=== PATIENT | male | born 1950 | race Caucasian/White ===

== ENCOUNTER 2016-11-14 10:58 | Emergency (ER) | payer MEDICARE, BC ==
[2016-11-14 11:22] VITALS: RESP 16
--- NOTE | 2016-11-14 15:17 | ED ---
General Adult HPI - General Chief complaint: Weakness Stated complaint: Fall-Hip Pain Time Seen by Provider: 11/14/16 15:08 Source: patient, family, RN notes reviewed Mode of arrival: wheelchair Limitations: no limitations - History of Present Illness Initial comments: Patient is a 66-year-old male who presents emergency room today with chief complaint of increased lower back and left hip pain. He does admit to a history of Parkinson has had some recent falls over the last 3 days. States he was moving backwards tripped on something falling down 3 days ago landing on the left hip area. States he had another fall yesterday morning as well where he landed on the left hip. States she's been able to ambulate but is having increased pain to the left hip. This worse with ambulation. He does admit to some history of sciatica as well. States he does have some pain to the lower back that seems to radiate to the left hip. He denies any head injury or loss consciousness. He denies any other complaints or associated symptoms. He states he does not use walker at home although he does have one. Patient denies any recent fever, chills, shortness of breath, chest pain, abdominal pain, nausea or vomiting, numbness or tingling, dysuria or hematuria, constipation or diarrhea, headaches or visual changes, or any other complaints. - Related Data Home Medications Medication Instructions Recorded Confirmed Amantadine HCl [Symmetrel] 100 mg PO BID 11/14/16 11/14/16 Insulin Glargine [Lantus] 45 unit SQ 11/14/16 11/14/16 Lisinopril [Zestril] 5 mg PO DAILY 11/14/16 11/14/16 Multivitamins, Thera [Multivitamin 1 tab PO DAILY 11/14/16 11/14/16 (formulary)] Naproxen Sodium [Aleve] 440 mg PO BID 11/14/16 11/14/16 Simvastatin [Zocor] 20 mg PO 11/14/16 11/14/16 Warfarin [Coumadin] 2.5 mg PO SUMOTUWETHSA 11/14/16 11/14/16 Warfarin [Coumadin] 10 mg PO 11/14/16 11/14/16 Warfarin [Coumadin] 10 mg PO SUMOTUWETHSA 11/14/16 11/14/16 glipiZIDE/METFORMIN HCL 1 tab PO BID 11/14/16 11/14/16 [glipiZIDE/METFORMIN HCL 5-500 mg] rOPINIRole HCL [Requip] 5 mg PO TID 11/14/16 11/14/16 sitaGLIPtin PHOSPHATE [Januvia] 100 mg PO DAILY 11/14/16 11/14/16 Allergies Allergy/AdvReac Type Severity Reaction Status Date / Time Iodine and Iodide Containing Allergy Rash/Hives Verified 11/14/16 15:12 Produc shellfish derived Allergy Rash/Hives Verified 11/14/16 15:12 Review of Systems ROS Statement: Those systems with pertinent positive or pertinent negative responses have been documented in the HPI. ROS Other: All systems not noted in ROS Statement are negative. Past Medical History Past Medical History: Diabetes Mellitus, Hypertension, Memory Impairment Additional Past Medical History / Comment(s): parkinsons, kidney stones History of Any Multi-Drug Resistant Organisms: None Reported Past Surgical History: Back Surgery Past Psychological History: No Psychological Hx Reported Smoking Status: Former smoker Past Alcohol Use History: None Reported Past Drug Use History: None Reported General Exam - General Exam Comments Initial Comments: General: The patient is awake and alert, in no distress, and does not appear acutely ill. Eye: Pupils are equal, round and reactive to light, extra-ocular movements are intact. No nystagmus. There is normal conjunctiva bilaterally. No signs of icterus. Ears, nose, mouth and throat: There are moist mucous membranes and no oral lesions. Neck: The neck is supple, there is no tenderness or JVD. Cardiovascular: There is a regular rate and rhythm. No murmur, rub or gallop is appreciated. Respiratory: Lungs are clear to auscultation, respirations are non-labored, breath sounds are equal. No wheezes, stridor, rales, or rhonchi. Musculoskeletal: Normal appearance of thoracic, lumbar spine. No step-offs forms appreciated. Mild tenderness at L3 to S1. Increased left lower paravertebral tenderness. Patient does have tenderness over the left hip, lateral aspect. Does have tenderness with log roll maneuver. There is no shortening or rotation of the left hip. No tenderness down into the left knee or ankle. Strength 5/5. Sensation intact. Pulses equal bilaterally 2+. Neurological: A&O x 3. CN II-XII intact, There are no obvious motor or sensory deficits. Coordination appears grossly intact. Speech is normal. Skin: Skin is warm and dry and no rashes or lesions are noted. Psychiatric: Cooperative, appropriate mood & affect, normal judgment. Limitations: no limitations Course Vital Signs 11/14/16 11:19 Temperature 97.5 F L Pulse Rate 83 Respiratory 16 Rate Blood Pressure 119/80 O2 Sat by Pulse 97 Oximetry Medical Decision Making - Medical Decision Making X-rays reviewed and are negative for any acute fracture dislocation. Results were discussed with the patient. Patient will be discharged home advised to use walker when up and moving around in follow-ups family doctor over the next 2 days. Disposition Clinical Impression: Contusion, hip Disposition: HOME SELF-CARE Condition: Good Instructions: Contusion in Adults (ED) Additional Instructions: Please use walker when up and moving around for more stability. Please follow- up with family doctor in the next 2 days of symptoms have not improved. Please return to emergency room if the symptoms increase or worsen or for any other concerns. Referrals: Kaleb Brower MD [Primary Care Provider] - 1-2 days Time of Disposition: 17:27
--- NOTE | 2016-11-14 16:01 | XR ---
EXAMINATION TYPE: XR lumbar spine 2 or 3V DATE OF EXAM: 11/14/2016 3:47 PM CLINICAL HISTORY: pain TECHNIQUE: Three views of the lumbar spine are submitted. COMPARISON: 04/14/2013 FINDINGS: Postsurgical changes of lumbar laminectomy with fusion extending from L2 through L5. Interconnecting pedicular screws are noted. Alignment is stable. Severe multilevel degenerative disc disease spondylo sis and facet joint arthropathy. No evidence for compression fracture. IMPRESSION: No acute fracture or dislocation is seen in the lumbar spine. ICD 10 NO FRACTURE, INITIAL EVALUATION
[2016-11-14 17:46] VITALS: BP 141/81; PULSE 77; TEMP 97
--- NOTE | 2016-11-15 09:29 | XR ---
EXAMINATION TYPE: XR Hip LT and AP Pelvis DATE OF EXAM: 11/14/2016 4:17 PM CLINICAL HISTORY: pain TECHNIQUE: AP and frogleg views of the left hip are obtained. COMPARISON: None. FINDINGS: There is no acute fracture/dislocation evident. The joint space appears mildly narrowed. . The overlying soft tissue appears unremarkable. Prostate seeds. Postoperative changes lumbar spine . IMPRESSION: 1. There is no acute fracture or dislocation.ICD 10 NO FRACTURE, INITIAL EVALUATION
== END 2016-11-14 17:57 | disposition home or self-care (01) ==
LOC: EC 10:58
DX: S70.02XA Contusion of left hip, initial encounter (principal); E11.9 Type 2 diabetes mellitus without complications; I10 Essential (primary) hypertension; G20 Parkinson's disease; Z98.890 Other specified postprocedural states; Z79.01 Long term (current) use of anticoagulants; Z79.4 Long term (current) use of insulin; Z79.84 Long term (current) use of oral hypoglycemic drugs; Z79.899 Other long term (current) drug therapy; Z91.013 Allergy to seafood; Z91.048 Other nonmedicinal substance allergy status; W01.0XXA Fall on same level from slipping, tripping and stumbling without subsequent striking against object, initial encounter
CPT/HCPCS: 72100; 73502; 99284

== ENCOUNTER 2016-12-19 13:29 | Emergency (ER) | payer MEDICARE, BC ==
[2016-12-19 14:20] LABS: Partial Thromboplastin Time 36.4 sec (22.0-30.0)
--- NOTE | 2016-12-19 14:20 | ED ---
Lower Extremity Injury HPI - General Chief Complaint: Extremity Injury, Lower Stated Complaint: left leg bruise Hx DVT Time Seen by Provider: 12/19/16 13:45 Source: patient, RN notes reviewed Mode of arrival: wheelchair Limitations: no limitations - History of Present Illness Initial Comments: 58-year-old male presents emergency Department chief complaint of left leg bruising. Patient states that he noticed yesterday worse today. Patient does not remember any injury though he states he is on Coumadin and has several bruises. Patient states that he's had several falls recently but nothing in the last week. Patient has been evaluated for these falls. Patient states the bruising extends from his left proximal thigh to his knee. Patient states it is sore. Denies any calf pain. Denies chest pain, first breath, headache, dizziness. Patient states he has not had his INR checked in over 6 weeks. Patient takes 12.5 of warfarin daily. - Related Data Home Medications Medication Instructions Recorded Confirmed Amantadine HCl [Symmetrel] 100 mg PO BID 11/14/16 12/19/16 Insulin Glargine [Lantus] 45 unit SQ HS 11/14/16 12/19/16 Lisinopril [Zestril] 5 mg PO DAILY 11/14/16 12/19/16 Multivitamins, Thera [Multivitamin 1 tab PO DAILY 11/14/16 12/19/16 (formulary)] Naproxen Sodium [Aleve] 440 mg PO BID 11/14/16 12/19/16 Simvastatin [Zocor] 20 mg PO HS 11/14/16 12/19/16 Warfarin [Coumadin] 2.5 mg PO SUMOTUWETHSA 11/14/16 12/19/16 Warfarin [Coumadin] 10 mg PO FR 11/14/16 12/19/16 Warfarin [Coumadin] 10 mg PO SUMOTUWETHSA 11/14/16 12/19/16 glipiZIDE/METFORMIN HCL 2 tab PO BID 11/14/16 12/19/16 [glipiZIDE/METFORMIN HCL 5-500 mg] rOPINIRole HCL [Requip] 5 mg PO TID 11/14/16 12/19/16 sitaGLIPtin PHOSPHATE [Januvia] 100 mg PO DAILY 11/14/16 12/19/16 Carbidopa-Levodopa ER 50-200Mg 2 tab PO BID@0700,1400 12/19/16 12/19/16 [Sinemet ER 50-200] Allergies Allergy/AdvReac Type Severity Reaction Status Date / Time Iodine and Iodide Containing Allergy Rash/Hives Verified 12/19/16 14:23 Produc shellfish derived Allergy Rash/Hives Verified 12/19/16 14:23 Review of Systems ROS Statement: Those systems with pertinent positive or pertinent negative responses have been documented in the HPI. ROS Other: All systems not noted in ROS Statement are negative. Past Medical History Past Medical History: Diabetes Mellitus, Hypertension, Memory Impairment Additional Past Medical History / Comment(s): parkinsons, kidney stones History of Any Multi-Drug Resistant Organisms: None Reported Past Surgical History: Back Surgery Past Psychological History: No Psychological Hx Reported Smoking Status: Former smoker Past Alcohol Use History: None Reported Past Drug Use History: None Reported General Exam Limitations: no limitations General appearance: alert, in no apparent distress Respiratory exam: Present: normal lung sounds bilaterally. Absent: respiratory distress, wheezes, rales, rhonchi, stridor Cardiovascular Exam: Present: regular rate, normal rhythm, normal heart sounds. Absent: systolic murmur, diastolic murmur, rubs, gallop, clicks GI/Abdominal exam: Present: soft, normal bowel sounds. Absent: distended, tenderness, guarding, rebound, rigid Extremities exam: Present: other (Left thigh from the proximal aspect there is a large area of ecchymosis noted that his mildly tender at the proximal region that extends down into the knee ) Neurological exam: Present: alert, oriented X3, CN II-XII intact, reflexes normal. Absent: motor sensory deficit Skin exam: Present: warm, dry, intact, normal color. Absent: rash Course Vital Signs 12/19/16 13:37 Temperature 97.5 F L Pulse Rate 83 Respiratory 18 Rate Blood Pressure 164/70 O2 Sat by Pulse 97 Oximetry Medical Decision Making - Medical Decision Making 66-year-old male presented for bruising to his left thigh. Patient's does take Coumadin and his INR is 5.3. Patient has not had it checked in 6 weeks. Patient is advised to hold his Coumadin 2 doses and have it rechecked with his PCP. He is also advised to have recheck of his left leg and to watch for any signs of skin breakdown. Patient will return if symptoms worsen or any other concerns. - Lab Data Lab Results 12/19/16 Range/Units 13:52 PT 52.7 H (9.0-12.0) sec INR 5.3 H* (<1.1) APTT 36.4 H (22.0-30.0) sec Disposition Clinical Impression: Hematoma of left thigh, Warfarin-induced coagulopathy Disposition: HOME SELF-CARE Condition: Stable Instructions: Contusion in Adults (ED) Additional Instructions: Please return to the Emergency Department if symptoms worsen or any other concerns. Have a recheck of your leg and of your INR with your PCP Referrals: Kaleb Brower MD [Primary Care Provider] - 1-2 days Time of Disposition: 14:50
[2016-12-19 14:24] LABS: Prothrombin Time 52.7 sec (9.0-12.0)
[2016-12-19 14:43] LABS: INR 5.3 (<1.1)
[2016-12-19 15:13] VITALS: BP 112/66; PULSE 82; RESP 16; TEMP 98.4
== END 2016-12-19 15:14 | disposition home or self-care (01) ==
LOC: EC 13:29
DX: S70.12XA Contusion of left thigh, initial encounter (principal); R79.1 Abnormal coagulation profile; T45.515A Adverse effect of anticoagulants, initial encounter; I10 Essential (primary) hypertension; E11.9 Type 2 diabetes mellitus without complications; G20 Parkinson's disease; Z86.718 Personal history of other venous thrombosis and embolism; Z79.01 Long term (current) use of anticoagulants; Z79.1 Long term (current) use of non-steroidal anti-inflammatories (NSAID); Z79.4 Long term (current) use of insulin; Z79.84 Long term (current) use of oral hypoglycemic drugs; Z91.013 Allergy to seafood; Z91.048 Other nonmedicinal substance allergy status; W19.XXXA Unspecified fall, initial encounter; Y92.009 Unspecified place in unspecified non-institutional (private) residence as the place of occurrence of the external cause
CPT/HCPCS: 36415; 85610; 85730; 99283

== ENCOUNTER 2016-12-20 11:56 | Emergency (ER) | payer MEDICARE, BC ==
--- NOTE | 2016-12-20 14:05 | ED ---
Extremity Problem HPI - General Chief complaint: Extremity Problem,Nontraumatic Stated complaint: leg pain and swelling Time Seen by Provider: 12/20/16 12:41 Source: family, RN notes reviewed Mode of arrival: wheelchair Limitations: no limitations - History of Present Illness Initial comments: Patient is a 66-year-old male presents to the emergency room for evaluation of left leg bruising and swelling. Patient's is present with patient. Patient's states that they're here yesterday for the same thing. Patient' s states patient takes Coumadin and his INR level was elevated yesterday. Patient's states that they were advised to discontinue the Coumadin and to be reevaluated by his primary care provider. Patient's states she noticed increasing swelling and bruising at the area so they called his primary care provider who advised that he come here to be reevaluated. Patient states he had increased bruising and swelling on the medial portion of his upper thigh. Patient states that he accidentally pulled a muscle in that area on Sunday. Patient states he noticed the bruising on Sunday. Patient denies paresthesias. Patient denies back pain. Patient denies fevers or chills. Patient denies headache or dizziness. Patient denies chest pain or shortness of breath. - Related Data Home Medications Medication Instructions Recorded Confirmed Amantadine HCl [Symmetrel] 100 mg PO BID 11/14/16 12/20/16 Insulin Glargine [Lantus] 45 unit SQ 11/14/16 12/20/16 Lisinopril [Zestril] 5 mg PO DAILY 11/14/16 12/20/16 Multivitamins, Thera [Multivitamin 1 tab PO DAILY 11/14/16 12/20/16 (formulary)] Naproxen Sodium [Aleve] 440 mg PO BID 11/14/16 12/20/16 Simvastatin [Zocor] 20 mg PO 11/14/16 12/20/16 Warfarin [Coumadin] 2.5 mg PO SUMOTUWETHSA 11/14/16 12/20/16 Warfarin [Coumadin] 10 mg PO 11/14/16 12/20/16 Warfarin [Coumadin] 10 mg PO SUMOTUWETHSA 11/14/16 12/20/16 glipiZIDE/METFORMIN HCL 2 tab PO BID 11/14/16 12/20/16 [glipiZIDE/METFORMIN HCL 5-500 mg] rOPINIRole HCL [Requip] 5 mg PO TID 11/14/16 12/20/16 sitaGLIPtin PHOSPHATE [Januvia] 100 mg PO DAILY 11/14/16 12/20/16 Carbidopa-Levodopa ER 50-200Mg 2 tab PO BID@0700,1400 12/19/16 12/20/16 [Sinemet ER 50-200] Allergies Allergy/AdvReac Type Severity Reaction Status Date / Time Iodine and Iodide Containing Allergy Rash/Hives Verified 12/20/16 12:57 Produc shellfish derived Allergy Rash/Hives Verified 12/20/16 12:57 Review of Systems ROS Statement: Those systems with pertinent positive or pertinent negative responses have been documented in the HPI. ROS Other: All systems not noted in ROS Statement are negative. Past Medical History Past Medical History: Diabetes Mellitus, Hypertension, Memory Impairment Additional Past Medical History / Comment(s): parkinsons, kidney stones History of Any Multi-Drug Resistant Organisms: None Reported Past Surgical History: Back Surgery Past Psychological History: No Psychological Hx Reported Smoking Status: Former smoker Past Alcohol Use History: None Reported Past Drug Use History: None Reported General Exam - General Exam Comments Initial Comments: Sitting in exam room, no acute distress. Limitations: no limitations General appearance: alert, in no apparent distress Head exam: Present: atraumatic, normocephalic, normal inspection Eye exam: Present: normal appearance, PERRL, EOMI Pupils: Present: normal accommodation ENT exam: Present: normal exam Neck exam: Present: normal inspection Respiratory exam: Present: normal lung sounds bilaterally. Absent: respiratory distress Cardiovascular Exam: Present: regular rate, normal rhythm, normal heart sounds Left Upper Leg exam: Present: tenderness, ecchymosis (Medial proximal thigh to the distal medial thigh). Absent: normal inspection Neurovascular tendon exam: Present: no vascular compromise. Absent: pulse deficit (2+ dorsal pedal and posterior tibial pulses), abnormal cap refill ( Capillary refill less than 2 seconds) Back exam: Present: normal inspection Neurological exam: Present: alert, oriented X3, CN II-XII intact Psychiatric exam: Present: normal affect, normal mood Skin exam: Present: warm, dry, intact, normal color. Absent: rash Course Vital Signs 12/20/16 12/20/16 12:19 14:54 Temperature 98.1 F 98.2 F Pulse Rate 80 82 Respiratory 18 20 Rate Blood Pressure 117/61 113/66 O2 Sat by Pulse 96 94 L Oximetry Medical Decision Making - Medical Decision Making Patient is a 66-year-old male presents to the emergency room for evaluation of left leg bruising and pain. INR down trended to 3.4. Patient advised to continue Coumadin tomorrow. Venous Doppler ultrasound left leg negative for DVT. Results discussed with patient and . They state they understand everything that was discussed with them. Return parameters discussed. Case discussed Dr. Way. - Lab Data Lab Results 12/20/16 Range/Units 13:44 PT 32.7 H (9.0-12.0) sec INR 3.4 (<1.1) - Radiology Data Radiology results: report reviewed, image reviewed Disposition Clinical Impression: Hematoma of left thigh Disposition: HOME SELF-CARE Condition: Good Instructions: Hematoma (ED) Additional Instructions: Begin taking Coumadin tomorrow. Elevate left leg as much as possible. Please follow up with primary care provider in 1-2 days for reevaluation. If any new symptom arises, symptoms worsen, return to ER as soon as possible. Referrals: Kaleb Brower MD [Primary Care Provider] - 1-2 days Time of Disposition: 14:35
--- NOTE | 2016-12-20 14:11 | US ---
EXAMINATION TYPE: US venous doppler duplex LE LT DATE OF EXAM: 12/20/2016 1:38 PM COMPARISON: US CLINICAL HISTORY: Pain. Left leg pain, swelling and bruising/ Pt has history of DVT left leg/ Pt rece ntly told to stop taking blood thinners due to bruising SIDE PERFORMED: Left TECHNIQUE: The lower extremity deep venous system is examined utilizing real time linear array sonog nico with graded compression, doppler sonography and color-flow sonography. VESSELS IMAGED: External Iliac Vein (EIV) Common Femoral Vein Deep Femoral Vein Greater Saphenous Vein * Femoral Vein Popliteal Vein Small Saphenous Vein * Proximal Calf Veins (* superficial vessels) Left Leg: Negative for acute DVT, chronic non-occluding thrombus visualized IMPRESSION: 1. No suspicious deep venous thrombosis left lower extremity.
[2016-12-20 14:19] LABS: INR 3.4 (<1.1); Prothrombin Time 32.7 sec (9.0-12.0)
[2016-12-20 14:55] VITALS: BP 113/66; PULSE 82; RESP 20; TEMP 98.2
== END 2016-12-20 14:55 | disposition home or self-care (01) ==
LOC: EC 11:56
DX: S70.12XA Contusion of left thigh, initial encounter (principal); E11.9 Type 2 diabetes mellitus without complications; I10 Essential (primary) hypertension; Z87.891 Personal history of nicotine dependence; Z79.01 Long term (current) use of anticoagulants; Z79.4 Long term (current) use of insulin; Z79.899 Other long term (current) drug therapy; Z91.013 Allergy to seafood; Z88.8 Allergy status to other drugs, medicaments and biological substances; X58.XXXA Exposure to other specified factors, initial encounter
CPT/HCPCS: 36415; 85610; 99284

== ENCOUNTER → 2016-12-28 | Outpatient (CLI) | payer MEDICARE, BC ==
--- NOTE | 2016-12-28 18:13 | US ---
EXAMINATION TYPE: US VENOUS DOPPLER DUPLEX LE LT DATE OF EXAM: 12/28/2016 5:52 PM COMPARISON: Prior 12/20/2016 CLINICAL HISTORY: History of LLE DVT. Patient takes blood thinners. Pain behind left knee SIDE PERFORMED: left TECHNIQUE: The lower extremity deep venous system is examined utilizing real time linear array sonog nico with graded compression, doppler sonography and color-flow sonography. VESSELS IMAGED: External Iliac Vein (EIV) Common Femoral Vein Deep Femoral Vein Greater Saphenous Vein * Femoral Vein Popliteal Vein Small Saphenous Vein * Proximal Calf Veins (* superficial vessels) IMPRESSION: 1. NO ACUTE THROMBUS VISUALIZED. 2. CHRONIC NONOCCLUSIVE THROMBUS VISUALIZED, NO CHANGE FROM PREVIOUS.
== END | disposition home or self-care (01) ==
LOC: RADUSMAIN 17:19
DX: I82.532 Chronic embolism and thrombosis of left popliteal vein (principal)

== ENCOUNTER 2017-02-20 10:34 | Day surgery (SDC) | payer MEDICARE, BC ==
[2017-02-15 11:23] VITALS: BMI 33.7
[~2017-02-20 10:34] MED LIST: LACTATED RINGERS 1,000 ML IV SCH; LIDOCAINE 1% 20 ML VIAL (10MG/ML) FOR IV START INTRADERMA PRN
[2017-02-20 12:00] VITALS: TEMP 96.3
[2017-02-20] MEDS: CYCLOPENTOLATE 1% OPHTH SOLN 2 ML BTL OP ONE ×3 (12:10→12:26)
[2017-02-20] MEDS: KETOROLAC 0.5% OPHTH DROPS 3 ML BTL OP ONE ×3 (12:12→12:28)
[2017-02-20 12:15] LABS: Glucose,Whole Blood 171 mg/dL (75-99)
[2017-02-20] MEDS: PHENYLEPHRINE 10% OPHTH DROPS 5 ML BTL OP ONE ×3 (12:15→12:30)
[2017-02-20 12:56] LABS: INR 2.2 (<1.2)
[2017-02-20] MEDS ORDERED: PROPOFOL 10 MG/ML 20 ML VIAL IV ONE (13:02)
[2017-02-20] MEDS ORDERED: diphenhydrAMINE 50 MG/ML 1 ML VIAL ONE (13:02)
[2017-02-20] MEDS ORDERED: BALANCED SALT IRRIG SOLN COMB2 15 ML IRRIG.SOLN INTRAOCULA ONE (13:07)
[2017-02-20] MEDS ORDERED: EPINEPHrine (PF) 0.5 ML in BALANCED SALT IRRIG SOLN COMB2 500 ML IRRIGATION ONE (13:08)
--- NOTE | 2017-02-20 13:27 | P.OP ---
Date of Procedure: 02/20/17 Preoperative Diagnosis: Postoperative Diagnosis: Procedure(s) Performed: PREOPERATIVE DIAGNOSIS: Cataract, right eye. POSTOPERATIVE DIAGNOSIS: Cataract, right eye. OPERATION: Phacoemulsification cataract, right eye. DESCRIPTION OF PROCEDURE: The patient was taken to the preoperative holding area. Intravenous Propofol was given so as to bring about adequate sedation. The following mixture was given for local anesthesia: 5 mL of 2% lidocaine, 5 mL of 0.75% Marcaine, and 1 mL of Wydase. Approximately 4 mL was injected in the retrobulbar space of the surgical eye. Additional 1 mL was then directed to the temporal area of the surgical eye. This was performed to allow adequate neurological block of the facial muscles. The patient was revived and then taken into the operative room. The patient was prepped and draped in the usual sterile manner for the operative eye. A lid speculum was put into position. The conjunctiva was resected back from the limbus in the 12 o'clock position. Bleeding was controlled with electrocautery. A #69 blade was then used and a half-thickness scleral incision approximately 1-mm posterior to the limbus was made on bare sclera. This was shelved in the clear cornea using a crescent knife. Next a 15-degree blade was used to make a stab incision at the 3 o' clock position at the corneolimbal interface. Keratome blade was then used and the superior wound was extended into the anterior chamber. Viscoelastic was injected into the anterior chamber and to maintain its form. Next, a cystotome was used and a continuous anterior capsulotomy was made without difficulty. Hydrodissection using a blunt cannula and BSS was performed. Phaco probe was then employed and a groove extending from 12 to 6 o'clock in the lens was created. A Romaine wand was used through the stab incision so as to perform a divide and conquer technique. Next an irrigation aspiration probe was utilized and any residual cortex was removed from the eye. Again, viscoelastic was injected into the anterior chamber. An Miles posterior chamber lens implant was placed in the cartridge and injected into the anterior chamber without difficulty. The Dropifiey hook was utilized to spin the lens into position and this was again performed without any difficulty. The irrigation and aspiration probe was again employed and any residual viscoelastic was removed from the eye. Then BSS was injected into the limbal stab incision and the anterior chamber re-inflated. The conjunctiva was reapproximated using electrocautery. One drop of 0.25% Timoptic was placed over the corneal along with TobraDex ophthalmic ointment. Two sterile patches and a Garza eye shield were taped into position. The patient was transported to the recovery room in stable condition. Implants: Pathology: none sent Condition: stable Disposition: same day Indications for Procedure: Operative Findings: Description of Procedure:
[2017-02-20 13:53] VITALS: BP 148/83; PULSE 71; RESP 16
[2017-02-20 14:03] LABS: Glucose,Whole Blood 134 mg/dL (75-99)
[2017-02-20] MEDS ORDERED: BUPIVACAINE (PF) 0.75% 5 ML, LIDOCAINE 4% (PF) 5 ML, HYALURONIDASE, HUMAN RECOMB 150 UNIT MISCELLANE ONE ×3 (23:00)
[2017-02-20] MEDS ORDERED: GENTAMICIN/PREDNISOL AC OPHTH OINT 3.5GM OPHTHALMIC ONE (23:00)
[2017-02-20] MEDS ORDERED: TIMOLOL 0.5% OPHTH SOLN (PF) 0.2 ML DROPERETTE OP ONE (23:00)
== END 2017-02-20 14:35 | disposition home or self-care (01) ==
LOC: OR 10:34
PROVIDERS: ATTEND Ophthalmology
DX: H26.9 Unspecified cataract (principal); E11.9 Type 2 diabetes mellitus without complications; I10 Essential (primary) hypertension; Z88.3 Allergy status to other anti-infective agents; Z79.01 Long term (current) use of anticoagulants; Z79.84 Long term (current) use of oral hypoglycemic drugs; Z79.4 Long term (current) use of insulin; Z79.899 Other long term (current) drug therapy; G20 Parkinson's disease
CPT/HCPCS: 85610; 66984; V2632; J2001; J3470; J1200; J0171; J2704

== ENCOUNTER → 2017-08-22 | Outpatient (CLI) | payer MEDICARE, BC ==
[2017-08-22 09:55] LABS: INR 1.5 (<1.2); Prothrombin Time 13.8 sec (9.0-12.0)
== END | disposition home or self-care (01) ==
LOC: LABWHC1 09:19
PROVIDERS: ATTEND Dentist Oral and Maxillofacial Surgery
DX: D68.9 Coagulation defect, unspecified (principal)
CPT/HCPCS: 36415; 85610

== ENCOUNTER → 2017-09-25 | Outpatient (CLI) | payer MEDICARE, BC ==
[2017-09-25 08:21] LABS: Basophils % (A) 1 %; Eosinophils # (A) 0.2 k/uL (0-0.7); Eosinophils % (A) 3 %; HCT 48.3 % (39.0-53.0); HGB 15.9 gm/dL (13.0-17.5); Lymphocytes # (A) 1.4 k/uL (1.0-4.8); Lymphocytes % (A) 28 %; MCH 31.1 pg (25.0-35.0); MCHC 32.8 g/dL (31.0-37.0); MCV 94.7 fL (80.0-100.0); Mean Platelet Volume 7.3; Monocytes # (A) 0.4 k/uL (0-1.0); Monocytes % (A) 8 %; Neutrophils # (A) 2.9 k/uL (1.3-7.7); Neutrophils % (A) 57 %; Platelet Count 249 k/uL (150-450); RBC 5.11 m/uL (4.30-5.90); RDW 12.7 % (11.5-15.5)
[2017-09-25 08:27] LABS: INR 1.5 (<1.2); Prothrombin Time 14.3 sec (9.0-12.0)
[2017-09-25 08:41] LABS: ALT 22 U/L (21-72); AST 16 U/L (17-59); Albumin 3.7 g/dL (3.5-5.0); Alkaline Phosphatase 119 U/L (38-126); Anion Gap 11 mmol/L; Blood Urea Nitrogen 17 mg/dL (9-20); Calcium 9.3 mg/dL (8.4-10.2); Carbon Dioxide 27 mmol/L (22-30); Chloride 106 mmol/L (98-107); Cholesterol 178 mg/dL (<200); Glucose 116 mg/dL (74-99); HDL Cholesterol 33 mg/dL (40-60); LDL Cholesterol,Calculated 119 mg/dL (0-99); Potassium 5.1 mmol/L (3.5-5.1); Sodium 144 mmol/L (137-145); Total Protein 6.5 g/dL (6.3-8.2); Triglycerides 131 mg/dL (<150)
[2017-09-25 19:39] LABS: Hemoglobin A1C 8.6 % (4.0-6.0)
== END | disposition home or self-care (01) ==
LOC: LABWHC1 07:32
PROVIDERS: ATTEND Nurse Practitioner Primary Care
DX: E78.5 Hyperlipidemia, unspecified (principal); D68.9 Coagulation defect, unspecified; E11.65 Type 2 diabetes mellitus with hyperglycemia
CPT/HCPCS: 36415; 80053; 80061; 83036; 84443; 85025; 85610

== ENCOUNTER → 2018-01-25 | Outpatient (CLI) | payer MEDICARE, BC ==
[2018-01-25 09:06] LABS: INR 3.9 (<1.2); Prothrombin Time 35.1 sec (9.0-12.0)
[2018-01-25 09:14] LABS: HCT 47.4 % (39.0-53.0); HGB 15.5 gm/dL (13.0-17.5); MCH 31.9 pg (25.0-35.0); MCHC 32.7 g/dL (31.0-37.0); MCV 97.5 fL (80.0-100.0); Mean Platelet Volume 6.7; Platelet Count 212 k/uL (150-450); RBC 4.86 m/uL (4.30-5.90); WBC 5.3 k/uL (3.8-10.6)
[2018-01-25 09:30] LABS: ALT 15 U/L (21-72); AST 16 U/L (17-59); Albumin 3.9 g/dL (3.5-5.0); Alkaline Phosphatase 105 U/L (38-126); Anion Gap 11 mmol/L; Blood Urea Nitrogen 17 mg/dL (9-20); Calcium 9.1 mg/dL (8.4-10.2); Carbon Dioxide 24 mmol/L (22-30); Chloride 106 mmol/L (98-107); Cholesterol 122 mg/dL (<200); Glucose 85 mg/dL (74-99); HDL Cholesterol 28 mg/dL (40-60); LDL Cholesterol,Calculated 63 mg/dL (0-99); Potassium 4.6 mmol/L (3.5-5.1); Sodium 141 mmol/L (137-145); Total Bilirubin 0.8 mg/dL (0.2-1.3); Total Protein 6.5 g/dL (6.3-8.2); Triglycerides 154 mg/dL (<150)
[2018-01-25 10:35] LABS: Basophils # (M) 0.11 k/uL (0-0.2); Lymphocytes # (M) 1.38 k/uL (1.0-4.8); Neutrophils # (M) 3.02 k/uL (1.3-7.7); Neutrophils % (M) 57 %; Nucleated Red Blood Cells 0 /100 WBC (0-0); Total Cells Counted 100
[2018-01-25 18:09] LABS: Hemoglobin A1C 9.2 % (4.0-6.0)
== END | disposition home or self-care (01) ==
LOC: LABWHC1 08:06
PROVIDERS: ATTEND Nurse Practitioner Primary Care
DX: E11.65 Type 2 diabetes mellitus with hyperglycemia (principal); D68.9 Coagulation defect, unspecified
CPT/HCPCS: 36415; 80053; 80061; 83036; 85025; 85610

== ENCOUNTER → 2018-03-28 | Outpatient (CLI) | payer MEDICARE, BC ==
--- NOTE | 2018-03-28 16:13 | US ---
EXAMINATION TYPE: US kidneys/renal and bladder DATE OF EXAM: 03/28/2018 COMPARISON: CT 2014 CLINICAL HISTORY: 67-year-old male R31.9 Hematuria. Hx prostate CA , seeded for treatment years ago. Technique: Multiple sonographic images of the kidneys and bladder are obtained. FINDINGS: Administrative Support Specialist notes: Large body habitus. Bladder scanned by JT after trying to fill for 1 hr EXAM MEASUREMENTS: Right Kidney: 11.5 x 6.2 x 5.0 cm Left Kidney: 12.3 x 4.6 x 5.6 cm Post Void Residual Volume: 1.8 mL No hydronephrosis on either side. Punctate echogenic foci present bilaterally. Bladder: Collapsed despite patient drinking for 1 hr in attempt to fill) Bilateral Jets seen: not seen IMPRESSION: 1. No hydronephrosis. Patient drank for one hour in an attempt to fill the bladder. The bladder remai jayy collapsed. Correlate for possible acute kidney injury 2. No hydronephrosis. 3. Punctate nonobstructive calculi on both sides.
== END | disposition home or self-care (01) ==
LOC: RADUSWWP 08:55
PROVIDERS: ATTEND Urology
DX: N20.0 Calculus of kidney (principal)
CPT/HCPCS: 76770

== ENCOUNTER 2018-06-03 19:30 | Observation (INO) | payer MEDICARE, BC ==
--- NOTE | 2018-06-03 20:28 | ED ---
General Adult HPI - General Chief complaint: Chest Pain Stated complaint: Chest pain Source: patient, family Mode of arrival: wheelchair Limitations: no limitations - History of Present Illness Initial comments: Dictation was produced using [employer] dictation software. please excuse any grammatical, word or spelling errors. Chief Complaint: 67-year-old male with past medical history of Parkinson's disease presents with chest pain. History of Present Illness: Patient is a 67-year-old male with past medical history of chest pain. Patient states the pain is to his right anterior chest. He states that it is sharp. Nonradiating in nature. Patient states his pain is worse with deep inspiration. Patient states he otherwise does not have any chest pain. He goes on to mention that approximately one month ago he was hunting when he tripped and fell. He was having some pain for several days however it resolved spontaneously. Reports that his pain today is different from the pain he experienced after the fall. Patient has history of deep venous thrombosis. Patient is on Coumadin for DVT or PE prophylaxis. He denies any shortness of breath. The ROS documented in this emergency department record has been reviewed and confirmed by me. Those systems with pertinent positive or negative responses have been documented in the HPI. All other systems are other negative and/or noncontributory. - Related Data Home Medications Medication Instructions Recorded Confirmed Amantadine HCl [Symmetrel] 100 mg PO BID 11/14/16 06/03/18 Insulin Glargine [Lantus] 50 unit SQ HS 11/14/16 06/03/18 Lisinopril [Zestril] 5 mg PO DAILY 11/14/16 06/03/18 Naproxen Sodium [Aleve] 440 mg PO BID 11/14/16 06/03/18 Simvastatin [Zocor] 20 mg PO HS 11/14/16 06/03/18 Warfarin [Coumadin] 2.5 mg PO SUMOTUWETHSA 11/14/16 06/03/18 Warfarin [Coumadin] 10 mg PO FR 11/14/16 06/03/18 glipiZIDE/METFORMIN HCL 2 tab PO BID 11/14/16 06/03/18 [glipiZIDE/METFORMIN HCL 5-500 mg] sitaGLIPtin PHOSPHATE [Januvia] 100 mg PO DAILY 11/14/16 06/03/18 Carbidopa-Levodopa ER 50-200Mg 2 tab PO BID@0700,1400 12/19/16 06/03/18 [Sinemet ER 50-200] rOPINIRole HCL [rOPINIRole HCL ER] 8 mg PO BID 02/15/17 06/03/18 Allergies Allergy/AdvReac Type Severity Reaction Status Date / Time Iodine and Iodide Containing Allergy Rash/Hives Verified 06/03/18 20:24 Produc shellfish derived Allergy Rash/Hives Verified 06/03/18 20:24 paper tape AdvReac see comment Uncoded 06/03/18 19:39 Review of Systems ROS Statement: Those systems with pertinent positive or pertinent negative responses have been documented in the HPI. ROS Other: All systems not noted in ROS Statement are negative. Past Medical History Past Medical History: Cancer, Diabetes Mellitus, Deep Vein Thrombosis (DVT), Eye Disorder, Hyperlipidemia, Hypertension, Memory Impairment, Neurologic Disorder, Osteoarthritis (OA) Additional Past Medical History / Comment(s): Parkinsons. Hx kidney stones, prostate, colon and skin cancer. History of Any Multi-Drug Resistant Organisms: None Reported Past Surgical History: Back Surgery Additional Past Surgical History / Comment(s): Left cataract surgery, bowel surgery for colon cancer, skin cancer removed. Past Anesthesia/Blood Transfusion Reactions: No Reported Reaction Past Psychological History: No Psychological Hx Reported Smoking Status: Former smoker Past Alcohol Use History: Rare Past Drug Use History: None Reported - Past Family History Mother Family Medical History: Cancer Additional Family Medical History / Comment(s): Colon Father Family Medical History: Cancer Additional Family Medical History / Comment(s): Prostate General Exam - General Exam Comments Initial Comments: PHYSICAL EXAM: General Impression: Alert and oriented x3, not in acute distress HEENT: Normocephalic atraumatic, extra-ocular movements intact, pupils equal and reactive to light bilaterally, mucous membranes moist. Cardiovascular: Heart regular rate and rhythm, S1&S2 audible, no murmurs, rubs or gallops Chest: Lungs clear to auscultation bilaterally, no rhonchi, no wheeze, no rales Abdomen: Bowel sounds present, abdomen soft, non-tender, non-distended, no organomegaly Musculoskeletal: Pulses present and equal in all extremities, no peripheral edema Motor: Power 5/5 bilaterally, no focal deficits noted Neurological: CN II-XII grossly intact, no focal motor or sensory deficits noted Skin: Intact with no visualized rashes Psych: Normal affect and mood Limitations: no limitations Course Vital Signs 06/03/18 06/03/18 19:39 21:06 Temperature 98 F Pulse Rate 76 71 Respiratory 18 18 Rate Blood Pressure 144/87 149/76 O2 Sat by Pulse 97 97 Oximetry Medical Decision Making - Medical Decision Making ED course: 67-year-old male with chief complaint of chest pain. Vital signs upon arrival are within acceptable limits. EKG does not show any signs of ischemia or STEMI. Patient's HPI is consistent with atypical chest pain with typical features. Laboratory evaluation obtained. CBC unremarkable. Coag panel unremarkable. Metabolic panel is unremarkable. Cardiac enzymes are negative. EKG Interpretation: A 12 lead EKG was obtained. It was interpreted by myself and attending physician. There is a P wave before every QRS complex. Rate is 74. Rhythm is normal sinus rhythm,. Interval 156, QRS 82, QTc 432. QT is not prolonged. No ST segment depression or elevation. . Overall, this EKG is unremarkable - Lab Data Result diagrams: 06/03/18 20:20 06/03/18 20:20 Lab Results 06/03/18 06/03/18 06/03/18 Range/Units 20:20 20:20 20:20 WBC 7.1 (3.8-10.6) k/uL RBC 4.65 (4.30-5.90) m/uL Hgb 14.8 (13.0-17.5) gm/dL Hct 44.1 (39.0-53.0) % MCV 94.8 (80.0-100.0) fL MCH 31.8 (25.0-35.0) pg MCHC 33.5 (31.0-37.0) g/dL RDW 12.6 (11.5-15.5) % Plt Count 207 (150-450) k/uL Neutrophils % 67 % Lymphocytes % 19 % Monocytes % 7 % Eosinophils % 3 % Basophils % 0 % Neutrophils # 4.8 (1.3-7.7) k/uL Lymphocytes # 1.4 (1.0-4.8) k/uL Monocytes # 0.5 (0-1.0) k/uL Eosinophils # 0.2 (0-0.7) k/uL Basophils # 0.0 (0-0.2) k/uL PT (9.0-12.0) sec INR (<1.2) APTT (22.0-30.0) sec Sodium 138 (137-145) mmol/L Potassium 4.7 (3.5-5.1) mmol/L Chloride 106 (98-107) mmol/L Carbon Dioxide 23 (22-30) mmol/L Anion Gap 9 mmol/L BUN 18 (9-20) mg/dL Creatinine 0.77 (0.66-1.25) mg/dL Est GFR (CKD-EPI)AfAm >90 (>60 ml/min/1.73 sqM) Est GFR (CKD-EPI)NonAf >90 (>60 ml/min/1.73 sqM) Glucose 216 H (74-99) mg/dL Calcium 9.3 (8.4-10.2) mg/dL Magnesium 1.6 (1.6-2.3) mg/dL Total Bilirubin 0.6 (0.2-1.3) mg/dL AST 17 (17-59) U/L ALT 19 L (21-72) U/L Alkaline Phosphatase 143 H (38-126) U/L Total Creatine Kinase 101 (55-170) U/L CK-MB (CK-2) 3.8 H (0.0-2.4) ng/mL CK-MB (CK-2) Rel Index 3.8 Troponin I <0.012 (0.000-0.034) ng/mL Total Protein 6.4 (6.3-8.2) g/dL Albumin 3.5 (3.5-5.0) g/dL Lipase 48 (23-300) U/L 06/03/18 Range/Units 20:20 WBC (3.8-10.6) k/uL RBC (4.30-5.90) m/uL Hgb (13.0-17.5) gm/dL Hct (39.0-53.0) % MCV (80.0-100.0) fL MCH (25.0-35.0) pg MCHC (31.0-37.0) g/dL RDW (11.5-15.5) % Plt Count (150-450) k/uL Neutrophils % % Lymphocytes % % Monocytes % % Eosinophils % % Basophils % % Neutrophils # (1.3-7.7) k/uL Lymphocytes # (1.0-4.8) k/uL Monocytes # (0-1.0) k/uL Eosinophils # (0-0.7) k/uL Basophils # (0-0.2) k/uL PT 15.1 H (9.0-12.0) sec INR 1.6 H (<1.2) APTT 25.4 (22.0-30.0) sec Sodium (137-145) mmol/L Potassium (3.5-5.1) mmol/L Chloride (98-107) mmol/L Carbon Dioxide (22-30) mmol/L Anion Gap mmol/L BUN (9-20) mg/dL Creatinine (0.66-1.25) mg/dL Est GFR (CKD-EPI)AfAm (>60 ml/min/1.73 sqM) Est GFR (CKD-EPI)NonAf (>60 ml/min/1.73 sqM) Glucose (74-99) mg/dL Calcium (8.4-10.2) mg/dL Magnesium (1.6-2.3) mg/dL Total Bilirubin (0.2-1.3) mg/dL AST (17-59) U/L ALT (21-72) U/L Alkaline Phosphatase (38-126) U/L Total Creatine Kinase (55-170) U/L CK-MB (CK-2) (0.0-2.4) ng/mL CK-MB (CK-2) Rel Index Troponin I (0.000-0.034) ng/mL Total Protein (6.3-8.2) g/dL Albumin (3.5-5.0) g/dL Lipase (23-300) U/L Disposition Clinical Impression: Chest pain Disposition: ADMITTED IP TO THIS [facility] Condition: Good Referrals: Brandon Bryant MD [Medical Doctor] - 1-2 days Decision Time: 23:15
[2018-06-03] MEDS ORDERED: ASPIRIN 81 MG PO STA (20:30)
[2018-06-03 20:59] LABS: Basophils % (A) 0 %; Eosinophils # (A) 0.2 k/uL (0-0.7); Eosinophils % (A) 3 %; HCT 44.1 % (39.0-53.0); HGB 14.8 gm/dL (13.0-17.5); Lymphocytes # (A) 1.4 k/uL (1.0-4.8); Lymphocytes % (A) 19 %; MCH 31.8 pg (25.0-35.0); MCHC 33.5 g/dL (31.0-37.0); MCV 94.8 fL (80.0-100.0); Monocytes # (A) 0.5 k/uL (0-1.0); Monocytes % (A) 7 %; Neutrophils # (A) 4.8 k/uL (1.3-7.7); Neutrophils % (A) 67 %; Platelet Count 207 k/uL (150-450); RBC 4.65 m/uL (4.30-5.90); RDW 12.6 % (11.5-15.5); WBC 7.1 k/uL (3.8-10.6)
[2018-06-03 21:10] LABS: INR 1.6 (<1.2); Partial Thromboplastin Time 25.4 sec (22.0-30.0); Prothrombin Time 15.1 sec (9.0-12.0)
[2018-06-03 21:11] LABS: ALT 19 U/L (21-72); AST 17 U/L (17-59); Albumin 3.5 g/dL (3.5-5.0); Alkaline Phosphatase 143 U/L (38-126); Anion Gap 9 mmol/L; Blood Urea Nitrogen 18 mg/dL (9-20); Calcium 9.3 mg/dL (8.4-10.2); Carbon Dioxide 23 mmol/L (22-30); Chloride 106 mmol/L (98-107); Glucose 216 mg/dL (74-99); Lipase 48 U/L (23-300); Magnesium 1.6 mg/dL (1.6-2.3); Potassium 4.7 mmol/L (3.5-5.1); Sodium 138 mmol/L (137-145); Total Bilirubin 0.6 mg/dL (0.2-1.3); Total Protein 6.4 g/dL (6.3-8.2)
[2018-06-03 21:19] LABS: Creatine Kinase 101 U/L (55-170)
[2018-06-03 21:32] LABS: Creatine Kinase MB 3.8 ng/mL (0.0-2.4); Troponin I <0.012 ng/mL (0.000-0.034)
[2018-06-03] MEDS ORDERED: NITROGLYCERIN SL TABS 0.4 MG TAB SUBLINGUAL PRN (23:12)
[2018-06-04 00:12] VITALS: BMI 34.4
--- NOTE | 2018-06-04 00:13 | XR ---
EXAM: XR Chest, 2 Views CLINICAL HISTORY: Reason: Chest Pain TECHNIQUE: Frontal and lateral views of the chest. COMPARISON: None available FINDINGS: Lungs: Lungs are clear focal infiltrates or consolidations. Pleural space: No evidence of pleural effusion or pneumothorax. Heart: Heart size is within normal limits. Mediastinum: Mediastinal structures are unremarkable. Bones/joints: Moderately displaced fracture involving posterior lateral right fifth rib of indeterminate age-possibly acute. Prominent hypertrophic degenerative changes throughout the mid and lower thoracic spine raising possibility of DISH. IMPRESSION: No evidence of acute cardiopulmonary disease. Displaced posterior-lateral right fifth rib fracture of indeterminate age-possibly acute.
[2018-06-04 03:15] LABS: Creatine Kinase 73 U/L (55-170)
[2018-06-04 03:29] LABS: Creatine Kinase MB 2.6 ng/mL (0.0-2.4); Troponin I <0.012 ng/mL (0.000-0.034)
[2018-06-04 06:38] LABS: Glucose,Whole Blood 213 mg/dL (75-99)
[2018-06-04 07:25] VITALS: RESP 18
--- NOTE | 2018-06-04 08:44 | P.CRDCN ---
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 He denies history of coronary artery disease. We have been asked to see him in consultation for chest pain. He states a few weeks ago while walking in the [place] he suffered a trip and fall falling forward landing on the anterior portion of his torso. Since that time he has felt a discomfort in his chest that starts in the right anterior region over his breast bone radiating to the left side at times. The pain is worse with palpation, worse when he has to cough or sneeze and worse when he takes a very deep breath. X-ray obtained on this admission reveals evidence of a displaced posterior lateral right fifth rib fracture. He denies associated shortness of breath, dizziness, palpitations , nausea, vomiting or diaphoresis. He states he has undergone stress testing in the past but it is been many years. EKG reveals sinus mechanism with poor R-wave progression. Laboratory data reviewed, WBC 7.1, hemoglobin 14.8, INR 1.6, sodium 138, potassium 4.7, creatinine 0.77, magnesium 1.6, cardiac enzymes negative 2. Current cardiac medications include lisinopril 5 mg daily, simvastatin 20 mg daily. He also takes Januvia, ropinirole, glipizide, metformin, Coumadin, naproxen, Lantus, Sinemet and amantadine. At the time of my exam: CONSTITUTIONAL: Denies fever. Denies chills. EYES: Denies blurred vision. Denies vision changes. Denies eye pain. EARS, NOSE, MOUTH & THROAT: Denies headache. Denies sore throat. Denies ear pain. CARDIOVASCULAR: Denies chest pain. Denies shortness of breath. Denies orthopnea. Denies PND. Denies palpitations. RESPIRATORY: Denies cough. GASTROINTESTINAL: Denies abdominal pain. Denies diarrhea. Denies constipation. Denies nausea. Denies vomiting. MUSCULOSKELETAL: Complains of pleuritic chest pain worse on the right. INTEGUMENTARY: Denies pruitis. Denies rash. NEUROLOGIC: Denies numbness. Denies tingling. Denies weakness. PSYCHIATRIC: Denies anxiety. Denies depression. ENDOCRINE: Denies fatigue. Denies weight change. Denies polydipsia. Denies polyurina. GENITOURINARY: Denies burning, hematuria or urgency with micturation. HEMATOLOGIC: Denies history of anemia. Denies bleeding. Blood pressure 165/76 heart rate 68 afebrile maintaining oxygen saturation on room air GENERAL: This is a 67-year-old male in no apparent distress at the time of my examination. HEENT: Head is atraumatic, normocephalic. Pupils are equal, round. Sclerae anicteric. Conjunctivae are clear. Mucous membranes of the mouth are moist. Neck is supple. There is no jugular venous distention. No carotid bruit is heard. LUNGS: Clear to auscultation no wheezes, rales or rhonchi. No chest wall tenderness is noted on palpation or with deep breathing. HEART: Regular rate and rhythm without murmurs, rubs or gallops. S1 and S2 heard. ABDOMEN: Soft, nontender. Bowel sounds are heard. No organomegaly noted. EXTREMITIES: No evidence of peripheral edema and no calf tenderness noted. VASCULAR: Radial and dorsalis pedis pulses palpated, no evidence of clubbing. NEUROLOGIC: Patient is awake, alert and oriented x3. ASSESSMENT Pleuritic chest discomfort status post fall with evidence of right fifth rib fracture Hypertension Dyslipidemia Diabetes mellitus Parkinson's disease History of DVT on long-term anticoagulation PLAN An acute coronary event has been ruled out with no EKG evidence of acute ischemia and negative cardiac enzymes. Obtain 2-D echocardiogram and Doppler study to assess cardiac structure and function. Pain is atypical for angina, reproducible and most likely related to rib fracture and fall. Recommend treating with anti-inflammatory pain medication and rest. Once he is healed from his rib fracture he can follow-up in the office with Dr. Doherty undergo outpatient stress testing. Thank you kindly for this consultation. Nurse Practitioner note has been reviewed, I agree with a documented findings and plan of care. Patient was seen and examined. Past Medical History Past Medical History: Cancer, Diabetes Mellitus, Deep Vein Thrombosis (DVT), Eye Disorder, Hyperlipidemia, Hypertension, Memory Impairment, Neurologic Disorder, Osteoarthritis (OA) Additional Past Medical History / Comment(s): Parkinsons. Hx kidney stones, prostate, colon and skin cancer. History of Any Multi-Drug Resistant Organisms: None Reported Past Surgical History: Back Surgery Additional Past Surgical History / Comment(s): Left cataract surgery, bowel surgery for colon cancer, skin cancer removed. seeds for prostate Past Anesthesia/Blood Transfusion Reactions: No Reported Reaction Past Psychological History: No Psychological Hx Reported Smoking Status: Former smoker Past Alcohol Use History: Rare Additional Past Alcohol Use History / Comment(s): . Past Drug Use History: None Reported - Past Family History Mother Family Medical History: Cancer Additional Family Medical History / Comment(s): Colon Father Family Medical History: Cancer Additional Family Medical History / Comment(s): Prostate Medications and Allergies Home Medications Medication Instructions Recorded Confirmed Type Amantadine HCl [Symmetrel] 100 mg PO BID 11/14/16 06/03/18 History Insulin Glargine [Lantus] 50 unit SQ HS 11/14/16 06/03/18 History Lisinopril [Zestril] 5 mg PO DAILY 11/14/16 06/03/18 History Naproxen Sodium [Aleve] 440 mg PO BID 11/14/16 06/03/18 History Simvastatin [Zocor] 20 mg PO HS 11/14/16 06/03/18 History Warfarin [Coumadin] 2.5 mg PO SUMOTUWETHSA 11/14/16 06/03/18 History Warfarin [Coumadin] 10 mg PO FR 11/14/16 06/03/18 History glipiZIDE/METFORMIN HCL 2 tab PO BID 11/14/16 06/03/18 History [glipiZIDE/METFORMIN HCL 5-500 mg] sitaGLIPtin PHOSPHATE [Januvia] 100 mg PO DAILY 11/14/16 06/03/18 History Carbidopa-Levodopa ER 50-200Mg 2 tab PO BID@0700,1400 12/19/16 06/03/18 History [Sinemet ER 50-200] rOPINIRole HCL [rOPINIRole HCL ER] 8 mg PO BID 02/15/17 06/03/18 History Allergies Allergy/AdvReac Type Severity Reaction Status Date / Time Iodine and Iodide Containing Allergy Rash/Hives Verified 06/03/18 20:24 Produc shellfish derived Allergy Rash/Hives Verified 06/03/18 20:24 paper tape AdvReac see comment Uncoded 06/03/18 19:39 Physical Exam Vitals: Vital Signs Temp Pulse Pulse Resp BP BP Pulse Ox 06/04/18 07:15 97.3 F L 68 18 165/76 95 06/04/18 04:00 16 06/04/18 03:27 98.6 F 69 16 150/76 94 L 06/04/18 01:30 153/78 06/04/18 00:00 98.0 F 70 16 179/90 97 06/03/18 23:39 97.4 F L 66 18 147/87 06/03/18 21:06 71 18 149/76 97 06/03/18 19:39 98 F 76 18 144/87 97 Intake and Output 06/03/18 06/04/18 06/04/18 22:59 06:59 14:59 Other: # Voids 2 Weight 108.862 kg 108.862 kg Results 06/03/18 20:20 06/03/18 20:20 Cardiac Enzymes 06/03/18 06/03/18 06/04/18 Range/Units 20:20 20:20 02:29 AST 17 (17-59) U/L CK-MB (CK-2) 3.8 H 2.6 H (0.0-2.4) ng/mL Troponin I <0.012 <0.012 (0.000-0.034) ng/mL Coagulation 06/03/18 Range/Units 20:20 PT 15.1 H (9.0-12.0) sec APTT 25.4 (22.0-30.0) sec CBC 06/03/18 Range/Units 20:20 WBC 7.1 (3.8-10.6) k/uL RBC 4.65 (4.30-5.90) m/uL Hgb 14.8 (13.0-17.5) gm/dL Hct 44.1 (39.0-53.0) % Plt Count 207 (150-450) k/uL Comprehensive Metabolic Panel 06/03/18 Range/Units 20:20 Sodium 138 (137-145) mmol/L Potassium 4.7 (3.5-5.1) mmol/L Chloride 106 (98-107) mmol/L Carbon Dioxide 23 (22-30) mmol/L BUN 18 (9-20) mg/dL Creatinine 0.77 (0.66-1.25) mg/dL Glucose 216 H (74-99) mg/dL Calcium 9.3 (8.4-10.2) mg/dL AST 17 (17-59) U/L ALT 19 L (21-72) U/L Alkaline Phosphatase 143 H (38-126) U/L Total Protein 6.4 (6.3-8.2) g/dL Albumin 3.5 (3.5-5.0) g/dL Current Medications Generic Name Dose Route Start Last Admin Trade Name Freq PRN Reason Stop Dose Admin Aspirin 325 mg 06/04/18 09:00 Aspirin PO DAILY LEXIE Lisinopril 5 mg 06/04/18 09:00 Zestril PO DAILY LEXIE Nitroglycerin 0.4 mg 06/03/18 23:12 Nitrostat SUBLINGUAL Q5M PRN Chest Pain Intake and Output 06/03/18 06/04/18 06/04/18 22:59 06:59 14:59 Other: # Voids 2 Weight 108.862 kg 108.862 kg 06/03/18 20:20 06/03/18 20:20
[2018-06-04] MEDS ORDERED: ASPIRIN 325 MG TAB PO SCH (09:00)
[2018-06-04] MEDS ORDERED: LISINOPRIL 5 MG TAB PO SCH (09:00)
[2018-06-04 09:19] LABS: Cholesterol 149 mg/dL (<200); HDL Cholesterol 30 mg/dL (40-60); LDL Cholesterol,Calculated 94 mg/dL (0-99); Triglycerides 125 mg/dL (<150)
[2018-06-04 09:35] LABS: Creatine Kinase 59 U/L (55-170)
[2018-06-04 09:49] LABS: Creatine Kinase MB 2.1 ng/mL (0.0-2.4); Troponin I <0.012 ng/mL (0.000-0.034)
[2018-06-04] MEDS ORDERED: AMANTADINE HCL 100 MG CAP PO SCH (10:30)
[2018-06-04] MEDS ORDERED: LINAGLIPTIN 5 MG TABLET PO SCH (10:30)
[2018-06-04] MEDS ORDERED: rOPINIRole HCL 4 MG TABLET PO SCH (10:30)
[2018-06-04 10:57] LABS: INR 1.5 (<1.2); Prothrombin Time 13.8 sec (9.0-12.0)
--- NOTE | 2018-06-04 11:24 | ECHOF ---
Referral Reason:cp MEASUREMENTS -------- HEIGHT: 180.3 cm WEIGHT: 108.9 kg BP: 165/76 RVIDd: 3.3 cm (< 3.3) IVSd: 1.1 cm (0.6 - 1.1) LVIDd: 4.9 cm (3.9 - 5.3) LVPWd: 1.5 cm (0.6 - 1.1) IVSs: 1.8 cm LVIDs: 2.7 cm LVPWs: 2.0 cm Ao Diam: 3.5 cm (2.0 - 3.7) AV Cusp: 1.3 cm (1.5 - 2.6) LA Diam: 3.2 cm (2.7 - 3.8) MV EXCURSION: 20.694 mm (> 18.000) MV EF SLOPE: 44 mm/s (70 - 150) EPSS: 0.4 cm MV E David: 0.44 m/s MV DecT: 257 ms MV A David: 0.66 m/s MV E/A Ratio: 0.66 AV maxP.65 mmHg AV meanP.97 mmHg AR PHT: 312 ms RAP: 5.00 mmHg RVSP: 18.61 mmHg FINDINGS -------- Sinus rhythm. This was a technically difficult study with suboptimal views. The left ventricular size is normal. There is mild concentric left ventricular hypertrophy. Overa ll left ventricular systolic function is normal with, an EF between 55 - 60 %. The right ventricle is mildly enlarged. The left atrial size is normal. The right atrium is normal in size. Lumason used Aortic valve is trileaflet and is moderately thickened. Trace amount of aortic regurgitation. Th ere is mild aortic stenosis present. Mild mitral annular calcification present. Mild mitral regurgitation is present. Trace tricuspid regurgitation present. Right ventricular systolic pressure is normal at < 35 mmHg. The right ventricular systolic pressure, as measured by Doppler, is 18.61mmHg. The pulmonic valve was not well visualized. There is no pulmonic regurgitation present. The aortic root size is normal. IVC Not well visulized. There is no pericardial effusion. CONCLUSIONS -------- 1. Sinus rhythm. 2. This was a technically difficult study with suboptimal views. 3. The left ventricular size is normal. 4. There is mild concentric left ventricular hypertrophy. 5. Overall left ventricular systolic function is normal with, an EF between 55 - 60 %. 6. The right ventricle is mildly enlarged. 7. The left atrial size is normal. 8. Lumason used 9. Aortic valve is trileaflet and is moderately thickened. 10. Trace amount of aortic regurgitation. 11. There is mild aortic stenosis present. 12. Mild mitral annular calcification present. 13. Mild mitral regurgitation is present. 14. Trace tricuspid regurgitation present. 15. Right ventricular systolic pressure is normal at < 35 mmHg. 16. The pulmonic valve was not well visualized. 17. There is no pulmonic regurgitation present. 18. The aortic root size is normal. 19. IVC Not well visulized. 20. There is no pericardial effusion. CASING PULLER: Aaliyah Cabral RDCS
[2018-06-04 11:59] LABS: Glucose,Whole Blood 271 mg/dL (75-99)
[2018-06-04] MEDS ORDERED: CARBIDOPA-LEVODOPA ER 50-200MG 1 EACH TABLET.ER PO SCH (14:00)
--- NOTE | 2018-06-04 15:50 | P.HPIM ---
History of Present Illness 67-year-old woman admitted for chest pain patient had a fall leading to musculoskeletal chest pain patient has moderate pain no hematoma in the chest area. There is displacement of posterior lateral fifth rib. Patient was evaluated by cardiology rule out a concurrent syndromes obtain echo cardiac exam which did not show any pericardial effusion. Patient had any fever chills nausea vomiting diarrhea. Chest pain is better. Patient had a few falls whenever he goes out of the house. Patient does have Parkinson's in severity and gait. I'm opting PT and OT consultation to see if patient will require a wheelchair. If patient is cleared from physical therapy and occupational therapy perspective patient will be discharged today. Patient had history of DVT in the past. Patient is on Coumadin but tells orthopedic and Coumadin takes a "2.5 mg of Coumadin for 6 days and 10 mg 1 day all changes the Coumadin to 2.5 mg 3 days in a week 5 mg 2 days in a week and 10 mg 1 day. Patient will be discharged after physical therapy and occupational therapy evaluation patient denied any syncopal episode EKG is sinus rhythm without any acute ST-T wave changes. Troponins are negative magnesium is bit low which was supplemented Review of Systems REVIEW OF SYSTEMS: CONSTITUTIONAL: No fever, no malaise, no fatigue. HEENT: No recent visual problems or hearing problems. Denied any sore throat. CARDIOVASCULAR: No orthopnea, PND, no palpitations, no syncope. PULMONARY: No shortness of breath, no cough, no hemoptysis. GASTROINTESTINAL: No diarrhea, no nausea, no vomiting, no abdominal pain. Normoactive bowel sounds. NEUROLOGICAL: No headaches, no weakness, no numbness. HEMATOLOGICAL: Denies any bleeding or petechiae. GENITOURINARY: Denies any burning micturition, frequency, or urgency. MUSCULOSKELETAL/RHEUMATOLOGICAL: Denies any joint pain, swelling, or any muscle pain. ENDOCRINE: Denies any polyuria or polydipsia. The rest of the 14-point review of systems is negative. Past Medical History Past Medical History: Cancer, Diabetes Mellitus, Deep Vein Thrombosis (DVT), Eye Disorder, Hyperlipidemia, Hypertension, Memory Impairment, Neurologic Disorder, Osteoarthritis (OA) Additional Past Medical History / Comment(s): Parkinsons. Hx kidney stones, prostate, colon and skin cancer. History of Any Multi-Drug Resistant Organisms: None Reported Past Surgical History: Back Surgery Additional Past Surgical History / Comment(s): Left cataract surgery, bowel surgery for colon cancer, skin cancer removed. seeds for prostate Past Anesthesia/Blood Transfusion Reactions: No Reported Reaction Past Psychological History: No Psychological Hx Reported Smoking Status: Former smoker Past Alcohol Use History: Rare Additional Past Alcohol Use History / Comment(s): . Past Drug Use History: None Reported - Past Family History Mother Family Medical History: Cancer Additional Family Medical History / Comment(s): Colon Father Family Medical History: Cancer Additional Family Medical History / Comment(s): Prostate Medications and Allergies Home Medications Medication Instructions Recorded Confirmed Type Amantadine HCl [Symmetrel] 100 mg PO BID 11/14/16 06/03/18 History Insulin Glargine [Lantus] 50 unit SQ HS 11/14/16 06/03/18 History Lisinopril [Zestril] 5 mg PO DAILY 11/14/16 06/03/18 History Naproxen Sodium [Aleve] 440 mg PO BID 11/14/16 06/03/18 History Simvastatin [Zocor] 20 mg PO HS 11/14/16 06/03/18 History Warfarin [Coumadin] 2.5 mg PO SUMOTUWETHSA 11/14/16 06/03/18 History Warfarin [Coumadin] 10 mg PO FR 11/14/16 06/03/18 History glipiZIDE/METFORMIN HCL 2 tab PO BID 11/14/16 06/03/18 History [glipiZIDE/METFORMIN HCL 5-500 mg] sitaGLIPtin PHOSPHATE [Januvia] 100 mg PO DAILY 11/14/16 06/03/18 History Carbidopa-Levodopa ER 50-200Mg 2 tab PO BID@0700,1400 12/19/16 06/03/18 History [Sinemet ER 50-200] rOPINIRole HCL [rOPINIRole HCL ER] 8 mg PO BID 02/15/17 06/03/18 History Allergies Allergy/AdvReac Type Severity Reaction Status Date / Time Iodine and Iodide Containing Allergy Rash/Hives Verified 06/03/18 20:24 Produc shellfish derived Allergy Rash/Hives Verified 06/03/18 20:24 paper tape AdvReac see comment Uncoded 06/03/18 19:39 Physical Exam Vitals: Vital Signs Temp Pulse Pulse Resp BP BP Pulse Ox 06/04/18 07:15 97.3 F L 68 18 165/76 95 06/04/18 04:00 16 06/04/18 03:27 98.6 F 69 16 150/76 94 L 06/04/18 01:30 153/78 06/04/18 00:00 98.0 F 70 16 179/90 97 06/03/18 23:39 97.4 F L 66 18 147/87 06/03/18 21:06 71 18 149/76 97 06/03/18 19:39 98 F 76 18 144/87 97 Intake and Output 06/04/18 06/04/18 06/04/18 06:59 14:59 22:59 Intake Total 236 Balance 236 Intake: Oral 236 Other: # Voids 2 Weight 108.862 kg PHYSICAL EXAMINATION: GENERAL: The patient is alert and oriented x3, not in any acute distress. Well developed, well nourished. HEENT: Pupils are round and equally reacting to light. EOMI. No scleral icterus. No conjunctival pallor. Normocephalic, atraumatic. No pharyngeal erythema. No thyromegaly. CARDIOVASCULAR: S1 and S2 present. No murmurs, rubs, or gallops. PULMONARY: Chest is clear to auscultation, no wheezing or crackles. ABDOMEN: Soft, nontender, nondistended, normoactive bowel sounds. No palpable organomegaly. MUSCULOSKELETAL: No joint swelling or deformity. EXTREMITIES: No cyanosis, clubbing, or pedal edema. NEUROLOGICAL: Gross neurological examination did not reveal any focal deficits. SKIN: No rashes. Results CBC & Chem 7: 06/03/18 20:20 06/03/18 20:20 Labs: Abnormal Lab Results - Last 24 Hours (Table) 06/03/18 06/03/18 06/03/18 Range/Units 20:20 20:20 20:20 PT 15.1 H (9.0-12.0) sec INR 1.6 H (<1.2) Glucose 216 H (74-99) mg/dL POC Glucose (mg/dL) (75-99) mg/dL ALT 19 L (21-72) U/L Alkaline Phosphatase 143 H (38-126) U/L CK-MB (CK-2) 3.8 H (0.0-2.4) ng/mL HDL Cholesterol (40-60) mg/dL 06/04/18 06/04/18 06/04/18 Range/Units 02:29 06:36 08:31 PT (9.0-12.0) sec INR (<1.2) Glucose (74-99) mg/dL POC Glucose (mg/dL) 213 H (75-99) mg/dL ALT (21-72) U/L Alkaline Phosphatase (38-126) U/L CK-MB (CK-2) 2.6 H (0.0-2.4) ng/mL HDL Cholesterol 30 L (40-60) mg/dL 06/04/18 06/04/18 Range/Units 08:31 11:56 PT 13.8 H (9.0-12.0) sec INR 1.5 H (<1.2) Glucose (74-99) mg/dL POC Glucose (mg/dL) 271 H (75-99) mg/dL ALT (21-72) U/L Alkaline Phosphatase (38-126) U/L CK-MB (CK-2) (0.0-2.4) ng/mL HDL Cholesterol (40-60) mg/dL Thrombosis Risk Factor Assmnt - Choose All That Apply Each Factor Represents 1 point: Obesity (BMI >25) Each Risk Factor Represents 2 Points: Age 61-74 years, Malignancy Thrombosis Risk Factor Assessment Total Risk Factor Score: 5 Thrombosis Risk Factor Assessment Level: High Risk Assessment and Plan Plan: -Chest pain which is musculoskeletal secondary to fall ruled out acute current syndromes echocardiogram did not show any pericardial effusion -Hypertension -Dyslipemia -Type 2 diabetes mellitus -History of Parkinson's with the deconditioning and gait abnormality PT and OT evaluation as mentioned above -history of DVT on anti-correlation with Coumadin Coumadin dosing as mentioned in the interval history
[2018-06-04 15:51] VITALS: BP 155/81; PULSE 73; TEMP 97.8
--- NOTE | 2018-06-04 15:51 | P.DS ---
Providers Date of admission: 06/03/18 23:12 Attending physician: Donny Harris Consults: 06/03/18 23:12 Consult Physician Urgent Consulting Provider: Jacob Guevara Consult Reason/Comments: chest pain Do you want consulting provider notified?: Yes Primary care physician: Stated None Hospital Course: refer to my HPI Patient Condition at Discharge: Good Plan - Discharge Summary New Discharge Prescriptions: No Action Warfarin [Coumadin] 2.5 mg PO SUMOTUWETHSA Warfarin [Coumadin] 10 mg PO FR sitaGLIPtin PHOSPHATE [Januvia] 100 mg PO DAILY Insulin Glargine [Lantus] 50 unit SQ HS glipiZIDE/METFORMIN HCL [glipiZIDE/METFORMIN HCL 5-500 mg] 2 tab PO BID Lisinopril [Zestril] 5 mg PO DAILY Simvastatin [Zocor] 20 mg PO HS Amantadine HCl [Symmetrel] 100 mg PO BID Naproxen Sodium [Aleve] 440 mg PO BID Carbidopa-Levodopa ER 50-200Mg [Sinemet ER 50-200] 2 tab PO BID@0700,1400 rOPINIRole HCL [rOPINIRole HCL ER] 8 mg PO BID Discharge Medication List Amantadine HCl [Symmetrel] 100 mg PO BID 11/14/16 [History] Insulin Glargine [Lantus] 50 unit SQ HS 11/14/16 [History] Lisinopril [Zestril] 5 mg PO DAILY 11/14/16 [History] Naproxen Sodium [Aleve] 440 mg PO BID 11/14/16 [History] Simvastatin [Zocor] 20 mg PO HS 11/14/16 [History] Warfarin [Coumadin] 2.5 mg PO SUMOTUWETHSA 11/14/16 [History] Warfarin [Coumadin] 10 mg PO FR 11/14/16 [History] glipiZIDE/METFORMIN HCL [glipiZIDE/METFORMIN HCL 5-500 mg] 2 tab PO BID [History] sitaGLIPtin PHOSPHATE [Januvia] 100 mg PO DAILY 11/14/16 [History] Carbidopa-Levodopa ER 50-200Mg [Sinemet ER 50-200] 2 tab PO BID@0700,1400 [History] rOPINIRole HCL [rOPINIRole HCL ER] 8 mg PO BID 02/15/17 [History] Follow up Appointment(s)/Referral(s): Rafat Doherty MD [STAFF PHYSICIAN] - 2 Weeks (Appointment made for Jun.10 @ 4:00pm.) Brandon Bryant MD [Medical Doctor] - 3 Days Activity/Diet/Wound Care/Special Instructions: pt to take coumadin 5 mg (2 tabs) for 2 days out of the week. Discharge Disposition: HOME SELF-CARE
[2018-06-04] MEDS ORDERED: WARFARIN 2.5 MG TAB PO SCH (18:00)
[2018-06-04] MEDS ORDERED: INSULIN DETEMIR 100 UNIT/ML 10 ML VIAL SQ SCH (21:00)
[2018-06-04] MEDS ORDERED: ATORVASTATIN 10 MG TAB PO SCH (21:00)
[2018-06-04 23:30] LABS: Hemoglobin A1C 9.4 % (4.0-6.0)
[2018-06-07] MEDS ORDERED: WARFARIN 10 MG TAB PO SCH (18:00)
== END 2018-06-04 17:19 | disposition home or self-care (01) ==
LOC: EC 19:30 → 1SOBS 23:12
PROVIDERS: ADMIT Hospitalist; ATTEND Hospitalist
DX: S22.31XA Fracture of one rib, right side, initial encounter for closed fracture (principal); E11.9 Type 2 diabetes mellitus without complications; I10 Essential (primary) hypertension; E78.5 Hyperlipidemia, unspecified; M19.90 Unspecified osteoarthritis, unspecified site; R41.3 Other amnesia; Z91.81 History of falling; R29.6 Repeated falls; G20 Parkinson's disease; E66.9 Obesity, unspecified; Z68.34 Body mass index [BMI] 34.0-34.9, adult; Z86.718 Personal history of other venous thrombosis and embolism; Z79.01 Long term (current) use of anticoagulants; Z85.46 Personal history of malignant neoplasm of prostate; Z85.038 Personal history of other malignant neoplasm of large intestine; Z85.828 Personal history of other malignant neoplasm of skin; Z87.442 Personal history of urinary calculi; Z87.891 Personal history of nicotine dependence; Z79.4 Long term (current) use of insulin; Z79.899 Other long term (current) drug therapy; Z79.1 Long term (current) use of non-steroidal anti-inflammatories (NSAID); Z91.013 Allergy to seafood; Z91.048 Other nonmedicinal substance allergy status; W01.0XXA Fall on same level from slipping, tripping and stumbling without subsequent striking against object, initial encounter; Y93.01 Activity, walking, marching and hiking
CPT/HCPCS: 99285; 36415; 93005; 97161; 80061; 80053; 82550 ×2; 82553 ×2; 83690; 83735; 84484 ×2; 85025; 85610 ×2; 85730; 83036; 71046; G0378 ×2; C8929; Q9950; 93306

== ENCOUNTER → 2018-08-17 | Outpatient (CLI) | payer MEDICARE, BC ==
[2018-08-17 08:34] LABS: Basophils % (A) 1 %; Eosinophils # (A) 0.2 k/uL (0-0.7); Eosinophils % (A) 2 %; HCT 48.9 % (39.0-53.0); HGB 16.5 gm/dL (13.0-17.5); Lymphocytes # (A) 1.3 k/uL (1.0-4.8); Lymphocytes % (A) 19 %; MCH 32.3 pg (25.0-35.0); MCHC 33.6 g/dL (31.0-37.0); MCV 96.1 fL (80.0-100.0); Mean Platelet Volume 6.9; Monocytes # (A) 0.5 k/uL (0-1.0); Monocytes % (A) 8 %; Neutrophils # (A) 4.6 k/uL (1.3-7.7); Neutrophils % (A) 68 %; Platelet Count 224 k/uL (150-450); RBC 5.09 m/uL (4.30-5.90); RDW 12.7 % (11.5-15.5); WBC 6.8 k/uL (3.8-10.6)
[2018-08-17 08:42] LABS: INR 1.8 (<1.2); Prothrombin Time 17.5 sec (9.0-12.0)
[2018-08-17 17:08] LABS: T4, Free (Free Thyroxine) 1.2 ng/dL (0.80-1.80)
[2018-08-17 17:16] LABS: Albumin 4.3 g/dL (3.80-4.90); Albumin/Globulin Ratio 1.87 (1.60-3.17); Anion Gap 8.1 mmol/L (4.00-12.00); Calcium 9.3 mg/dL (8.7-10.3); Carbon Dioxide 25.9 mmol/L (21.6-31.8); Globulin 2.3 g/dL (1.6-3.3); LDL Cholesterol,Calculated 78.6 mg/dL (0.0-131.0); Potassium 4.6 mmol/L (3.5-5.5); Total Bilirubin 0.9 mg/dL (0.3-1.2); Total Protein 6.6 g/dL (6.2-8.2); VLDL Calculation 25.4 mg/dL (5.00-40.00)
[2018-08-17 20:16] LABS: Hemoglobin A1C 9.8 % (4.0-6.0)
== END | disposition home or self-care (01) ==
LOC: LABWHC1 08:02
PROVIDERS: ATTEND Nurse Practitioner Family
DX: E11.65 Type 2 diabetes mellitus with hyperglycemia (principal); E78.5 Hyperlipidemia, unspecified; I26.99 Other pulmonary embolism without acute cor pulmonale; I10 Essential (primary) hypertension
CPT/HCPCS: 36415; 80053; 80061; 82043; 82570; 83036; 84439; 84443; 85025; 85610

== ENCOUNTER 2018-11-21 19:25 | Emergency (ER) | payer MEDICARE, BC ==
--- NOTE | 2018-11-21 19:56 | ED ---
General Adult HPI - General Chief complaint: Neuro Symptoms/Deficit Stated complaint: poss choking Time Seen by Provider: 11/21/18 19:45 Source: patient Mode of arrival: EMS Limitations: no limitations - History of Present Illness Initial comments: 68-year-old male patient presents to the emergency department today for evaluation of the forearm body sensation to the throat. Patient states he was eating sweet and sour chicken when he felt like something got stuck in his throat. Patient states he did try to push it down with rice however the Rice came back up. Patient states he started drink water. Patient states some is going down he still spitting up some fluid. Patient denies any difficulty breathing. Denies any pain or discomfort to the throat or chest. Patient states this has happened one time in the past and was able to get it to pass by drinking fluids. Patient denies any recent rash, fever, chills, abdominal pain, nausea, vomiting, diarrhea, constipation, back pain, numbness, tingling, dizziness, weakness, hematuria, dysuria, urinary urgency, urinary frequency, headache, visual changes, or any other complaints. - Related Data Home Medications Medication Instructions Recorded Confirmed Amantadine HCl [Symmetrel] 100 mg PO BID 11/14/16 06/03/18 Insulin Glargine [Lantus] 50 unit SQ HS 11/14/16 06/03/18 Lisinopril [Zestril] 5 mg PO DAILY 11/14/16 06/03/18 Naproxen Sodium [Aleve] 440 mg PO BID 11/14/16 06/03/18 Simvastatin [Zocor] 20 mg PO HS 11/14/16 06/03/18 Warfarin [Coumadin] 2.5 mg PO SUMOTUWETHSA 11/14/16 06/03/18 Warfarin [Coumadin] 10 mg PO FR 11/14/16 06/03/18 glipiZIDE/METFORMIN HCL 2 tab PO BID 11/14/16 06/03/18 [glipiZIDE/METFORMIN HCL 5-500 mg] sitaGLIPtin PHOSPHATE [Januvia] 100 mg PO DAILY 11/14/16 06/03/18 Carbidopa-Levodopa ER 50-200Mg 2 tab PO BID@0700,1400 12/19/16 06/03/18 [Sinemet ER 50-200] rOPINIRole HCL [rOPINIRole HCL ER] 8 mg PO BID 02/15/17 06/03/18 Allergies Allergy/AdvReac Type Severity Reaction Status Date / Time Iodine and Iodide Containing Allergy Rash/Hives Verified 06/03/18 20:24 Produc shellfish derived Allergy Rash/Hives Verified 06/03/18 20:24 paper tape AdvReac see comment Uncoded 06/03/18 19:39 Review of Systems ROS Statement: Those systems with pertinent positive or pertinent negative responses have been documented in the HPI. ROS Other: All systems not noted in ROS Statement are negative. Past Medical History Past Medical History: Cancer, Diabetes Mellitus, Deep Vein Thrombosis (DVT), Eye Disorder, Hyperlipidemia, Hypertension, Memory Impairment, Neurologic Disorder, Osteoarthritis (OA) Additional Past Medical History / Comment(s): Parkinsons. Hx kidney stones, prostate, colon and skin cancer. History of Any Multi-Drug Resistant Organisms: None Reported Past Surgical History: Back Surgery Additional Past Surgical History / Comment(s): Left cataract surgery, bowel surgery for colon cancer, skin cancer removed. Past Anesthesia/Blood Transfusion Reactions: No Reported Reaction Past Psychological History: No Psychological Hx Reported Smoking Status: Former smoker Past Alcohol Use History: Rare Past Drug Use History: None Reported - Past Family History Mother Family Medical History: Cancer Additional Family Medical History / Comment(s): Colon Father Family Medical History: Cancer Additional Family Medical History / Comment(s): Prostate General Exam Limitations: no limitations General appearance: alert, in no apparent distress, other (Physical well- developed, well-nourished elderly male patient in no acute distress. Vital signs upon presentation are temperature 98.0F, pulse 84, respirations 18, blood pressure 142/71, pulse ox 98% on room air.) Eye exam: Present: normal appearance, PERRL, EOMI. Absent: scleral icterus, conjunctival injection, periorbital swelling ENT exam: Present: normal exam, normal oropharynx, mucous membranes moist Respiratory exam: Present: normal lung sounds bilaterally. Absent: respiratory distress, wheezes, rales, rhonchi, stridor Cardiovascular Exam: Present: regular rate, normal rhythm, normal heart sounds. Absent: systolic murmur, diastolic murmur, rubs, gallop, clicks GI/Abdominal exam: Present: soft, normal bowel sounds. Absent: distended, tenderness, guarding, rebound, rigid Neurological exam: Present: alert, oriented X3, CN II-XII intact Psychiatric exam: Present: normal affect, normal mood Skin exam: Present: warm, dry, intact, normal color. Absent: rash Course Vital Signs 11/21/18 19:40 Temperature 98.0 F Pulse Rate 84 Respiratory 18 Rate Blood Pressure 142/71 O2 Sat by Pulse 98 Oximetry Medical Decision Making - Medical Decision Making 68-year-old male patient presented to the emergency department today for evaluation of foreign body sensation to the throat. Patient states he was eating chicken when he felt like something got stuck. Physical examination is unremarkable. His breathing without difficulty. We did attempt to have patient drink soda. Patient did drink an entire 7 ounce can of diet Pepsi. States he feels that the obstruction has passed without difficulty. Denies any vomiting. He'll be discharged at this time to follow-up with a regional recruiter for further evaluation and possible scope to determine cause of obstruction as his has happened one time in the past. He is instructed to follow up with his primary care physician for recheck in 1-2 days. Return parameters were discussed in detail. He verbalizes understanding and agrees with this plan. Disposition Clinical Impression: Esophageal obstruction due to food impaction Disposition: HOME SELF-CARE Condition: Good Instructions (If sedation given, give patient instructions): Esophageal Foreign Body (ED) Additional Instructions: Chew your food thoroughly. Take frequent sips of water in between bites. Follow-up with the regional recruiter for further evaluation and possible scope to determine cause of frequent obstructions. Follow-up with your primary care physician for recheck in 1-2 days. Return to the emergency department immediately for any new, worsening, or concerning symptoms. Is patient prescribed a controlled substance at d/c from ED?: No Referrals: Brandon Bryant MD [Primary Care Provider] - 1-2 days Fito Abarca MD [STAFF PHYSICIAN] - 1-2 days Time of Disposition: 20:21
[2018-11-21 19:59] VITALS: BP 142/71; PULSE 84; RESP 18; TEMP 98
== END 2018-11-21 20:30 | disposition home or self-care (01) ==
LOC: EC 19:25
DX: T18.128A Food in esophagus causing other injury, initial encounter (principal); G20 Parkinson's disease; E11.9 Type 2 diabetes mellitus without complications; E78.5 Hyperlipidemia, unspecified; I10 Essential (primary) hypertension; M19.90 Unspecified osteoarthritis, unspecified site; G31.84 Mild cognitive impairment of uncertain or unknown etiology; Z87.891 Personal history of nicotine dependence; Z91.013 Allergy to seafood; Z91.048 Other nonmedicinal substance allergy status; Z79.01 Long term (current) use of anticoagulants; Z79.1 Long term (current) use of non-steroidal anti-inflammatories (NSAID); Z79.4 Long term (current) use of insulin; Z79.899 Other long term (current) drug therapy; Z85.038 Personal history of other malignant neoplasm of large intestine; Z85.46 Personal history of malignant neoplasm of prostate; Z85.828 Personal history of other malignant neoplasm of skin; Z86.718 Personal history of other venous thrombosis and embolism; Z98.890 Other specified postprocedural states; Z80.0 Family history of malignant neoplasm of digestive organs
CPT/HCPCS: 99283

== ENCOUNTER → 2019-02-19 | Outpatient (CLI) | payer MEDICARE, BC ==
[2019-02-19 08:27] LABS: INR 1.6 (<1.2); Prothrombin Time 16.3 sec (9.0-12.0)
== END | disposition home or self-care (01) ==
LOC: LABWHC1 07:58
PROVIDERS: ATTEND Dentist Oral and Maxillofacial Surgery
DX: Z51.81 Encounter for therapeutic drug level monitoring (principal); Z79.01 Long term (current) use of anticoagulants
CPT/HCPCS: 36415; 85610

== ENCOUNTER 2019-05-05 10:42 | Emergency (ER) | payer MEDICARE, BC ==
[2019-05-05 10:57] VITALS: TEMP 98.1
--- NOTE | 2019-05-05 11:00 | ED ---
General Adult HPI - General Chief complaint: Fall Stated complaint: fall, rt shoulder pain Time Seen by Provider: 05/05/19 10:48 Source: patient, RN notes reviewed Mode of arrival: wheelchair Limitations: physical limitation - History of Present Illness Initial comments: Patient is a pleasant 68-year-old male presenting to the emergency Department with right shoulder pain. Patient did have a fall this morning and landed on his right shoulder. Patient has Parkinson's and does frequently fall. Patient states he also did strike his head however did not hit it very hard.. Patient denies any headache. No weakness or confusion. Patient is on Coumadin. No history of chronic right shoulder problems. No other area of injury or concern. - Related Data Home Medications Medication Instructions Recorded Confirmed Amantadine HCl [Symmetrel] 100 mg PO BID 11/14/16 05/05/19 Insulin Glargine [Lantus] 45 - 50 unit SQ HS 11/14/16 05/05/19 Simvastatin [Zocor] 20 mg PO HS 11/14/16 05/05/19 Warfarin [Coumadin] 2.5 mg PO SUMOTUWETHSA 11/14/16 05/05/19 glipiZIDE/METFORMIN HCL 2 tab PO AC-BID 11/14/16 05/05/19 [glipiZIDE/METFORMIN HCL 5-500 mg] sitaGLIPtin PHOSPHATE [Januvia] 100 mg PO DAILY 11/14/16 05/05/19 Carbidopa-Levodopa ER 50-200Mg 2 tab PO BID@0700,1300 12/19/16 05/05/19 [Sinemet ER 50-200] rOPINIRole HCL [rOPINIRole HCL ER] 8 mg PO BID@0700,1300 02/15/17 05/05/19 Carbidopa-Levodopa ER 50-200Mg 1 tab PO DAILY@1700 05/05/19 05/05/19 [Sinemet CR 50-200 mg] Lisinopril [Prinivil] 10 mg PO DAILY 05/05/19 05/05/19 Warfarin Sodium [Coumadin] 10 mg PO HS 05/05/19 05/05/19 Allergies Allergy/AdvReac Type Severity Reaction Status Date / Time Iodine and Iodide Containing Allergy Rash/Hives Verified 05/05/19 12:00 Produc shellfish derived Allergy Rash/Hives Verified 05/05/19 12:00 paper tape AdvReac Skin Uncoded 05/05/19 12:00 peeled off. Review of Systems ROS Statement: Those systems with pertinent positive or pertinent negative responses have been documented in the HPI. ROS Other: All systems not noted in ROS Statement are negative. Constitutional: Denies: fever Eyes: Denies: eye pain ENT: Denies: ear pain Respiratory: Denies: cough Cardiovascular: Denies: chest pain Endocrine: Denies: fatigue Gastrointestinal: Denies: abdominal pain Genitourinary: Denies: dysuria Musculoskeletal: Reports: as per HPI. Denies: back pain Skin: Denies: rash Neurological: Denies: headache, weakness, confusion Past Medical History Past Medical History: Cancer, Diabetes Mellitus, Deep Vein Thrombosis (DVT), Eye Disorder, Hyperlipidemia, Hypertension, Memory Impairment, Neurologic Disorder, Osteoarthritis (OA) Additional Past Medical History / Comment(s): Parkinsons. Hx kidney stones, prostate, colon and skin cancer. History of Any Multi-Drug Resistant Organisms: None Reported Past Surgical History: Back Surgery Additional Past Surgical History / Comment(s): Left cataract surgery, bowel surgery for colon cancer, skin cancer removed. Past Anesthesia/Blood Transfusion Reactions: No Reported Reaction Past Psychological History: No Psychological Hx Reported Smoking Status: Former smoker Past Alcohol Use History: Rare Past Drug Use History: None Reported - Past Family History Mother Family Medical History: Cancer Additional Family Medical History / Comment(s): Colon Father Family Medical History: Cancer Additional Family Medical History / Comment(s): Prostate General Exam Limitations: physical limitation General appearance: alert, in no apparent distress Head exam: Present: atraumatic, normocephalic Eye exam: Present: normal appearance, PERRL ENT exam: Present: normal oropharynx Neck exam: Present: normal inspection. Absent: tenderness Respiratory exam: Present: normal lung sounds bilaterally Cardiovascular Exam: Present: regular rate, normal rhythm Expanded Peripheral pulses: 2+: Radial (R) GI/Abdominal exam: Present: soft. Absent: tenderness Extremities exam: Present: tenderness (Right anterior shoulder tenderness and fullness.), other (Distally the extremity is neurovascular intact.). Absent: full ROM (Decreased range of motion of the right shoulder secondary to discomfort) Back exam: Present: normal inspection. Absent: vertebral tenderness Neurological exam: Present: alert, oriented X3, CN II-XII intact. Absent: motor sensory deficit Psychiatric exam: Present: normal affect, normal mood Skin exam: Present: normal color Course Vital Signs 05/05/19 10:54 Temperature 98.1 F Pulse Rate 87 Respiratory 20 Rate Blood Pressure 167/95 O2 Sat by Pulse 96 Oximetry Medical Decision Making - Medical Decision Making Patient reevaluated and resting comfortably in bed. Patient and family updated on results and need for follow-up. - Radiology Data Radiology results: report reviewed (T scan the brain shows no acute process), image reviewed (Right shoulder x-ray shows no acute process) Disposition Clinical Impression: Fall, Shoulder injury Disposition: HOME SELF-CARE Condition: Stable Instructions (If sedation given, give patient instructions): Shoulder Sprain (ED), Head Injury (ED) Additional Instructions: Hold Coumadin for 24 hours. Please discuss with your primary care physician regarding use of Coumadin. Please follow-up with primary care physician in the next couple of days for recheck. Return for increased pain, difficulty breathing, confusion or weakness, worsening symptoms or other concerns. Is patient prescribed a controlled substance at d/c from ED?: No Referrals: Brandon Bryant MD [Primary Care Provider] - 1-2 days Time of Disposition: 12:54
--- NOTE | 2019-05-05 11:59 | XR ---
EXAMINATION TYPE: XR shoulder complete RT DATE OF EXAM: 05/05/2019 CLINICAL HISTORY: Right shoulder pain after fall this morning TECHNIQUE: Three views of the right shoulder are obtained. COMPARISON: None. FINDINGS: There is no acute fracture/dislocation evident in the right shoulder. Diffuse osseous be neralization is seen. Severe arthropathy of the right acromioclavicular joint and moderate of the rig ht glenohumeral joint demonstrated as osseous perforation of the acromio clavicular joint and joint s pace narrowing of both joints. Some sclerosis of the footplate of the greater tuberosity. The acromio clavicular and glenohumeral joint spaces appear aligned. The visualized ribs are intact and unremark able. IMPRESSION: There is no acute fracture or dislocation in the right shoulder. Arthropathy indices oss eous demineralization of the right shoulder.
--- NOTE | 2019-05-05 12:15 | CT ---
EXAMINATION TYPE: CT brain wo con DATE OF EXAM: 05/05/2019 COMPARISON: None HISTORY: fall on coumadin CT DLP: 1040.4 mGycm Automated exposure control for dose reduction was used. FINDINGS: Intracranial atherosclerotic changes are noted. Mild to moderate generalized degenerative change. Tin y punctate calcification right basal ganglia. Faint periventricular low-attenuation is nonspecific but likely the basis of remote microvascular isc hemia. No midline shift or mass effect. IMPRESSION: DEGENERATIVE AND NONSPECIFIC WHITE MATTER CHANGES WITH NO DEFINITE ACUTE HEMORRHAGE OR MASS EFFECT.
[2019-05-05] MEDS ORDERED: ACET/COD 300 MG/30 MG STARTER PACK 6 TAB BTL PO STA (12:53)
[2019-05-05] MEDS ORDERED: IBUPROFEN 600 MG STARTER PACK 4 TAB BTL PO STA (12:53)
[2019-05-05 13:05] VITALS: BP 154/89; PULSE 74; RESP 16
== END 2019-05-05 13:11 | disposition home or self-care (01) ==
LOC: EC 10:42
DX: S49.91XA Unspecified injury of right shoulder and upper arm, initial encounter (principal); G20 Parkinson's disease; R29.6 Repeated falls; E11.9 Type 2 diabetes mellitus without complications; E78.5 Hyperlipidemia, unspecified; I10 Essential (primary) hypertension; Z87.891 Personal history of nicotine dependence; Z91.013 Allergy to seafood; Z91.048 Other nonmedicinal substance allergy status; Z79.01 Long term (current) use of anticoagulants; Z79.4 Long term (current) use of insulin; Z79.899 Other long term (current) drug therapy; Z86.718 Personal history of other venous thrombosis and embolism; Z85.46 Personal history of malignant neoplasm of prostate; Z85.828 Personal history of other malignant neoplasm of skin; Z98.890 Other specified postprocedural states; W01.0XXA Fall on same level from slipping, tripping and stumbling without subsequent striking against object, initial encounter
CPT/HCPCS: 70450; 99284

== ENCOUNTER → 2019-05-14 | Outpatient (CLI) | payer MEDICARE, BC ==
--- NOTE | 2019-05-14 22:40 | MR ---
EXAMINATION TYPE: MR shoulder RT wo con DATE OF EXAM: 05/14/2019 COMPARISON: HISTORY: Rt shoulder pain, fall 1 week ago TECHNIQUE: Multiplanar, multisequence imaging of the right shoulder is performed without contrast. FINDINGS: There is severe subacromial joint space narrowing. There is obliteration of the subacromial joint spa ce. There is retraction of the supraspinatus tendon. There is shoulder joint effusion. There is soft tissue edema around the shoulder joint. Subscapularis tendon is intact. Biceps tendon is intact. Ther e is no evidence of a fracture. There is extensive hypertrophic spurring at the AC joint. There is sp urring on the humeral head and ulna glenoid. There is a small degenerative cyst in the glenoid. IMPRESSION: Large rotator cuff tear with retraction of the supraspinatus tendon. Severe subacromial impingement. No fracture seen. Soft tissue swelling and edema around the shoulder joint. Significant hypertrophic spurring at the AC joint. Osteoarthritis of the glenohumeral joint.
== END | disposition home or self-care (01) ==
LOC: RADMRIMAIN 21:44
PROVIDERS: ATTEND Internal Medicine Geriatric Medicine
DX: M19.011 Primary osteoarthritis, right shoulder (principal); M75.101 Unspecified rotator cuff tear or rupture of right shoulder, not specified as traumatic; M79.89 Other specified soft tissue disorders

== ENCOUNTER → 2019-06-07 | Outpatient (CLI) | payer MEDICARE, BC ==
--- NOTE | 2019-06-07 13:46 | MR ---
EXAMINATION TYPE: MR cervical spine wo/w con DATE OF EXAM: 06/07/2019 COMPARISON: None HISTORY: Cervical disc degeneration TECHNIQUE: Multiplanar, multisequence images of the cervical spine were acquired utilizing 9.5 mL intravenous Ga davist gadolinium contrast. Diffusion weighted imaging was performed. C2-C3: Loss of disc signal and space and there is a small focal central disc herniation which abuts t he anterior margin of the spinal cord. Neural foramina are patent. There is facet arthropathy and unc overtebral joint hypertrophy. C3-C4: Degenerative disc disease with uncovertebral joint hypertrophy and facet arthropathy resulting in moderate bilateral foraminal encroachment. Minimal central disc bulging but no canal stenosis or focal herniation. C4-C5: Degenerative disc disease with facet arthropathy and uncovertebral joint hypertrophy resulting in moderate bilateral foraminal encroachment greater on the right. Borderline canal stenosis with mi ld circumferential disc bulging and mild effacement of thecal sac. C5-C6: Postsurgical changes. No evidence for degenerative disc disease. No disc bulge/herniation or protrusion. No Canal stenosis. Hypertrophic changes result in mild bilateral foraminal encroachment. . C6-C7: Post surgical changes. No evidence for degenerative disc disease. No disc bulge/herniation or protrusion. No Canal stenosis. Hypertrophic changes including uncovertebral joint and facet arthrop athy result in bilateral mild foraminal encroachment. C7-T1: Degenerative disc disease with central disc bulging. Neural foramina remain patent with facet arthropathy and mild bilateral foraminal encroachment greater on the right. Disc bulging greater late rally to the right. Postsurgical change at levels C5-6 and C6-C7. There is normal alignment. Cervical spinal cord is of normal signal. Craniovertebral junction relationships are within normal limits. IMPRESSION: 1. Postsurgical changes with multilevel degenerative disc disease, facet arthropathy, and uncovertebr al joint hypertrophy result in multilevel foraminal encroachment as discussed above. 2. Central small disc small herniation C2-C3 abuts the anterior margin of assessment spinal cord. 3. Borderline canal stenosis C4-C5 secondary to hypertrophic changes and circumferential disc bulging . 4. Degenerative disc disease and disc bulging C7-T1 greater paracentrally and laterally to the right with mild right foraminal encroachment.
== END | disposition home or self-care (01) ==
LOC: RADMRIMAIN 12:47
PROVIDERS: ATTEND Psychiatry & Neurology Neurology
DX: M50.01 Cervical disc disorder with myelopathy, high cervical region (principal); M46.92 Unspecified inflammatory spondylopathy, cervical region
CPT/HCPCS: 72156; A9585

== ENCOUNTER 2019-06-26 21:06 | Emergency (ER) | payer MEDICARE, BC ==
[2019-06-26 21:40] LABS: Glucose,Whole Blood 406 mg/dL (75-99)
[2019-06-26] MEDS ORDERED: SODIUM CHLORIDE 0.9% 1,000 ML IV STA (21:40)
--- NOTE | 2019-06-26 21:52 | ED ---
Weakness HPI - General Chief complaint: Fall Stated complaint: Fall, shoulder pain, hyperglycemia Time Seen by Provider: 06/26/19 21:19 Source: patient, family, RN notes reviewed, old records reviewed Mode of arrival: ambulatory - History of Present Illness Initial comments: This is a 68-year-old male who presents with his family For Evaluation regarding Fall and Weakness. Unable to Get up. Son Did Check an Patient and Was Unable to Void at the House. Patient Denying Any Complaints on Obtained No Headache Chest Pain or Shortness of Breath No Abdominal Pain. Patient Is This Time Is Relatively Sporadic Films Were Able [place] on the Ground Regards to Dehydration or Other Issues MD Complaint: generalized weakness, lack of energy, difficulty walking -: days(s) Location: generalized Severity: moderate Severity scale (1-10): 4 Quality: tingling, aching Consistency: constant Improves with: none Worsens with: none Context: new medication Associated Symptoms: denies other symptoms - Related Data Home Medications Medication Instructions Recorded Confirmed Amantadine HCl [Symmetrel] 100 mg PO BID 11/14/16 05/05/19 Insulin Glargine [Lantus] 45 - 50 unit SQ HS 11/14/16 05/05/19 Simvastatin [Zocor] 20 mg PO HS 11/14/16 05/05/19 Warfarin [Coumadin] 2.5 mg PO SUMOTUWETHSA 11/14/16 05/05/19 glipiZIDE/METFORMIN HCL 2 tab PO AC-BID 11/14/16 05/05/19 [glipiZIDE/METFORMIN HCL 5-500 mg] sitaGLIPtin PHOSPHATE [Januvia] 100 mg PO DAILY 11/14/16 05/05/19 Carbidopa-Levodopa ER 50-200Mg 2 tab PO BID@0700,1300 12/19/16 05/05/19 [Sinemet ER 50-200] rOPINIRole HCL [rOPINIRole HCL ER] 8 mg PO BID@0700,1300 02/15/17 05/05/19 Carbidopa-Levodopa ER 50-200Mg 1 tab PO DAILY@1700 05/05/19 05/05/19 [Sinemet CR 50-200 mg] Lisinopril [Prinivil] 10 mg PO DAILY 05/05/19 05/05/19 Warfarin Sodium [Coumadin] 10 mg PO HS 05/05/19 05/05/19 Allergies Allergy/AdvReac Type Severity Reaction Status Date / Time Iodine and Iodide Containing Allergy Rash/Hives Verified 06/26/19 21:14 Produc shellfish derived Allergy Rash/Hives Verified 06/26/19 21:14 paper tape AdvReac Skin Uncoded 06/26/19 21:14 peeled off. Review of Systems ROS Statement: Those systems with pertinent positive or pertinent negative responses have been documented in the HPI. ROS Other: All systems not noted in ROS Statement are negative. Past Medical History Past Medical History: Cancer, Diabetes Mellitus, Deep Vein Thrombosis (DVT), Eye Disorder, Hyperlipidemia, Hypertension, Memory Impairment, Neurologic Disorder, Osteoarthritis (OA) Additional Past Medical History / Comment(s): Parkinsons. Hx kidney stones, prostate, colon and skin cancer. History of Any Multi-Drug Resistant Organisms: None Reported Past Surgical History: Back Surgery Additional Past Surgical History / Comment(s): Left cataract surgery, bowel surgery for colon cancer, skin cancer removed. Past Anesthesia/Blood Transfusion Reactions: No Reported Reaction Past Psychological History: No Psychological Hx Reported Smoking Status: Former smoker Past Alcohol Use History: Rare Past Drug Use History: None Reported - Past Family History Mother Family Medical History: Cancer Additional Family Medical History / Comment(s): Colon Father Family Medical History: Cancer Additional Family Medical History / Comment(s): Prostate General Exam General appearance: alert, in no apparent distress Head exam: Present: atraumatic, normocephalic, normal inspection Eye exam: Present: normal appearance, PERRL, EOMI. Absent: scleral icterus, conjunctival injection, periorbital swelling ENT exam: Present: normal exam, mucous membranes moist Neck exam: Present: normal inspection. Absent: tenderness, meningismus, lymphadenopathy Respiratory exam: Present: normal lung sounds bilaterally. Absent: respiratory distress, wheezes, rales, rhonchi, stridor Cardiovascular Exam: Present: regular rate, normal rhythm, normal heart sounds. Absent: systolic murmur, diastolic murmur, rubs, gallop, clicks GI/Abdominal exam: Present: soft, normal bowel sounds. Absent: distended, tenderness, guarding, rebound, rigid Extremities exam: Present: normal inspection, full ROM, normal capillary refill. Absent: tenderness, pedal edema, joint swelling, calf tenderness Back exam: Present: normal inspection Neurological exam: Present: alert, oriented X3, CN II-XII intact Psychiatric exam: Present: normal affect, normal mood Skin exam: Present: warm, dry, intact, normal color. Absent: rash Course Vital Signs 06/26/19 06/26/19 06/27/19 21:08 22:14 00:42 Temperature 98.2 F 98 F Pulse Rate 81 80 78 Respiratory 19 18 18 Rate Blood Pressure 89/58 106/70 113/64 O2 Sat by Pulse 95 98 96 Oximetry - Reevaluation(s) Reevaluation #1: Medical records reviewed Patient is here with family who do check on patient often. Patient was found out from unknown what time he is acting appropriately per family no we will take him home. Patient profoundly does fall very frequently but he was unable to get up today. EKG Findings - EKG Comments: EKG Findings:: EKG shows sinus rhythm rate of 69, CA 160, QRS 86, QTC 441 Medical Decision Making - Medical Decision Making Review male here with fall 3 days ago. Patient is improving mental here in the ER acting appropriately. Patient is imaging is negative. Patient will be discharged home - Lab Data Result diagrams: 06/26/19 21:40 06/26/19 21:40 Lab Results 06/26/19 06/26/19 06/26/19 Range/Units 21:39 21:40 21:40 WBC 8.0 (3.8-10.6) k/uL RBC 4.55 (4.30-5.90) m/uL Hgb 14.4 (13.0-17.5) gm/dL Hct 43.9 (39.0-53.0) % MCV 96.6 (80.0-100.0) fL MCH 31.7 (25.0-35.0) pg MCHC 32.8 (31.0-37.0) g/dL RDW 12.4 (11.5-15.5) % Plt Count 220 (150-450) k/uL Neutrophils % 76 % Lymphocytes % 14 % Monocytes % 6 % Eosinophils % 1 % Basophils % 1 % Neutrophils # 6.1 (1.3-7.7) k/uL Lymphocytes # 1.1 (1.0-4.8) k/uL Monocytes # 0.5 (0-1.0) k/uL Eosinophils # 0.1 (0-0.7) k/uL Basophils # 0.0 (0-0.2) k/uL PT (9.0-12.0) sec INR (<1.2) APTT (22.0-30.0) sec Sodium 134 L (137-145) mmol/L Potassium 4.2 (3.5-5.1) mmol/L Chloride 103 (98-107) mmol/L Carbon Dioxide 20 L (22-30) mmol/L Anion Gap 11 mmol/L BUN 45 H (9-20) mg/dL Creatinine 1.18 (0.66-1.25) mg/dL Est GFR (CKD-EPI)AfAm 72 (>60 ml/min/1.73 sqM) Est GFR (CKD-EPI)NonAf 62 (>60 ml/min/1.73 sqM) Glucose 364 H (74-99) mg/dL POC Glucose (mg/dL) 406 H (75-99) mg/dL POC Glu Guard Lieutenant ID Bentley Sarah Lactic Ac Sepsis Rflx Plasma Lactic Acid Sha (0.7-2.0) mmol/L Calcium 9.0 (8.4-10.2) mg/dL Phosphorus 3.8 (2.5-4.5) mg/dL Magnesium 1.8 (1.6-2.3) mg/dL Total Bilirubin 1.0 (0.2-1.3) mg/dL AST 43 (17-59) U/L ALT 8 (4-49) U/L Alkaline Phosphatase 136 H (38-126) U/L Creatine Kinase 794 H (55-170) U/L Troponin I (0.000-0.034) ng/mL Total Protein 6.1 L (6.3-8.2) g/dL Albumin 3.5 (3.5-5.0) g/dL TSH 0.317 L (0.465-4.680) mIU/L Urine Color Urine Appearance (Clear) Urine pH (5.0-8.0) Ur Specific [place] (1.001-1.035) Urine Protein (Negative) Urine Glucose (UA) (Negative) Urine Ketones (Negative) Urine Blood (Negative) Urine Nitrite (Negative) Urine Bilirubin (Negative) Urine Urobilinogen (<2.0) mg/dL Ur Leukocyte Esterase (Negative) 06/26/19 06/26/19 06/26/19 Range/Units 21:40 21:40 21:40 WBC (3.8-10.6) k/uL RBC (4.30-5.90) m/uL Hgb (13.0-17.5) gm/dL Hct (39.0-53.0) % MCV (80.0-100.0) fL MCH (25.0-35.0) pg MCHC (31.0-37.0) g/dL RDW (11.5-15.5) % Plt Count (150-450) k/uL Neutrophils % % Lymphocytes % % Monocytes % % Eosinophils % % Basophils % % Neutrophils # (1.3-7.7) k/uL Lymphocytes # (1.0-4.8) k/uL Monocytes # (0-1.0) k/uL Eosinophils # (0-0.7) k/uL Basophils # (0-0.2) k/uL PT 13.5 H (9.0-12.0) sec INR 1.3 H (<1.2) APTT 28.6 (22.0-30.0) sec Sodium (137-145) mmol/L Potassium (3.5-5.1) mmol/L Chloride (98-107) mmol/L Carbon Dioxide (22-30) mmol/L Anion Gap mmol/L BUN (9-20) mg/dL Creatinine (0.66-1.25) mg/dL Est GFR (CKD-EPI)AfAm (>60 ml/min/1.73 sqM) Est GFR (CKD-EPI)NonAf (>60 ml/min/1.73 sqM) Glucose (74-99) mg/dL POC Glucose (mg/dL) (75-99) mg/dL POC Glu Guard Lieutenant ID Lactic Ac Sepsis Rflx Plasma Lactic Acid Sha 2.7 H* (0.7-2.0) mmol/L Calcium (8.4-10.2) mg/dL Phosphorus (2.5-4.5) mg/dL Magnesium (1.6-2.3) mg/dL Total Bilirubin (0.2-1.3) mg/dL AST (17-59) U/L ALT (4-49) U/L Alkaline Phosphatase (38-126) U/L Creatine Kinase (55-170) U/L Troponin I <0.012 (0.000-0.034) ng/mL Total Protein (6.3-8.2) g/dL Albumin (3.5-5.0) g/dL TSH (0.465-4.680) mIU/L Urine Color Urine Appearance (Clear) Urine pH (5.0-8.0) Ur Specific [place] (1.001-1.035) Urine Protein (Negative) Urine Glucose (UA) (Negative) Urine Ketones (Negative) Urine Blood (Negative) Urine Nitrite (Negative) Urine Bilirubin (Negative) Urine Urobilinogen (<2.0) mg/dL Ur Leukocyte Esterase (Negative) 06/26/19 06/26/19 Range/Units 22:21 22:39 WBC (3.8-10.6) k/uL RBC (4.30-5.90) m/uL Hgb (13.0-17.5) gm/dL Hct (39.0-53.0) % MCV (80.0-100.0) fL MCH (25.0-35.0) pg MCHC (31.0-37.0) g/dL RDW (11.5-15.5) % Plt Count (150-450) k/uL Neutrophils % % Lymphocytes % % Monocytes % % Eosinophils % % Basophils % % Neutrophils # (1.3-7.7) k/uL Lymphocytes # (1.0-4.8) k/uL Monocytes # (0-1.0) k/uL Eosinophils # (0-0.7) k/uL Basophils # (0-0.2) k/uL PT (9.0-12.0) sec INR (<1.2) APTT (22.0-30.0) sec Sodium (137-145) mmol/L Potassium (3.5-5.1) mmol/L Chloride (98-107) mmol/L Carbon Dioxide (22-30) mmol/L Anion Gap mmol/L BUN (9-20) mg/dL Creatinine (0.66-1.25) mg/dL Est GFR (CKD-EPI)AfAm (>60 ml/min/1.73 sqM) Est GFR (CKD-EPI)NonAf (>60 ml/min/1.73 sqM) Glucose (74-99) mg/dL POC Glucose (mg/dL) (75-99) mg/dL POC Glu Guard Lieutenant ID Lactic Ac Sepsis Rflx Y Plasma Lactic Acid Sha (0.7-2.0) mmol/L Calcium (8.4-10.2) mg/dL Phosphorus (2.5-4.5) mg/dL Magnesium (1.6-2.3) mg/dL Total Bilirubin (0.2-1.3) mg/dL AST (17-59) U/L ALT (4-49) U/L Alkaline Phosphatase (38-126) U/L Creatine Kinase (55-170) U/L Troponin I (0.000-0.034) ng/mL Total Protein (6.3-8.2) g/dL Albumin (3.5-5.0) g/dL TSH (0.465-4.680) mIU/L Urine Color Dark Yellow Urine Appearance Clear (Clear) Urine pH 5.0 (5.0-8.0) Ur Specific [place] 1.024 (1.001-1.035) Urine Protein Negative (Negative) Urine Glucose (UA) 4+ H (Negative) Urine Ketones Trace H (Negative) Urine Blood Negative (Negative) Urine Nitrite Negative (Negative) Urine Bilirubin Negative (Negative) Urine Urobilinogen <2.0 (<2.0) mg/dL Ur Leukocyte Esterase Negative (Negative) - Radiology Data Radiology results: report reviewed (CT brain C-spine chest x-ray is negative for acute disease), image reviewed Disposition Clinical Impression: Fall, Weakness Disposition: HOME SELF-CARE Condition: Good Instructions (If sedation given, give patient instructions): Fall Prevention for Older Adults (ED), Weakness (ED) Is patient prescribed a controlled substance at d/c from ED?: No Referrals: Brandon Bryant MD [Primary Care Provider] - 1-2 days
[2019-06-26 22:03] LABS: Basophils % (A) 1 %; Eosinophils # (A) 0.1 k/uL (0-0.7); Eosinophils % (A) 1 %; HCT 43.9 % (39.0-53.0); HGB 14.4 gm/dL (13.0-17.5); Lymphocytes # (A) 1.1 k/uL (1.0-4.8); Lymphocytes % (A) 14 %; MCH 31.7 pg (25.0-35.0); MCHC 32.8 g/dL (31.0-37.0); MCV 96.6 fL (80.0-100.0); Mean Platelet Volume 7.7; Monocytes # (A) 0.5 k/uL (0-1.0); Monocytes % (A) 6 %; Neutrophils # (A) 6.1 k/uL (1.3-7.7); Neutrophils % (A) 76 %; Platelet Count 220 k/uL (150-450); RBC 4.55 m/uL (4.30-5.90); RDW 12.4 % (11.5-15.5)
--- NOTE | 2019-06-26 22:07 | XR ---
EXAMINATION TYPE: XR chest 2V DATE OF EXAM: 06/26/2019 COMPARISON: 06/03/2018 HISTORY: Weakness. TECHNIQUE: 2 views FINDINGS: Heart is normal. There are old right-sided healed rib fractures. There is coarsening of int erstitial markings. There is no pulmonary consolidation. There is no heart failure. There is no pleur al effusion. IMPRESSION: Mild fibrotic changes. No heart failure. No significant change compared to old exam.
[2019-06-26 22:17] LABS: INR 1.3 (<1.2); Partial Thromboplastin Time 28.6 sec (22.0-30.0); Prothrombin Time 13.5 sec (9.0-12.0)
[2019-06-26 22:23] LABS: Albumin 3.5 g/dL (3.5-5.0); Magnesium 1.8 mg/dL (1.6-2.3); Phosphorus 3.8 mg/dL (2.5-4.5); Potassium 4.2 mmol/L (3.5-5.1); Total Protein 6.1 g/dL (6.3-8.2)
[2019-06-26 22:48] LABS: Appearance,Urine Clear (Clear); Bilirubin,Urine Negative (Negative); Blood,Urine Negative (Negative); Color,Urine Dark Yellow; Glucose,Urine (UA) 4+ (Negative); Ketones,Urine Trace (Negative); Leukocyte Esterase,Urine Negative (Negative); Nitrite,Urine Negative (Negative); Protein,Urine Negative (Negative); Specific Gravity,Urine 1.024 (1.001-1.035); Urobilinogen,Urine <2.0 mg/dL (<2.0)
[2019-06-26 23:04] VITALS: RESP 18; TEMP 98
--- NOTE | 2019-06-26 23:56 | CT ---
EXAMINATION TYPE: CT brain waleska mariscal DATE OF EXAM: 06/26/2019 COMPARISON: HISTORY: Fall CT DLP: 1437 mGycm Automated exposure control for dose reduction was used. There is cerebral cortical atrophy. There is no mass effect nor midline shift. There is no sign of in tracranial hemorrhage. The calvarium is intact. Skull base is intact. There is previous fusion surgery at C5 and C6 and C7. Vertebra have normal alignment. Posterior eleme nts are intact. There is minor spurring of the endplates in the upper cervical spine. There is no sig n of cervical spine fracture. IMPRESSION: Cerebral atrophy. No acute intracranial abnormality. Previous cervical spine fusion surgery. Spondylotic changes. No fracture.
[2019-06-27] MEDS ORDERED: KETOROLAC 30 MG/ML 1 ML VIAL IVP STA (00:07)
[2019-06-27 00:44] VITALS: BP 113/64; PULSE 78
== END 2019-06-27 00:42 | disposition home or self-care (01) ==
LOC: EC 21:06
DX: R53.1 Weakness (principal); R26.2 Difficulty in walking, not elsewhere classified; R20.2 Paresthesia of skin; E11.9 Type 2 diabetes mellitus without complications; E78.5 Hyperlipidemia, unspecified; I10 Essential (primary) hypertension; G20 Parkinson's disease; Z87.891 Personal history of nicotine dependence; Z91.013 Allergy to seafood; Z91.048 Other nonmedicinal substance allergy status; Z79.01 Long term (current) use of anticoagulants; Z79.4 Long term (current) use of insulin; Z79.899 Other long term (current) drug therapy; Z85.46 Personal history of malignant neoplasm of prostate; Z85.038 Personal history of other malignant neoplasm of large intestine; Z85.828 Personal history of other malignant neoplasm of skin; Z86.718 Personal history of other venous thrombosis and embolism; Z98.890 Other specified postprocedural states; W01.0XXA Fall on same level from slipping, tripping and stumbling without subsequent striking against object, initial encounter; Y92.008 Other place in unspecified non-institutional (private) residence as the place of occurrence of the external cause
CPT/HCPCS: 36415; 93005; 80053; 82550; 83605; 83735; 84100; 84443; 84484; 85025; 85610; 85730; 81003; 71046; 72125; 70450; 99284; 96374; 96361; J1885

== ENCOUNTER 2020-07-17 13:19 | Inpatient (IN) | payer MEDICARE, BC ==
[2020-07-17] MEDS ORDERED: HYDROmorphone 1 MG/ML 1 ML SYRINGE IVP STA (13:36)
--- NOTE | 2020-07-17 13:41 | ED ---
Fall HPI - General Chief Complaint: Fall Stated Complaint: Fall, Hip injury Time Seen by Provider: 07/17/20 13:19 Source: patient, EMS Mode of arrival: EMS - History of Present Illness Initial Comments: This is a 69-year-old male history of multiple medical issues who was putting his socks on and he fell he did the splits he states he could not get up he had severe left hip pain. Is having the Fisher present says his leg was behind him and in a decubitus position. Was brought by EMS he was given IV fentanyl with some relief and started coming back. No other injuries he has chronic neck pain and a history of neck surgery many years ago. He's not sure if he actually hurt his neck he denies any head or back pain no other injuries reported. MD Complaint: fall - Related Data Home Medications Medication Instructions Recorded Confirmed Insulin Glargine [Lantus] 45 - 50 unit SQ HS 11/14/16 05/05/19 Simvastatin [Zocor] 20 mg PO HS 11/14/16 05/05/19 Warfarin [Coumadin] 2.5 mg PO SUMOTUWETHSA 11/14/16 05/05/19 amantadine HCL [Symmetrel] 100 mg PO BID 11/14/16 05/05/19 glipiZIDE/METFORMIN HCL 2 tab PO AC-BID 11/14/16 05/05/19 [glipiZIDE/METFORMIN HCL 5-500 mg] sitaGLIPtin PHOSPHATE [Januvia] 100 mg PO DAILY 11/14/16 05/05/19 Carbidopa-Levodopa ER 50-200Mg 2 tab PO BID@0700,1300 12/19/16 05/05/19 [Sinemet ER 50-200] rOPINIRole HCL [rOPINIRole HCL ER] 8 mg PO BID@0700,1300 02/15/17 05/05/19 Carbidopa-Levodopa ER 50-200Mg 1 tab PO DAILY@1700 05/05/19 05/05/19 [Sinemet CR 50-200 mg] Lisinopril [Prinivil] 10 mg PO DAILY 05/05/19 05/05/19 Warfarin Sodium [Coumadin] 10 mg PO HS 05/05/19 05/05/19 Allergies Allergy/AdvReac Type Severity Reaction Status Date / Time Iodine and Iodide Containing Allergy Rash/Hives Verified 12/26/19 21:14 Produc shellfish derived Allergy Rash/Hives Verified 06/26/19 21:14 paper tape AdvReac Skin Uncoded 06/26/19 21:14 peeled off. Review of Systems ROS Statement: Those systems with pertinent positive or pertinent negative responses have been documented in the HPI. ROS Other: All systems not noted in ROS Statement are negative. Past Medical History Past Medical History: Cancer, Diabetes Mellitus, Deep Vein Thrombosis (DVT), Eye Disorder, Hyperlipidemia, Hypertension, Memory Impairment, Neurologic Disorder, Osteoarthritis (OA) Additional Past Medical History / Comment(s): Parkinsons. Hx kidney stones, prostate, colon and skin cancer. History of Any Multi-Drug Resistant Organisms: None Reported Past Surgical History: Back Surgery Additional Past Surgical History / Comment(s): Left cataract surgery, bowel surgery for colon cancer, skin cancer removed. Past Anesthesia/Blood Transfusion Reactions: No Reported Reaction Past Psychological History: No Psychological Hx Reported Past Alcohol Use History: Rare Past Drug Use History: None Reported - Past Family History Mother Family Medical History: Cancer Additional Family Medical History / Comment(s): Colon Father Family Medical History: Cancer Additional Family Medical History / Comment(s): Prostate General Exam - General Exam Comments Initial Comments: This is a well-developed well-nourished awake alert oriented 3 male he has a Douglas Coma Scale of 15 Limitations: no limitations General appearance: alert, in distress Head exam: Present: atraumatic, normocephalic, normal inspection Eye exam: Present: normal appearance, PERRL, EOMI. Absent: scleral icterus, conjunctival injection, periorbital swelling ENT exam: Present: normal exam, mucous membranes moist Neck exam: Present: normal inspection, tenderness, other (Step-off or crepitation no definite spinous process tenderness. Tenderness to palpation of the neck musculature). Absent: meningismus, lymphadenopathy Respiratory exam: Present: normal lung sounds bilaterally. Absent: respiratory distress, wheezes, rales, rhonchi, stridor Cardiovascular Exam: Present: regular rate, normal rhythm, normal heart sounds. Absent: systolic murmur, diastolic murmur, rubs, gallop, clicks GI/Abdominal exam: Present: soft, normal bowel sounds. Absent: distended, tenderness, guarding, rebound, rigid Extremities exam: Present: tenderness, normal capillary refill, other (Left hip pain to palpation and decreased range of motion slight evidence of shortening and internal rotation. The left.). Absent: full ROM, pedal edema, joint swelling, calf tenderness Back exam: Present: normal inspection Neurological exam: Present: alert, oriented X3, CN II-XII intact Psychiatric exam: Present: normal affect, normal mood Skin exam: Present: warm, dry, intact, normal color. Absent: rash Course Vital Signs 07/17/20 13:20 Temperature 98.0 F Pulse Rate 84 Respiratory 16 Rate Blood Pressure 164/85 O2 Sat by Pulse 95 Oximetry Medical Decision Making - Medical Decision Making I did discuss findings with the patient family as well as with neck branch who is covering Dr. Corado. Patient will be admitted with consultation to Dr. Bryant for medical clearance. - Lab Data Result diagrams: 07/17/20 13:50 07/17/20 13:50 Lab Results 07/17/20 07/17/20 Range/Units 13:50 13:50 WBC 6.8 (3.8-10.6) k/uL RBC 4.74 (4.30-5.90) m/uL Hgb 15.6 (13.0-17.5) gm/dL Hct 45.3 (39.0-53.0) % MCV 95.6 (80.0-100.0) fL MCH 32.9 (25.0-35.0) pg MCHC 34.4 (31.0-37.0) g/dL RDW 12.1 (11.5-15.5) % Plt Count 203 (150-450) k/uL MPV 6.9 Neutrophils % 76 % Lymphocytes % 15 % Monocytes % 6 % Eosinophils % 1 % Basophils % 0 % Neutrophils # 5.2 (1.3-7.7) k/uL Lymphocytes # 1.0 (1.0-4.8) k/uL Monocytes # 0.4 (0-1.0) k/uL Eosinophils # 0.1 (0-0.7) k/uL Basophils # 0.0 (0-0.2) k/uL Sodium 136 L (137-145) mmol/L Potassium 5.4 H (3.5-5.1) mmol/L Chloride 106 (98-107) mmol/L Carbon Dioxide 21 L (22-30) mmol/L Anion Gap 9 mmol/L BUN 21 H (9-20) mg/dL Creatinine 0.83 (0.66-1.25) mg/dL Est GFR (CKD-EPI)AfAm >90 (>60 ml/min/1.73 sqM) Est GFR (CKD-EPI)NonAf 89 (>60 ml/min/1.73 sqM) Glucose 209 H (74-99) mg/dL Calcium 9.3 (8.4-10.2) mg/dL Magnesium 1.7 (1.6-2.3) mg/dL Total Bilirubin 0.8 (0.2-1.3) mg/dL AST 21 (17-59) U/L ALT 11 (4-49) U/L Alkaline Phosphatase 116 (38-126) U/L Creatine Kinase 301 H (55-170) U/L Total Protein 6.8 (6.3-8.2) g/dL Albumin 4.0 (3.5-5.0) g/dL - EKG Data -: EKG Interpreted by Me EKG shows normal: sinus rhythm EKG Comments: Sinus rhythm of 80 VT interval 124 QRS 74 QT since QTC 372/429 evidence of old inferior changes. - Radiology Data Radiology results: report reviewed (Imaging reviewed there is a left intertrochanteric hip fracture noted.), image reviewed Disposition Clinical Impression: Fall, Closed intertrochanteric fracture of left hip Disposition: ADMITTED IP TO THIS [facility] Condition: Fair Referrals: Brandon Bryant MD [Primary Care Provider] - 1-2 days
[2020-07-17 13:58] LABS: Basophils % (A) 0 %; Eosinophils # (A) 0.1 k/uL (0-0.7); Eosinophils % (A) 1 %; HCT 45.3 % (39.0-53.0); HGB 15.6 gm/dL (13.0-17.5); Lymphocytes % (A) 15 %; MCH 32.9 pg (25.0-35.0); MCHC 34.4 g/dL (31.0-37.0); MCV 95.6 fL (80.0-100.0); Mean Platelet Volume 6.9; Monocytes # (A) 0.4 k/uL (0-1.0); Monocytes % (A) 6 %; Neutrophils # (A) 5.2 k/uL (1.3-7.7); Neutrophils % (A) 76 %; Platelet Count 203 k/uL (150-450); RBC 4.74 m/uL (4.30-5.90); RDW 12.1 % (11.5-15.5); WBC 6.8 k/uL (3.8-10.6)
[2020-07-17 14:11] LABS: ALT 11 U/L (4-49); AST 21 U/L (17-59); African American GFR (CKD) >90 (>60 ml/min/1.73 sqM); Alkaline Phosphatase 116 U/L (38-126); Anion Gap 9 mmol/L; Blood Urea Nitrogen 21 mg/dL (9-20); Calcium 9.3 mg/dL (8.4-10.2); Carbon Dioxide 21 mmol/L (22-30); Chloride 106 mmol/L (98-107); Creatine Kinase 301 U/L (55-170); Glucose 209 mg/dL (74-99); Magnesium 1.7 mg/dL (1.6-2.3); Non-African American GFR(CKD) 89 (>60 ml/min/1.73 sqM); Potassium 5.4 mmol/L (3.5-5.1); Sodium 136 mmol/L (137-145); Total Bilirubin 0.8 mg/dL (0.2-1.3); Total Protein 6.8 g/dL (6.3-8.2)
--- NOTE | 2020-07-17 14:52 | XR ---
Result: History: Pain status post trauma. Comparison: None available. Technique: 7 views of the cervical spine. Findings: The bone mineralization is age appropriate. The cervical spine is visualized from the craniocervical junction to the C5 inferior endplate. There is no evidence of an acute fracture or subluxation. The vertebral body heights are preserved t hroughout the imaged cervical spine. The vertebral elements are in anatomic alignment. There is nor mal alignment of C1 on C2 as seen on the open mouth odontoid view. There is multilevel moderate. Th e prevertebral cervical spondylosis soft tissues are within normal limits. Impression: No acute osseous abnormality within the limitations of the study. Moderate cervical spondylosis.
--- NOTE | 2020-07-17 14:54 | XR ---
EXAMINATION TYPE: XR Hip LT and AP Pelvis DATE OF EXAM: 07/17/2020 COMPARISON: NONE HISTORY: Left hip pain status post fall. TECHNIQUE: A single AP view of the pelvis is obtained. Two views of the left hip are obtained. FINDINGS: There is moderately displaced left femoral intertrochanteric fracture. No evidence of dislo cation. There are mild degenerative changes of the bilateral hips. Lumbar spine fusion is noted. Pres umed prostate radiation seeds noted. IMPRESSION: Left femoral intertrochanteric fracture.
--- NOTE | 2020-07-17 14:55 | XR ---
EXAMINATION TYPE: XR chest 1V DATE OF EXAM: 07/17/2020 COMPARISON: 06/26/2019. HISTORY: Pain status post fall. TECHNIQUE: Single frontal view of the chest is obtained. FINDINGS: There is mild prominence of interstitial and vascular markings. There is associated mild h azy opacity. No pleural effusion, or pneumothorax seen. The cardiac silhouette size is mildly enlarg ed. The osseous structures are intact. IMPRESSION: Mild interstitial edema/atelectasis.
[2020-07-17] MEDS ORDERED: HYDROmorphone 0.5 MG/0.5 ML SYRINGE IVP STA (15:05)
[2020-07-17] MEDS ORDERED: NALOXONE 0.4 MG/ML 1 ML VIAL IV PRN (15:05)
[2020-07-17 15:07] LABS: Partial Thromboplastin Time 33.5 sec (22.0-30.0); Prothrombin Time 59.4 sec (9.0-12.0)
[2020-07-17 15:25] LABS: INR 6.1 (<1.2)
[2020-07-17] MEDS ORDERED: PHYTONADIONE ORAL 5 MG/5 ML ORAL.SYRG PO STA (15:44)
--- NOTE | 2020-07-17 15:56 | P.HPOR ---
History of Present Illness H&P Date: 07/17/20 Chief Complaint: Left intertrochanteric femur fracture, status post fall Patient is a 69-year-old male that presented to [facility] this afternoon after a fall that occurred at his home. Patient lives with his son and [id number]. Patient was apparently putting on his socks, when he lost his balance and fell directly onto the left side, his leg did been behind him. He was able to position the leg in front of him, but was unable to put any weight bearing on the leg. EMS was contacted brought patient to the hospital. Upon arrival to the hospital, multiple lab tests imaging test were done. Images of the left hip demonstrated a displaced left intertrochanteric femur fracture. I was contacted by the emergency room staff regarding the patient, I was able to then evaluate the patient at bedside in the emergency room. His [id number] was present at bedside, he is resting comfortably. He notes most of the pain on the lateral aspect of the upper left leg with movement. He is having no discomfort or problems of the right lower extremity. He denies any pain, numbness or tingling in the bilateral upper and lower extremities. He denies any loss of bowel or bladder function, he denies any numbness or tingling of the perineal region or genitals. He does have a history of a previous lumbar fusion, this was done by Dr. Douglass at this hospital many years ago. He denies any hip or knee procedures of the bilateral lower extremities. He denies any cervical spine surgeries. He denies any bilateral upper extremity surgeries. He has been evaluated by a previous orthopedic surgeon with regards to his right shoulder, he was told he had severe arthritis and there was not much they would recommend for surgery. Patient does have a history of Parkinson's disease, and after discussion with the patient and the daughter he does have multiple falls. He occasionally utilizes a walker with ambulation. He has had home physical therapy recently to help improve his upper and lower body strength. Patient does take Coumadin for previous blood clots in the lower extremities. His current INR 6.1. Currently patient denies any headaches, lightheadedness, chest pain, shortness of breath, fever or chills, nausea or vomiting. Review of Systems Constitutional: Reports as per HPI Past Medical History Past Medical History: Cancer, Diabetes Mellitus, Deep Vein Thrombosis (DVT), Eye Disorder, Hyperlipidemia, Hypertension, Memory Impairment, Neurologic Disorder, Osteoarthritis (OA) Additional Past Medical History / Comment(s): Parkinsons. Hx kidney stones, prostate, colon and skin cancer. History of Any Multi-Drug Resistant Organisms: None Reported Past Surgical History: Back Surgery Additional Past Surgical History / Comment(s): Left cataract surgery, bowel surgery for colon cancer, skin cancer removed. Past Anesthesia/Blood Transfusion Reactions: No Reported Reaction Past Psychological History: No Psychological Hx Reported Past Alcohol Use History: Rare Past Drug Use History: None Reported - Past Family History Mother Family Medical History: Cancer Additional Family Medical History / Comment(s): Colon Father Family Medical History: Cancer Additional Family Medical History / Comment(s): Prostate Medications and Allergies Home Medications Medication Instructions Recorded Confirmed Type Insulin Glargine [Lantus] 45 - 50 unit SQ HS 11/14/16 05/05/19 History Simvastatin [Zocor] 20 mg PO HS 11/14/16 05/05/19 History Warfarin [Coumadin] 2.5 mg PO SUMOTUWETHSA 11/14/16 05/05/19 History amantadine HCL [Symmetrel] 100 mg PO BID 11/14/16 05/05/19 History glipiZIDE/METFORMIN HCL 2 tab PO AC-BID 11/14/16 05/05/19 History [glipiZIDE/METFORMIN HCL 5-500 mg] sitaGLIPtin PHOSPHATE [Januvia] 100 mg PO DAILY 11/14/16 05/05/19 History Carbidopa-Levodopa ER 50-200Mg 2 tab PO BID@0700,1300 12/19/16 05/05/19 History [Sinemet ER 50-200] rOPINIRole HCL [rOPINIRole HCL ER] 8 mg PO BID@0700,1300 02/15/17 05/05/19 History Carbidopa-Levodopa ER 50-200Mg 1 tab PO DAILY@1700 05/05/19 05/05/19 History [Sinemet CR 50-200 mg] Lisinopril [Prinivil] 10 mg PO DAILY 05/05/19 05/05/19 History Warfarin Sodium [Coumadin] 10 mg PO HS 05/05/19 05/05/19 History Allergies Allergy/AdvReac Type Severity Reaction Status Date / Time Iodine and Iodide Containing Allergy Rash/Hives Verified 06/26/19 21:14 Produc shellfish derived Allergy Rash/Hives Verified 06/26/19 21:14 paper tape AdvReac Skin Uncoded 06/26/19 21:14 peeled off. Physical Examination Left lower extremity: No obvious open lesions or sores are present throughout the extremity. Obvious shortening and internal rotation of the extremity is noted compared to contralateral side He's tender with palpation over the greater trochanter and of the proximal femur. There is no tenderness with palpation of the lower leg, knee, foot or ankle. There is no effusion appreciated around the knee. Plantar flexion, dorsiflexion, EHL, FHL are intact Patient is unable to straight leg raise, logroll maneuver reproduces pain in the left groin Dorsalis pedis pulses 2+, his sensory exam to light touch throughout lower extremity are intact General orthopedic exam Right lower extremity: No obvious open lesions or sores are present throughout the extremity. There is no areas of erythema or significant soft tissue swelling. Logroll maneuver the hip reproduces no pain, passive flexion of the hip reproduces no pain. Patient is able to extend and flex the knee with minimal difficulty, there is no si gnificant pain with palpation in the area. He is nontender with palpation of the lower leg, including the foot and ankle. Plantar flexion, dorsiflexion, EHL, FHL are intact. Calf is soft, no tenderness with palpation. Sensory exam to light touch throughout the extremities intact, dorsalis pedis pulses 2+ Bilateral upper extremity: No open lesions or sores are visualized throughout bilateral upper extremities. Range of motion of all major muscle groups in the bilateral upper extremities are intact. He does have limited motion with forward elevation and shoulder abduction, this is likely due to his chronic shoulder problem. Sensory exam to light touch throughout the bilateral upper extremities is intact. Bilateral radial ulnar pulses are 2+. Cervical, thoracic, lumbar: Patient is nontender with palpation of midline cervical, thoracic or lumbar region Patient does have minimal tenderness with palpation of the paraspinal region of the cervical spine No obvious skin changes, including erythema or areas of soft tissue swelling appreciated throughout the cervical, thoracic or lumbar region Results - Labs Labs: Abnormal Lab Results - Last 24 Hours (Table) 07/17/20 07/17/20 Range/Units 13:50 14:48 PT 59.4 H (9.0-12.0) sec INR 6.1 H* (<1.2) APTT 33.5 H (22.0-30.0) sec Sodium 136 L (137-145) mmol/L Potassium 5.4 H (3.5-5.1) mmol/L Carbon Dioxide 21 L (22-30) mmol/L BUN 21 H (9-20) mg/dL Glucose 209 H (74-99) mg/dL Creatine Kinase 301 H (55-170) U/L H & H 07/17/20 Range/Units 13:50 Hgb 15.6 (13.0-17.5) gm/dL Hct 45.3 (39.0-53.0) % Coagulation 07/17/20 Range/Units 14:48 INR 6.1 H* (<1.2) Result Diagrams: 07/17/20 13:50 07/17/20 13:50 - Diagnostic results Hip x-ray: report reviewed, image reviewed Cervical AP/lateral x-ray: report reviewed, image reviewed Assessment and Plan Assessment: Displaced left intertrochanteric femur fracture Left hip osteoarthritis Previous lumbar fusion Multilevel cervical spine spondylosis History of DVTs, currently anticoagulated Parkinson's disease Other medical comorbidities Plan: Imaging: X-rays reviewed of the left hip and AP pelvis. Images do demonstrate previous lumbar hardware. Left hip demonstrates a displaced left intertrochanteric femur fracture. Evidence of osteoarthritis present throughout the left hip with loss of joint space and osteophyte formation. No fractures or dislocations are appreciated of the right hip. Images reviewed a cervical spine along with reports. No acute fractures or dislocations are appreciated. Multilevel cervical spondylosis is noted Plan: I was able to discuss the case, including the physical exam findings and imaging studies my tending Dr. Corado. Like to proceed with surgical intervention, more specifically a intramedullary nail of the left femur. Our plan would be to do this on 07/18/2020. Due to the patient's current INR of 6.1, this may delay surgery. 1 dose of 5 mg oral vitamin K was ordered, obviously hold Coumadin at this time. Plan for recheck of INR morning of 07/18/2020. Possibly delay surgery 2017 2020 Risk and benefits to surgery were discussed the patient and family at bedside, this to include but not excluding infection, blood loss, developmental blood clots, neurovascular injury, pain and stiffness, and adequate healing of bone, need for subsequent surgery. Patient and family are in good understanding and would like to proceed. Consent will be obtained prior to procedure Nothing by mouth after midnight, will change diet if surgery is postponed Nonweightbearing at this time Urinary catheter placement if patient has difficulty with bedside urinal, catheter will need to be placed prior to surgery Pain control, utilize oral and IV medications as needed Medical recommendations DVT prophylaxis Coumadin was held at this time. Recheck INR on 07/18/2020. Plan restart of oral anticoagulants after surgery Further recommendations to follow Time with Patient: Less than 30
--- NOTE | 2020-07-17 16:22 | XR ---
RESULT: HISTORY: left hip fracture TECHNIQUE: 2 views of the left femur were obtained. COMPARISON: Earlier same date. FINDINGS: There is unchanged displaced left femoral intertrochanteric fracture. No evidence of dislocation. No evidence of distal femur fracture. Atherosclerotic calcifications are seen. IMPRESSION: As above.
[2020-07-17] MEDS: SODIUM CHLORIDE 0.9% 1,000 ML IV SCH (16:36)
[2020-07-17 17:29] LABS: Glucose,Whole Blood 220 mg/dL (75-99)
[2020-07-17] MEDS: glipiZIDE 10 MG TAB PO SCH (18:09)
[2020-07-17] MEDS: CARBIDOPA-LEVODOPA ER 50-200MG 1 EACH TABLET.ER PO SCH (18:09)
[2020-07-17] MEDS: INSULIN ASPART (NovoLOG) 100 UNIT/ML VIAL SQ SCH ×2 (18:09→20:14)
[2020-07-17] MEDS: metFORMIN 500 MG TAB PO SCH (18:09)
[2020-07-17] MEDS: HYDROmorphone 0.5 MG/0.5 ML SYRINGE IVP PRN ×2 (19:02→21:58)
[2020-07-17 20:10] LABS: Glucose,Whole Blood 269 mg/dL (75-99)
[2020-07-17] MEDS: ATORVASTATIN 10 MG TAB PO SCH (20:14)
[2020-07-18] MEDS: HYDROmorphone 0.5 MG/0.5 ML SYRINGE IVP PRN ×2 (00:19→05:18)
[2020-07-18 06:47] LABS: Glucose,Whole Blood 270 mg/dL (75-99)
[2020-07-18 07:49] LABS: INR 2.1 (<1.2); Prothrombin Time 20.8 sec (9.0-12.0)
[2020-07-18] MEDS ORDERED: ROPINIROLE HCL 4 MG PO SCH (08:00)
--- NOTE | 2020-07-18 08:29 | P.HPIM ---
History of Present Illness H&P Date: 07/18/20 Past Medical History Past Medical History: Cancer, Diabetes Mellitus, Deep Vein Thrombosis (DVT), Eye Disorder, Hyperlipidemia, Hypertension, Memory Impairment, Neurologic Disorder, Osteoarthritis (OA) Additional Past Medical History / Comment(s): Parkinsons. Hx kidney stones, prostate, colon and skin cancer. History of Any Multi-Drug Resistant Organisms: None Reported Past Surgical History: Back Surgery Additional Past Surgical History / Comment(s): Left cataract surgery, bowel surgery for colon cancer, skin cancer removed. Past Anesthesia/Blood Transfusion Reactions: No Reported Reaction Past Psychological History: No Psychological Hx Reported Smoking Status: Former smoker Past Alcohol Use History: Rare Additional Past Alcohol Use History / Comment(s): . Past Drug Use History: None Reported - Past Family History Mother Family Medical History: Cancer Additional Family Medical History / Comment(s): Colon Father Family Medical History: Cancer Additional Family Medical History / Comment(s): Prostate Medications and Allergies Home Medications Medication Instructions Recorded Confirmed Type Simvastatin [Zocor] 20 mg PO 11/14/16 07/17/20 History amantadine HCL [Symmetrel] 100 mg PO TID@0800,1500,209911/14/16 07/17/20 History glipiZIDE/METFORMIN HCL 2 tab PO BID@0800,209911/14/16 07/17/20 History [glipiZIDE/METFORMIN HCL 5-500 mg] Carbidopa-Levodopa ER 50-200Mg 2.5 tab PO DAILY@0800 12/19/16 07/17/20 History [Sinemet ER 50-200] Carbidopa-Levodopa ER 50-200Mg 2 tab PO 05/05/19 07/17/20 History [Sinemet CR 50-200 mg] Lisinopril [Prinivil] 10 mg PO DAILY@0800 05/05/19 07/17/20 History ALPRAZolam [Xanax] 0.25 mg PO TID@0800,1500,209907/17/20 07/17/20 History Acetaminophen Tab [Tylenol] 650 mg PO BID@0800,2100 07/17/20 07/17/20 History Entacapone 200 mg PO BID@0800,2100 07/17/20 07/17/20 History Insulin Glargine,Hum.rec.anlog 50 unit SQ 07/17/20 07/17/20 History [Lantus Solostar] Warfarin [Coumadin] 5 mg PO DIRECTED 07/17/20 07/17/20 History rOPINIRole HCL [Requip XL] 8 mg PO BID@0800,2100 07/17/20 07/17/20 History Allergies Allergy/AdvReac Type Severity Reaction Status Date / Time Iodine and Iodide Containing Allergy Rash/Hives Verified 07/17/20 15:45 Produc shellfish derived Allergy Rash/Hives Verified 07/17/20 15:45 paper tape AdvReac Skin Uncoded 07/17/20 15:45 peeled off. Physical Exam Vitals: Vital Signs Temp Pulse Pulse Resp BP BP Pulse Ox 07/18/20 07:58 97.8 F 83 17 120/69 95 07/18/20 01:22 97.5 F L 78 106/67 96 07/17/20 18:48 97.9 F 83 128/72 96 07/17/20 17:32 96.5 F L 91 17 140/76 97 07/17/20 13:20 98.0 F 84 16 164/85 95 Intake and Output 07/17/20 07/18/20 07/18/20 22:59 06:59 14:59 Output Total 1075 Balance -1075 Output: Urine 1075 Other: Voiding Method Indwelling Catheter Weight 98.43 kg Results CBC & Chem 7: 07/17/20 13:50 07/17/20 13:50 Labs: Abnormal Lab Results - Last 24 Hours (Table) 07/17/20 07/17/20 07/17/20 Range/Units 13:50 14:48 17:27 PT 59.4 H (9.0-12.0) sec INR 6.1 H* (<1.2) APTT 33.5 H (22.0-30.0) sec Sodium 136 L (137-145) mmol/L Potassium 5.4 H (3.5-5.1) mmol/L Carbon Dioxide 21 L (22-30) mmol/L BUN 21 H (9-20) mg/dL Glucose 209 H (74-99) mg/dL POC Glucose (mg/dL) 220 H (75-99) mg/dL Creatine Kinase 301 H (55-170) U/L 01/07/18/20 07/18/20 Range/Units 20:09 06:46 07:34 PT 20.8 H (9.0-12.0) sec INR 2.1 H (<1.2) APTT (22.0-30.0) sec Sodium (137-145) mmol/L Potassium (3.5-5.1) mmol/L Carbon Dioxide (22-30) mmol/L BUN (9-20) mg/dL Glucose (74-99) mg/dL POC Glucose (mg/dL) 269 H 270 H (75-99) mg/dL Creatine Kinase (55-170) U/L Thrombosis Risk Factor Assmnt - Choose All That Apply Each Factor Represents 1 point: Medical pt on bed rest, Obesity (BMI >25) Each Risk Factor Represents 2 Points: Age 61-74 years, Major surgery, Patient co nfined to bed Each Risk Factor Represents 3 Points: History of DVT/PE Each Risk Factor Represents 5 Points: Hip, pelvis, or leg fracture (< 1 month) Thrombosis Risk Factor Assessment Total Risk Factor Score: 16 Thrombosis Risk Factor Assessment Level: High Risk
[2020-07-18] MEDS: ACETAMINOPHEN TAB 325 MG TAB PO SCH ×2 (08:50→21:26)
[2020-07-18] MEDS: PANTOPRAZOLE 40 MG/10 ML VIAL IV SCH (08:52)
[2020-07-18] MEDS: CARBIDOPA-LEVODOPA ER 50-200MG 1 EACH TABLET.ER PO SCH ×3 (08:53→17:28)
[2020-07-18] MEDS: ENTACAPONE 200 MG TAB PO SCH ×2 (08:53→21:26)
[2020-07-18] MEDS ORDERED: PHYTONADIONE 5 MG in SODIUM CHLORIDE 0.9% 50 ML IVPB ONE (09:00)
[2020-07-18] MEDS: glipiZIDE 10 MG TAB PO SCH ×2 (09:05→17:28)
[2020-07-18] MEDS: LINAGLIPTIN 5 MG TABLET PO SCH (09:06)
[2020-07-18] MEDS: ALPRAZolam 0.25 MG TAB PO SCH ×3 (09:06→21:26)
[2020-07-18] MEDS: metFORMIN 500 MG TAB PO SCH ×2 (09:06→17:28)
[2020-07-18] MEDS: INSULIN ASPART (NovoLOG) 100 UNIT/ML VIAL SQ SCH ×4 (09:06→21:27)
[2020-07-18] MEDS: lisinopriL 10 MG TAB PO SCH (09:06)
[2020-07-18 09:42] LABS: INR 2.18 (0.90-1.11); Prothrombin Time 22.2 sec (9.9-11.9)
--- NOTE | 2020-07-18 10:16 | P.CONS ---
History of Present Illness - Reason for Consult Consult date: 07/18/20 Medical management Requesting physician: Pawel Corado - Chief Complaint Left hip fracture, coagulopathy, Parkinson disease, A. fib with RVR, type 2 - History of Present Illness 69-year-old male one of my office patient with past medical history of type 2 diabetes, DVT or thrombosis, A. fib with RVR, hypertension and hyperlipidemia who has mild memory impairment who apparently fell at home while he was trying to put his socks he did the splits and he couldn't get up the time had severe pain in the left hip area his family ended up calling 911 patient wrote the e mergency department by EMS. X-ray of the hip came back with intratrochanteric fracture of the left hip, no other injury was found. Patient INR was over therapeutic at 6.0 was giving some vitamin K to start his home medication patient was seen orthopedic will be going for open reduction internal fixation. Patient INR still high despite morning will be giving 2 units of fresh frozen plasma along with more vitamin K and prepare for surgery around 11:00. patient declined any other injurysyncope no chest pain or shortness of breath. Review of Systems CONSTITUTIONAL: Well-developed no acute respiratory distress. EYES: No icterus sclerae, no conjunctivitis. EARS, NOSE, MOUTH, THROAT, and FACE: No sore throat, lymphadenopathy, carotid bruits or deformity. RESPIRATORY: No SOB cough or wheezes. CARDIOVASCULAR: No CP, Palpitation, PND, Orthopnea, or angina. GASTROINTESTINAL: No Abd pain, Nausea or vomiting, no Diarrhea or constipation, No GI Bleed, no distention or masses. GENITOURINARY: Negative for Hematuria or UTI, no kidney stones mild BPH symptoms. INTEGUMENT/BREAST: Negative for any muscular injury with mild osteoarthritis.. HEMATOLOGIC/LYMPHATIC: Negative for bleed or purpura. MUSCULOSKELTAL: Negative for Myalgia or arthralgia. Generalized muscle pain with significant left hip pain. NEURLOGICAL: No LOC, Sz or syncope, blurred vision dizziness or abnormality. Significant Parkinson disease with fine tremor normal balance and gait and Parkinson facial expression.. BEHAVIORAL/PSYCH: Negative. ENDOCRINE: Negative. Social history: He quit smoking years ago was smoker for 30 years one pack, no alcohol abuse no drug use, patient does not use any oxygen at home no BiPAP or updraft treatment. Patient walk with a walker use cane once in a while. He is and lives home with his son. Family history: His father dying in his 80s from cancer likely lung cancer, mother dying in her 70s from cancer most likely breast, patient had 2 siblings one of them passed from CAD 2 children with no major medical problem. Past Medical History Past Medical History: Cancer, Diabetes Mellitus, Deep Vein Thrombosis (DVT), Eye Disorder, Hyperlipidemia, Hypertension, Memory Impairment, Neurologic Disorder, Osteoarthritis (OA) Additional Past Medical History / Comment(s): Parkinsons. Hx kidney stones, prostate, colon and skin cancer. History of Any Multi-Drug Resistant Organisms: None Reported Past Surgical History: Back Surgery Additional Past Surgical History / Comment(s): Left cataract surgery, bowel surgery for colon cancer, skin cancer removed. Past Anesthesia/Blood Transfusion Reactions: No Reported Reaction Past Psychological History: No Psychological Hx Reported Smoking Status: Former smoker Past Alcohol Use History: Rare Additional Past Alcohol Use History / Comment(s): . Past Drug Use History: None Reported - Past Family History Mother Family Medical History: Cancer Additional Family Medical History / Comment(s): Colon Father Family Medical History: Cancer Additional Family Medical History / Comment(s): Prostate Medications and Allergies Home Medications Medication Instructions Recorded Confirmed Type Simvastatin [Zocor] 20 mg PO 11/14/16 07/17/20 History amantadine HCL [Symmetrel] 100 mg PO TID@0800,1500,2100 11/14/16 07/17/20 History glipiZIDE/METFORMIN HCL 2 tab PO BID@0800,209911/14/16 07/17/20 History [glipiZIDE/METFORMIN HCL 5-500 mg] Carbidopa-Levodopa ER 50-200Mg 2.5 tab PO DAILY@0800 12/19/16 07/17/20 History [Sinemet ER 50-200] Carbidopa-Levodopa ER 50-200Mg 2 tab PO 05/05/19 07/17/20 History [Sinemet CR 50-200 mg] Lisinopril [Prinivil] 10 mg PO DAILY@0800 05/05/19 07/17/20 History ALPRAZolam [Xanax] 0.25 mg PO TID@0800,1500,2100 07/17/20 07/17/20 History Acetaminophen Tab [Tylenol] 650 mg PO BID@0800,2100 07/17/20 07/17/20 History Entacapone 200 mg PO BID@0800,2100 07/17/20 07/17/20 History Insulin Glargine,Hum.rec.anlog 50 unit SQ HS 07/17/20 07/17/20 History [Lantus Solostar] Warfarin [Coumadin] 5 mg PO DIRECTED 07/17/20 07/17/20 History rOPINIRole HCL [Requip XL] 8 mg PO BID@0800,2100 07/17/20 07/17/20 History Allergies Allergy/AdvReac Type Severity Reaction Status Date / Time Iodine and Iodide Containing Allergy Rash/Hives Verified 07/17/20 15:45 Produc shellfish derived Allergy Rash/Hives Verified 07/17/20 15:45 paper tape AdvReac Skin Uncoded 07/17/20 15:45 peeled off. Physical Exam Vitals: Vital Signs Temp Pulse Pulse Resp BP BP Pulse Ox 07/18/20 09:50 98.0 F 83 16 100/62 94 L 07/18/20 09:36 98.4 F 84 16 105/64 94 L 07/18/20 07:58 97.8 F 83 17 120/69 95 07/18/20 01:22 97.5 F L 78 106/67 96 07/17/20 18:48 97.9 F 83 128/72 96 07/17/20 17:32 96.5 F L 91 17 140/76 97 07/17/20 13:20 98.0 F 84 16 164/85 95 Intake and Output 07/17/20 07/18/20 07/18/20 22:59 06:59 14:59 Output Total 1075 Balance -1075 Output: Urine 1075 Other: Voiding Method Indwelling Catheter Indwelling Catheter Weight 98.43 kg General Appearance: Alert, cooperative, no distress, appears stated age. Neck HEENT: Supple, no lymphadenopathy, no thyroid enlargement, no carotid bruits. Lungs: Clear to auscultation without crackles or wheezes no rhonchi, no deformity. Chest Wall: Chest wall normal expansion with deep inspiration no tenderness and no deformity was found on exam, no costochondral pain or discomfort. Heart: Regular rate and rhythm, S1, S2 normal, soft 2/6 systolic murmur in the apex. Back: Symmetric, no curvature, ROM normal, no CVA tenderness. Abdomen: Soft, non-tender, bowel sounds active all four quadrants, no masses, no organomegaly. Extremities: Extremities normal, atraumatic, no cyanosis or edema. Slight deformity of the left leg with internal rotation of the hip and leg slightly but short-term significant pain and discomfort in the groin area with no major bruise hematoma no other injury was found. Pulses: 2+ and symmetric. Skin: Skin color, texture, tugor normal, no rashes or lesions. Neurologic: Alert oriented x3 cranial nerves II through XII intact, no motor deficit, have significant tremor and typical parkinsonian expression no gait exam was done at the time. Results CBC & Chem 7: 07/17/20 13:50 07/17/20 13:50 Labs: Abnormal Lab Results - Last 24 Hours (Table) 07/17/20 07/17/20 07/17/20 Range/Units 13:50 14:48 17:27 PT 59.4 H (9.0-12.0) sec INR 6.1 H* (<1.2) APTT 33.5 H (22.0-30.0) sec Sodium 136 L (137-145) mmol/L Potassium 5.4 H (3.5-5.1) mmol/L Carbon Dioxide 21 L (22-30) mmol/L BUN 21 H (9-20) mg/dL Glucose 209 H (74-99) mg/dL POC Glucose (mg/dL) 220 H (75-99) mg/dL Creatine Kinase 301 H (55-170) U/L 07/17/20 07/18/20 07/18/20 Range/Units 20:09 06:32 06:46 PT 22.2 H (9.0-12.0) sec INR 2.18 H (<1.2) APTT (22.0-30.0) sec Sodium (137-145) mmol/L Potassium (3.5-5.1) mmol/L Carbon Dioxide (22-30) mmol/L BUN (9-20) mg/dL Glucose (74-99) mg/dL POC Glucose (mg/dL) 269 H 270 H (75-99) mg/dL Creatine Kinase (55-170) U/L 07/18/20 Range/Units 07:34 PT 20.8 H (9.0-12.0) sec INR 2.1 H (<1.2) APTT (22.0-30.0) sec Sodium (137-145) mmol/L Potassium (3.5-5.1) mmol/L Carbon Dioxide (22-30) mmol/L BUN (9-20) mg/dL Glucose (74-99) mg/dL POC Glucose (mg/dL) (75-99) mg/dL Creatine Kinase (55-170) U/L Assessment and Plan Assessment: 1 left hip intratrochanteric fracture: Patient will be going for surgery, no absolute contraindication for surgery his INR still above 2, fresh frozen plasma will be done along with vitamin K will watch for any bleeding afterward, patient is hemodynamically stable at this point no need for any further investigation or procedure before surgery. His surgery had low to mild risk for complication during after surgery. 2 history of DVT: Still on anticoagulation will resume warfarin after surgery or can be changed to Eliquis if needed. 3 hypertension: Continue patient on lisinopril 10 mg a day. Type 2 diabetes: Patient remain on Januvia along with glipizide/metformin Accu- Chek with sliding scales coverage and be done. 5 Parkinson disease: Remain on Sinemet 50/200 3 times a day along with amantadine 100 mg twice a day and Requip 8 mg twice a day. 6 mildly elevated CK mild rhabdomyolysis watch kidney function next 24 hours continue hydration. 7 question left A. fib with RVR in the past: Patient EKG showed normal sinus rhythm with Q waves in the inferior leads compatible to last EKG no change no need for any further investigation cardio vascular before surgery. 8 GI prophylaxis: Patient will be on pantoprazole 40 mg daily. 9 DVT prophylaxis: Remain on anticoagulation. CODE STATUS: Full code. Dr. 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 If I can be any further help to please let me know.
[2020-07-18 11:33] LABS: Glucose,Whole Blood 280 mg/dL (75-99)
[2020-07-18] MEDS ORDERED: fentaNYL (PF) 50 MCG/ML 2 ML AMP ONE (12:42)
[2020-07-18] MEDS ORDERED: MIDAZOLAM 2 MG/2 ML VIAL ONE (12:42)
[2020-07-18] MEDS ORDERED: IV FLUID CONTINUATION 400 ML IV ONE (12:42)
[2020-07-18] MEDS ORDERED: HYDROmorphone (PF) 1 MG/ML ONE (12:42)
[2020-07-18] MEDS ORDERED: PHENYLEPHRINE 10 MG/ML VIAL ONE (12:42)
[2020-07-18] MEDS ORDERED: PROPOFOL 10 MG/ML 20 ML VIAL IV ONE (12:42)
[2020-07-18] MEDS ORDERED: SODIUM CHLORIDE 0.9% 100 ML with ceFAZolin 2,000 MG IV ONE ×2 (12:50)
--- NOTE | 2020-07-18 12:52 | P.PN ---
Subjective Progress Note Date: 07/18/20 Principal diagnosis: Left intertrochanteric femur fracture Patient's INR did go down to low to use this morning on redraw, discuss with internal medicine over the phone this morning the possibility of surgery today. We decided and the patient receiving 2 units of fresh frozen plasma prior to surgery. I discussed this with my attending Dr. Corado and also the anesthesia team. Patient will undergo surgery on 07/18/2020. Plan for restart anticoagulation the day after surgery, hoping to use all her questions set of Coumadin, this will be discussed with internal medicine. Objective - Vital Signs Vital signs: Vital Signs Temp 98.3 F 07/18/20 12:11 Pulse 78 07/18/20 12:11 Resp 16 07/18/20 12:11 BP 114/63 07/18/20 12:11 Pulse Ox 90 L 07/18/20 12:01 Intake & Output 07/17/20 07/18/20 07/18/20 18:59 06:59 18:59 Intake Total 278 Output Total 1075 Balance -1075 278 Weight 98.43 kg Intake: Blood Product 278 Ffp 24 Cpd Unit 0 [id number] Ffp 24 Cpd Unit 278 [id number] Output: Urine 1075 Other: Voiding Method Indwelling Catheter Indwelling Catheter - Labs CBC & Chem 7: 07/17/20 13:50 07/17/20 13:50 Labs: Abnormal Lab Results - Last 24 Hours (Table) 07/17/20 07/17/20 07/17/20 Range/Units 13:50 14:48 17:27 PT 59.4 H (9.0-12.0) sec INR 6.1 H* (<1.2) APTT 33.5 H (22.0-30.0) sec Sodium 136 L (137-145) mmol/L Potassium 5.4 H (3.5-5.1) mmol/L Carbon Dioxide 21 L (22-30) mmol/L BUN 21 H (9-20) mg/dL Glucose 209 H (74-99) mg/dL POC Glucose (mg/dL) 220 H (75-99) mg/dL Creatine Kinase 301 H (55-170) U/L 07/17/20 07/18/20 07/18/20 Range/Units 20:09 06:32 06:46 PT 22.2 H (9.0-12.0) sec INR 2.18 H (<1.2) APTT (22.0-30.0) sec Sodium (137-145) mmol/L Potassium (3.5-5.1) mmol/L Carbon Dioxide (22-30) mmol/L BUN (9-20) mg/dL Glucose (74-99) mg/dL POC Glucose (mg/dL) 269 H 270 H (75-99) mg/dL Creatine Kinase (55-170) U/L 07/18/20 07/18/20 Range/Units 07:34 11:32 PT 20.8 H (9.0-12.0) sec INR 2.1 H (<1.2) APTT (22.0-30.0) sec Sodium (137-145) mmol/L Potassium (3.5-5.1) mmol/L Carbon Dioxide (22-30) mmol/L BUN (9-20) mg/dL Glucose (74-99) mg/dL POC Glucose (mg/dL) 280 H (75-99) mg/dL Creatine Kinase (55-170) U/L
[2020-07-18] MEDS ORDERED: SODIUM CHLORIDE 0.9% 1,000 ML IV ONE (13:45)
--- NOTE | 2020-07-18 14:14 | P.OP ---
Date of Procedure: 07/18/20 Preoperative Diagnosis: Comminuted displaced left hip intertrochanteric fracture Postoperative Diagnosis: Severely comminuted/displaced left hip intertrochanteric fracture Procedure(s) Performed: Trochanteric nailing left hip intertrochanteric fracture Implants: Synthes 11 mm/125 cannulated TFNA 170 mm, 115 mm helical blade, 36 mm 5.0 distal locking screw Anesthesia: GETA Surgeon: Pawel Corado Furnace Roaster #1: Willie Gibson Estimated Blood Loss (ml): 50 Pathology: none sent Condition: stable Disposition: PACU Indications for Procedure: 69-year-old patient seen with a comminuted/displaced left hip intertrochanteric fracture. I recommended trochanteric nailing. Patient was agreeable, consent was obtained. Medical clearance was provided. Operative Findings: See description of procedure Description of Procedure: Patient was taken to the operative suite. Patient underwent a general anesthetic by the department of anesthesia. Patient was transferred to the [place] table. The left lower extremity is placed in standard loss traction and right lower extremity well-padded well-leg lozano. The C-arm was brought in and. Multiple attempts were made to try to reduce this significant, fracture. After appropriate amount of time working on a where able to get some reasonable alignment. The C-arm was pulled back. The left hip area was prepped and draped in the normal sterile orthopedic fashion. The patient did receive appropriate IV antibiotics. I now made an incision beginning at the level of the greater trochanter midshaft femur area proximally approximately 5 cm sharply through skin and dissection down to the IT band and incision made through the IT band blunt dissection to the tip of the greater trochanter. I felt was a significant comminution of that intertrochanteric/greater trochanteric area. I introduced a guidewire into the proximal femoral canal and confirm that on fluoroscopy. An opening reamer was utilized. We now chose our appropriate length/size trochanteric nail and slow that into the intramedullary canal. I used a mallet to tap it down until was reasonably position. I now attached the outrigger for insertion of our helical blade incision was made. The cannula was now guided into the lateral proximal femoral cortex. I then introduced a guidewire into the head neck complex. I confirmed adequate positioning of the guidewire into the head that complex on AP and lateral intraoperative imaging. We depth gauged that. I reamed over the guidewire. We chose appropriate length helical screw. That was tapped in position. It was now left dynamic [place] as we compressed the fracture down as much as we could. I now locked the helical blade in position. I now used the awl and cannula for the distal locking screw. Decision was made. The cannula was advanced. A drill hole was made. Appropriate length 5.0 cortical screw was now inserted with good bite and purchase. The anterior outrigger was removed. I reviewed the construct in AP and lateral intraoperative imaging, there was adequate alignment of the fracture and good position of the fixation. I can't spot films document that. The wounds were irrigated. The IT band proximally was repaired with #1 Vicryl. The subcu soft tissues repaired to a Vicryl. Skin proximal skin afsaneh. Patient was awakened, transferred to a bed and recovery stable condition. Norberto AVILA assisted with this procedure.
[2020-07-18] MEDS ORDERED: traMADol 50 MG TAB PO PRN (14:18)
[2020-07-18] MEDS ORDERED: MAGNESIUM HYDROXIDE 2,400 MG/10 ML CUP PO PRN (14:18)
[2020-07-18] MEDS ORDERED: Acetaminophen-Codeine 300-30mg TAB PO PRN (14:18)
[2020-07-18 14:21] LABS: Glucose,Whole Blood 210 mg/dL (75-99)
[2020-07-18] MEDS: SODIUM CHLORIDE 0.9% 1,000 ML IV SCH (16:36)
[2020-07-18 16:51] LABS: Glucose,Whole Blood 220 mg/dL (75-99)
[2020-07-18] MEDS: HYDROcodone/APAP 5-325MG 1 EACH TAB PO PRN (18:06)
[2020-07-18 21:03] LABS: Glucose,Whole Blood 267 mg/dL (75-99)
[2020-07-18] MEDS: SENNOSIDES-DOCUSATE SODIUM 1 EACH TAB PO SCH (21:26)
[2020-07-18] MEDS: ATORVASTATIN 10 MG TAB PO SCH (21:26)
[2020-07-18] MEDS: INSULIN DETEMIR (LEVEMIR) 100 UNIT/ML SYR SQ SCH (21:29)
[2020-07-19 06:42] LABS: Glucose,Whole Blood 189 mg/dL (75-99)
[2020-07-19] MEDS: ALPRAZolam 0.25 MG TAB PO SCH ×3 (07:28→21:51)
[2020-07-19] MEDS: lisinopriL 10 MG TAB PO SCH (07:28)
[2020-07-19] MEDS: glipiZIDE 10 MG TAB PO SCH ×2 (07:28→17:30)
[2020-07-19] MEDS: APIXABAN 2.5 MG TABLET PO SCH ×2 (07:28→21:51)
[2020-07-19] MEDS: ACETAMINOPHEN TAB 325 MG TAB PO SCH ×2 (07:28→21:51)
[2020-07-19] MEDS: LINAGLIPTIN 5 MG TABLET PO SCH (07:28)
--- NOTE | 2020-07-19 07:30 | XR ---
EXAMINATION TYPE: XR Hip Limited LT, [place] guidance operating room DATE OF EXAM: 07/18/2020 COMPARISON: NONE HISTORY: 69-year-old male left hip IT nailing. FINDINGS: Intraoperative images demonstrating intratendinous healing with hip screw fixation proximal left femu r. Fluoroscopy time of 2 minutes 36 seconds was used during proximal left femoral internal fixation. 2 image/s document/s the procedure. IMPRESSION: Intraoperative fluoroscopy as above.
[2020-07-19] MEDS: ENTACAPONE 200 MG TAB PO SCH ×2 (07:31→21:51)
[2020-07-19] MEDS: CARBIDOPA-LEVODOPA ER 50-200MG 1 EACH TABLET.ER PO SCH ×3 (07:33→17:24)
[2020-07-19] MEDS: PANTOPRAZOLE 40 MG/10 ML VIAL IV SCH (07:34)
[2020-07-19 07:35] LABS: Basophils % (A) 1 %; Eosinophils # (A) 0.1 k/uL (0-0.7); Eosinophils % (A) 1 %; Lymphocytes # (A) 0.8 k/uL (1.0-4.8); Lymphocytes % (A) 10 %; MCH 33.2 pg (25.0-35.0); MCV 97.7 fL (80.0-100.0); Mean Platelet Volume 7.1; Monocytes # (A) 0.5 k/uL (0-1.0); Monocytes % (A) 7 %; Neutrophils # (A) 6.4 k/uL (1.3-7.7); Neutrophils % (A) 81 %; Platelet Count 183 k/uL (150-450); RBC 3.38 m/uL (4.30-5.90); RDW 12.3 % (11.5-15.5); WBC 7.9 k/uL (3.8-10.6)
[2020-07-19 07:36] LABS: HGB 11.2 gm/dL (13.0-17.5)
[2020-07-19] MEDS: metFORMIN 500 MG TAB PO SCH ×2 (07:38→17:24)
[2020-07-19] MEDS: HYDROcodone/APAP 5-325MG 1 EACH TAB PO PRN ×2 (07:38→17:30)
[2020-07-19] MEDS: INSULIN ASPART (NovoLOG) 100 UNIT/ML VIAL SQ SCH ×4 (07:38→21:46)
[2020-07-19 09:30] LABS: African American GFR (CKD) 87.4 (60.0-200.0); Albumin 3.5 g/dL (3.80-4.90); Albumin/Globulin Ratio 1.94 (1.60-3.17); Anion Gap 5.2 mmol/L (4.00-12.00); Calcium 8.2 mg/dL (8.7-10.3); Carbon Dioxide 25.8 mmol/L (21.6-31.8); Globulin 1.8 g/dL (1.6-3.3); Non-African American GFR(CKD) 75.4 (60.0-200.0); Potassium 4.5 mmol/L (3.5-5.5); Total Bilirubin 0.9 mg/dL (0.2-1.2); Total Protein 5.3 g/dL (6.2-8.2)
[2020-07-19 09:47] LABS: INR 1.09 (0.90-1.11); Prothrombin Time 11.7 sec (9.9-11.9)
--- NOTE | 2020-07-19 11:02 | P.PN ---
Subjective Progress Note Date: 07/19/20 Principal diagnosis: Status post IM nail left intertrochanteric femur fracture patient evaluated at bedside, he is resting comfortably hospital chair. His pain is significantly improved since surgery. He has most of the discomfort he notes with movement of the leg. No other orthopedic complaints this time. Denies headaches, lightheadedness, chest pain or shortness of breath Objective - Vital Signs Vital signs: Vital Signs Temp 99.2 F 07/19/20 07:43 Pulse 81 07/19/20 08:00 Resp 17 07/19/20 08:00 BP 111/62 07/19/20 07:43 Pulse Ox 95 07/19/20 07:43 Intake & Output 07/18/20 07/19/20 07/19/20 18:59 06:59 18:59 Intake Total 1989 Output Total 550 1200 400 Balance 1440 -1200 -400 Intake: IV 1400 Blood Product 590 Ffp 24 Cpd Unit 312 [id number] Ffp 24 Cpd Unit 278 [id number] Output: Urine 500 1200 400 Uretheral (Moise) 400 400 Estimated Blood Loss 50 Other: Voiding Method Indwelling Catheter Indwelling Catheter Indwelling Catheter - Exam Left lower extremity: Postoperative drainage is in good position and condition, no active drainage vis ualized. Minimal soft tissue swelling present in the upper leg. Lower compartments remained soft, calf is soft, no tenderness with palpation. Plantar flexion, dorsiflexion, EHL, FHL are intact. Dorsalis pedis pulses 2+. - Labs CBC & Chem 7: 07/19/20 06:08 07/19/20 06:08 Labs: Abnormal Lab Results - Last 24 Hours (Table) 07/18/20 07/18/20 07/18/20 Range/Units 11:32 14:12 16:50 RBC (4.30-5.90) m/uL Hgb (13.0-17.5) gm/dL Hct (39.0-53.0) % Lymphocytes # (1.0-4.8) k/uL BUN (9.0-27.0) mg/dL BUN/Creatinine Ratio (12.00-20.00) Ratio Glucose (70-110) mg/dL POC Glucose (mg/dL) 280 H 210 H 220 H (75-99) mg/dL Calcium (8.7-10.3) mg/dL AST (14-35) U/L Total Protein (6.2-8.2) g/dL Albumin (3.80-4.90) g/dL 07/18/20 07/19/20 07/19/20 Range/Units 21:02 06:08 06:08 RBC 3.38 L (4.30-5.90) m/uL Hgb 11.2 L D (13.0-17.5) gm/dL Hct 33.0 L (39.0-53.0) % Lymphocytes # 0.8 L (1.0-4.8) k/uL BUN 29.0 H (9.0-27.0) mg/dL BUN/Creatinine Ratio 29.00 H (12.00-20.00) Ratio Glucose 178 H (70-110) mg/dL POC Glucose (mg/dL) 267 H (75-99) mg/dL Calcium 8.2 L (8.7-10.3) mg/dL AST 80 H (14-35) U/L Total Protein 5.3 L (6.2-8.2) g/dL Albumin 3.50 L (3.80-4.90) g/dL 07/19/20 Range/Units 06:41 RBC (4.30-5.90) m/uL Hgb (13.0-17.5) gm/dL Hct (39.0-53.0) % Lymphocytes # (1.0-4.8) k/uL BUN (9.0-27.0) mg/dL BUN/Creatinine Ratio (12.00-20.00) Ratio Glucose (70-110) mg/dL POC Glucose (mg/dL) 189 H (75-99) mg/dL Calcium (8.7-10.3) mg/dL AST (14-35) U/L Total Protein (6.2-8.2) g/dL Albumin (3.80-4.90) g/dL Assessment and Plan Assessment: Status post IM nail left intertrochanteric femur fracture Plan: Pain control, continue current medication DVT prophylaxis, I did start Eliquis today, internal medicine recommendations a nticoagulation for discharge Continue toe-touch weightbearing left lower extremity Continue her physical therapy, walker ambulation at times Will change the dressing tomorrow Medical recommendations Discussed with patient's son last night the possibility patient being discharged home. Explained to him the patient is going to require a lot of extra help for the next 4-6 weeks. We will see the patient does during his hospital stay with work with physical therapy. Patient may require subacute rehab placement We'll continue to follow patient during inpatient stay Time with Patient: Less than 30
[2020-07-19 11:30] LABS: Glucose,Whole Blood 116 mg/dL (75-99)
[2020-07-19] MEDS: SODIUM CHLORIDE 0.9% 1,000 ML IV SCH (11:31)
--- NOTE | 2020-07-19 11:39 | P.PN ---
Subjective Progress Note Date: 07/19/20 HISTORY OF PRESENT ILLNESS 69-year-old male one of my office patient with past medical history of type 2 diabetes, DVT or thrombosis, A. fib with RVR, hypertension and hyperlipidemia who has mild memory impairment who apparently fell at home while he was trying to put his socks he did the splits and he couldn't get up the time had severe pain in the left hip area his family ended up calling 911 patient wrote the emergency department by EMS. X-ray of the hip came back with intratrochanteric fracture of the left hip, no other injury was found. Patient INR was over therapeutic at 6.0 was giving some vitamin K to start his home medication patient was seen orthopedic will be going for open reduction internal fixation. Patient INR still high despite morning will be giving 2 units of fresh frozen plasma along with more vitamin K and prepare for surgery around 11:00. patient declined any other injurysyncope no chest pain or shortness of breath. 07/19: Patient is postop day #1 IM nail left intratrochanteric femur fracture. Patient states that his hip is sore today. Discussed discharge planning with him and his son Darrion via phone call. Most likely patient will need to go to subacute rehab and they are agreeable to [facility]. Social work has been updated to start process. Patient denies having any chest pain or shortness of breath. No nausea, vomiting or diarrhea. He has been afebrile, heart rate 81, blood pressure 111/62, pulse ox 95% on room air. WBC 7.9, hemoglobin 11.2, platelet count 183. Electrolytes normal, BUN 29 creatinine 1. Blood sugars running between 116 and 267. Patient is on eliquis for DVT prophylaxis. Anticipate he'll be ready for discharge tomorrow. REVIEW OF SYSTEMS CONSTITUTIONAL: Well-developed no acute respiratory distress. Denies fevers. EYES: No icterus sclerae, no conjunctivitis. EARS, NOSE, MOUTH, THROAT, and FACE: No sore throat, lymphadenopathy, carotid bruits or deformity. RESPIRATORY: No SOB cough or wheezes. CARDIOVASCULAR: No CP, Palpitation, PND, Orthopnea, or angina. GASTROINTESTINAL: No Abd pain, Nausea or vomiting, no Diarrhea or constipation, No GI Bleed, no distention or masses. GENITOURINARY: Negative for Hematuria or UTI, no kidney stones mild BPH symptoms. INTEGUMENT/BREAST: Negative for any muscular injury with mild osteoarthritis.. HEMATOLOGIC/LYMPHATIC: Negative for bleed or purpura. MUSCULOSKELTAL: Negative for Myalgia or arthralgia. Generalized muscle pain with significant left hip pain. NEURLOGICAL: No LOC, Sz or syncope, blurred vision dizziness or abnormality. Significant Parkinson disease with fine tremor normal balance and gait and Parkinson facial expression.. BEHAVIORAL/PSYCH: Negative. ENDOCRINE: Negative. PHYSICAL EXAMINATION General Appearance: Alert, cooperative, no distress, appears stated age. Patient appears to be comfortable in bed. Neck HEENT: Supple, no lymphadenopathy, no thyroid enlargement, no carotid bruits. Lungs: Clear to auscultation without crackles or wheezes no rhonchi, no deformity. Chest Wall: Chest wall normal expansion with deep inspiration no tenderness and no deformity was found on exam, no costochondral pain or discomfort. Heart: Regular rate and rhythm, S1, S2 normal, soft 2/6 systolic murmur in the apex. Back: Symmetric, no curvature, ROM normal, no CVA tenderness. Abdomen: Soft, non-tender, bowel sounds active all four quadrants, no masses, no organomegaly. Extremities: Extremities normal, atraumatic, no cyanosis or edema. Small dressing in place to the left hip. No significant erythema or edema. Pulses: 2+ and symmetric. Skin: Skin color, texture, tugor normal, no rashes or lesions. Neurologic: Alert oriented x3 cranial nerves II through XII intact, no motor de ficit, have significant tremor and typical parkinsonian expression no gait exam was done at the time. ASSESSMENT AND PLAN 1 left hip intratrochanteric fracture. Status post IM nail, postop day #1. Continue current pain management, incentive spirometry to reduce incidence of atelectasis and hospital-acquired pneumonia. Patient is on eliquis for DVT prophylaxis. 2 history of DVT: Still on anticoagulation will resume warfarin after surgery or can be changed to Eliquis if needed. 3 hypertension: Continue patient on lisinopril 10 mg a day. 4 Type 2 diabetes: Patient remain on Januvia along with glipizide/metformin Accu-Chek with sliding scales coverage and be done. 5 Parkinson disease: Remain on Sinemet 50/200 3 times a day along with amantadine 100 mg twice a day and Requip 8 mg twice a day. 6 mildly elevated CK mild rhabdomyolysis watch kidney function next 24 hours continue hydration. 7 question left A. fib with RVR in the past: Patient EKG showed normal sinus rhythm with Q waves in the inferior leads compatible to last EKG no change no ne ed for any further investigation cardio vascular before surgery. 8 GI prophylaxis: Patient will be on pantoprazole 40 mg daily. 9 DVT prophylaxis: Remain on anticoagulation. CODE STATUS: Full code. DISCHARGE PLAN on Sunday. Impression and plan of care have been directed as dictated by the signing physician. Amelia Stinson nurse practitioner acting as scribe for signing physician. Objective - Vital Signs Vital signs: Vital Signs Temp 99.2 F 07/19/20 07:43 Pulse 81 07/19/20 07:43 Resp 17 07/19/20 07:43 BP 111/62 07/19/20 07:43 Pulse Ox 95 07/19/20 07:43 Intake & Output 07/18/20 07/19/20 07/19/20 18:59 06:59 18:59 Intake Total 1990 Output Total 550 1200 Balance 1440 -1200 Intake: IV 1400 Blood Product 590 Ffp 24 Cpd Unit 312 [id number] Ffp 24 Cpd Unit 278 [id number] Output: Urine 500 1200 Uretheral (Moise) 400 Estimated Blood Loss 50 Other: Voiding Method Indwelling Catheter Indwelling Catheter - Labs CBC & Chem 7: 07/19/20 06:08 07/19/20 06:08 Labs: Abnormal Lab Results - Last 24 Hours (Table) 07/18/20 07/18/20 07/18/20 Range/Units 06:32 11:32 14:12 RBC (4.30-5.90) m/uL Hgb (13.0-17.5) gm/dL Hct (39.0-53.0) % Lymphocytes # (1.0-4.8) k/uL PT 22.2 H (9.9-11.9) sec INR 2.18 H (0.90-1.11) POC Glucose (mg/dL) 280 H 210 H (75-99) mg/dL 07/18/20 07/18/20 07/19/20 Range/Units 16:50 21:02 06:08 RBC 3.38 L (4.30-5.90) m/uL Hgb 11.2 L D (13.0-17.5) gm/dL Hct 33.0 L (39.0-53.0) % Lymphocytes # 0.8 L (1.0-4.8) k/uL PT (9.9-11.9) sec INR (0.90-1.11) POC Glucose (mg/dL) 220 H 267 H (75-99) mg/dL 07/19/20 Range/Units 06:41 RBC (4.30-5.90) m/uL Hgb (13.0-17.5) gm/dL Hct (39.0-53.0) % Lymphocytes # (1.0-4.8) k/uL PT (9.9-11.9) sec INR (0.90-1.11) POC Glucose (mg/dL) 189 H (75-99) mg/dL
[2020-07-19 16:52] LABS: Glucose,Whole Blood 176 mg/dL (75-99)
[2020-07-19 20:43] LABS: Glucose,Whole Blood 155 mg/dL (75-99)
[2020-07-19] MEDS: SENNOSIDES-DOCUSATE SODIUM 1 EACH TAB PO SCH (21:50)
[2020-07-19] MEDS: ATORVASTATIN 10 MG TAB PO SCH (21:50)
[2020-07-19] MEDS: INSULIN DETEMIR (LEVEMIR) 100 UNIT/ML SYR SQ SCH (21:51)
[2020-07-20 06:48] LABS: Glucose,Whole Blood 67 mg/dL (75-99)
[2020-07-20 06:51] LABS: Basophils % (A) 0 %; Eosinophils # (A) 0.2 k/uL (0-0.7); Eosinophils % (A) 2 %; HCT 29.5 % (39.0-53.0); HGB 10.1 gm/dL (13.0-17.5); Lymphocytes # (A) 1.2 k/uL (1.0-4.8); Lymphocytes % (A) 14 %; MCH 33.6 pg (25.0-35.0); MCHC 34.1 g/dL (31.0-37.0); MCV 98.5 fL (80.0-100.0); Mean Platelet Volume 7.3; Monocytes # (A) 0.6 k/uL (0-1.0); Monocytes % (A) 8 %; Neutrophils # (A) 5.9 k/uL (1.3-7.7); Neutrophils % (A) 74 %; Platelet Count 178 k/uL (150-450); RBC 2.99 m/uL (4.30-5.90); RDW 12.2 % (11.5-15.5); WBC 8.1 k/uL (3.8-10.6)
[2020-07-20 07:13] LABS: Glucose,Whole Blood 91 mg/dL (75-99)
[2020-07-20] MEDS: INSULIN ASPART (NovoLOG) 100 UNIT/ML VIAL SQ SCH ×2 (07:30→12:28)
[2020-07-20] MEDS ORDERED: PANTOPRAZOLE 40 MG TABLET PO SCH (07:30)
[2020-07-20 07:31] VITALS: BP 110/69; PULSE 80; RESP 18; TEMP 98.4
[2020-07-20] MEDS: HYDROcodone/APAP 5-325MG 1 EACH TAB PO PRN ×2 (07:42→12:32)
[2020-07-20] MEDS: ACETAMINOPHEN TAB 325 MG TAB PO SCH (07:44)
[2020-07-20] MEDS: ENTACAPONE 200 MG TAB PO SCH (07:44)
[2020-07-20] MEDS: ALPRAZolam 0.25 MG TAB PO SCH (07:44)
[2020-07-20] MEDS: CARBIDOPA-LEVODOPA ER 50-200MG 1 EACH TABLET.ER PO SCH ×2 (07:45→12:32)
[2020-07-20] MEDS: APIXABAN 2.5 MG TABLET PO SCH (07:45)
[2020-07-20] MEDS: lisinopriL 10 MG TAB PO SCH (07:45)
[2020-07-20] MEDS: LINAGLIPTIN 5 MG TABLET PO SCH (08:06)
[2020-07-20] MEDS: metFORMIN 500 MG TAB PO SCH (08:06)
[2020-07-20] MEDS: glipiZIDE 10 MG TAB PO SCH (08:06)
[2020-07-20] MEDS: SODIUM CHLORIDE 0.9% 1,000 ML IV SCH (08:06)
--- NOTE | 2020-07-20 10:10 | P.PN ---
Subjective Progress Note Date: 07/20/20 HISTORY OF PRESENT ILLNESS 69-year-old male one of my office patient with past medical history of type 2 diabetes, DVT or thrombosis, A. fib with RVR, hypertension and hyperlipidemia who has mild memory impairment who apparently fell at home while he was trying to put his socks he did the splits and he couldn't get up the time had severe pain in the left hip area his family ended up calling 911 patient wrote the emergency department by EMS. X-ray of the hip came back with intratrochanteric fracture of the left hip, no other injury was found. Patient INR was over therapeutic at 6.0 was giving some vitamin K to start his home medication patient was seen orthopedic will be going for open reduction internal fixation. Patient INR still high despite morning will be giving 2 units of fresh frozen plasma along with more vitamin K and prepare for surgery around 11:00. patient declined any other injurysyncope no chest pain or shortness of breath. 07/19: Patient is postop day #1 IM nail left intratrochanteric femur fracture. Patient states that his hip is sore today. Discussed discharge planning with him and his son Darrion via phone call. Most likely patient will need to go to subacute rehab and they are agreeable to [facility]. Social work has been updated to start process. Patient denies having any chest pain or shortness of breath. No nausea, vomiting or diarrhea. He has been afebrile, heart rate 81, blood pressure 111/62, pulse ox 95% on room air. WBC 7.9, hemoglobin 11.2, platelet count 183. Electrolytes normal, BUN 29 creatinine 1. Blood sugars running between 116 and 267. Patient is on eliquis for DVT prophylaxis. Anticipate he'll be ready for discharge tomorrow. 07/20: Patient has been accepted at [facility] and [place] 19 testing will be ordered. Moise cath remains in place which will be removed today. He is currently on eliquis for DVT prophylaxis. Patient has been afebrile, heart rate 80, blood pressure 110/69, pulse ox 96% on room air. WBC 8.1, hemoglobin 10.1. Blood sugars run between 67 and 155. Medication reconciliation reviewed. Patient is cleared by medicine for discharge to [facility]. REVIEW OF SYSTEMS CONSTITUTIONAL: Well-developed no acute respiratory distress. Denies fevers. Denies chills. EYES: No icterus sclerae, no conjunctivitis. EARS, NOSE, MOUTH, THROAT, and FACE: No sore throat, lymphadenopathy, carotid bruits or deformity. RESPIRATORY: No SOB cough or wheezes. CARDIOVASCULAR: No CP, Palpitation, PND, Orthopnea, or angina. GASTROINTESTINAL: No Abd pain, Nausea or vomiting, no Diarrhea or constipation, No GI Bleed, no distention or masses. GENITOURINARY: Negative for Hematuria or UTI, no kidney stones mild BPH symptoms. INTEGUMENT/BREAST: Negative for any muscular injury with mild osteoarthritis.. HEMATOLOGIC/LYMPHATIC: Negative for bleed or purpura. MUSCULOSKELTAL: Negative for Myalgia or arthralgia. Generalized muscle pain with significant left hip pain. NEURLOGICAL: No LOC, Sz or syncope, blurred vision dizziness or abnormality. Significant Parkinson disease with fine tremor normal balance and gait and Parkinson facial expression.. BEHAVIORAL/PSYCH: Negative. ENDOCRINE: Negative. PHYSICAL EXAMINATION General Appearance: Alert, cooperative, no distress, appears stated age. Patient appears to be comfortable in bed. Neck HEENT: Supple, no lymphadenopathy, no thyroid enlargement, no carotid bruits. Lungs: Clear to auscultation without crackles or wheezes no rhonchi, no deformity. Chest Wall: Chest wall normal expansion with deep inspiration no tenderness and no deformity was found on exam, no costochondral pain or discomfort. Heart: Regular rate and rhythm, S1, S2 normal, soft 2/6 systolic murmur in the apex. Back: Symmetric, no curvature, ROM normal, no CVA tenderness. Abdomen: Soft, non-tender, bowel sounds active all four quadrants, no masses, no organomegaly. Extremities: Extremities normal, atraumatic, no cyanosis or edema. Small dressing in place to the left hip. Pulses: 2+ and symmetric. Skin: Skin color, texture, tugor normal, no rashes or lesions. Neurologic: Alert oriented x3 cranial nerves II through XII intact, no motor deficit, have significant tremor and typical parkinsonian expression no gait e xam was done at the time. ASSESSMENT AND PLAN 1 left hip intratrochanteric fracture. Status post IM nail, postop day #2. Continue current pain management, incentive spirometry to reduce incidence of atelectasis and hospital-acquired pneumonia. Patient is on eliquis for DVT prophylaxis. 2 history of DVT: Still on anticoagulation will resume warfarin after surgery or can be changed to Eliquis if needed. 3 hypertension: Continue patient on lisinopril 10 mg a day. 4 Type 2 diabetes: Patient remain on Januvia along with glipizide/metformin Accu-Chek with sliding scales coverage and be done. 5 Parkinson disease: Remain on Sinemet 50/200 3 times a day along with amantadine 100 mg twice a day and Requip 8 mg twice a day. 6 mildly elevated CK mild rhabdomyolysis watch kidney function next 24 hours continue hydration. 7 question left A. fib with RVR in the past: Patient EKG showed normal sinus rhythm with Q waves in the inferior leads compatible to last EKG no change no need for any further investigation cardio vascular before surgery. 8 GI prophylaxis: Patient will be on pantoprazole 40 mg daily. 9 DVT prophylaxis: Remain on anticoagulation. CODE STATUS: Full code. DISCHARGE PLAN on Sunday. Impression and plan of care have been directed as dictated by the signing physician. Amelia Stinson nurse practitioner acting as scribe for signing physician. Objective - Vital Signs Vital signs: Vital Signs Temp 98.4 F 07/20/20 07:29 Pulse 80 07/20/20 07:29 Resp 18 07/20/20 07:29 BP 110/69 07/20/20 07:29 Pulse Ox 96 07/20/20 07:29 Intake & Output 07/19/20 07/20/20 07/20/20 18:59 06:59 18:59 Intake Total 240 Output Total 400 650 Balance -400 -650 240 Intake: Oral 240 Output: Urine 400 650 Uretheral (Moise) 400 Other: Voiding Method Indwelling Catheter Indwelling Catheter Indwelling Catheter # Bowel Movements 0 - Labs CBC & Chem 7: 07/20/20 06:12 07/19/20 06:08 Labs: Abnormal Lab Results - Last 24 Hours (Table) 07/19/20 07/19/20 07/19/20 Range/Units 06:08 11:28 16:50 RBC (4.30-5.90) m/uL Hgb (13.0-17.5) gm/dL Hct (39.0-53.0) % BUN 29.0 H (9.0-27.0) mg/dL BUN/Creatinine Ratio 29.00 H (12.00-20.00) Ratio Glucose 178 H (70-110) mg/dL POC Glucose (mg/dL) 116 H 176 H (75-99) mg/dL Calcium 8.2 L (8.7-10.3) mg/dL AST 80 H (14-35) U/L Total Protein 5.3 L (6.2-8.2) g/dL Albumin 3.50 L (3.80-4.90) g/dL 07/19/20 07/20/20 07/20/20 Range/Units 20:41 06:12 06:45 RBC 2.99 L (4.30-5.90) m/uL Hgb 10.1 L (13.0-17.5) gm/dL Hct 29.5 L (39.0-53.0) % BUN (9.0-27.0) mg/dL BUN/Creatinine Ratio (12.00-20.00) Ratio Glucose (70-110) mg/dL POC Glucose (mg/dL) 155 H 67 L (75-99) mg/dL Calcium (8.7-10.3) mg/dL AST (14-35) U/L Total Protein (6.2-8.2) g/dL Albumin (3.80-4.90) g/dL
--- NOTE | 2020-07-20 11:13 | P.PN ---
Subjective Progress Note Date: 07/20/20 Principal diagnosis: Status post IM nail left intertrochanteric femur fracture patient evaluated at bedside, he is resting comfortably hospital bed . No other orthopedic complaints this time. Denies headaches, lightheadedness, chest pain or shortness of breath Objective - Vital Signs Vital signs: Vital Signs Temp 98.4 F 07/20/20 07:29 Pulse 80 07/20/20 07:29 Resp 18 07/20/20 07:29 BP 110/69 07/20/20 07:29 Pulse Ox 96 07/20/20 07:29 Intake & Output 07/19/20 07/20/20 07/20/20 18:59 06:59 18:59 Intake Total 240 Output Total 400 650 Balance -400 -650 240 Intake: Oral 240 Output: Urine 400 650 Uretheral (Moise) 400 Other: Voiding Method Indwelling Catheter Indwelling Catheter Indwelling Catheter # Bowel Movements 0 - Exam Left lower extremity: Postoperative bandage was removed by nursing staff, I did discuss with them the findings. There was mild drainage from the proximal incision. Bandages placed today. Minimal soft tissue swelling present in the upper leg. Lower compartments remained soft, calf is soft, no tenderness with palpation. Plantar flexion, dorsiflexion, EHL, FHL are intact. Dorsalis pedis pulses 2+. - Labs CBC & Chem 7: 07/20/20 06:12 07/19/20 06:08 Labs: Abnormal Lab Results - Last 24 Hours (Table) 07/19/20 07/19/20 07/19/20 Range/Units 11:28 16:50 20:41 RBC (4.30-5.90) m/uL Hgb (13.0-17.5) gm/dL Hct (39.0-53.0) % POC Glucose (mg/dL) 116 H 176 H 155 H (75-99) mg/dL 07/20/20 07/20/20 Range/Units 06:12 06:45 RBC 2.99 L (4.30-5.90) m/uL Hgb 10.1 L (13.0-17.5) gm/dL Hct 29.5 L (39.0-53.0) % POC Glucose (mg/dL) 67 L (75-99) mg/dL Assessment and Plan Assessment: Status post IM nail left intertrochanteric femur fracture Plan: Pain control, [place] 5 mg/325 mg per discharge DVT prophylaxis, Eliquis 2.5 mg twice a day Continue toe-touch weightbearing left lower extremity Continue her physical therapy, walker ambulation at times Medical recommendations Patient being discharged to rehab today Time with Patient: Less than 30
--- NOTE | 2020-07-20 11:23 | P.DS ---
Providers Date of admission: 07/17/20 15:06 Expected date of discharge: 07/20/20 Attending physician: Pawel Corado Consults: 07/17/20 15:07 Consult Physician Routine Consulting Provider: Brandon Bryant Reason/Comments: Medical evaluation and clearance for surgery Do you want consulting provider notified?: Yes Primary care physician: Brandon Bryant [place] [facility] Course: Date of admission: 07/17/2020 Date of discharge: 07/20/2020 Admission diagnosis: Displaced and comminuted left intertrochanteric femur fracture Discharge diagnosis: Status post intramedullary nail left intertrochanteric femur fracture Attending physician: Dr. Corado Surgical procedures: Intramedullary nail left intertrochanteric femur fracture Brief history: Patient is a 69-year-old male who presented to [facility] on 07/17/2020 after sustaining a fall at home. There is obvious injury to the left lower extremity, he was unable to weight-bear. Upon arrival to the hospital, was determined and a displaced and comminuted left intertrochanteric femur fracture. He was admitted under orthopedic care with plan for likely surgical intervention. Hospital course: Details of patient's surgery can be found in operative report. Patient tolerated the procedure well and was subsequently transported to orthopedic floor. Patient's orthopeidc and medical care was provided daily. Patient had daily laboratory tests performed for evaluation of overall blood counts. Patient had daily physical therapy to include strengthening range of motion as well as education with walker ambulation. Patient was treated with Eliquis for their postoperative DVT prophylaxis during their inpatient stay. Patient was noted to have a relatively uneventful postoperative course. Patient reported satisfactory pain control with oral pain medications by postoperative day 0. Patient showed satisfactory progress with physical therapy. Patient moved steadily through the program and had no difficulty meeting the goals by postoperative day 2. Given patient's otherwise satisfactory course and having met physical therapy goals, plan is to discharge patient rehab on postoperative day 2. Discharge condition/disposition: Patient will be discharged to rehab in stable condition. Discharge medications: Instructions are given on resumption of patient's normal daily medications per primary care recommendation, in addition patient will be prescribed [place] 5 mg/325 mg, Eliquis 2.5 mg, sennaS, Protonix 40 mg, Trajenda 5 mg . Discharge instructions: 1. Wound care and infection precautions, keep incision dry and covered while showering, no lotions, creams, moisturizers. No soaking, tubs, pools, hottubs. Do not scrub over the incision. 2. Toe-touch weightbearing on the left lower extremity, utilize a walker at all times 3. Ice and elevate when necessary. Do not exceed 20 minutes per hour with ice pack. 4. Utilize compression sleeve until seen at first follow up appointment. 5. Visiting nursing care. 6. Home physical therapy 7. Pain meds and anticoagulants per prescription. 8. Pain medication has potential to cause constipation. Increase oral fluid and fiber intake. Contact primary care provider if you have not had a bowel movement within 48 hours after discharge 9. No anti-inflammatory medication until discussed at first post operative visit, this including Motrin, Aleve, Mobic, Diclofenac 10. Follow up in office at 2 weeks postop with Norberto Gibson PA-C 11. Follow up with your primary care doctor 7-10 days after discharge. 12. Contact [facility] with any questions, . Wound care instructions: 1. Okay to remove afsaneh on 08/01/2020 Procedures: Intramedullary nail left intertrochanteric femur fracture Patient Condition at Discharge: Fair Plan - Discharge Summary Discharge Rx Participant: Yes New Discharge Prescriptions: New Apixaban [Eliquis] 2.5 mg PO BID tablet HYDROcodone/APAP 5-325MG [[place] 5-325] 1 each PO Q6HR PRN #12 tab PRN Reason: Pain Control Pantoprazole [Protonix] 40 mg PO AC-BRKFST tablet.dr Parker-Docusate Sodium [Senokot-S] 2 each PO HS tab Linagliptin [Tradjenta] 5 mg PO DAILY tablet Continue glipiZIDE/METFORMIN HCL [glipiZIDE/METFORMIN HCL 5-500 mg] 2 tab PO BID@0800,2100 Simvastatin [Zocor] 20 mg PO HS amantadine HCL [Symmetrel] 100 mg PO TID@0800,1500,2100 Carbidopa-Levodopa ER 50-200Mg [Sinemet CR 50-200 mg] 2.5 tab PO DAILY@0800 Carbidopa-Levodopa ER 50-200Mg [Sinemet CR 50-200 mg] 2 tab PO HS Lisinopril [Prinivil] 10 mg PO DAILY@0800 Acetaminophen Tab [Tylenol] 650 mg PO BID@0800,2099 rOPINIRole HCL [Requip XL] 8 mg PO BID@0800,2099 Insulin Glargine,Hum.rec.anlog [Lantus Solostar] 50 unit SQ HS Entacapone 200 mg PO BID@0800,2099 ALPRAZolam [Xanax] 0.25 mg PO TID@0800,1500,2099 #9 tab Discontinued Warfarin [Coumadin] 10 mg PO DAILY Warfarin Sodium 2.5 mg PO [facility] Discharge Medication List Simvastatin [Zocor] 20 mg PO HS 11/14/16 [History] amantadine HCL [Symmetrel] 100 mg PO TID@0800,1500,209911/14/16 [History] glipiZIDE/METFORMIN HCL [glipiZIDE/METFORMIN HCL 5-500 mg] 2 tab PO BID@0800,209911/14/16 [History] Carbidopa-Levodopa ER 50-200Mg [Sinemet CR 50-200 mg] 2.5 tab PO DAILY@0800 12/19/16 [History] Carbidopa-Levodopa ER 50-200Mg [Sinemet CR 50-200 mg] 2 tab PO HS 05/05/19 [History] Lisinopril [Prinivil] 10 mg PO DAILY@0800 05/05/19 [History] Acetaminophen Tab [Tylenol] 650 mg PO BID@0800,209907/17/20 [History] Entacapone 200 mg PO BID@0800,209907/17/20 [History] Insulin Glargine,Hum.rec.anlog [Lantus Solostar] 50 unit SQ HS 07/17/20 [History] rOPINIRole HCL [Requip XL] 8 mg PO BID@0800,209907/17/20 [History] ALPRAZolam [Xanax] 0.25 mg PO TID@0800,1500,2099 #9 tab 07/20/20 [Rx] Apixaban [Eliquis] 2.5 mg PO BID tablet 07/20/20 [Rx] HYDROcodone/APAP 5-325MG [[place] 5-325] 1 each PO Q6HR PRN #12 tab 07/20/20 [Rx] Linagliptin [Tradjenta] 5 mg PO DAILY tablet 07/20/20 [Rx] Pantoprazole [Protonix] 40 mg PO AC-BRKFST tablet. 07/20/20 [Rx] Sennosides-Docusate Sodium [Senokot-S] 2 each PO HS tab 07/20/20 [Rx] Follow up Appointment(s)/Referral(s): Brandon Bryant MD [Primary Care Provider] - 1 Week (at [facility]) Pawel Corado DO [Doctor of Osteopathic Medicine] - 08/06/20 1:50 pm Activity/Diet/Wound Care/Special Instructions: Orthopedic discharge instructions: 1. Keep incision dry and covered while showering 2. Okay to remove afsaneh on 08/01/2020 3. Toe-touch weightbearing on left lower extremity 4. Utilize a walker at all times 5. Ice and elevate extremity often 6. Plan for [facility]up with [facility] 2 weeks Discharge Disposition: TRANSFER TO SNF/ECF
[2020-07-20 12:19] LABS: Glucose,Whole Blood 83 mg/dL (75-99)
[2020-07-20] MEDS ORDERED: FERROUS SULFATE 325 MG TAB PO SCH (17:30)
== END 2020-07-20 13:53 | DRG 481 ==
LOC: EC 13:19 → 4SSUR 15:06
PROVIDERS: ADMIT Orthopaedic Surgery; ATTEND Orthopaedic Surgery
PROC: 30233K1 Transfusion of Nonautologous Frozen Plasma into Peripheral Vein, Percutaneous Approach (ICD-10-PCS; 2020-07-18)
PROC: 0QS736Z Reposition Left Upper Femur with Intramedullary Internal Fixation Device, Percutaneous Approach (ICD-10-PCS; principal; 2020-07-18 12:30)
DX: S72.142A Displaced intertrochanteric fracture of left femur, initial encounter for closed fracture (principal); M62.82 Rhabdomyolysis; D68.9 Coagulation defect, unspecified; G20 Parkinson's disease; Z79.4 Long term (current) use of insulin; E11.9 Type 2 diabetes mellitus without complications; I48.91 Unspecified atrial fibrillation; Z87.891 Personal history of nicotine dependence; Z20.822 Contact with and (suspected) exposure to COVID-19; E78.5 Hyperlipidemia, unspecified; I10 Essential (primary) hypertension; M16.12 Unilateral primary osteoarthritis, left hip; M47.812 Spondylosis without myelopathy or radiculopathy, cervical region; Y92.019 Unspecified place in single-family (private) house as the place of occurrence of the external cause; W01.0XXA Fall on same level from slipping, tripping and stumbling without subsequent striking against object, initial encounter; Z79.01 Long term (current) use of anticoagulants; Z79.899 Other long term (current) drug therapy; Z85.828 Personal history of other malignant neoplasm of skin; Z98.1 Arthrodesis status; Z98.42 Cataract extraction status, left eye; Z85.038 Personal history of other malignant neoplasm of large intestine; Z86.718 Personal history of other venous thrombosis and embolism; Z87.442 Personal history of urinary calculi; Z88.8 Allergy status to other drugs, medicaments and biological substances; Z91.013 Allergy to seafood; Z80.1 Family history of malignant neoplasm of trachea, bronchus and lung; Z80.3 Family history of malignant neoplasm of breast; Z82.49 Family history of ischemic heart disease and other diseases of the circulatory system; Z80.42 Family history of malignant neoplasm of prostate; Z80.0 Family history of malignant neoplasm of digestive organs; Z98.890 Other specified postprocedural states
CPT/HCPCS: 36415; 51702; 71045; 72050; 73501; 73502; 80053; 82550; 83735; 85025; 85610; 85730; 86850; 86900; 86901; 87635; 93005; 96374; 96376; 99285

== ENCOUNTER 2022-01-20 20:13 | Inpatient (IN) | payer MEDICARE, BC ==
[2022-01-20] MEDS ORDERED: NITROGLYCERIN SL TABS 0.4 MG TAB SUBLINGUAL STA (21:28)
[2022-01-20 21:53] LABS: Basophils % (A) 1 %; Eosinophils # (A) 0.1 k/uL (0-0.7); Eosinophils % (A) 1 %; HGB 14.7 gm/dL (13.0-17.5); Lymphocytes # (A) 1.1 k/uL (1.0-4.8); Lymphocytes % (A) 18 %; MCH 33.9 pg (25.0-35.0); MCHC 33.4 g/dL (31.0-37.0); MCV 101.3 fL (80.0-100.0); Mean Platelet Volume 7.6; Monocytes # (A) 0.3 k/uL (0-1.0); Monocytes % (A) 5 %; Neutrophils # (A) 4.4 k/uL (1.3-7.7); Neutrophils % (A) 72 %; Platelet Count 204 k/uL (150-450); RBC 4.34 m/uL (4.30-5.90); RDW 12.6 % (11.5-15.5); WBC 6.1 k/uL (3.8-10.6)
[2022-01-20 22:01] LABS: Prothrombin Time 11.2 sec (9.0-12.0)
[2022-01-20 22:23] LABS: Albumin 3.8 g/dL (3.5-5.0); Magnesium 1.6 mg/dL (1.6-2.3); Potassium 4.4 mmol/L (3.5-5.1); Total Bilirubin 0.6 mg/dL (0.2-1.3); Total Protein 6.3 g/dL (6.3-8.2)
--- NOTE | 2022-01-20 23:08 | XR ---
EXAMINATION TYPE: XR chest 2V DATE OF EXAM: 01/20/2022 COMPARISON: 07/17/2020 HISTORY: Chest pain TECHNIQUE: 2 views FINDINGS: There is no heart failure nor confluent pneumonic infiltrate. Costophrenic angles are clear . There is old right-sided healed rib fractures. There are chest leads. IMPRESSION: No active cardiopulmonary disease. No change.
--- NOTE | 2022-01-20 23:11 | ED ---
Chest Pain HPI - General Chief Complaint: Chest Pain Stated Complaint: Chest pain,BRIGHT Time Seen by Provider: 01/20/22 20:34 Source: patient Mode of arrival: ambulatory - History of Present Illness Initial Comments: 71-year-old male with past history of DVT/pe on anticoagulation with a [place] filter, diabetes, Parkinson's he presents the emergency department with chest pain. States that he was at home around 7 PM when he had sudden onset of chest pain. States that he had 2 sharp shooting pains with then left him with a pressure sensation. Presents now stating that he feels like something is sitting on his chest. He denies history of coronary disease. Has not had any cardiac workup in quite some time. He denies fevers, chills or cough. No ripping or tearing to his back. Denies any missed doses of his anticoagulation. No other alleviating, precipitating or modifying factors - Related Data Home Medications Medication Instructions Recorded Confirmed Simvastatin [Zocor] 20 mg PO HS@209911/14/16 01/20/22 amantadine HCL [Symmetrel] 100 mg PO BID@0800,209911/14/16 01/20/22 Carbidopa-Levodopa ER 50-200Mg 2 tab PO DAILY@0800 12/19/16 01/20/22 [Sinemet CR 50-200 mg] Carbidopa-Levodopa ER 50-200Mg 1 tab PO DAILY@1500 05/05/19 01/20/22 [Sinemet CR 50-200 mg] lisinopriL [Prinivil] 10 mg PO DAILY@0800 05/05/19 01/20/22 Acetaminophen Tab [Tylenol] 650 mg PO BID@0800,209907/17/20 01/20/22 Entacapone 200 mg PO BID@0800,1700 07/17/20 01/20/22 Insulin Glargine,Hum.rec.anlog 33 unit SQ HS@209907/17/20 01/20/22 [Lantus Solostar Pen] ALPRAZolam [Xanax] 0.25 mg PO BID@0800,209901/20/22 01/20/22 Apixaban [Eliquis] 2.5 mg PO BID@0800,1700 01/20/22 01/20/22 Docusate [Colace] 100 mg PO BID@0800,1700 01/20/22 01/20/22 Linagliptin [Tradjenta] 10 mg PO DAILY@0800 01/20/22 01/20/22 Oxybutynin Chloride [Ditropan XL] 5 mg PO BID@0800,2100 01/20/22 01/20/22 QUEtiapine [SEROquel] 100 mg PO HS@209901/20/22 01/20/22 Sennosides-Docusate Sodium 2 tab PO HS@209901/20/22 01/20/22 [Senokot-S] Tamsulosin [Flomax] 0.4 mg PO DAILY@0800 01/20/22 01/20/22 rOPINIRole HCL [Requip XL] 8 mg PO DAILY@0800 01/20/22 01/20/22 Previous Rx's Medication Instructions Recorded Aspirin 81 mg PO DAILY #30 tab 01/24/22 glipiZIDE [Glucotrol] 2.5 mg PO BID@08,2099 30 Days 01/24/22 #60 tab metFORMIN HCL [Glucophage] 500 mg PO BID@0800,2099 30 Days 01/24/22 #60 tab Allergies Allergy/AdvReac Type Severity Reaction Status Date / Time Iodine and Iodide Containing Allergy Rash/Hives Verified 01/20/22 21:56 Produc shellfish derived Allergy Rash/Hives Verified 01/20/22 21:56 paper tape AdvReac Skin Uncoded 01/20/22 20:27 peeled off. Review of Systems ROS Statement: Those systems with pertinent positive or pertinent negative responses have been documented in the HPI. ROS Other: All systems not noted in ROS Statement are negative. EKG Findings - EKG Comments: EKG Findings:: EKG demonstrates a sinus rhythm with a rate of 77. OR interval 163. QRS 84. QTC of 407. No acute ST segment elevations or depressions Past Medical History Past Medical History: Cancer, Diabetes Mellitus, Deep Vein Thrombosis (DVT), Eye Disorder, Hyperlipidemia, Hypertension, Memory Impairment, Neurologic Disorder, Osteoarthritis (OA) Additional Past Medical History / Comment(s): Parkinsons. Hx kidney stones, prostate, colon and skin cancer. History of Any Multi-Drug Resistant Organisms: None Reported Past Surgical History: Back Surgery Additional Past Surgical History / Comment(s): Left cataract surgery, bowel surgery for colon cancer, skin cancer removed. Past Anesthesia/Blood Transfusion Reactions: No Reported Reaction Past Psychological History: No Psychological Hx Reported Smoking Status: Former smoker Past Alcohol Use History: Rare Past Drug Use History: None Reported - Past Family History Mother Family Medical History: Cancer Additional Family Medical History / Comment(s): Colon Father Family Medical History: Cancer Additional Family Medical History / Comment(s): Prostate General Exam General appearance: alert, in no apparent distress Head exam: Present: atraumatic, normocephalic, normal inspection Eye exam: Present: normal appearance, PERRL, EOMI. Absent: scleral icterus, conjunctival injection, periorbital swelling ENT exam: Present: normal exam, mucous membranes moist Neck exam: Present: normal inspection. Absent: tenderness, meningismus, lymphadenopathy Respiratory exam: Present: normal lung sounds bilaterally. Absent: respiratory distress, wheezes, rales, rhonchi, stridor Cardiovascular Exam: Present: regular rate, normal rhythm, normal heart sounds. Absent: systolic murmur, diastolic murmur, rubs, gallop, clicks GI/Abdominal exam: Present: soft, normal bowel sounds. Absent: distended, tenderness, guarding, rebound, rigid Extremities exam: Present: normal inspection, full ROM, normal capillary refill. Absent: tenderness, pedal edema, joint swelling, calf tenderness Back exam: Present: normal inspection Neurological exam: Present: alert, oriented X3, CN II-XII intact Psychiatric exam: Present: normal affect, normal mood Skin exam: Present: warm, dry, intact, normal color. Absent: rash Course Vital Signs 01/20/22 01/20/22 01/20/22 20:23 21:57 22:33 Temperature 97.6 F Pulse Rate 76 67 Pulse Rate [ Furnace Setter ] Respiratory 19 Rate Blood Pressure 126/73 145/69 116/70 O2 Sat by Pulse 98 95 Oximetry 01/20/22 01/20/22 23:33 23:41 Temperature Pulse Rate 64 Pulse Rate [ 64 Furnace Setter ] Respiratory Rate Blood Pressure 125/65 O2 Sat by Pulse Oximetry Chest Pain MDM - MDM Upon arrival patient was placed into room 9. Thorough history and physical exam was performed. He does graded his pain as 7 out of 10. He was given a nitro with improvement in his pain. Laboratory studies are conducted. Chest x-ray was performed. I did discuss results with the patient and recommended admission. Patient agreed and was admitted to Dr. Vale Disposition Clinical Impression: Chest pain Disposition: ADMITTED IP TO THIS HOSP Condition: Stable Is patient prescribed a controlled substance at d/c from ED?: No Time of Disposition: 23:14 Decision to Admit Reason: Admit from EC Decision Date: 01/20/22 Decision Time: 23:14
[2022-01-20] MEDS ORDERED: ASPIRIN 81 MG PO STA (23:14)
[2022-01-20] MEDS ORDERED: NALOXONE 0.4 MG/ML 1 ML VIAL IV PRN (23:15)
[2022-01-20] MEDS ORDERED: NITROGLYCERIN SL TABS 0.4 MG TAB SUBLINGUAL PRN (23:16)
[2022-01-21] MEDS: ACETAMINOPHEN TAB 325 MG TAB PO SCH ×2 (00:17→19:59)
[2022-01-21] MEDS: metFORMIN 500 MG TAB PO SCH ×3 (00:17→19:59)
[2022-01-21] MEDS: OXYBUTYNIN XL 5 MG TAB.ER.24 PO SCH ×3 (00:17→20:09)
[2022-01-21] MEDS: QUEtiapine 100 MG TAB PO SCH ×2 (00:17→20:09)
[2022-01-21] MEDS: glipiZIDE 5 MG TAB PO SCH ×3 (00:17→19:59)
[2022-01-21] MEDS: ALPRAZolam 0.25 MG TAB PO SCH ×3 (00:18→20:03)
[2022-01-21] MEDS: INSULIN DETEMIR (LEVEMIR) 100 UNIT/ML SYR SQ SCH ×2 (00:19→20:09)
[2022-01-21 05:07] LABS: African American GFR (CKD) >90 (>60 ml/min/1.73 sqM); Anion Gap 5 mmol/L; Blood Urea Nitrogen 21 mg/dL (9-20); Calcium 8.8 mg/dL (8.4-10.2); Carbon Dioxide 23 mmol/L (22-30); Chloride 108 mmol/L (98-107); Glucose 141 mg/dL (74-99); Non-African American GFR(CKD) 81 (>60 ml/min/1.73 sqM); Potassium 4.4 mmol/L (3.5-5.1); Sodium 136 mmol/L (137-145)
[2022-01-21 05:09] LABS: Basophils % (A) 1 %; Eosinophils # (A) 0.2 k/uL (0-0.7); Eosinophils % (A) 4 %; HGB 13.5 gm/dL (13.0-17.5); Lymphocytes # (A) 1.5 k/uL (1.0-4.8); Lymphocytes % (A) 27 %; MCH 34.2 pg (25.0-35.0); MCHC 33.8 g/dL (31.0-37.0); MCV 101.3 fL (80.0-100.0); Mean Platelet Volume 7.8; Monocytes # (A) 0.4 k/uL (0-1.0); Monocytes % (A) 7 %; Neutrophils # (A) 3.3 k/uL (1.3-7.7); Neutrophils % (A) 59 %; Platelet Count 178 k/uL (150-450); RBC 3.95 m/uL (4.30-5.90); RDW 12.6 % (11.5-15.5); WBC 5.6 k/uL (3.8-10.6)
[2022-01-21 07:34] LABS: Glucose,Whole Blood 116 mg/dL (70-110)
--- NOTE | 2022-01-21 09:07 | P.CRDCN ---
History of Present Illness History of present illness: Known case of parkinsonism prosthetic hypertrophy dyslipidemia hypertension and arthritis and prior history of DVT comes to Hospital complaining of chest pain. The pain came on suddenly yesterday this in the form of a pressure in the precordial area did not radiate to neck, or back mild to moderate intensity and has gradually subsided on its own. At the time of my evaluation he is pain-free hemodynamically stable. Cardiac enzymes have been negative EKG did not reveal any ischemic changes. Patient does not have a history of coronary artery disease or congestive heart failure. Constitutional: Denies chills. Denies fever. Eyes: Denies blurred vision. Denies pain. Ears, nose, mouth and throat: Denies headache. Denies sore throat. Cardiovascular: Denies chest pain. Denies shortness of breath. Significant for chest pain Respiratory: Denies cough. Gastrointestinal: Denies abdominal pain. Denies diarrhea. Denies nausea. Denies vomiting. Musculoskeletal: Denies myalgias. Significant for parkinsonism Integumentary: Denies pruritus. Denies rash. Neurological: Denies numbness. Denies weakness. Psychiatric: Denies anxiety. Denies depression. Endocrine: Denies fatigue. Denies weight change. Genitourinary: Denies burning, hematuria, frequency of urination. Hematological: No anemia or excess bleeding. General: The patient is awake and alert, in no distress, and does not appear acutely ill. Skin: Skin is warm and dry and no rashes or lesions are noted. Eye: Pupils are equal, round and reactive to light, extra-ocular movements are intact; there is normal conjunctiva bilaterally. Ears, nose, mouth and throat: There are moist mucous membranes and no oral lesions. Neck: The neck is supple, there is no tenderness or JVD. Cardiovascular: There is a regular rate and rhythm. No murmur, rub or gallop is appreciated. Respiratory: Lungs are clear to auscultation, respirations are non-labored, breath sounds are equal. Gastrointestinal: Soft, non-distended, non-tender abdomen without masses or organomegaly noted. There is no rebound or guarding present. Bowel sounds are unremarkable. Back: There is no tenderness to palpation in the midline. There is no obvious deformity. Musculoskeletal: Normal ROM, no tenderness, There is no pedal edema. There is no calf tenderness or swelling. Extremities: No edema. Vascular: Femoral pulse is normal. Posterior tibial pulses are normal .Dorsalis pedis is palpable. Neurological significant for tremors and rigidity Psychiatric: Cooperative, appropriate mood & affect, normal judgment. Assessment and plan: Precordial chest pain rule out CAD History of parkinsonism Hypertension History of DVT History of ovl-hnsysyx-qkhljhvri diabetes I will obtain a 2-D echo Schedule him for a Lexiscan on Sunday Past Medical History Past Medical History: Cancer, Diabetes Mellitus, Deep Vein Thrombosis (DVT), Eye Disorder, Hyperlipidemia, Hypertension, Memory Impairment, Neurologic Disorder, Osteoarthritis (OA) Additional Past Medical History / Comment(s): Parkinsons. Hx kidney stones, prostate, colon and skin cancer. History of Any Multi-Drug Resistant Organisms: None Reported Past Surgical History: Back Surgery Additional Past Surgical History / Comment(s): Left cataract surgery, bowel surgery for colon cancer, skin cancer removed. Past Anesthesia/Blood Transfusion Reactions: No Reported Reaction Past Psychological History: No Psychological Hx Reported Smoking Status: Former smoker Past Alcohol Use History: Rare Past Drug Use History: None Reported - Past Family History Mother Family Medical History: Cancer Additional Family Medical History / Comment(s): Colon Father Family Medical History: Cancer Additional Family Medical History / Comment(s): Prostate Medications and Allergies Home Medications Medication Instructions Recorded Confirmed Type Simvastatin [Zocor] 20 mg PO HS@209911/14/16 01/20/22 History amantadine HCL [Symmetrel] 100 mg PO BID@0800,209911/14/16 01/20/22 History glipiZIDE/METFORMIN HCL 1 tab PO BID@0800,209911/14/16 01/20/22 History [glipiZIDE/METFORMIN HCL 5-500 mg] Carbidopa-Levodopa ER 50-200Mg 2 tab PO DAILY@0800 12/19/16 01/20/22 History [Sinemet CR 50-200 mg] Carbidopa-Levodopa ER 50-200Mg 1 tab PO DAILY@1500 05/05/19 01/20/22 History [Sinemet CR 50-200 mg] lisinopriL [Prinivil] 10 mg PO DAILY@0800 05/05/19 01/20/22 History Acetaminophen Tab [Tylenol] 650 mg PO BID@0800,209907/17/20 01/20/22 History Entacapone 200 mg PO BID@0800,1700 07/17/20 01/20/22 History Insulin Glargine,Hum.rec.anlog 33 unit SQ HS@209907/17/20 01/20/22 History [Lantus Solostar Pen] ALPRAZolam [Xanax] 0.25 mg PO BID@0800,209901/20/22 01/20/22 History Apixaban [Eliquis] 2.5 mg PO BID@0800,169901/20/22 01/20/22 History Docusate [Colace] 100 mg PO BID@0800,169901/20/22 01/20/22 History Linagliptin [Tradjenta] 10 mg PO DAILY@0801/20/22 01/20/22 History Oxybutynin Chloride [Ditropan XL] 5 mg PO BID@0800,209901/20/22 01/20/22 History QUEtiapine [SEROquel] 100 mg PO HS@209901/20/22 01/20/22 History Sennosides-Docusate Sodium 2 tab PO HS@209901/20/22 01/20/22 History [Senokot-S] Tamsulosin [Flomax] 0.4 mg PO DAILY@0801/20/22 01/20/22 History rOPINIRole HCL [Requip XL] 8 mg PO DAILY@0800 01/20/22 01/20/22 History Allergies Allergy/AdvReac Type Severity Reaction Status Date / Time Iodine and Iodide Containing Allergy Rash/Hives Verified 01/20/22 21:56 Produc shellfish derived Allergy Rash/Hives Verified 01/20/22 21:56 paper tape AdvReac Skin Uncoded 01/20/22 20:27 peeled off. Physical Exam Vitals: Vital Signs Temp Pulse Pulse Pulse Resp BP BP 01/21/22 07:00 97.8 F 56 L 16 122/67 01/21/22 02:00 17 01/21/22 01:05 98.4 F 63 17 142/77 01/20/22 23:41 64 01/20/22 23:33 64 125/65 01/20/22 22:33 67 116/70 01/20/22 21:57 145/69 01/20/22 20:23 97.6 F 76 19 126/73 Pulse Ox 01/21/22 07:00 97 01/21/22 02:00 01/21/22 01:05 97 01/20/22 23:41 01/20/22 23:33 01/20/22 22:33 95 01/20/22 21:57 01/20/22 20:23 98 Intake and Output 01/20/22 01/21/22 01/21/22 22:59 06:59 14:59 Output Total 400 Balance -400 Output: Urine 400 Other: Voiding Method Urinal Weight 90.718 kg 90.718 kg Results 01/21/22 04:44 01/21/22 04:44 Cardiac Enzymes 01/20/22 01/20/22 01/21/22 Range/Units 22:02 22:02 00:53 AST 14 L (17-59) U/L Troponin I <0.012 <0.012 (0.000-0.034) ng/mL 01/21/22 Range/Units 04:44 AST (17-59) U/L Troponin I <0.012 (0.000-0.034) ng/mL Coagulation 01/20/22 Range/Units 21:42 PT 11.2 (9.0-12.0) sec APTT 26.0 (22.0-30.0) sec CBC 01/20/22 01/21/22 Range/Units 21:42 04:44 WBC 6.1 5.6 (3.8-10.6) k/uL RBC 4.34 3.95 L (4.30-5.90) m/uL Hgb 14.7 13.5 (13.0-17.5) gm/dL Hct 44.0 40.0 (39.0-53.0) % Plt Count 204 178 (150-450) k/uL Comprehensive Metabolic Panel 01/20/22 01/21/22 Range/Units 22:02 04:44 Sodium 136 L 136 L (137-145) mmol/L Potassium 4.4 4.4 (3.5-5.1) mmol/L Chloride 106 108 H (98-107) mmol/L Carbon Dioxide 23 23 (22-30) mmol/L BUN 21 H 21 H (9-20) mg/dL Creatinine 0.99 0.93 (0.66-1.25) mg/dL Glucose 224 H 141 H (74-99) mg/dL Calcium 9.0 8.8 (8.4-10.2) mg/dL AST 14 L (17-59) U/L ALT 7 (4-49) U/L Alkaline Phosphatase 119 (38-126) U/L Total Protein 6.3 (6.3-8.2) g/dL Albumin 3.8 (3.5-5.0) g/dL Current Medications Generic Name Dose Route Start Last Admin Trade Name Ezq PRN Reason Stop Dose Admin Acetaminophen 650 mg 01/21/22 08:00 01/21/22 00:17 Acetaminophen Tab 325 Mg Tab PO 650 mg BID@0800,2100 [facility] Administration Alprazolam 0.25 mg 01/21/22 08:00 01/21/22 00:18 Alprazolam 0.25 Mg Tab PO 0.25 mg BID@0800,2100 [facility] Administration Amantadine HCl 100 mg 01/21/22 08:00 01/21/22 00:18 Amantadine Hcl 100 Mg Cap PO 100 mg BID@0800,2100 [facility] Administration Apixaban 2.5 mg 01/21/22 08:00 Apixaban 2.5 Mg Tablet PO BID@0800,1700 [facility] Protocol Atorvastatin Calcium 10 mg 01/21/22 21:00 Atorvastatin 10 Mg Tab PO HS@2100 [facility] Carbidopa/Levodopa 2 each 01/21/22 08:00 Carbidopa-Levodopa Er 50-200mg 1 Each Tablet.Er PO DAILY@0800 [facility] Carbidopa/Levodopa 1 each 01/21/22 15:00 Carbidopa-Levodopa Er 50-200mg 1 Each Tablet.Er PO DAILY@1500 [facility] Docusate Sodium 100 mg 01/21/22 08:00 Docusate 100 Mg Cap PO BID@0800,1700 [facility] Entacapone 200 mg 01/21/22 08:00 Entacapone 200 Mg Tab PO BID@0800,1700 [facility] Glipizide 5 mg 01/21/22 00:00 01/21/22 00:17 Glipizide 5 Mg Tab PO 5 mg BID@0800,2100 [facility] Administration Insulin Detemir 33 unit 01/21/22 00:00 01/21/22 00:19 Insulin Detemir (Levemir) 100 Unit/Ml Syr SQ 33 unit HS@2100 [facility] Administration Linagliptin 10 mg 01/21/22 08:00 Linagliptin 5 Mg Tablet PO DAILY@0800 [facility] Lisinopril 10 mg 01/21/22 08:00 Lisinopril 10 Mg Tab PO DAILY@0800 [facility] Metformin HCl 500 mg 01/21/22 00:00 01/21/22 00:17 Metformin 500 Mg Tab PO 500 mg BID@0800,2100 [facility] Administration Naloxone HCl 0.2 mg 01/20/22 23:15 Naloxone 0.4 Mg/Ml 1 Ml Vial IV Q2M PRN Opioid Reversal Nitroglycerin 0.4 mg 01/20/22 23:16 Nitroglycerin Sl Tabs 0.4 Mg Tab SUBLINGUAL Q5M PRN Chest Pain Oxybutynin Chloride 5 mg 01/21/22 00:00 01/21/22 00:17 Oxybutynin Xl 5 Mg Tab.Er.24 PO 5 mg BID@0800,2100 [facility] Administration Quetiapine Fumarate 100 mg 01/21/22 00:00 01/21/22 00:17 Quetiapine 100 Mg Tab PO 100 mg HS@2100 [facility] Administration Ropinirole HCl 2.5 mg 01/21/22 00:00 01/21/22 00:17 Ropinirole Hcl 0.25 Mg Tab PO 2.5 mg TID@0800,1600,2200 [facility] Administration Senna/Docusate Sodium 2 each 01/21/22 21:00 Sennosides-Docusate Sodium 1 Each Tab PO HS@2100 [facility] Tamsulosin HCl 0.4 mg 01/21/22 08:00 Tamsulosin 0.4 Mg Cap.Er.24h PO DAILY@0800 [facility] Intake and Output 01/20/22 01/21/22 01/21/22 22:59 06:59 14:59 Output Total 400 Balance -400 Output: Urine 400 Other: Voiding Method Urinal Weight 90.718 kg 90.718 kg 01/21/22 04:44 01/21/22 04:44
[2022-01-21] MEDS: CARBIDOPA-LEVODOPA ER 50-200MG 1 EACH TABLET.ER PO SCH ×2 (09:48→16:20)
[2022-01-21] MEDS: LINAGLIPTIN 5 MG TABLET PO SCH (09:49)
[2022-01-21] MEDS: APIXABAN 2.5 MG TABLET PO SCH ×2 (09:49→16:20)
[2022-01-21] MEDS: ENTACAPONE 200 MG TAB PO SCH ×2 (09:49→16:20)
[2022-01-21] MEDS: lisinopriL 10 MG TAB PO SCH (09:49)
[2022-01-21] MEDS: DOCUSATE 100 MG CAP PO SCH ×2 (09:49→16:21)
[2022-01-21] MEDS: TAMSULOSIN 0.4 MG CAP.ER.24H PO SCH (09:50)
--- NOTE | 2022-01-21 13:18 | CA ---
Transthoracic Echo Report Name: Franklin Hutchinson Age: 71 Gender: M : 1950 Exam Date: 01/21/2022 10:19 Exam Location: [facility] Ht (in): 70 Wt (lb): 200 Ordering Physician: Jesus Alberto Barajas MD ([id number]) Attending/Referring Phys: Karl CADENA Membership Sales Advisor Megan Ma RDCS Procedure CPT: Indications: Chest Pain Cardiac Hx: Technical Quality: Fair Contrast 1: Total Dose (mL): Contrast 2: Total Dose (mL): MEASUREMENTS (Male / Female) Normal Values 2D ECHO LV Diastolic Diameter PLAX 4.8 cm 4.2 - 5.9 / 3.9 - 5.3 cm LV Systolic Diameter PLAX 3.3 cm IVS Diastolic Thickness 1.3 cm 0.6 - 1.0 / 0.6 - 0.9 cm LVPW Diastolic Thickness 1.7 cm 0.6 - 1.0 / 0.6 - 0.9 cm LV Relative Wall Thickness 0.6 LA Volume 82.2 cm??? 18 - 58 / 22 - 52 cm??? M-MODE Aortic Root Diameter MM 3.8 cm DOPPLER AV Peak Velocity 203.8 cm/s AV Peak Gradient 16.6 mmHg AV Mean Velocity 152.1 cm/s AV Mean Gradient 10.0 mmHg AV Velocity Time Integral 48.6 cm LVOT Peak Velocity 75.9 cm/s LVOT Peak Gradient 2.3 mmHg MV Area PHT 2.8 cm??? Mitral E Point Velocity 71.3 cm/s Mitral A Point Velocity 87.2 cm/s Mitral E to A Ratio 0.8 MV Deceleration Time 273.8 ms MV E' Velocity 7.5 cm/s Mitral E to MV E' Ratio 9.5 TR Peak Velocity 257.6 cm/s TR Peak Gradient 26.5 mmHg Right Ventricular Systolic Press 30.1 mmHg FINDINGS Left Ventricle Mildly increased left ventricular wall thickness. Normal left ventricular systolic function with no obvious regional wall motion abnormalities. Left ventricular ejection fraction is estimated at 55 %. Right Ventricle Normal right ventricular size and function. Right ventricular systolic pressure within normal limits. Right Atrium Normal right atrial size. Left Atrium Moderate left atrial dilatation. Mitral Valve Structurally normal mitral valve. Mild mitral regurgitation. Mild mitral annular calcification. Aortic Valve Aortic valve sclerosis. No aortic stenosis. No aortic regurgitation. Tricuspid Valve Mild tricuspid regurgitation. Pulmonic Valve Trace pulmonic regurgitation. Pericardium No pericardial effusion. Aorta Normal size aortic root and proximal ascending aorta. CONCLUSIONS Technically suboptimal study. Normal LV systolic function. Left atrial enlargement. Mild mitral regurgitation. Previewed by: Dr. Jesus Alberto Barajas MD (Electronically Signed) Final Date: 21 January 2022 13:17
--- NOTE | 2022-01-21 14:13 | P.HPIM ---
History of Present Illness H&P Date: 01/21/22 Chief Complaint: Chest pain pressure This is 71-year-old pleasant gentleman, patient of Dr. Bryant. He has underlying history of Parkinson's, hyperlipidemia, diabetes mellitus type 2, kidney stones, DVT, colon cancer, prostate cancer, memory impairment, admitted through [facility] room, secondary to chest pressure, that occurred at 7 PM. Patient's pain was sharp shooting, however there is also pressure related to this when, while sitting in her recliner. 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 He was seen in the emergency room, brought in by this time, still complaining of chest pressure, upon evaluation in the ER, nitroglycerin has provided some relief, EKG failed to reveal any acute ST-T wave changes, troponins 3 are negative, EKG shows a heart rate of 677, sinus NT proBNP of 191. Patient is admitted, to rule out any ischemic cardiomyopathy, currently ruled out for ACS, cardiology see the patient, echocardiogram to be done, scheduled for Lexiscan on Sunday ASSESSMENT AND PLAN 1. Unstable angina symptoms, with no known history of CAD, however his high risk, with underlying diabetes hypertension hyperlipidemia, troponins are negative 3, to echocardiograms requested, cardiology has seen the patient, and requested him to undergo a Lexiscan on Sunday and sublingual nitroglycerin, that has provided some relief, on aspirin 81 mg daily 2. History of Parkinson's on Sinemet, 5/200, 2 in the morning, and 1 at bedtime entacapone 100 mg twice a day amantadine 100 mg twice a day denies dysphagia or odynophagia Diabetes mellitus type 2 Glucotrol 5 mg twice a day, Levemir 33 units at bedtime, Cogentin 10 mg daily metformin 500 mg twice a day Hypertension is in the pill 10 mg daily, HyperlipidemiaLipitor 10 mg daily Colon cancer surgery Prostate cancer Long-term anticoagulation, with Eliquis for prior history of DVT On Seroquel 100 mg at bedtime, and a prerenal 2.5 mg 3 times a day Discharge planning, returning to home with son, who assist with his personal care DVT prophylaxis and GI prophylaxis BPH without LUT has come on Flomax 0.4 daily on oxybutynin 5 mg twice a day Review of Systems Constitutional: Reports as per HPI, Denies anorexia Ears, nose, mouth and throat: Reports as per HPI, Denies ant. neck pain, Denies neck lump, Denies swelling in throat, Denies sore throat Respiratory: Reports as per HPI Gastrointestinal: Reports as per HPI, Reports nausea, Denies belching, Denies bloating Genitourinary: Reports as per HPI, Denies nocturia, Denies polyuria Musculoskeletal: Reports as per HPI, Reports gait dysfunction, Denies limitation of motion, Denies muscle weakness, Denies shooting arm pain, Denies shooting leg pain Neurological: Reports as per HPI, Denies paralysis, Denies paresthesias, Denies seizures Psychiatric: Reports as per HPI, Denies change in appetite, Denies depression Past Medical History Past Medical History: Cancer, Diabetes Mellitus, Deep Vein Thrombosis (DVT), Eye Disorder, Hyperlipidemia, Hypertension, Memory Impairment, Neurologic Disorder, Osteoarthritis (OA) Additional Past Medical History / Comment(s): Parkinsons. Hx kidney stones, prostate, colon and skin cancer. History of Any Multi-Drug Resistant Organisms: None Reported Past Surgical History: Back Surgery Additional Past Surgical History / Comment(s): Left cataract surgery, bowel surgery for colon cancer, skin cancer removed. Past Anesthesia/Blood Transfusion Reactions: No Reported Reaction Past Psychological History: No Psychological Hx Reported Smoking Status: Former smoker Past Alcohol Use History: Rare Past Drug Use History: None Reported - Past Family History Mother History Unknown: Yes (Mother with colon cancer, hypertension, father with prostate cancer, skin cancer, brother with prostate cancer, sister is with dementia, daughter with hypertension, son with diabetes) Family Medical History: Cancer Additional Family Medical History / Comment(s): Colon Father Family Medical History: Cancer Additional Family Medical History / Comment(s): Prostate Medications and Allergies Home Medications Medication Instructions Recorded Confirmed Type Simvastatin [Zocor] 20 mg PO HS@209911/14/16 01/20/22 History amantadine HCL [Symmetrel] 100 mg PO BID@08,209911/14/16 01/20/22 History glipiZIDE/METFORMIN HCL 1 tab PO BID@0800,209911/14/16 01/20/22 History [glipiZIDE/METFORMIN HCL 5-500 mg] Carbidopa-Levodopa ER 50-200Mg 2 tab PO DAILY@0800 12/19/1601/20/22 History [Sinemet CR 50-200 mg] Carbidopa-Levodopa ER 50-200Mg 1 tab PO DAILY@1500 05/05/19 01/20/22 History [Sinemet CR 50-200 mg] lisinopriL [Prinivil] 10 mg PO DAILY@0800 05/05/19 01/20/22 History Acetaminophen Tab [Tylenol] 650 mg PO BID@0800,209907/17/20 01/20/22 History Entacapone 200 mg PO BID@0800,1700 07/17/20 01/20/22 History Insulin Glargine,Hum.rec.anlog 33 unit SQ HS@209907/17/20 01/20/22 History [Lantus Solostar Pen] ALPRAZolam [Xanax] 0.25 mg PO BID@0800,209901/20/22 01/20/22 History Apixaban [Eliquis] 2.5 mg PO BID@0800,169901/20/22 01/20/22 History Docusate [Colace] 100 mg PO BID@0800,169901/20/22 01/20/22 History Linagliptin [Tradjenta] 10 mg PO DAILY@0801/20/22 01/20/22 History Oxybutynin Chloride [Ditropan XL] 5 mg PO BID@0800,209901/20/22 01/20/22 History QUEtiapine [SEROquel] 100 mg PO HS@209901/20/22 01/20/22 History Sennosides-Docusate Sodium 2 tab PO HS@209901/20/22 01/20/22 History [Senokot-S] Tamsulosin [Flomax] 0.4 mg PO DAILY@0800 01/20/22 01/20/22 History rOPINIRole HCL [Requip XL] 8 mg PO DAILY@0801/20/22 01/20/22 History Allergies Allergy/AdvReac Type Severity Reaction Status Date / Time Iodine and Iodide Containing Allergy Rash/Hives Verified 01/20/22 21:56 Produc shellfish derived Allergy Rash/Hives Verified 01/20/22 21:56 paper tape AdvReac Skin Uncoded 01/20/22 20:27 peeled off. Physical Exam Vitals: Vital Signs Temp Pulse Pulse Pulse Resp BP BP 01/21/22 07:00 97.8 F 56 L 16 122/67 01/21/22 02:00 17 01/21/22 01:05 98.4 F 63 17 142/77 01/20/22 23:41 64 01/20/22 23:33 64 125/65 01/20/22 22:33 67 116/70 01/20/22 21:57 145/69 01/20/22 20:23 97.6 F 76 19 126/73 Pulse Ox 01/21/22 07:00 97 01/21/22 02:00 01/21/22 01:05 97 01/20/22 23:41 01/20/22 23:33 01/20/22 22:33 95 01/20/22 21:57 01/20/22 20:23 98 Intake and Output 01/20/22 01/21/22 01/21/22 22:59 06:59 14:59 Output Total 400 Balance -400 Output: Urine 400 Other: Voiding Method Urinal Weight 90.718 kg 90.718 kg - Constitutional General appearance: cooperative, no acute distress - EENT Eyes: EOMI, PERRLA, dentition normal, normal appearance ENT: NA/AT, normal oropharynx - Neck Neck: normal ROM - Respiratory Respiratory: bilateral: CTA, negative: diminished, dullness, rales - Cardiovascular Rhythm: regular Heart sounds: normal: S1, S2 Abnormal Heart Sounds: no systolic murmur, no diastolic murmur, no rub, no S3 Gallop, no S4 Gallop, no click, no other - Gastrointestinal General gastrointestinal: normal bowel sounds, soft, no tenderness - Integumentary Integumentary: decreased turgor, normal - Neurologic Neurologic: CNII-XII intact - Musculoskeletal Musculoskeletal: generalized weakness, strength equal bilaterally - Psychiatric Psychiatric: A&O x's 3, appropriate affect, intact judgment & insight Results CBC & Chem 7: 01/21/22 04:44 01/21/22 04:44 Labs: Abnormal Lab Results - Last 24 Hours (Table) 01/20/22 01/20/22 01/21/22 Range/Units 21:42 22:02 04:44 RBC 3.95 L (4.30-5.90) m/uL MCV 101.3 H 101.3 H (80.0-100.0) fL Sodium 136 L (137-145) mmol/L Chloride (98-107) mmol/L BUN 21 H (9-20) mg/dL Glucose 224 H (74-99) mg/dL POC Glucose (mg/dL) (70-110) mg/dL AST 14 L (17-59) U/L 01/21/22 01/21/22 Range/Units 04:44 07:33 RBC (4.30-5.90) m/uL MCV (80.0-100.0) fL Sodium 136 L (137-145) mmol/L Chloride 108 H (98-107) mmol/L BUN 21 H (9-20) mg/dL Glucose 141 H (74-99) mg/dL POC Glucose (mg/dL) 116 H (70-110) mg/dL AST (17-59) U/L Laboratory Tests Range/Units 01/20/22 01/20/22 01/20/22 21:42 21:42 21:42 WBC (3.8-10.6) k/uL 6.1 RBC (4.30-5.90) m/uL 4.34 Hgb (13.0-17.5) gm/dL 14.7 Hct (39.0-53.0) % 44.0 MCV (80.0-100.0) fL 101.3 H MCH (25.0-35.0) pg 33.9 MCHC (31.0-37.0) g/dL 33.4 RDW (11.5-15.5) % 12.6 Plt Count (150-450) k/uL 204 MPV 7.6 Neutrophils % % 72 Lymphocytes % % 18 Monocytes % % 5 Eosinophils % % 1 Basophils % % 1 Neutrophils # (1.3-7.7) k/uL 4.4 Lymphocytes # (1.0-4.8) k/uL 1.1 Monocytes # (0-1.0) k/uL 0.3 Eosinophils # (0-0.7) k/uL 0.1 Basophils # (0-0.2) k/uL 0.0 PT (9.0-12.0) sec 11.2 INR (<1.2) 1.0 APTT (22.0-30.0) sec 26.0 Sodium (137-145) mmol/L Potassium (3.5-5.1) mmol/L Chloride (98-107) mmol/L Carbon Dioxide (22-30) mmol/L Anion Gap mmol/L BUN (9-20) mg/dL Creatinine (0.66-1.25) mg/dL Est GFR (CKD-EPI)AfAm (>60 ml/min/1.73 sqM) Est GFR (CKD-EPI)NonAf (>60 ml/min/1.73 sqM) Glucose (74-99) mg/dL POC Glucose (mg/dL) (70-110) mg/dL POC Glu [employer] ID Calcium (8.4-10.2) mg/dL Magnesium (1.6-2.3) mg/dL Total Bilirubin (0.2-1.3) mg/dL AST (17-59) U/L ALT (4-49) U/L Alkaline Phosphatase (38-126) U/L Troponin I (0.000-0.034) ng/mL NT-Pro-B Natriuret Pep pg/mL 191 Total Protein (6.3-8.2) g/dL Albumin (3.5-5.0) g/dL Lipase (23-300) U/L Range/Units 01/20/22 01/20/22 01/21/22 22:02 22:02 00:53 WBC (3.8-10.6) k/uL RBC (4.30-5.90) m/uL Hgb (13.0-17.5) gm/dL Hct (39.0-53.0) % MCV (80.0-100.0) fL MCH (25.0-35.0) pg MCHC (31.0-37.0) g/dL RDW (11.5-15.5) % Plt Count (150-450) k/uL MPV Neutrophils % % Lymphocytes % % Monocytes % % Eosinophils % % Basophils % % Neutrophils # (1.3-7.7) k/uL Lymphocytes # (1.0-4.8) k/uL Monocytes # (0-1.0) k/uL Eosinophils # (0-0.7) k/uL Basophils # (0-0.2) k/uL PT (9.0-12.0) sec INR (<1.2) APTT (22.0-30.0) sec Sodium (137-145) mmol/L 136 L Potassium (3.5-5.1) mmol/L 4.4 Chloride (98-107) mmol/L 106 Carbon Dioxide (22-30) mmol/L 23 Anion Gap mmol/L 7 BUN (9-20) mg/dL 21 H Creatinine (0.66-1.25) mg/dL 0.99 Est GFR (CKD-EPI)AfAm (>60 ml/min/1.73 sqM) 87 Est GFR (CKD-EPI)NonAf (>60 ml/min/1.73 sqM) 75 Glucose (74-99) mg/dL 224 H POC Glucose (mg/dL) (70-110) mg/dL POC Glu [employer] ID Calcium (8.4-10.2) mg/dL 9.0 Magnesium (1.6-2.3) mg/dL 1.6 Total Bilirubin (0.2-1.3) mg/dL 0.6 AST (17-59) U/L 14 L ALT (4-49) U/L 7 Alkaline Phosphatase (38-126) U/L 119 Troponin I (0.000-0.034) ng/mL <0.012 <0.012 NT-Pro-B Natriuret Pep pg/mL Total Protein (6.3-8.2) g/dL 6.3 Albumin (3.5-5.0) g/dL 3.8 Lipase (23-300) U/L 30 Range/Units 01/21/22 01/21/22 01/21/22 04:44 04:44 04:44 WBC (3.8-10.6) k/uL 5.6 RBC (4.30-5.90) m/uL 3.95 L Hgb (13.0-17.5) gm/dL 13.5 Hct (39.0-53.0) % 40.0 MCV (80.0-100.0) fL 101.3 H MCH (25.0-35.0) pg 34.2 MCHC (31.0-37.0) g/dL 33.8 RDW (11.5-15.5) % 12.6 Plt Count (150-450) k/uL 178 MPV 7.8 Neutrophils % % 59 Lymphocytes % % 27 Monocytes % % 7 Eosinophils % % 4 Basophils % % 1 Neutrophils # (1.3-7.7) k/uL 3.3 Lymphocytes # (1.0-4.8) k/uL 1.5 Monocytes # (0-1.0) k/uL 0.4 Eosinophils # (0-0.7) k/uL 0.2 Basophils # (0-0.2) k/uL 0.0 PT (9.0-12.0) sec INR (<1.2) APTT (22.0-30.0) sec Sodium (137-145) mmol/L 136 L Potassium (3.5-5.1) mmol/L 4.4 Chloride (98-107) mmol/L 108 H Carbon Dioxide (22-30) mmol/L 23 Anion Gap mmol/L 5 BUN (9-20) mg/dL 21 H Creatinine (0.66-1.25) mg/dL 0.93 Est GFR (CKD-EPI)AfAm (>60 ml/min/1.73 sqM) >90 Est GFR (CKD-EPI)NonAf (>60 ml/min/1.73 sqM) 81 Glucose (74-99) mg/dL 141 H POC Glucose (mg/dL) (70-110) mg/dL POC Glu [employer] ID Calcium (8.4-10.2) mg/dL 8.8 Magnesium (1.6-2.3) mg/dL Total Bilirubin (0.2-1.3) mg/dL AST (17-59) U/L ALT (4-49) U/L Alkaline Phosphatase (38-126) U/L Troponin I (0.000-0.034) ng/mL <0.012 NT-Pro-B Natriuret Pep pg/mL Total Protein (6.3-8.2) g/dL Albumin (3.5-5.0) g/dL Lipase (23-300) U/L Range/Units 01/21/22 07:33 WBC (3.8-10.6) k/uL RBC (4.30-5.90) m/uL Hgb (13.0-17.5) gm/dL Hct (39.0-53.0) % MCV (80.0-100.0) fL MCH (25.0-35.0) pg MCHC (31.0-37.0) g/dL RDW (11.5-15.5) % Plt Count (150-450) k/uL MPV Neutrophils % % Lymphocytes % % Monocytes % % Eosinophils % % Basophils % % Neutrophils # (1.3-7.7) k/uL Lymphocytes # (1.0-4.8) k/uL Monocytes # (0-1.0) k/uL Eosinophils # (0-0.7) k/uL Basophils # (0-0.2) k/uL PT (9.0-12.0) sec INR (<1.2) APTT (22.0-30.0) sec Sodium (137-145) mmol/L Potassium (3.5-5.1) mmol/L Chloride (98-107) mmol/L Carbon Dioxide (22-30) mmol/L Anion Gap mmol/L BUN (9-20) mg/dL Creatinine (0.66-1.25) mg/dL Est GFR (CKD-EPI)AfAm (>60 ml/min/1.73 sqM) Est GFR (CKD-EPI)NonAf (>60 ml/min/1.73 sqM) Glucose (74-99) mg/dL POC Glucose (mg/dL) (70-110) mg/dL 116 H POC Glu [employer] BRENT Marilee Woodward Calcium (8.4-10.2) mg/dL Magnesium (1.6-2.3) mg/dL Total Bilirubin (0.2-1.3) mg/dL AST (17-59) U/L ALT (4-49) U/L Alkaline Phosphatase (38-126) U/L Troponin I (0.000-0.034) ng/mL NT-Pro-B Natriuret Pep pg/mL Total Protein (6.3-8.2) g/dL Albumin (3.5-5.0) g/dL Lipase (23-300) U/L Thrombosis Risk Factor Assmnt - DVT/VTE Prophylaxis DVT/VTE Prophylaxis: Pharmacologic Prophylaxis ordered - Choose All That Apply Any of the Below Risk Factors Present?: No Other Risk Factors: Yes Each Risk Factor Represents 2 Points: Age 61-74 years Each Risk Factor Represents 3 Points: History of DVT/PE Thrombosis Risk Factor Assessment Total Risk Factor Score: 5 Thrombosis Risk Factor Assessment Level: High Risk
[2022-01-21] MEDS: ASPIRIN 81 MG PO SCH (16:20)
[2022-01-21 17:38] LABS: Glucose,Whole Blood 74 mg/dL (70-110)
[2022-01-21 19:58] LABS: Glucose,Whole Blood 180 mg/dL (70-110)
[2022-01-21] MEDS: SENNOSIDES-DOCUSATE SODIUM 1 EACH TAB PO SCH (19:59)
[2022-01-21] MEDS: ATORVASTATIN 10 MG TAB PO SCH (20:03)
[2022-01-22 07:16] LABS: Glucose,Whole Blood 64 mg/dL (70-110)
[2022-01-22 07:32] LABS: Glucose,Whole Blood 59 mg/dL (70-110)
[2022-01-22 07:47] LABS: Glucose,Whole Blood 74 mg/dL (70-110)
[2022-01-22] MEDS: DOCUSATE 100 MG CAP PO SCH ×2 (08:44→17:27)
[2022-01-22] MEDS: ACETAMINOPHEN TAB 325 MG TAB PO SCH ×2 (08:44→20:33)
[2022-01-22] MEDS: TAMSULOSIN 0.4 MG CAP.ER.24H PO SCH (08:44)
[2022-01-22] MEDS: ENTACAPONE 200 MG TAB PO SCH ×2 (08:44→17:28)
[2022-01-22] MEDS: ALPRAZolam 0.25 MG TAB PO SCH ×2 (08:44→20:33)
[2022-01-22] MEDS: OXYBUTYNIN XL 5 MG TAB.ER.24 PO SCH ×2 (08:45→20:34)
[2022-01-22] MEDS: lisinopriL 10 MG TAB PO SCH (08:45)
[2022-01-22] MEDS: ASPIRIN 81 MG PO SCH (08:45)
[2022-01-22] MEDS: APIXABAN 2.5 MG TABLET PO SCH ×2 (08:45→17:28)
[2022-01-22] MEDS: CARBIDOPA-LEVODOPA ER 50-200MG 1 EACH TABLET.ER PO SCH ×2 (08:45→17:28)
[2022-01-22] MEDS: metFORMIN 500 MG TAB PO SCH ×2 (08:53→20:34)
[2022-01-22] MEDS: glipiZIDE 5 MG TAB PO SCH (08:53)
[2022-01-22] MEDS: LINAGLIPTIN 5 MG TABLET PO SCH (08:53)
--- NOTE | 2022-01-22 13:06 | PN ---
PROGRESS NOTE Franklin is a 71-year-old gentleman with history of parkinsonism that is admitted to hospital with chest pain and ruled out for myocardial infarction. An echocardiogram that was technically suboptimal showed normal LV systolic function with mild mitral regurgitation. The plan at this stage is to perform a Lexiscan on him and if this is abnormal, I will perform cardiac catheterization on him. On exam, comfortable at rest. Vital signs are stable. Chest exam reveals good air entry bilaterally. Heart exam reveals first and second heart sounds. No gallop. No murmur. Abdomen is soft. Exam of extremities did not reveal any edema. Peripheral pulses are felt. ASSESSMENT: 1. Precordial chest pain. 2. Parkinsonism. PLAN: Patient is doing better. Will undergo a stress test tomorrow and discharge home afterwards. MMMASSIMO / FARAZN: [id number] /
--- NOTE | 2022-01-22 16:03 | P.PN ---
Subjective Progress Note Date: 01/22/22 H&P Date: 01/21/22 Chief Complaint: Chest pain pressure This is 71-year-old pleasant gentleman, patient of Dr. Bryant. He has underlying history of Parkinson's, hyperlipidemia, diabetes mellitus type 2, kidney stones, DVT, colon cancer, prostate cancer, memory impairment, admitted through emergency room, secondary to chest pressure, that occurred at 7 PM. Patient's pain was sharp shooting, however there is also pressure related to this when, while sitting in her recliner. 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 He was seen in the emergency room, brought in by this time, still complaining of chest pressure, upon evaluation in the ER, nitroglycerin has provided some relief, EKG failed to reveal any acute ST-T wave changes, troponins 3 are negative, EKG shows a heart rate of 677, sinus NT proBNP of 191. Patient is admitted, to rule out any ischemic cardiomyopathy, currently ruled out for ACS, cardiology see the patient, echocardiogram to be done, scheduled for Lexiscan on Monday 01/22, patient's chest pain free, being visited by the daughter at bedside, patient is feeding herself, with rash for a nose, and ground beef, patient has no chest pain currently, with no lightheadedness no dysphagia, vitals are stable, no new labs for review, heart rates in the 70s to low 80s, O2 sats 1919 100% 3 L face,, patient scheduled to have a Lexiscan in the morning however check her, is low, 54, we are going to decrease Glucotrol, 2.5 mg twice a day from a current dose of 5 mg twice a day ASSESSMENT AND PLAN 1. Unstable angina symptoms, with no known history of CAD, however his high risk, with underlying diabetes hypertension hyperlipidemia, troponins are negative 3, to echocardiograms requested, cardiology has seen the patient, and requested him to undergo a Lexiscan on Sunday and sublingual nitroglycerin, that has provided some relief, on aspirin 81 mg daily 2. History of Parkinson's on Sinemet, 5/200, 2 in the morning, and 1 at bedtime entacapone 100 mg twice a day amantadine 100 mg twice a day denies dysphagia or odynophagia 3 Diabetes mellitus type 2 with hypoglycemia decrease Glucotrol 5 mg down to to 2.5 mg twice a day, Levemir 33 units at bedtime, metformin 500 mg twice a day 4 Hypertension is in the pill 10 mg daily, 5 HyperlipidemiaLipitor 10 mg daily 6 Colon cancer surgery 7 Prostate cancer 8 Long-term anticoagulation, with Eliquis for prior history of DVT 9 On Seroquel 100 mg at bedtime, and a prerenal 2.5 mg 3 times a day Discharge planning, returning to home with son, who assist with his personal care DVT prophylaxis and GI prophylaxis BPH without LUT has come on Flomax 0.4 daily on oxybutynin 5 mg twice a day Review of Systems Constitutional: Reports as per HPI, Denies anorexia Ears, nose, mouth and throat: Reports as per HPI, Denies ant. neck pain, Denies neck lump, Denies swelling in throat, Denies sore throat Respiratory: Reports as per HPI Gastrointestinal: Reports as per HPI, Reports nausea, Denies belching, Denies bloating Genitourinary: Reports as per HPI, Denies nocturia, Denies polyuria Musculoskeletal: Reports as per HPI, Reports gait dysfunction, Denies limitation of motion, Denies muscle weakness, Denies shooting arm pain, Denies shooting leg pain Neurological: Reports as per HPI, Denies paralysis, Denies paresthesias, Denies seizures Psychiatric: Reports as per HPI, Denies change in appetite, Denies depression Physical Exam Vitals: Vital Signs Temp Pulse Pulse Pulse Resp BP BP 01/21/22 07:00 97.8 F 56 L 16 122/67 01/21/22 02:00 17 01/21/22 01:05 98.4 F 63 17 142/77 01/20/22 23:41 64 01/20/22 23:33 64 125/65 01/20/22 22:33 67 116/70 01/20/22 21:57 145/69 01/20/22 20:23 97.6 F 76 19 126/73 Pulse Ox 01/21/22 07:00 97 01/21/22 02:00 01/21/22 01:05 97 01/20/22 23:41 01/20/22 23:33 01/20/22 22:33 95 01/20/22 21:57 01/20/22 20:23 98 Intake and Output 01/20/22 01/21/22 01/21/22 22:59 06:59 14:59 Output Total 400 Balance -400 Output: Urine 400 Other: Voiding Method Urinal Weight 90.718 kg 90.718 kg - Constitutional General appearance: cooperative, no acute distress - EENT Eyes: EOMI, PERRLA, dentition normal, normal appearance ENT: NA/AT, normal oropharynx - Neck Neck: normal ROM - Respiratory Respiratory: bilateral: CTA, negative: diminished, dullness, rales - Cardiovascular Rhythm: regular Heart sounds: normal: S1, S2 Abnormal Heart Sounds: no systolic murmur, no diastolic murmur, no rub, no S3 Gallop, no S4 Gallop, no click, no other - Gastrointestinal General gastrointestinal: normal bowel sounds, soft, no tenderness - Integumentary Integumentary: decreased turgor, normal - Neurologic Neurologic: CNII-XII intact - Musculoskeletal Musculoskeletal: generalized weakness, strength equal bilaterally - Psychiatric Psychiatric: A&O x's 3, appropriate affect, intact judgment & insight Current Medications Acetaminophen (Acetaminophen Tab 325 Mg Tab) 650 mg PO BID@0800,2100 [facility] Last Admin: 01/22/22 08:44 Dose: Not Given Alprazolam (Alprazolam 0.25 Mg Tab) 0.25 mg PO BID@08,2100 [facility] Last Admin: 01/22/22 08:44 Dose: 0.25 mg Amantadine HCl (Amantadine Hcl 100 Mg Cap) 100 mg PO BID@0800,2100 [facility] Last Admin: 01/22/22 08:44 Dose: 100 mg Apixaban (Apixaban 2.5 Mg Tablet) 2.5 mg PO BID@0800,1700 [facility]; Protocol Last Admin: 01/22/22 08:45 Dose: 2.5 mg Aspirin (Aspirin 81 Mg) 81 mg PO DAILY [facility] Last Admin: 01/22/22 08:45 Dose: 81 mg Atorvastatin Calcium (Atorvastatin 10 Mg Tab) 10 mg PO HS@2100 [facility] Last Admin: 01/21/22 20:03 Dose: 10 mg Carbidopa/Levodopa (Carbidopa-Levodopa Er 50-200mg 1 Each Tablet.Er) 2 each PO DAILY@0800 [facility] Last Admin: 01/22/22 08:45 Dose: 2 each Carbidopa/Levodopa (Carbidopa-Levodopa Er 50-200mg 1 Each Tablet.Er) 1 each PO DAILY@1500 [facility] Last Admin: 01/21/22 16:20 Dose: 1 each Docusate Sodium (Docusate 100 Mg Cap) 100 mg PO BID@0800,1700 [facility] Last Admin: 01/22/22 08:44 Dose: 100 mg Entacapone (Entacapone 200 Mg Tab) 200 mg PO BID@0800,1700 [facility] Last Admin: 01/22/22 08:44 Dose: 200 mg Glipizide (Glipizide 2.5 Mg Tab) 2.5 mg PO BID@0800,2100 [facility] Insulin Detemir (Insulin Detemir (Levemir) 100 Unit/Ml Syr) 33 unit SQ HS@2099 [facility] Last Admin: 01/21/22 20:09 Dose: 33 unit Linagliptin (Linagliptin 5 Mg Tablet) 10 mg PO DAILY@0800 [facility] Last Admin: 01/22/22 08:53 Dose: Not Given Lisinopril (Lisinopril 10 Mg Tab) 10 mg PO DAILY@0800 [facility] Last Admin: 01/22/22 08:45 Dose: 10 mg Metformin HCl (Metformin 500 Mg Tab) 500 mg PO BID@0800,2100 [facility] Last Admin: 01/22/22 08:53 Dose: Not Given Naloxone HCl (Naloxone 0.4 Mg/Ml 1 Ml Vial) 0.2 mg IV Q2M PRN PRN Reason: Opioid Reversal Nitroglycerin (Nitroglycerin Sl Tabs 0.4 Mg Tab) 0.4 mg SUBLINGUAL Q5M PRN PRN Reason: Chest Pain Oxybutynin Chloride (Oxybutynin Xl 5 Mg Tab.Er.24) 5 mg PO BID@0800,2100 [facility] Last Admin: 01/22/22 08:45 Dose: 5 mg Quetiapine Fumarate (Quetiapine 100 Mg Tab) 100 mg PO HS@2099 [facility] Last Admin: 01/21/22 20:09 Dose: 100 mg Ropinirole HCl (Ropinirole Hcl 1 Mg Tab) 2.5 mg PO TID@0800,1600,2200 [facility] Last Admin: 01/22/22 08:44 Dose: 2.5 mg Senna/Docusate Sodium (Sennosides-Docusate Sodium 1 Each Tab) 2 each PO HS@2099 [facility] Last Admin: 01/21/22 19:59 Dose: 2 each Tamsulosin HCl (Tamsulosin 0.4 Mg Cap.Er.24h) 0.4 mg PO DAILY@0800 [facility] Last Admin: 01/22/22 08:44 Dose: 0.4 mg Laboratory Results - Last 24 Hours 01/21/22 01/21/22 01/22/22 17:36 19:57 07:12 POC Glucose (mg/dL) 74 180 H 64 L POC Glu Cross Roller Marilee Montez Maegan Gavlinski, Jennifer 01/22/22 01/22/22 07:29 07:45 POC Glucose (mg/dL) 59 L 74 POC Glu [employer] Roller Marilee Montez Jennifer Vital Signs - 24 hr 01/21/22 01/21/22 01/22/22 20:00 20:04 01:43 Temperature 97.8 F 98.3 F Pulse Rate [ 66 60 Pulse Oximetery ] Respiratory 17 16 17 Rate Blood Pressure 121/75 [Left Arm] Blood Pressure 136/72 [Right Arm Sitting] Blood Pressure [Right Arm] O2 Sat by Pulse 97 97 Oximetry 01/22/22 01/22/22 01/22/22 07:00 08:00 14:42 Temperature 97.4 F L 97.8 F Pulse Rate [ 60 60 68 Pulse Oximetery ] Respiratory 17 17 17 Rate Blood Pressure [Left Arm] Blood Pressure 143/68 [Right Arm Sitting] Blood Pressure 108/65 [Right Arm] O2 Sat by Pulse 98 96 Oximetry Objective - Vital Signs Vital signs: Vital Signs Temp 97.8 F 01/22/22 14:42 Pulse 68 01/22/22 14:42 Resp 17 01/22/22 14:42 BP 108/65 01/22/22 14:42 Pulse Ox 96 01/22/22 14:42 FiO2 Intake & Output 01/21/22 01/22/22 01/22/22 18:59 06:59 18:59 Intake Total 636 118 Output Total 640 135 4195 Balance -568 -163 -529 Intake: Oral 636 118 Output: Urine 868 938 8400 Other: Voiding Method Urinal Toilet Toilet Urinal Urinal # Voids 1 - Labs CBC & Chem 7: 01/21/22 04:44 01/21/22 04:44 Labs: Abnormal Lab Results - Last 24 Hours (Table) 01/21/22 01/22/22 01/22/22 Range/Units 19:57 07:12 07:29 POC Glucose (mg/dL) 180 H 64 L 59 L (70-110) mg/dL
[2022-01-22 16:52] LABS: Glucose,Whole Blood 184 mg/dL (70-110)
[2022-01-22 20:31] LABS: Glucose,Whole Blood 176 mg/dL (70-110)
[2022-01-22] MEDS: INSULIN DETEMIR (LEVEMIR) 100 UNIT/ML SYR SQ SCH (20:32)
[2022-01-22] MEDS: SENNOSIDES-DOCUSATE SODIUM 1 EACH TAB PO SCH (20:33)
[2022-01-22] MEDS: ATORVASTATIN 10 MG TAB PO SCH (20:34)
[2022-01-22] MEDS: QUEtiapine 100 MG TAB PO SCH (20:34)
[2022-01-23 07:21] LABS: Glucose,Whole Blood 136 mg/dL (70-110)
[2022-01-23] MEDS ORDERED: REGADENOSON 0.4 MG/5 ML SYRINGE IV PRN (07:32)
[2022-01-23] MEDS ORDERED: AMINOPHYLLINE 500 MG/20 ML VIAL IV PRN (07:32)
[2022-01-23] MEDS ORDERED: CAFFEINE CITRATE 60 MG/3 ML VIAL IV PRN (07:32)
[2022-01-23] MEDS: lisinopriL 10 MG TAB PO SCH (08:01)
[2022-01-23] MEDS: ACETAMINOPHEN TAB 325 MG TAB PO SCH ×2 (08:01→20:03)
[2022-01-23] MEDS: TAMSULOSIN 0.4 MG CAP.ER.24H PO SCH (08:01)
[2022-01-23] MEDS: ASPIRIN 81 MG PO SCH (08:01)
[2022-01-23] MEDS: CARBIDOPA-LEVODOPA ER 50-200MG 1 EACH TABLET.ER PO SCH ×2 (08:04→18:13)
[2022-01-23] MEDS: OXYBUTYNIN XL 5 MG TAB.ER.24 PO SCH ×2 (08:04→20:04)
[2022-01-23] MEDS: ENTACAPONE 200 MG TAB PO SCH ×2 (08:05→18:11)
[2022-01-23] MEDS: DOCUSATE 100 MG CAP PO SCH ×2 (08:06→18:12)
[2022-01-23] MEDS: APIXABAN 2.5 MG TABLET PO SCH (08:18)
[2022-01-23] MEDS: ALPRAZolam 0.25 MG TAB PO SCH ×2 (08:18→20:03)
--- NOTE | 2022-01-23 10:25 | P.PN ---
Subjective Progress Note Date: 01/23/22 HISTORY OF PRESENT ILLNESS: This is 71-year-old male who presented to the hospital with chest pain. An acute coronary event has been ruled out. Patient examined this more at the bed side. He denies any further episodes of chest pain or pressure. Denies shortness of breath. Vital signs are stable. Echocardiogram completed revealing an ejection fraction 55% with mild MR. PHYSICAL EXAM: VITAL SIGNS: Reviewed. GENERAL: Well-developed in no acute distress. NECK: Supple. No JVD or thyromegaly LUNGS: Respirations even and unlabored. Lungs essentially clear to auscultation bilaterally. HEART: Regular rate and rhythm. S1 and S2 heard. EXTREMITIES: Normal range of motion. No clubbing or cyanosis. Peripheral pulses intact. No lower extremity edema ASSESSMENT: Chest pain Hypertension History of DVT, on Eliquis Diabetes History of Parkinson's disease PLAN: Continue current cardiac medications Patient to undergo Lexiscan stress test today to assess for ischemia If stress test is normal, patient may be discharged home and follow up outpatient with Dr. Barajas Nurse practitioner note has been reviewed by physician. Signing provider agrees with the documented findings, assessment, and plan of care. Objective - Vital Signs Vital signs: Vital Signs Temp 97.9 F 01/23/22 07:20 Pulse 54 L 01/23/22 07:20 Resp 18 01/23/22 08:18 BP 132/72 01/23/22 07:20 Pulse Ox 97 01/23/22 07:20 FiO2 Intake & Output 01/22/22 01/23/22 01/23/22 18:59 06:59 18:59 Intake Total 354 Output Total 2000 600 Balance -1646 -600 Intake: Oral 354 Output: Urine 2000 600 Other: Voiding Method Toilet Toilet Toilet Urinal Urinal Urinal # Voids 1 1 - Labs CBC & Chem 7: 01/21/22 04:44 01/21/22 04:44 Labs: Abnormal Lab Results - Last 24 Hours (Table) 01/22/22 01/22/22 01/23/22 Range/Units 16:51 20:30 07:20 POC Glucose (mg/dL) 184 H 176 H 136 H (70-110) mg/dL
[2022-01-23 12:04] LABS: Glucose,Whole Blood 154 mg/dL (70-110)
[2022-01-23] MEDS: LINAGLIPTIN 5 MG TABLET PO SCH (12:22)
[2022-01-23] MEDS: metFORMIN 500 MG TAB PO SCH ×2 (12:23→19:39)
--- NOTE | 2022-01-23 12:23 | NM ---
EXAMINATION TYPE: NM stress lexiscan cardiolite DATE OF EXAM: 01/23/2022 COMPARISON: NONE HISTORY: Chest pain TECHNIQUE: After the intravenous administration of 10.2 mCi Tc 99m Sestamibi - Cardiolite resting SP ECT images acquired 50 minutes post injection. At peak stress 24.8 mCi Tc 99m Sestamibi - Stress images obtained 43 minutes post injection The patient was stressed with 0.4mg Lexiscan. FINDINGS: There is diminished radiotracer accumulation along the inferior lateral wall extending from nearly th e cardiac base to the cardiac apex on the stress images. This area appears normal on the resting imag es. Findings can be compatible with stress-induced ischemic change. This area appears underestimated on the polar maps. There is some dyskinesia of the inferior wall from the mid to distal portion gated wall motion. Ejection fraction is 65% is normal. IMPRESSION: 1. Stress-induced ischemic change along the inferior lateral wall with some dyskinesia of the inferio r wall from the mid portions of the apex. A [place] level critical message alert has been initiated for Michela Vale MD via the [employer] Critical Results System on 01/23/2022 12:21 PM. This message alert has been sent to Michela Vale MD via the preferences provided by the clinician for the receipt of Radiology Critical Findings. Mess age ID [id number].
[2022-01-23] MEDS ORDERED: NITROGLYCERIN SL TABS 0.4 MG TAB SUBLINGUAL PRN (13:37)
[2022-01-23] MEDS ORDERED: ALPRAZolam 0.25 MG TAB PO PRN (13:37)
[2022-01-23] MEDS ORDERED: ALPRAZolam 0.5 MG TAB PO PRN (13:37)
--- NOTE | 2022-01-23 14:05 | EST ---
EXERCISE STRESS AGE: 71 SEX: M HT: 70" WT: 200 lbs PROTOCOL: Lexiscan STAGE: DURATION OF EXERCISE: HEART RATE REST: 66 BLOOD PRESSURE REST: 110/68 MAXIMUM HEART RATE ACHIEVED: 74 MAXIMUM BLOOD PRESSURE: 97/58 85% MPHR: 125 100% MPHR: 147 METS: RESULTS: Baseline EKG revealed normal sinus rhythm without significant ST changes. Heart rate was 66 beats per minute and blood pressure was 110/68. With Lexiscan administration, the patient's heart rate went up to 74 beats per minute and the blood pressure changed to 95/48, and came back to baseline. There was transient shortness of breath. EKG was unremarkable. By EKG criteria, this is an unremarkable Lexiscan stress test. The nuclear scan results which are more pertinent will be reported by the radiologist. MMBRINAL / IJN: [id number] /
[2022-01-23 17:20] LABS: Glucose,Whole Blood 193 mg/dL (70-110)
[2022-01-23 20:03] LABS: Glucose,Whole Blood 191 mg/dL (70-110)
[2022-01-23] MEDS: INSULIN DETEMIR (LEVEMIR) 100 UNIT/ML SYR SQ SCH (20:04)
[2022-01-23] MEDS: ATORVASTATIN 10 MG TAB PO SCH (20:04)
[2022-01-23] MEDS: QUEtiapine 100 MG TAB PO SCH (20:05)
[2022-01-23] MEDS: SENNOSIDES-DOCUSATE SODIUM 1 EACH TAB PO SCH (20:05)
[2022-01-23] MEDS: SODIUM CHLORIDE 0.9% 1,000 ML in EMPTY BAG 1 BAG IV SCH (22:05)
--- NOTE | 2022-01-24 04:29 | P.PN ---
Subjective Progress Note Date: 01/23/22 This is 71-year-old pleasant gentleman, patient of Dr. Bryant. He has underlying history of Parkinson's, hyperlipidemia, diabetes mellitus type 2, kidney stones, DVT, colon cancer, prostate cancer, memory impairment, admitted through emergency room, secondary to chest pressure, that occurred at 7 PM. Patient's pain was sharp shooting, however there is also pressure related to this when, while sitting in her recliner. 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 He was seen in the emergency room, brought in by this time, still complaining of chest pressure, upon evaluation in the ER, nitroglycerin has provided some relief, EKG failed to reveal any acute ST-T wave changes, troponins 3 are negative, EKG shows a heart rate of 677, sinus NT proBNP of 191. Patient is admitted, to rule out any ischemic cardiomyopathy, currently ruled out for ACS, cardiology see the patient, echocardiogram to be done, scheduled for Lexiscan on Monday 01/22, patient's chest pain free, being visited by the daughter at bedside, patient is feeding herself, with rash for a nose, and ground beef, patient has no chest pain currently, with no lightheadedness no dysphagia, vitals are stable, no new labs for review, heart rates in the 70s to low 80s, O2 sats 1919 100% 3 L face,, patient scheduled to have a Lexiscan in the morning however chec k her, is low, 54, we are going to decrease Glucotrol, 2.5 mg twice a day from a current dose of 5 mg twice a day 01/23/2022 Patient is seen in follow up this morning and is scheduled to undergo stress test with cardiology today. Patient is currently NPO and recommend monitoring blood glucose closely as patient has been having some hypoglycemia. Patient denies chest pain or shortness of breath and patient is currently afebrile. Patient denies nausea or vomiting and will resume diet once testing is done. Recommend outpatient follow up. Will order repeat am labs and awaiting stress test results. Review of systems: Constitutional: No reports of fatigue, fever, or chills Cardiovascular: No reports of chest pain or palpitations Respiratory: No reports of shortness of breath or cough GI: reports of nausea, no reports of of vomiting : No reports of dysuria or retention Neurovascular: no reports of generalized weakness All medications have been reviewed Active Medications Acetaminophen (Acetaminophen Tab 325 Mg Tab) 650 mg PO BID@0800,2100 [facility] Last Admin: 01/23/22 20:03 Dose: 650 mg Alprazolam (Alprazolam 0.25 Mg Tab) 0.25 mg PO BID@0800,2100 [facility] Last Admin: 01/23/22 20:03 Dose: 0.25 mg Alprazolam (Alprazolam 0.25 Mg Tab) 0.25 mg PO Q6HR PRN PRN Reason: Mild Anxiety Alprazolam (Alprazolam 0.5 Mg Tab) 0.5 mg PO Q6HR PRN PRN Reason: Moderate Anxiety Amantadine HCl (Amantadine Hcl 100 Mg Cap) 100 mg PO BID@0800,2100 [facility] Last Admin: 01/23/22 20:03 Dose: 100 mg Apixaban (Apixaban 2.5 Mg Tablet) 2.5 mg PO BID@0800,1700 [facility]; Protocol Last Admin: 01/23/22 08:18 Dose: 2.5 mg Aspirin (Aspirin 81 Mg) 81 mg PO DAILY [facility] Last Admin: 01/23/22 08:01 Dose: 81 mg Aspirin (Aspirin 325 Mg Tab) 325 mg PO ONCE ONE Stop: 01/24/22 05:01 Atorvastatin Calcium (Atorvastatin 10 Mg Tab) 10 mg PO HS@2100 [facility] Last Admin: 01/23/22 20:04 Dose: 10 mg Atorvastatin Calcium (Atorvastatin 80 Mg Tab) 80 mg PO ONCE ONE Stop: 01/24/22 05:01 Carbidopa/Levodopa (Carbidopa-Levodopa Er 50-200mg 1 Each Tablet.Er) 2 each PO DAILY@0800 [facility] Last Admin: 01/23/22 08:04 Dose: 2 each Carbidopa/Levodopa (Carbidopa-Levodopa Er 50-200mg 1 Each Tablet.Er) 1 each PO DAILY@1500 [facility] Last Admin: 01/23/22 18:13 Dose: 1 each Docusate Sodium (Docusate 100 Mg Cap) 100 mg PO BID@0800,1700 [facility] Last Admin: 01/23/22 18:12 Dose: 100 mg Entacapone (Entacapone 200 Mg Tab) 200 mg PO BID@0800,1700 [facility] Last Admin: 01/23/22 18:11 Dose: 200 mg Glipizide (Glipizide 2.5 Mg Tab) 2.5 mg PO BID@0800,2100 [facility] Last Admin: 01/23/22 20:04 Dose: 2.5 mg Heparin Sodium (Porcine) 10, (000 unit/ Sodium Chloride) 1,001 mls @ 999 mls/hr IRRIGATION ONCE PRN PRN Reason: INTRA-OP Stop: 01/24/22 23:00 Heparin Sodium (Porcine) 2,500 (unit/ Sodium Chloride) 250.5 mls @ 250 mls/hr IRRIGATION ONCE PRN PRN Reason: INTRA-OP Stop: 01/24/22 23:00 Sodium Chloride 1,000 ml/ IV (Solution) 1,000 mls @ 90.718 mls/hr IV .Q11H2M [facility] Last Admin: 01/23/22 22:05 Dose: 90.718 mls/hr Insulin Detemir (Insulin Detemir (Levemir) 100 Unit/Ml Syr) 33 unit SQ HS@2099 [facility] Last Admin: 01/23/22 20:04 Dose: 33 unit Linagliptin (Linagliptin 5 Mg Tablet) 10 mg PO DAILY@0800 [facility] Last Admin: 01/23/22 12:22 Dose: 10 mg Lisinopril (Lisinopril 10 Mg Tab) 10 mg PO DAILY@0800 [facility] Last Admin: 01/23/22 08:01 Dose: 10 mg Metformin HCl (Metformin 500 Mg Tab) 500 mg PO BID@0800,2100 [facility] Last Admin: 01/23/22 19:39 Dose: Not Given Naloxone HCl (Naloxone 0.4 Mg/Ml 1 Ml Vial) 0.2 mg IV Q2M PRN PRN Reason: Opioid Reversal Nitroglycerin (Nitroglycerin Sl Tabs 0.4 Mg Tab) 0.4 mg SUBLINGUAL Q5M PRN PRN Reason: Chest Pain Oxybutynin Chloride (Oxybutynin Xl 5 Mg Tab.Er.24) 5 mg PO BID@0800,2100 [facility] Last Admin: 01/23/22 20:04 Dose: 5 mg Quetiapine Fumarate (Quetiapine 100 Mg Tab) 100 mg PO HS@2100 [facility] Last Admin: 01/23/22 20:05 Dose: 100 mg Ropinirole HCl (Ropinirole Hcl 1 Mg Tab) 2.5 mg PO TID@0800,1600,2200 [facility] Last Admin: 01/23/22 22:04 Dose: 2.5 mg Senna/Docusate Sodium (Sennosides-Docusate Sodium 1 Each Tab) 2 each PO HS@2100 [facility] Last Admin: 01/23/22 20:05 Dose: 2 each Tamsulosin HCl (Tamsulosin 0.4 Mg Cap.Er.24h) 0.4 mg PO DAILY@0800 [facility] Last Admin: 01/23/22 08:01 Dose: 0.4 mg PHYSICAL EXAMINATION: GENERAL: The patient is alert and oriented, Well developed, well nourished. HEENT: Pupils are round and equally reacting to light. EOMI. no scleral icterus. No conjunctival pallor. Normocephalic, atraumatic. No pharyngeal erythema. No thyromegaly. CARDIOVASCULAR: S1 and S2 muffled PULMONARY: diminished breath sounds bilaterally with no wheezing or rhonchi n oted. ABDOMEN: soft. Nontender on exam. obese. non-distended, normoactive bowel sounds. No palpable organomegaly. MUSCULOSKELETAL: No joint swelling or deformity. EXTREMITIES: No cyanosis, clubbing, or pedal edema. NEUROLOGICAL: Gross neurological examination did not reveal any focal deficits. SKIN: No rashes. Assessment: -Unstable angina, ruled out acs -status post abnormal lexiscan stress test -hypomagnesemia -History of Parkinson's -Diabetes mellitus type 2 with hypoglycemia -Hypertension -Hyperlipidemia -Colon cancer surgery -Prostate cancer -history of DVT -DVT prophylaxis -GI prophylaxis -BPH history -Full code Plan: Recommend to continue with current medications and management with cardiology following. Patient underwent lexiscan stress test which was positive and plan nicolasa on undergoing cardiac catheterization. Patient will be NPO at midnight. Recommend accuchecks achs and continue current regimen. Will order repeat am labs and await cardiac catheterization. Will discuss with cardiology about treatment plan moving forward. Due to multiple complex medical issues, prognosis is guarded. The impression and plan of care has been dictated by Kathryn Sylvester, nurse practitioner as directed. MD Iam I have performed a history and examination and MDM of this patient, discussed the same with the dictator, and agree with the dictator's assessment and plan as written ,documented as a scribe. Based on total visit time, I have performed more than 50% of the visit. Any additional findings or plans will be noted. Objective - Vital Signs Vital signs: Vital Signs Temp 97.9 F 01/23/22 07:20 Pulse 54 L 01/23/22 07:20 Resp 18 01/23/22 08:18 BP 132/72 01/23/22 07:20 Pulse Ox 97 01/23/22 07:20 FiO2 Intake & Output 01/22/22 01/23/22 01/23/22 18:59 06:59 18:59 Intake Total 354 Output Total 1999 600 Balance -1646 -600 Intake: Oral 354 Output: Urine 1999 600 Other: Voiding Method Toilet Toilet Toilet Urinal Urinal Urinal # Voids 1 1 - Labs CBC & Chem 7: 01/21/22 04:44 01/21/22 04:44 Labs: Abnormal Lab Results - Last 24 Hours (Table) 01/22/22 01/22/22 01/23/22 Range/Units 16:51 20:30 07:20 POC Glucose (mg/dL) 184 H 176 H 136 H (70-110) mg/dL 01/23/22 Range/Units 12:03 POC Glucose (mg/dL) 154 H (70-110) mg/dL
[2022-01-24] MEDS: LINAGLIPTIN 5 MG TABLET PO SCH (04:54)
[2022-01-24] MEDS: metFORMIN 500 MG TAB PO SCH (04:54)
[2022-01-24] MEDS: ASPIRIN 81 MG PO SCH (04:57)
[2022-01-24] MEDS ORDERED: ATORVASTATIN 80 MG TAB PO ONE (05:00)
[2022-01-24] MEDS ORDERED: ASPIRIN 325 MG TAB PO ONE (05:00)
[2022-01-24 05:15] LABS: African American GFR (CKD) >90 (>60 ml/min/1.73 sqM); Anion Gap 4 mmol/L; Blood Urea Nitrogen 19 mg/dL (9-20); Calcium 8.4 mg/dL (8.4-10.2); Carbon Dioxide 25 mmol/L (22-30); Chloride 108 mmol/L (98-107); Glucose 135 mg/dL (74-99); Magnesium 1.8 mg/dL (1.6-2.3); Non-African American GFR(CKD) 84 (>60 ml/min/1.73 sqM); Potassium 3.9 mmol/L (3.5-5.1); Sodium 137 mmol/L (137-145)
[2022-01-24] MEDS: ACETAMINOPHEN TAB 325 MG TAB PO SCH (05:15)
[2022-01-24] MEDS: CARBIDOPA-LEVODOPA ER 50-200MG 1 EACH TABLET.ER PO SCH ×2 (05:16→16:53)
[2022-01-24] MEDS: ALPRAZolam 0.25 MG TAB PO SCH (05:16)
[2022-01-24] MEDS: lisinopriL 10 MG TAB PO SCH (05:17)
[2022-01-24] MEDS: ENTACAPONE 200 MG TAB PO SCH ×2 (05:17→16:53)
[2022-01-24] MEDS: OXYBUTYNIN XL 5 MG TAB.ER.24 PO SCH (05:17)
[2022-01-24] MEDS: DOCUSATE 100 MG CAP PO SCH ×2 (05:17→16:51)
[2022-01-24] MEDS: TAMSULOSIN 0.4 MG CAP.ER.24H PO SCH (05:18)
[2022-01-24 05:54] LABS: Basophils % (A) 0 %; Eosinophils # (A) 0.3 k/uL (0-0.7); Eosinophils % (A) 6 %; HCT 39.6 % (39.0-53.0); HGB 13.3 gm/dL (13.0-17.5); Lymphocytes # (A) 1.3 k/uL (1.0-4.8); Lymphocytes % (A) 26 %; MCH 34.4 pg (25.0-35.0); MCHC 33.6 g/dL (31.0-37.0); MCV 102.2 fL (80.0-100.0); Macrocytosis Slight; Mean Platelet Volume 7.8; Monocytes # (A) 0.3 k/uL (0-1.0); Monocytes % (A) 6 %; Neutrophils % (A) 58 %; Platelet Count 195 k/uL (150-450); RBC 3.87 m/uL (4.30-5.90); RDW 12.5 % (11.5-15.5); WBC 5.1 k/uL (3.8-10.6)
[2022-01-24 06:53] LABS: Glucose,Whole Blood 114 mg/dL (70-110)
[2022-01-24] MEDS ORDERED: HEPARIN SODIUM,PORCINE 10,000 UNIT in SODIUM CHLORIDE 0.9% 1,000 ML IRRIGATION PRN (07:00)
[2022-01-24] MEDS ORDERED: HEPARIN SODIUM,PORCINE 2,500 UNIT in SODIUM CHLORIDE 0.9% 250 ML IRRIGATION PRN (07:00)
[2022-01-24] MEDS ORDERED: IV FLUID CONTINUATION 1,000 ML IV ONE (09:40)
[2022-01-24] MEDS ORDERED: MIDAZOLAM 2 MG/2 ML VIAL IV ONE ×2 (09:50)
[2022-01-24] MEDS ORDERED: fentaNYL (PF) 50 MCG/ML 2 ML AMP IV ONE ×2 (09:50→10:24)
[2022-01-24] MEDS ORDERED: LIDOCAINE 1% INJ 10MG/ML (5 ML VIAL-PF) SQ ONE ×2 (09:51)
[2022-01-24] MEDS ORDERED: VERAPAMIL SYRINGE (5 MG/10 ML) INTRAARTER ONE ×2 (09:55→10:02)
[2022-01-24] MEDS ORDERED: HEPARIN SODIUM 1,000 UN/ML (10ML VL) IV ONE (10:06)
[2022-01-24] MEDS ORDERED: IOPAMIDOL-370 125ML BTL INJ ONE ×2 (10:24)
[2022-01-24] MEDS: SODIUM CHLORIDE 0.9% 1,000 ML in EMPTY BAG 1 BAG IV SCH (11:39)
[2022-01-24] MEDS ORDERED: RX INFO: IV CONTRAST WAS GIVEN 1 EACH MISC MISCELLANE PRN (11:42)
[2022-01-24 12:03] LABS: Glucose,Whole Blood 78 mg/dL (70-110)
[2022-01-24 13:52] VITALS: RESP 16; TEMP 97.7
[2022-01-24 15:05] VITALS: BP 155/76; PULSE 57
[2022-01-24 16:36] LABS: Glucose,Whole Blood 154 mg/dL (70-110)
[2022-01-24] MEDS: APIXABAN 2.5 MG TABLET PO SCH (16:52)
--- NOTE | 2022-01-26 14:27 | P.DS ---
Providers Date of admission: 01/23/22 13:39 Expected date of discharge: 01/24/22 Attending physician: Michela Vale Consults: 01/20/22 23:15 Consult Physician Urgent Consulting Provider: [facility] Consult Reason/Comments: acute chest pain Do you want consulting provider notified?: Yes Primary care physician: Brandon Bryant [facility] Course: Final diagnosis -Unstable angina, ruled out acs -status post abnormal lexiscan stress test, status post cardiac catheterization -hypomagnesemia -History of Parkinson's -Diabetes mellitus type 2 with hypoglycemia -Hypertension -Hyperlipidemia -Colon cancer surgery -Prostate cancer -history of DVT -DVT prophylaxis -GI prophylaxis -BPH history -Full code Discharge disposition Patient is being discharged in a stable condition with guarded prognosis to home. Patient will follow-up with Dr. Bryant in the outpatient setting upon discharge. Patient is to also follow-up with cardiology Dr. Barajas as scheduled. Diabetic medications have been reduced slightly and recommend outpatient follow-up with primary care provider this week. Total time taken is greater than 35 minutes. Hospital course This is a 71-year-old male who was recently admitted with chest pain was being closely monitored with cardiology following. Patient underwent stress testing which was abnormal recommending cardiac catheterization. Patient underwent cardiac catheterization with no stenting and recommend medical management and outpatient follow-up with cardiology. Patient having some episodes of hypoglycemia and glipizide was reduced by Dr. Vale and recommend monitoring blood sugars before meals and at bedtime and keep a diary for primary care follow-up. Patient reports to feeling well and denies any further chest pain and would like to go home today. Cardiology has cleared the patient for discharge later today after postcatheterization protocol has been completed. Currently no reports of chest pain, shortness of breath, or palpitations. Patient is afebrile. No reports of nausea or vomiting and patient is tolerating diet. Patient will be discharged home today. Physical exam: Gen: This is a 71-year-old male awake, alert and oriented 3, well-developed, well-nourished. HEENT: Head is atraumatic, normocephalic. Pupils equal, round. Sclerae is anicteric. NECK: Supple. No JVD. No lymphadenopathy. No thyromegaly. LUNGS: Diminished breath sounds bilaterally with no wheezing or rhonchi noted. No intercostal retractions. HEART: S1, S2 are muffled ABDOMEN: Soft. Bowel sounds are present. No masses. No tenderness. EXTREMITIES: No pedal edema. No calf tenderness. NEUROLOGICAL: Patient is awake, alert and oriented x3. Cranial nerves 2 through 12 are grossly intact. Please refer to medication reconciliation sheet for a list of medications. The impression and plan of care has been dictated by Kathryn Sylvester, Nurse Practitioner as directed. Dr. Steven MD I have performed a history and examination and MDM of this patient, discussed the same with the dictator, and agree with the dictator's assessment and plan as written ,documented as a scribe. Based on total visit time, I have performed more than 50% of the visit. Patient Condition at Discharge: Stable Plan - Discharge Summary New Discharge Prescriptions: New Aspirin 81 mg PO DAILY #30 tab glipiZIDE [Glucotrol] 2.5 mg PO BID@0800,2100 30 Days #60 tab metFORMIN HCL [Glucophage] 500 mg PO BID@0800,2100 30 Days #60 tab Continue Simvastatin [Zocor] 20 mg PO HS@2100 amantadine HCL [Symmetrel] 100 mg PO BID@0800,2100 Carbidopa-Levodopa ER 50-200Mg [Sinemet CR 50-200 mg] 2 tab PO DAILY@0800 Carbidopa-Levodopa ER 50-200Mg [Sinemet CR 50-200 mg] 1 tab PO DAILY@1500 lisinopriL [Prinivil] 10 mg PO DAILY@0800 Acetaminophen Tab [Tylenol] 650 mg PO BID@0800,2100 Insulin Glargine,Hum.rec.anlog [Lantus Solostar Pen] 33 unit SQ HS@2100 Entacapone 200 mg PO BID@0800,1700 Docusate [Colace] 100 mg PO BID@0800,1700 Tamsulosin [Flomax] 0.4 mg PO DAILY@0800 Oxybutynin Chloride [Ditropan XL] 5 mg PO BID@0800,2100 ALPRAZolam [Xanax] 0.25 mg PO BID@0800,2100 Sennosides-Docusate Sodium [Senokot-S] 2 tab PO HS@2100 Linagliptin [Tradjenta] 10 mg PO DAILY@0800 rOPINIRole HCL [Requip XL] 8 mg PO DAILY@0800 QUEtiapine [SEROquel] 100 mg PO HS@2099 Apixaban [Eliquis] 2.5 mg PO BID@0800,1700 Discontinued glipiZIDE/METFORMIN HCL [glipiZIDE/METFORMIN HCL 5-500 mg] 1 tab PO BID@0800,2099 Discharge Medication List Simvastatin [Zocor] 20 mg PO HS@209911/14/16 [History] amantadine HCL [Symmetrel] 100 mg PO BID@0800,209911/14/16 [History] Carbidopa-Levodopa ER 50-200Mg [Sinemet CR 50-200 mg] 2 tab PO DAILY@0800 12/19/16 [History] Carbidopa-Levodopa ER 50-200Mg [Sinemet CR 50-200 mg] 1 tab PO DAILY@1500 05/05/19 [History] lisinopriL [Prinivil] 10 mg PO DAILY@0800 05/05/19 [History] Acetaminophen Tab [Tylenol] 650 mg PO BID@0800,209907/17/20 [History] Entacapone 200 mg PO BID@0800,1700 07/17/20 [History] Insulin Glargine,Hum.rec.anlog [Lantus Solostar Pen] 33 unit SQ HS@209907/17/20 [History] ALPRAZolam [Xanax] 0.25 mg PO BID@0800,209901/20/22 [History] Apixaban [Eliquis] 2.5 mg PO BID@0800,1700 01/20/22 [History] Docusate [Colace] 100 mg PO BID@0800,17001/20/22 [History] Linagliptin [Tradjenta] 10 mg PO DAILY@0801/20/22 [History] Oxybutynin Chloride [Ditropan XL] 5 mg PO BID@0800,209901/20/22 [History] QUEtiapine [SEROquel] 100 mg PO HS@209901/20/22 [History] Sennosides-Docusate Sodium [Senokot-S] 2 tab PO HS@209901/20/22 [History] Tamsulosin [Flomax] 0.4 mg PO DAILY@0801/20/22 [History] rOPINIRole HCL [Requip XL] 8 mg PO DAILY@0800 01/20/22 [History] Aspirin 81 mg PO DAILY #30 tab 01/24/22 [Rx] glipiZIDE [Glucotrol] 2.5 mg PO BID@0800,2099 30 Days #60 tab 01/24/22 [Rx] metFORMIN HCL [Glucophage] 500 mg PO BID@0800,2099 30 Days #60 tab 01/24/22 [Rx] Follow up Appointment(s)/Referral(s): Brandon Bryant MD [Primary Care Provider] - 1-2 days Jesus Alberto Barajas MD [STAFF PHYSICIAN] - 1 Week Patient Instructions/Handouts: *Surgery [facility] - After Heart Catheterization - Word Processing Supervisor Instructions, Heart Catheterization (DC) Activity/Diet/Wound Care/Special Instructions: Activity Limited until follow-up Follow-up with primary care provider on discharge follow-up with cardiology outpatient Continue taking medications as prescribed Recommend monitoring blood sugars before meals and at bedtime and keep a diary for primary care follow-up Note the change in glipizide to 2.5 mg twice a day and if blood sugars continue to be low recommend holding and discussing with primary care provider Continue heart healthy diabetic diet Discharge Disposition: HOME SELF-CARE
--- NOTE | 2022-01-31 19:49 | CC ---
CARDIAC CATHETERIZATION REPORT INDICATION: Chest pain with abnormal stress test. PROCEDURE NOTE: After obtaining informed consent, left heart catheterization and coronary angiogram were performed via the right radial artery using size 3.5 Nola catheters. We could not cross the aortic valve with a pigtail catheter. The patient received moderate conscious sedation. Total sedation time was 40 minutes. Right radial artery access was obtained using Seldinger technique with a micropuncture needle, and catheters and wires were manipulated into the ascending aorta, where they were exchanged. FINDINGS: HEMODYNAMICS: Central aortic pressure is 130/80 mmHg. ANGIOGRAPHIC DATA: Right coronary artery is a large dominant vessel that is free of significant obstructive disease. Left main coronary artery is a normal-sized vessel and is free of stenosis, divides into left anterior descending coronary artery and circumflex coronary artery. Circumflex coronary artery and its branches are free of significant stenosis. LAD is a small-caliber vessel that shows [id number] diffuse disease, gives off large- caliber diagonal branch that shows 70% to 80% focal stenosis. CONCLUSIONS: Small caliber LAD with mild diffuse disease with focal stenotic lesion within the diagonal branch. PLAN: I reviewed angiographic data with Dr. Gould, the on-call wireless technician, and the plan is to manage with optimal medical therapy at this time. MMODL / IJN: [id number] /
== END 2022-01-24 17:52 | disposition home or self-care (01) | DRG 287 ==
LOC: EC 20:13 → 6NMEDSUR 23:15 → OBSVTOIN 01-23 13:39
PROVIDERS: ADMIT Family Medicine; ATTEND Family Medicine
PROC: B211YZZ Fluoroscopy of Multiple Coronary Arteries using Other Contrast (ICD-10-PCS; 2022-01-24)
PROC: B215YZZ Fluoroscopy of Left Heart using Other Contrast (ICD-10-PCS; 2022-01-24)
PROC: 4A023N7 Measurement of Cardiac Sampling and Pressure, Left Heart, Percutaneous Approach (ICD-10-PCS; principal; 2022-01-24 12:00)
DX: I20.0 Unstable angina (principal); E11.649 Type 2 diabetes mellitus with hypoglycemia without coma; E78.5 Hyperlipidemia, unspecified; E83.42 Hypomagnesemia; G20 Parkinson's disease; R41.3 Other amnesia; I10 Essential (primary) hypertension; M19.90 Unspecified osteoarthritis, unspecified site; N40.0 Benign prostatic hyperplasia without lower urinary tract symptoms; Z87.891 Personal history of nicotine dependence; Z79.01 Long term (current) use of anticoagulants; Z79.4 Long term (current) use of insulin; Z79.82 Long term (current) use of aspirin; Z79.899 Other long term (current) drug therapy; Z85.46 Personal history of malignant neoplasm of prostate; Z85.038 Personal history of other malignant neoplasm of large intestine; Z85.828 Personal history of other malignant neoplasm of skin; Z86.711 Personal history of pulmonary embolism; Z86.718 Personal history of other venous thrombosis and embolism; Z87.442 Personal history of urinary calculi; Z82.49 Family history of ischemic heart disease and other diseases of the circulatory system
CPT/HCPCS: 36415; 71046; 78452; 80048; 80053; 83690; 83735; 83880; 84484; 85025; 85610; 85730; 93005; 93017; 93306; 93454; 99285

== ENCOUNTER 2022-02-26 13:08 | Emergency (ER) | payer MEDICARE, BC ==
[2022-02-26 13:33] VITALS: BP 103/65; PULSE 71; RESP 16; TEMP 97.7
--- NOTE | 2022-02-26 14:10 | ED ---
General Adult HPI - General Chief complaint: Fall Stated complaint: Fall Time Seen by Provider: 02/26/22 13:34 Source: patient, family, RN notes reviewed Mode of arrival: ambulatory Limitations: no limitations - History of Present Illness Initial comments: Patient is a pleasant 71-year-old male presenting to the emergency department following fall. Patient is on blood thinners. Patient was using his walker when he got caught up with pillows. Patient fell back. Patient does have some back discomfort however does have some chronic back discomfort. Patient and family are unclear whether or not he hit his head. Patient does not believe that he did. Patient is on blood thinners. No syncope. No loss of consciousness. No weakness. Discomfort is mild at this time and patient and family do not feel like he needs pain medication. - Related Data Home Medications Medication Instructions Recorded Confirmed Simvastatin [Zocor] 20 mg PO HS@209911/14/16 01/20/22 amantadine HCL [Symmetrel] 100 mg PO BID@0800,209911/14/16 01/20/22 Carbidopa-Levodopa ER 50-200Mg 2 tab PO DAILY@0800 12/19/16 01/20/22 [Sinemet CR 50-200 mg] Carbidopa-Levodopa ER 50-200Mg 1 tab PO DAILY@1500 05/05/19 01/20/22 [Sinemet CR 50-200 mg] lisinopriL [Prinivil] 10 mg PO DAILY@0800 05/05/19 01/20/22 Acetaminophen Tab [Tylenol] 650 mg PO BID@0800,209907/17/20 01/20/22 Entacapone 200 mg PO BID@0800,1700 07/17/20 01/20/22 Insulin Glargine,Hum.rec.anlog 33 unit SQ HS@209907/17/20 01/20/22 [Lantus Solostar Pen] ALPRAZolam [Xanax] 0.25 mg PO BID@0800,209901/20/22 01/20/22 Apixaban [Eliquis] 2.5 mg PO BID@0800,169901/20/22 01/20/22 Docusate [Colace] 100 mg PO BID@0800,169901/20/22 01/20/22 Linagliptin [Tradjenta] 10 mg PO DAILY@0801/20/22 01/20/22 Oxybutynin Chloride [Ditropan XL] 5 mg PO BID@00,209901/20/22 01/20/22 QUEtiapine [SEROquel] 100 mg PO HS@209901/20/22 01/20/22 Sennosides-Docusate Sodium 2 tab PO HS@209901/20/22 01/20/22 [Senokot-S] Tamsulosin [Flomax] 0.4 mg PO DAILY@79901/20/22 01/20/22 rOPINIRole HCL [Requip XL] 8 mg PO DAILY@79901/20/22 01/20/22 Previous Rx's Medication Instructions Recorded Aspirin 81 mg PO DAILY #30 tab 01/24/22 glipiZIDE [Glucotrol] 2.5 mg PO BID@08,2099 30 Days 01/24/22 #60 tab metFORMIN HCL [Glucophage] 500 mg PO BID@799,2099 30 Days 01/24/22 #60 tab Allergies Allergy/AdvReac Type Severity Reaction Status Date / Time Iodine and Iodide Containing Allergy Rash/Hives Verified 02/26/22 13:33 Produc shellfish derived Allergy Rash/Hives Verified 02/26/22 13:33 paper tape AdvReac Skin Uncoded 02/26/22 13:33 peeled off. Review of Systems ROS Statement: Those systems with pertinent positive or pertinent negative responses have been documented in the HPI. ROS Other: All systems not noted in ROS Statement are negative. Constitutional: Denies: fever Eyes: Denies: eye pain ENT: Denies: ear pain Respiratory: Denies: cough Cardiovascular: Denies: chest pain Endocrine: Denies: fatigue Gastrointestinal: Denies: abdominal pain Genitourinary: Denies: dysuria Musculoskeletal: Reports: as per HPI, back pain Skin: Denies: rash Neurological: Denies: headache, weakness Past Medical History Past Medical History: Cancer, Diabetes Mellitus, Deep Vein Thrombosis (DVT), Eye Disorder, Hyperlipidemia, Hypertension, Memory Impairment, Neurologic Disorder, Osteoarthritis (OA) Additional Past Medical History / Comment(s): Parkinsons. Hx kidney stones, prostate, colon and skin cancer. History of Any Multi-Drug Resistant Organisms: None Reported Past Surgical History: Back Surgery Additional Past Surgical History / Comment(s): Left cataract surgery, bowel surgery for colon cancer, skin cancer removed. Past Anesthesia/Blood Transfusion Reactions: No Reported Reaction Past Psychological History: No Psychological Hx Reported Smoking Status: Former smoker Past Alcohol Use History: Rare Past Drug Use History: None Reported - Past Family History Mother History Unknown: Yes (Mother with colon cancer, hypertension, father with prostate cancer, skin cancer, brother with prostate cancer, sister is with dementia, daughter with hypertension, son with diabetes) Family Medical History: Cancer Additional Family Medical History / Comment(s): Colon Father Family Medical History: Cancer Additional Family Medical History / Comment(s): Prostate General Exam Limitations: no limitations General appearance: alert, in no apparent distress Head exam: Present: normocephalic Eye exam: Present: normal appearance, PERRL, EOMI ENT exam: Present: normal oropharynx Neck exam: Present: normal inspection, tenderness (Mild diffuse tenderness) Respiratory exam: Present: normal lung sounds bilaterally Cardiovascular Exam: Present: regular rate, normal rhythm GI/Abdominal exam: Present: soft. Absent: tenderness Extremities exam: Present: normal inspection, full ROM. Absent: tenderness Back exam: Present: tenderness (Mild diffuse tenderness) Neurological exam: Present: alert, oriented X3, CN II-XII intact. Absent: motor sensory deficit Psychiatric exam: Present: normal affect, normal mood Skin exam: Present: normal color Course Vital Signs 02/26/22 13:30 Temperature 97.7 F Pulse Rate 71 Respiratory 16 Rate Blood Pressure 103/65 O2 Sat by Pulse 97 Oximetry Medical Decision Making - Medical Decision Making Patient reevaluated. Patient and family updated. I did review films. Patient will be discharged pending radiologist review. - Radiology Data Radiology results: report reviewed (Computed tomography scan of brain and cervical spine reveals no acute abnormality), image reviewed Disposition Clinical Impression: Fall Disposition: HOME SELF-CARE Condition: Stable Instructions (If sedation given, give patient instructions): Fall Prevention for Older Adults (ED), Head Injury (ED) Additional Instructions: [id number] Tylenol as seen. Please do follow-up with primary care physician in the next day or 2 for recheck. Return for weakness, increased falls, change in mental status, worsening symptoms or other concerns. Is patient prescribed a controlled substance at d/c from ED?: No Referrals: Brandon Bryant MD [Primary Care Provider] - 1-2 days
--- NOTE | 2022-02-26 14:46 | CT ---
EXAMINATION TYPE: CT brain [place] souza con DATE OF EXAM: 02/26/2022 COMPARISON: 06/26/2019 HISTORY: pain after fall CT DLP: 1349.5 mGycm Automated exposure control for dose reduction was used. Images of the brain and cervical spine obtained with no contrast. There is cerebral cortical atrophy. There is no mass effect or midline shift. No sign of intracranial hemorrhage. Calvarium is intact. There are spondylotic changes in the cervical spine. There is fusio n surgery from C5 to C7. There is hypertrophic multilevel facet arthropathy. No cervical spine fractu re. The skull base is intact. There is normal aeration of the mastoid sinuses. Occipital bone is intact. IMPRESSION: Cerebral atrophy. No acute intracranial abnormality. Spondylotic changes in the cervical spine. Previ ous surgery. No acute abnormality. No change.
[2022-02-26] MEDS ORDERED: ACETAMINOPHEN TAB 500 MG TAB PO STA (15:23)
--- NOTE | 2022-02-26 16:27 | XR ---
EXAMINATION TYPE: XR thoracic spine complete DATE OF EXAM: 02/26/2022 COMPARISON: NONE HISTORY: Pain TECHNIQUE: 3 views FINDINGS: Thoracic vertebra have fairly normal alignment. There is degenerative spurring and bridging osteophyte formation in the mid and lower thoracic spine. No compression fracture. No paraspinal mas s. There is anterior spurring in the cervical spine. IMPRESSION: Multilevel spondylotic changes. No fracture seen.
--- NOTE | 2022-02-26 16:29 | XR ---
EXAMINATION TYPE: XR lumbar spine 2 or 3V DATE OF EXAM: 02/26/2022 COMPARISON: 11/14/2016 HISTORY: Pain TECHNIQUE: 3 views FINDINGS: The lumbar vertebrae have normal alignment. There is rods and screws fusing posteriorly the lumbar spine. There is multilevel laminectomy defect from L3 to L5. No compression fracture. Abdomin al aorta is atheromatous. Sacroiliac joints are intact. IMPRESSION: Multilevel fusion surgery. No acute bony abnormality. No significant change compared to t old exam. No compression fracture.
== END 2022-02-26 17:03 | disposition home or self-care (01) ==
LOC: EC 13:08
DX: M54.9 Dorsalgia, unspecified (principal); E11.9 Type 2 diabetes mellitus without complications; I10 Essential (primary) hypertension; E78.5 Hyperlipidemia, unspecified; Z87.891 Personal history of nicotine dependence; Z91.041 Radiographic dye allergy status; Z91.013 Allergy to seafood; Z91.048 Other nonmedicinal substance allergy status; Z79.899 Other long term (current) drug therapy; Z79.84 Long term (current) use of oral hypoglycemic drugs; Z79.4 Long term (current) use of insulin; W19.XXXA Unspecified fall, initial encounter
CPT/HCPCS: 70450; 72072; 72100; 72125; 99284

== ENCOUNTER 2022-10-19 11:01 | Emergency (ER) | payer MEDICARE, BC ==
[2022-10-19 11:09] VITALS: RESP 18; TEMP 97.8
[2022-10-19] MEDS ORDERED: SODIUM CHLORIDE 0.9% 1,000 ML IV STA (11:27)
--- NOTE | 2022-10-19 11:30 | ED ---
General Adult HPI - General Chief complaint: Fall Stated complaint: Fall Time Seen by Provider: 10/19/22 11:07 Source: patient, EMS Mode of arrival: EMS Limitations: no limitations - History of Present Illness Initial comments: Patient is a pleasant 72-year-old male presenting to the emergency department with son with concerns for fall. Patient does have Parkinson's and does fall frequently. Patient was folding towels when he turned and lost balance. Patient did strike his head on the floor. Patient denies loss of consciousness. Patient has had multiple falls especially over the past year or more. Patient is on an eliquis history of DVT. Patient did sustain an abrasion to his right lutheran region. Son believes tetanus is up-to-date and will confirm this with primary care physician in follow-up. No other area of injury or concern. No c onfusion or weakness. - Related Data Home Medications Medication Instructions Recorded Confirmed Simvastatin [Zocor] 20 mg PO HS@209911/14/16 01/20/22 amantadine HCL [Symmetrel] 100 mg PO BID@0800,209911/14/16 01/20/22 Carbidopa-Levodopa ER 50-200Mg 2 tab PO DAILY@0800 12/19/16 01/20/22 [Sinemet CR 50-200 mg] Carbidopa-Levodopa ER 50-200Mg 1 tab PO DAILY@1500 05/05/19 01/20/22 [Sinemet CR 50-200 mg] lisinopriL [Prinivil] 10 mg PO DAILY@0800 05/05/19 01/20/22 Acetaminophen Tab [Tylenol] 650 mg PO BID@0800,209907/17/20 01/20/22 Entacapone 200 mg PO BID@0800,1700 07/17/20 01/20/22 Insulin Glargine,Hum.rec.anlog 33 unit SQ HS@209907/17/20 01/20/22 [Lantus Solostar Pen] ALPRAZolam [Xanax] 0.25 mg PO BID@0800,209901/20/22 01/20/22 Apixaban [Eliquis] 2.5 mg PO BID@0800,1700 01/20/22 01/20/22 Docusate [Colace] 100 mg PO BID@0800,1700 01/20/22 01/20/22 Linagliptin [Tradjenta] 10 mg PO DAILY@0800 01/20/22 01/20/22 Oxybutynin Chloride [Ditropan XL] 5 mg PO BID@0800,209901/20/22 01/20/22 QUEtiapine [SEROquel] 100 mg PO HS@209901/20/22 01/20/22 Sennosides-Docusate Sodium 2 tab PO HS@209901/20/22 01/20/22 [Senokot-S] Tamsulosin [Flomax] 0.4 mg PO DAILY@79901/20/22 01/20/22 rOPINIRole HCL [Requip XL] 8 mg PO DAILY@79901/20/22 01/20/22 Previous Rx's Medication Instructions Recorded Aspirin 81 mg PO DAILY #30 tab 01/24/22 glipiZIDE [Glucotrol] 2.5 mg PO BID@0800,2099 30 Days 01/24/22 #60 tab metFORMIN HCL [Glucophage] 500 mg PO BID@00,2099 30 Days 01/24/22 #60 tab Allergies Allergy/AdvReac Type Severity Reaction Status Date / Time Iodine and Iodide Containing Allergy Rash/Hives Verified 10/19/22 11:09 Produc shellfish derived Allergy Rash/Hives Verified 10/19/22 11:09 paper tape AdvReac Skin Uncoded 10/19/22 11:09 peeled off. Review of Systems ROS Statement: Those systems with pertinent positive or pertinent negative responses have been documented in the HPI. ROS Other: All systems not noted in ROS Statement are negative. Constitutional: Denies: fever Eyes: Denies: eye pain ENT: Denies: ear pain Respiratory: Denies: cough Cardiovascular: Denies: chest pain Endocrine: Denies: fatigue Gastrointestinal: Denies: abdominal pain Genitourinary: Denies: dysuria Musculoskeletal: Denies: back pain Skin: Reports: as per HPI Neurological: Denies: headache, weakness Past Medical History Past Medical History: Cancer, Diabetes Mellitus, Deep Vein Thrombosis (DVT), Eye Disorder, Hyperlipidemia, Hypertension, Memory Impairment, Neurologic Disorder, Osteoarthritis (OA) Additional Past Medical History / Comment(s): Parkinsons. Hx kidney stones, prostate, colon and skin cancer. History of Any Multi-Drug Resistant Organisms: None Reported Past Surgical History: Back Surgery Additional Past Surgical History / Comment(s): Left cataract surgery, bowel surgery for colon cancer, skin cancer removed. Past Anesthesia/Blood Transfusion Reactions: No Reported Reaction Past Psychological History: No Psychological Hx Reported Smoking Status: Former smoker Past Alcohol Use History: Rare Past Drug Use History: None Reported - Past Family History Mother History Unknown: Yes (Mother with colon cancer, hypertension, father with prost ate cancer, skin cancer, brother with prostate cancer, sister is with dementia, daughter with hypertension, son with diabetes) Family Medical History: Cancer Additional Family Medical History / Comment(s): Colon Father Family Medical History: Cancer Additional Family Medical History / Comment(s): Prostate General Exam Limitations: no limitations General appearance: alert, in no apparent distress Head exam: Present: other (Right temporal abrasion) Eye exam: Present: normal appearance, PERRL, EOMI ENT exam: Present: normal oropharynx Neck exam: Present: normal inspection. Absent: tenderness Respiratory exam: Present: normal lung sounds bilaterally Cardiovascular Exam: Present: regular rate, normal rhythm Expanded Peripheral pulses: 2+: Radial (R), Radial (L), Dorsalis Pedis (R), Dorsalis Pedis (L) GI/Abdominal exam: Present: soft. Absent: tenderness Extremities exam: Present: normal inspection. Absent: pedal edema, calf tenderness Neurological exam: Present: alert, CN II-XII intact. Absent: motor sensory deficit Expanded Neurological exam: Present: protecting the airway Speech: Present: fluid speech Cranial nerves: EOM's Intact: Normal Motor strength exam: RUE: 5, LUE: 5, RLE: 5, LLE: 5 Eye Response: (4) open spontaneously Motor Response: (6) obeys commands Verbal Response: (5) oriented Psychiatric exam: Present: normal affect, normal mood Skin exam: Present: normal color Course Vital Signs 10/19/22 11:04 Temperature 97.8 F Pulse Rate 63 Respiratory 18 Rate Blood Pressure 119/68 O2 Sat by Pulse 97 Oximetry - Reevaluation(s) Reevaluation #1: 10/19/22 11:28 Patient and family are advised to have discussion with primary care physician regarding whether or not to continue eliquis Medical Decision Making - Medical Decision Making Was pt. sent in by a medical professional or institution (Dr., PA, SPINNING MACHINE OPERATOR, urgent care, hospital, or care home...) When possible be specific @ -Patient does come from assisted living Did you speak to anyone other than the patient for history (EMS, parent, family, police, friend...)? What history was obtained from this source @ -Son is present and helps provide significant history including history of Parkinson's and frequent falls Did you review nursing and triage notes (agree or disagree)? Why? @ -I reviewed and agree with nursing and triage notes Were old charts reviewed (outside hosp., previous admission, EMS record, old EKG, old radiological studies, urgent care reports/EKG's, care home records)? Report findings @ -No old charts were reviewed Differential Diagnosis (chest pain, altered mental status, abdominal pain women, abdominal pain men, vaginal bleeding, weakness, fever, dyspnea, syncope, headache, dizziness, GI bleed, back pain, seizure, CVA, palpatations, mental health)? @ -not applicable EKG interpreted by me (3pts min.). @ -As above X-rays interpreted by me (1pt min.). @ -None done CT interpreted by me (1pt min.). @ -Reports reviewed U/S interpreted by me (1pt. min.). @ -None done What testing was considered but not performed or refused? (CT, X-rays, U/S, labs)? Why? @ -None What meds were considered but not given or refused? Why? @ -That her tetanus however son believes this is up-to-date and will follow-up with primary care physician for this Did you discuss the management of the patient with other professionals (professionals i.e. MARGARITA Bustos, SPINNING MACHINE OPERATOR, lab, RT, psych nurse, public health social worker, pharmacy grad intern, teacher, security control room officer, case therapist)? Give summary @ -No Was smoking cessation discussed for >3mins.? @ -No Was critical care preformed (if so, how long)? @ -No Were there social determinants of health that impacted care today? How? (H omelessness, low income, unemployed, alcoholism, drug addiction, transportation, low edu. Level, literacy, decrease access to med. care, senior living, rehab)? @ -No Was there de-escalation of care discussed even if they declined (Discuss DNR or withdrawal of care, Hospice)? DNR status @ -No What co-morbidities impacted this encounter? (DM, HTN, Smoking, COPD, CAD, Cancer, CVA, ARF, Chemo, Hep., AIDS, mental health diagnosis, sleep apnea, morbid obesity)? @ -None Was patient admitted / discharged? Hospital course, mention meds given and route, prescriptions, significant lab abnormalities, going to OR and other pertinent info. @ -Patient reevaluated and resting comfortably in bed. Patient and family updated on results and need for follow-up. Undiagnosed new problem with uncertain prognosis? @ -No Drug Therapy requiring intensive monitoring for toxicity (Heparin, Nitro, Insulin, Cardizem)? @ -No Were any procedures done? @ -No Diagnosis/symptom? @ -Fall, head contusion Acute, or Chronic, or Acute on Chronic? @ -Acute Uncomplicated (without systemic symptoms) or Complicated (systemic symptoms)? @ -default Side effects of treatment? @ -No Exacerbation, Progression, or Severe Exacerbation? @ -No Poses a threat to life or bodily function? How? (Chest pain, [place], [place], pneumonia, PE, COPD, DKA, ARF, appy, cholecystitis, CVA, Diverticulitis, Homicidal, Suicidal, threat to staff... and all critical care pts) @ -No - Lab Data Result diagrams: 10/19/22 12:10 10/19/22 12:10 Lab Results 10/19/22 10/19/22 10/19/22 Range/Units 12:10 12:10 12:10 WBC 6.8 (3.8-10.6) k/uL RBC 4.22 L (4.30-5.90) m/uL Hgb 14.1 (13.0-17.5) gm/dL Hct 41.2 (39.0-53.0) % MCV 97.7 (80.0-100.0) fL MCH 33.3 (25.0-35.0) pg MCHC 34.1 (31.0-37.0) g/dL RDW 12.3 (11.5-15.5) % Plt Count 215 (150-450) k/uL MPV 7.3 Neutrophils % 71 % Lymphocytes % 18 % Monocytes % 6 % Eosinophils % 2 % Basophils % 0 % Neutrophils # 4.8 (1.3-7.7) k/uL Lymphocytes # 1.2 (1.0-4.8) k/uL Monocytes # 0.4 (0-1.0) k/uL Eosinophils # 0.1 (0-0.7) k/uL Basophils # 0.0 (0-0.2) k/uL PT 11.3 (9.0-12.0) sec INR 1.1 (<1.2) APTT 26.7 (22.0-30.0) sec Sodium 140 (137-145) mmol/L Potassium 5.2 H (3.5-5.1) mmol/L Chloride 108 H (98-107) mmol/L Carbon Dioxide 25 (22-30) mmol/L Anion Gap 7 mmol/L BUN 18 (9-20) mg/dL Creatinine 0.86 (0.66-1.25) mg/dL Est GFR (CKD-EPI)AfAm >90 (>60 ml/min/1.73 sqM) Est GFR (CKD-EPI)NonAf 86 (>60 ml/min/1.73 sqM) Glucose 118 H (74-99) mg/dL Calcium 8.8 (8.4-10.2) mg/dL Total Bilirubin 0.7 (0.2-1.3) mg/dL AST 22 (17-59) U/L ALT 10 (4-49) U/L Alkaline Phosphatase 128 H (38-126) U/L Total Protein 6.4 (6.3-8.2) g/dL Albumin 3.7 (3.5-5.0) g/dL Disposition Clinical Impression: Fall, Head contusion Disposition: HOME SELF-CARE Condition: Stable Instructions (If sedation given, give patient instructions): Fall Prevention for Older Adults (ED), Head Injury (ED) Additional Instructions: Please do follow-up with primary care physician in the next day or 2 for recheck. Have primary care physician confirmed tetanus immunization. Have dis cussion with primary care physician regarding continuation or not of blood thinner, eliquis. Hold eliquis for 24 hours. Return for change in mental status, weakness or confusion, increased falls, worsening symptoms or other concerns. Is patient prescribed a controlled substance at d/c from ED?: No Referrals: Brandon Bryant MD [Primary Care Provider] - 1-2 days Time of Disposition: 12:42
--- NOTE | 2022-10-19 12:11 | CT ---
EXAMINATION TYPE: CT brain cspine wo con CT DLP: 1582.3 mGycm, Automated exposure control for dose reduction was used. DATE OF EXAM: 10/19/2022 11:54 AM COMPARISON: CT brain Cspine 02/26/2022. CLINICAL INDICATION:Male, 72 years old with history of trauma; Fall, abrasion/laceration right suprao rbital area TECHNIQUE: Brain: Multiple axial CT images of the brain were obtained without IV contrast. Cspine: Axial CT images from the skull base to the inferior aspect of T2 we obtained without intraven ous contrast. Coronal and sagittal reformatted images were also reviewed. FINDINGS: Brain: Extra-axial spaces: No abnormal extra-axial fluid collections. Ventricular system: Within normal limits Cerebral parenchyma: Cerebral atrophy. No acute intraparenchymal hemorrhage or mass effect. The duran -white junction is well differentiated. Scattered hypoattenuating areas are seen within the white mat ter. Cerebellum: Unremarkable. Mass effect: No evidence of midline shift. Intracranial vasculature: Atherosclerotic calcifications of the intracranial vessels. Soft tissues: Minimal right supraorbital soft tissue edema. Calvarium/osseous structures: No depressed skull fracture. Paranasal sinuses and mastoid air cells: Clear. Visualized orbits: Bilateral aphakia. Bilateral scleral calcifications. Cervical spine: Fracture: None. Osseous structures: Multilevel degenerative disc disease changes with endplate spurring and disc oste ophyte complex's. There is fusion of the C5-C7 vertebral bodies. Vertebral alignment: Within normal limits. Spinal canal/Neural Foramina: Disc osteophyte complexes at C2-C3 and C7-T1 with at least mild spinal canal stenosis. Facet joint uncovertebral joint arthropathy scattered throughout the cervical spine w ith varying degrees of neural foraminal stenosis. Neck soft tissues: Prevertebral soft tissues are within normal limits. Macrocalcifications within the thyroid gland. Other: The airway is patent. The lung apices are clear. IMPRESSION: 1. No acute intracranial process. 2. Nonspecific white matter changes, likely secondary to chronic small vessel ischemic disease. 3. Minimal right supraorbital soft tissue edema. 4. No evidence of cervical spine fracture. 5. Moderate multilevel degenerative disc disease.
[2022-10-19 12:20] LABS: Basophils % (A) 0 %; Eosinophils # (A) 0.1 k/uL (0-0.7); Eosinophils % (A) 2 %; HCT 41.2 % (39.0-53.0); HGB 14.1 gm/dL (13.0-17.5); Lymphocytes # (A) 1.2 k/uL (1.0-4.8); Lymphocytes % (A) 18 %; MCH 33.3 pg (25.0-35.0); MCHC 34.1 g/dL (31.0-37.0); MCV 97.7 fL (80.0-100.0); Mean Platelet Volume 7.3; Monocytes # (A) 0.4 k/uL (0-1.0); Monocytes % (A) 6 %; Neutrophils # (A) 4.8 k/uL (1.3-7.7); Neutrophils % (A) 71 %; Platelet Count 215 k/uL (150-450); RBC 4.22 m/uL (4.30-5.90); RDW 12.3 % (11.5-15.5); WBC 6.8 k/uL (3.8-10.6)
[2022-10-19 12:24] LABS: ALT 10 U/L (4-49); AST 22 U/L (17-59); African American GFR (CKD) >90 (>60 ml/min/1.73 sqM); Albumin 3.7 g/dL (3.5-5.0); Alkaline Phosphatase 128 U/L (38-126); Anion Gap 7 mmol/L; Blood Urea Nitrogen 18 mg/dL (9-20); Calcium 8.8 mg/dL (8.4-10.2); Carbon Dioxide 25 mmol/L (22-30); Chloride 108 mmol/L (98-107); Glucose 118 mg/dL (74-99); Non-African American GFR(CKD) 86 (>60 ml/min/1.73 sqM); Potassium 5.2 mmol/L (3.5-5.1); Sodium 140 mmol/L (137-145); Total Bilirubin 0.7 mg/dL (0.2-1.3); Total Protein 6.4 g/dL (6.3-8.2)
[2022-10-19 12:25] LABS: INR 1.1 (<1.2); Partial Thromboplastin Time 26.7 sec (22.0-30.0); Prothrombin Time 11.3 sec (9.0-12.0)
[2022-10-19 13:13] VITALS: BP 123/84; PULSE 64
== END 2022-10-19 13:13 | disposition home or self-care (01) ==
LOC: EC 11:01
DX: S00.83XA Contusion of other part of head, initial encounter (principal); E11.9 Type 2 diabetes mellitus without complications; I10 Essential (primary) hypertension; E78.5 Hyperlipidemia, unspecified; G20 Parkinson's disease; M19.90 Unspecified osteoarthritis, unspecified site; Z79.01 Long term (current) use of anticoagulants; Z79.4 Long term (current) use of insulin; Z79.899 Other long term (current) drug therapy; Z87.891 Personal history of nicotine dependence; Z86.718 Personal history of other venous thrombosis and embolism; Z88.8 Allergy status to other drugs, medicaments and biological substances; Z91.013 Allergy to seafood; Z91.048 Other nonmedicinal substance allergy status; W19.XXXA Unspecified fall, initial encounter
CPT/HCPCS: 36415; 70450; 72125; 80053; 85025; 85610; 85730; 96360; 99284

== ENCOUNTER 2022-12-21 14:30 | Emergency (ER) | payer MEDICARE, BC ==
--- NOTE | 2022-12-21 15:21 | ED ---
Fall HPI - General Chief Complaint: Fall Stated Complaint: Fall Hit Head (Blood Thinners) Time Seen by Provider: 12/21/22 15:01 Source: patient, family Mode of arrival: wheelchair - History of Present Illness Initial Comments: This patient is 72-year-old man with Parkinson's disease and history of recent falls. He was walking today, using his walker when he tipped backwards and fell striking the back of his head. No loss of consciousness. Denies significant headache and denies neurologic symptoms. Patient's son was instructed to bring him for further evaluation as he takes L Aquin[facility] for ischemic heart disease. 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 Witnessed: yes, by bystander Place Fall Occurred: other Loss of Consciousness: none Prolonged Down Time?: no Symptoms Prior to Fall: none Severity scale (1-10): 0 Context: history of frequent falls Associated Symptoms: denies - Related Data Home Medications Medication Instructions Recorded Confirmed Simvastatin [Zocor] 20 mg PO HS@209911/14/16 12/21/22 amantadine HCL [Symmetrel] 100 mg PO BID@0800,209911/14/16 12/21/22 Carbidopa-Levodopa ER 50-200Mg 2 tab PO DAILY@0800 12/19/16 12/21/22 [Sinemet CR 50-200 mg] Carbidopa-Levodopa ER 50-200Mg 1 tab PO DAILY@1500 05/05/19 12/21/22 [Sinemet CR 50-200 mg] Acetaminophen Tab [Tylenol] 650 mg PO BID@0800,209907/17/20 12/21/22 Entacapone 200 mg PO BID@0800,1700 07/17/20 12/21/22 Insulin Glargine,Hum.rec.anlog 30 unit SQ HS@209907/17/20 12/21/22 [Lantus Solostar Pen] ALPRAZolam [Xanax] 0.25 mg PO BID@0800,209901/20/22 12/21/22 Apixaban [Eliquis] 2.5 mg PO BID@0800,1700 01/20/22 12/21/22 Docusate [Colace] 100 mg PO BID@0800,1700 01/20/22 12/21/22 Linagliptin [Tradjenta] 5 mg PO DAILY@0800 01/20/22 12/21/22 Oxybutynin Chloride [Ditropan XL] 5 mg PO BID@0800,2100 01/20/22 12/21/22 Sennosides-Docusate Sodium 2 tab PO HS@2100 01/20/22 12/21/22 [Senokot-S] Tamsulosin [Flomax] 0.4 mg PO DAILY@0800 01/20/22 12/21/22 Galantamine HBr [Galantamine ER] 16 mg PO DAILY 12/21/22 12/21/22 Nystatin 100,000 Unit/ml Susp 5 ml PO 5XD 12/21/22 12/21/22 [Mycostatin Oral Susp] Pantoprazole [Protonix] 40 mg PO DAILY 12/21/22 12/21/22 QUEtiapine FUMARATE [SEROquel] 25 mg PO BID@0800,1700 12/21/22 12/21/22 QUEtiapine FUMARATE [SEROquel] 50 mg PO HS 12/21/22 12/21/22 glipiZIDE/METFORMIN HCL 1 tab PO BID 12/21/22 12/21/22 [glipiZIDE/METFORMIN HCL 5-500 mg] lisinopriL [Zestril] 5 mg PO DAILY 12/21/22 12/21/22 rOPINIRole HCL [Requip XL] 4 mg PO BID 12/21/22 12/21/22 Previous Rx's Medication Instructions Recorded Aspirin 81 mg PO DAILY #30 tab 01/24/22 Allergies Allergy/AdvReac Type Severity Reaction Status Date / Time Iodine and Iodide Containing Allergy Rash/Hives Verified 12/21/22 16:03 Produc shellfish derived Allergy Rash/Hives Verified 12/21/22 16:03 paper tape AdvReac Skin Uncoded 12/21/22 14:51 peeled off. Review of Systems ROS Statement: Those systems with pertinent positive or pertinent negative responses have been documented in the HPI. ROS Other: All systems not noted in ROS Statement are negative. Constitutional: Denies: fever, chills Respiratory: Denies: cough, dyspnea Cardiovascular: Denies: chest pain, palpitations Gastrointestinal: Denies: abdominal pain, vomiting Musculoskeletal: Denies: back pain Skin: Denies: rash Neurological: Denies: headache, weakness, numbness Hematological/Lymphatic: Reports: easy bleeding Past Medical History Past Medical History: Cancer, Diabetes Mellitus, Deep Vein Thrombosis (DVT), Eye Disorder, Hyperlipidemia, Hypertension, Memory Impairment, Neurologic Disorder, Osteoarthritis (OA) Additional Past Medical History / Comment(s): Parkinsons. Hx kidney stones, prostate, colon and skin cancer. History of Any Multi-Drug Resistant Organisms: None Reported Past Surgical History: Back Surgery Additional Past Surgical History / Comment(s): Left cataract surgery, bowel surgery for colon cancer, skin cancer removed. Past Anesthesia/Blood Transfusion Reactions: No Reported Reaction Past Psychological History: No Psychological Hx Reported Smoking Status: Former smoker Past Alcohol Use History: Rare Past Drug Use History: None Reported - Past Family History Mother History Unknown: Yes (Mother with colon cancer, hypertension, father with prostate cancer, skin cancer, brother with prostate cancer, sister is with dementia, daughter with hypertension, son with diabetes) Family Medical History: Cancer Additional Family Medical History / Comment(s): Colon Father Family Medical History: Cancer Additional Family Medical History / Comment(s): Prostate General Exam Limitations: physical limitation General appearance: alert, in no apparent distress Head exam: Present: normocephalic, other (Small contusion near occiput) Eye exam: Present: normal appearance. Absent: scleral icterus, conjunctival injection ENT exam: Present: normal oropharynx Neck exam: Present: normal inspection, full ROM. Absent: tenderness Respiratory exam: Present: normal lung sounds bilaterally. Absent: respiratory distress, wheezes, rales, rhonchi, stridor, chest wall tenderness Cardiovascular Exam: Present: regular rate, normal rhythm, normal heart sounds. Absent: systolic murmur, diastolic murmur, rubs, gallop GI/Abdominal exam: Present: soft. Absent: distended, tenderness, guarding, rebound, rigid, mass Extremities exam: Present: normal inspection, normal capillary refill. Absent: pedal edema, calf tenderness Back exam: Present: normal inspection. Absent: vertebral tenderness Neurological exam: Present: alert, CN II-XII intact. Absent: motor sensory deficit Skin exam: Present: warm, dry, intact, normal color. Absent: rash Course Vital Signs 12/21/22 12/21/22 14:46 17:52 Temperature 97 F L 98.3 F Pulse Rate 6 L 62 Respiratory 18 19 Rate Blood Pressure 134/72 179/90 O2 Sat by Pulse 99 99 Oximetry Medical Decision Making - Medical Decision Making The patient had a head CT performed which I interpreted as being negative for acute bony injury or intracranial hemorrhage. Was pt. sent in by a medical professional or institution ([facility]ARGARITA Bustos, [employer], urgent care, hospital, or long-term...) When possible be specific @ -[No] Did you speak to anyone other than the patient for history (EMS, parent, family, police, friend...)? What history was obtained from this source @ -[No] Did you review nursing and triage notes (agree or disagree)? Why? @ -[I reviewed and agree with nursing and triage notes] Were old charts reviewed (outside hosp., previous admission, EMS record, old EKG, old radiological studies, urgent care reports/EKG's, long-term records)? Report findings @ -[No old charts were reviewed] Differential Diagnosis (chest pain, altered mental status, abdominal pain women, abdominal pain men, vaginal bleeding, weakness, fever, dyspnea, syncope, headache, dizziness, GI bleed, back pain, seizure, CVA, palpatations, mental health, musculoskeletal)? @ -[The differential diagnosis for the fall injury includes scalp contusion, cranial fracture, intracranial hemorrhage, concussion, amongst other conditions. EKG interpreted by me (3pts min.). @ -[As above] X-rays interpreted by me (1pt min.). @ -[None done] CT interpreted by me (1pt min.). @ -[As above U/S interpreted by me (1pt. min.). @ -[None done] What testing was considered but not performed or refused? (CT, X-rays, U/S, labs)? Why? @ -[None] What meds were considered but not given or refused? Why? @ -[None] Did you discuss the management of the patient with other professionals (professionals i.e. MARGARITA Bustos, [employer], lab, RT, psych nurse, social work administrator, third miller, teacher, budget officer, pillowcase cleaner)? Give summary @ -[No] Was smoking cessation discussed for >3mins.? @ -[No] Was critical care preformed (if so, how long)? @ -[No] Were there social determinants of health that impacted care today? How? (Homelessness, low income, unemployed, alcoholism, drug addiction, transportation, low edu. Level, literacy, decrease access to med. care, shelter, rehab)? @ -[No] Was there de-escalation of care discussed even if they declined (Discuss DNR or withdrawal of care, Hospice)? DNR status @ -[No] What co-morbidities impacted this encounter? (DM, HTN, Smoking, COPD, CAD, Cancer, CVA, ARF, Chemo, Hep., AIDS, mental health diagnosis, sleep apnea, morbid obesity)? @ -[None] Was patient admitted / discharged? Hospital course, mention meds given and route, prescriptions, significant lab abnormalities, going to OR and other pertinent info. @ -[The patient had evaluation, computed tomography scan given the anticoagulant use, and is medically clear for discharge. Discussed appropriate further care and follow-up and the return parameters as well. Undiagnosed new problem with uncertain prognosis? @ -[No] Drug Therapy requiring intensive monitoring for toxicity (Heparin, Nitro, Insulin, Cardizem)? @ -[No] Were any procedures done? @ -[No] Diagnosis/symptom? @ -[Acute fall injury Acute closed that injury Acute, or Chronic, or Acute on Chronic? @ -[default] Uncomplicated (without systemic symptoms) or Complicated (systemic symptoms)? @ -[Uncomplicated Side effects of treatment? @ -[No] Exacerbation, Progression, or Severe Exacerbation? @ -[No] Poses a threat to life or bodily function? How? (Chest pain, [place], [place], pneumonia, PE, COPD, DKA, ARF, appy, cholecystitis, CVA, Diverticulitis, Homicidal, Suicidal, threat to staff... and all critical care pts) @ -[No] Disposition Clinical Impression: Fall Disposition: HOME SELF-CARE Condition: Good Instructions (If sedation given, give patient instructions): Fall Prevention for Older Adults (ED) Is patient prescribed a controlled substance at d/c from ED?: No Referrals: Brandon Bryant MD [Primary Care Provider] - 1-2 days
--- NOTE | 2022-12-21 17:04 | CT ---
EXAMINATION TYPE: CT brain wo con DATE OF EXAM: 12/21/2022 HISTORY: Fall on eliquis CT DLP: 1158.4 mGycm. Automated Exposure Control for Dose Reduction was Utilized. TECHNIQUE: CT scan of the head is performed without contrast. COMPARISON: CT 10/19/2022 FINDINGS: There is no acute intracranial hemorrhage or midline shift identified. There is no defini te intra-axial acute attenuation defect. The globes are intact and the visualized sinuses are clear. IMPRESSION: No acute process.
[2022-12-21 17:54] VITALS: BP 179/90; PULSE 62; RESP 19; TEMP 98.3
== END 2022-12-21 17:54 | disposition home or self-care (01) ==
LOC: EC 14:30
DX: S00.03XA Contusion of scalp, initial encounter (principal); E11.9 Type 2 diabetes mellitus without complications; I10 Essential (primary) hypertension; E78.5 Hyperlipidemia, unspecified; G20 Parkinson's disease; M19.90 Unspecified osteoarthritis, unspecified site; Z87.891 Personal history of nicotine dependence; Z86.718 Personal history of other venous thrombosis and embolism; Z79.84 Long term (current) use of oral hypoglycemic drugs; Z79.4 Long term (current) use of insulin; Z79.01 Long term (current) use of anticoagulants; Z79.899 Other long term (current) drug therapy; Z88.8 Allergy status to other drugs, medicaments and biological substances; Z91.09 Other allergy status, other than to drugs and biological substances; Z91.013 Allergy to seafood; W01.190A Fall on same level from slipping, tripping and stumbling with subsequent striking against furniture, initial encounter
CPT/HCPCS: 70450; 99284

== ENCOUNTER → 2023-03-07 | Outpatient (CLI) | payer MEDICARE, BC ==
--- NOTE | 2023-03-07 12:50 | XR ---
EXAMINATION TYPE: XR Hip Complete LT DATE OF EXAM: 03/07/2023 COMPARISON: 07/17/2020 HISTORY: Pain after fall TECHNIQUE: 2 view left hip FINDINGS: There is a left hip pain. Prior intertrochanteric fracture repair is evident. An acute frac ture is not identified. Vascular calcification is noted. Follow up exams can be performed 7-10 days f rom acute trauma. IMPRESSION: 1. No acute osseous abnormality left hip.
--- NOTE | 2023-03-07 13:10 | XR ---
EXAMINATION TYPE: XR shoulder complete LT DATE OF EXAM: 03/07/2023 COMPARISON: NONE HISTORY: Pain, recent fall TECHNIQUE: Shoulder examined in 3 projections. FINDINGS: The humeral head articulates with the glenoid. The acromio-clavicular junction is normal. No acute fractures or dislocations are evident. Old right rib fractures are partially visualized. A follow up study can be performed 7-10 days from acute trauma for continued pain. MRI can be perfor med if soft tissue evaluation would be of benefit. IMPRESSION: 1. No acute osseous shoulder abnormality.
--- NOTE | 2023-03-07 13:53 | XR ---
EXAMINATION TYPE: XR humerus LT DATE OF EXAM: 03/07/2023 COMPARISON: None HISTORY: Fall, pain TECHNIQUE: 2 view left humerus FINDINGS: Joint spaces appear preserved. No acute fracture or dislocation is evident. Olecranon spur is noted. Soft tissues appear normal. Follow up exams can be performed 7-10 days from acute trauma fo r continued pain. IMPRESSION: 1. No acute osseous abnormality of the left humerus.
== END | disposition home or self-care (01) ==
LOC: RADXRMAIN 11:52
PROVIDERS: ATTEND Internal Medicine Geriatric Medicine
DX: M25.512 Pain in left shoulder (principal); M25.552 Pain in left hip; M79.602 Pain in left arm
CPT/HCPCS: 73502

== ENCOUNTER 2023-04-27 11:37 | Emergency (ER) | payer MEDICARE, BC ==
[2023-04-27] MEDS ORDERED: HYDROmorphone 1 MG/ML 1 ML SYRINGE IM STA (13:13)
--- NOTE | 2023-04-27 13:44 | ED ---
Fall HPI - General Chief Complaint: Fall Stated Complaint: back pain Time Seen by Provider: 04/27/23 12:50 Source: patient, family Mode of arrival: wheelchair Limitations: physical limitation - History of Present Illness Initial Comments: Patient is 72-year-old male presenting to the ER accompanied by a family member with a chief complaint of a fall. Patient has a past medical history significant for Parkinson's disease. Patient resides at a nursing facility. Per family, patient has had 4 falls in the past week and a half. About a week ago patient started complaining of back pain after one of his falls. Patient admits to some leg pain denies any paresthesias or problems with urinating/bowel movements. 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 His surgeon was out of [facility] but his surgeon is now retired.This morning patient was walking using his walker when he fell straight back hitting his head. Patient complains of neck pain. Patient does admit to 8 out of 10 pain and denies taking anything for the pain at this time. Patient denies loss of consciousness, nausea/vomiting, or any other injuries. Patient is on blood thinners. Patient denies any other injuries. - Related Data Home Medications Medication Instructions Recorded Confirmed Simvastatin [Zocor] 20 mg PO HS@209911/14/16 12/21/22 amantadine HCL [Symmetrel] 100 mg PO BID@0800,209911/14/16 12/21/22 Carbidopa-Levodopa ER 50-200Mg 2 tab PO DAILY@0800 12/19/16 12/21/22 [Sinemet CR 50-200 mg] Carbidopa-Levodopa ER 50-200Mg 1 tab PO DAILY@1500 05/05/19 12/21/22 [Sinemet CR 50-200 mg] Acetaminophen Tab [Tylenol] 650 mg PO BID@0800,209907/17/20 12/21/22 Entacapone 200 mg PO BID@0800,1700 07/17/20 12/21/22 Insulin Glargine,Hum.rec.anlog 30 unit SQ HS@209907/17/20 12/21/22 [Lantus Solostar Pen] ALPRAZolam [Xanax] 0.25 mg PO BID@0800,209901/20/22 12/21/22 Apixaban [Eliquis] 2.5 mg PO BID@0800,1700 01/20/22 12/21/22 Docusate [Colace] 100 mg PO BID@0800,1700 01/20/22 12/21/22 Linagliptin [Tradjenta] 5 mg PO DAILY@0800 01/20/22 12/21/22 Sennosides-Docusate Sodium 2 tab PO HS@2100 01/20/22 12/21/22 [Senokot-S] Tamsulosin [Flomax] 0.4 mg PO DAILY@0800 01/20/22 12/21/22 oxyBUTYnin chloride [Ditropan XL] 5 mg PO BID@0800,2100 01/20/22 12/21/22 Galantamine HBr [Galantamine ER] 16 mg PO DAILY 12/21/22 12/21/22 Nystatin 100,000 Unit/ml Susp 5 ml PO 5XD 12/21/22 12/21/22 [Mycostatin Oral Susp] Pantoprazole [Protonix] 40 mg PO DAILY 12/21/22 12/21/22 QUEtiapine FUMARATE [SEROquel] 25 mg PO BID@0800,1700 12/21/22 12/21/22 QUEtiapine FUMARATE [SEROquel] 50 mg PO HS 12/21/22 12/21/22 glipiZIDE/METFORMIN HCL 1 tab PO BID 12/21/22 12/21/22 [glipiZIDE/METFORMIN HCL 5-500 mg] lisinopriL [Zestril] 5 mg PO DAILY 12/21/22 12/21/22 rOPINIRole HCL [Requip XL] 4 mg PO BID 12/21/22 12/21/22 Previous Rx's Medication Instructions Recorded Aspirin 81 mg PO DAILY #30 tab 01/24/22 HYDROcodone/APAP 7.5-325MG [[place] 1 tab PO Q6HR PRN 3 Days #12 tab 04/27/23 7.5-325] Allergies Allergy/AdvReac Type Severity Reaction Status Date / Time Iodine and Iodide Containing Allergy Rash/Hives Verified 12/21/22 16:03 Produc shellfish derived Allergy Rash/Hives Verified 12/21/22 16:03 paper tape AdvReac Skin Uncoded 12/21/22 14:51 peeled off. Review of Systems ROS Statement: Those systems with pertinent positive or pertinent negative responses have been documented in the HPI. ROS Other: All systems not noted in ROS Statement are negative. Past Medical History Past Medical History: Cancer, Diabetes Mellitus, Deep Vein Thrombosis (DVT), Eye Disorder, Hyperlipidemia, Hypertension, Memory Impairment, Neurologic Disorder, Osteoarthritis (OA) Additional Past Medical History / Comment(s): Parkinsons. Hx kidney stones, prostate, colon and skin cancer. History of Any Multi-Drug Resistant Organisms: None Reported Past Surgical History: Back Surgery, Bowel Resection, Prostate Surgery Additional Past Surgical History / Comment(s): Left cataract surgery, bowel surgery for colon cancer, skin cancer removed. Past Anesthesia/Blood Transfusion Reactions: No Reported Reaction Past Psychological History: No Psychological Hx Reported Smoking Status: Former smoker Past Alcohol Use History: Rare Past Drug Use History: None Reported - Past Family History Mother History Unknown: Yes (Mother with colon cancer, hypertension, father with prostate cancer, skin cancer, brother with prostate cancer, sister is with dementia, daughter with hypertension, son with diabetes) Family Medical History: Cancer Additional Family Medical History / Comment(s): Colon Father Family Medical History: Cancer Additional Family Medical History / Comment(s): Prostate General Exam Limitations: no limitations General appearance: alert, in no apparent distress Head exam: Present: atraumatic, normocephalic, normal inspection Eye exam: Present: normal appearance, PERRL, EOMI. Absent: scleral icterus, conjunctival injection, periorbital swelling Neck exam: Present: normal inspection, tenderness Respiratory exam: Present: normal lung sounds bilaterally. Absent: respiratory distress, wheezes, rales, rhonchi, stridor Cardiovascular Exam: Present: regular rate, normal rhythm, normal heart sounds. Absent: systolic murmur, diastolic murmur, rubs, gallop, clicks GI/Abdominal exam: Present: soft, normal bowel sounds. Absent: distended, tenderness, guarding, rebound, rigid Extremities exam: Present: normal inspection, other (Equal upper and lower strength; 2+ dorsalis pedis pulse) Back exam: Present: tenderness (Lumbar spine) Skin exam: Present: warm, dry, intact, normal color. Absent: rash Course Vital Signs 04/27/23 04/27/23 11:55 13:47 Temperature 97.0 F L Pulse Rate 66 65 Respiratory 18 20 Rate Blood Pressure 142/65 128/74 O2 Sat by Pulse 97 97 Oximetry Medical Decision Making - Medical Decision Making Was pt. sent in by a medical professional or institution (MARGARITA Bustos, [employer] COUNSEL[employer], urgent care, hospital, or shelter...) When possible be specific @ -No Did you speak to anyone other than the patient for history (EMS, parent, family, police, friend...)? What history was obtained from this source @ -Family member Did you review nursing and triage notes (agree or disagree)? Why? @ -I reviewed and agree with nursing and triage notes Were old charts reviewed (outside hosp., previous admission, EMS record, old E KG, old radiological studies, urgent care reports/EKG's, shelter records)? Report findings @ -No old charts were reviewed Differential Diagnosis (chest pain, altered mental status, abdominal pain women, abdominal pain men, vaginal bleeding, weakness, fever, dyspnea, syncope, headache, dizziness, GI bleed, back pain, seizure, CVA, palpatations, mental hea lth, musculoskeletal)? @ -Differential Back Pain: Strain, zoster, cauda equina syndrome, epidural abscess, vertebral osteomyelitis, discitis, fracture, subluxation, disc herniation, DJD, spinal stenosis, dissection, AAA, pancreatitis, peptic ulcer disease, pyelonephritis, kidney stone, this is not meant to be an all-inclusive list. EKG interpreted by me (3pts min.). @ - none X-rays interpreted by me (1pt min.). @ -None done CT interpreted by me (1pt min.). @ -CT of C-spine and brain were negative for intracranial hemorrhage, mass effect, fracture or dislocation. CT of lumbar spine shows fracture of anterior bridging osteophyte between L4 and L5 without displacement. U/S interpreted by me (1pt. min.). @ -None done What testing was considered but not performed or refused? (CT, X-rays, U/S, labs)? Why? @ -None What meds were considered but not given or refused? Why? @ -None Did you discuss the management of the patient with other professionals (professionals i.e. MARGARITA Bustos, [employer] CR[employer] COUNSELOR, lab, RT, psych nurse, psychologist social, system support developer, teacher, peace officer, case management social worker)? Give summary @ -Yes, danny mehta from orthopedics. Advised pain control and follow-up with original surgeon ([facility]). Was smoking cessation discussed for >3mins.? @ -No Was critical care preformed (if so, how long)? @ -No Were there social determinants of health that impacted care today? How? (Homelessness, low income, unemployed, alcoholism, drug addiction, transportation, low edu. Level, literacy, decrease access to med. care, assisted, rehab)? @ -No Was there de-escalation of care discussed even if they declined (Discuss DNR or withdrawal of care, Hospice)? DNR status @ -No What co-morbidities impacted this encounter? (DM, HTN, Smoking, COPD, CAD, Cancer, CVA, ARF, Chemo, Hep., AIDS, mental health diagnosis, sleep apnea, morbid obesity)? @ -None Was patient admitted / discharged? Hospital course, mention meds given and route, prescriptions, significant lab abnormalities, going to OR and other pertinent info. @ -Patient is a 72-year-old male presenting to the ER with a chief complaint of back pain. Exam is significant for lumbar spine tenderness. Neurovascularly intact and equal. Mild neck tenderness. CT of C-spine and brain were negative for intracranial hemorrhage, mass effect, fracture or dislocation. CT of lumbar spine shows fracture of anterior bridging osteophyte between L4 and L5 without displacement. Patient received 1 mg of Dilaudid IM for pain control. Patient w ill be discharged in stable condition with pain medication. Return parameters were discussed and family member expressed understanding. Patient to follow-up with PCP and surgeon for further care. Undiagnosed new problem with uncertain prognosis? @ -No Drug Therapy requiring intensive monitoring for toxicity (Heparin, Nitro, Insulin, Cardizem)? @ -No Were any procedures done? @ -No Diagnosis/symptom? @ -Osteophyte fracture between L4-L5 Acute, or Chronic, or Acute on Chronic? @ -Acute Uncomplicated (without systemic symptoms) or Complicated (systemic symptoms)? @ -Uncomplicated Side effects of treatment? @ -No Exacerbation, Progression, or Severe Exacerbation? @ -No Poses a threat to life or bodily function? How? (Chest pain, [place], [place], pneumonia, PE, COPD, DKA, ARF, appy, cholecystitis, CVA, Diverticulitis, Homicidal, Suicidal, threat to staff... and all critical care pts) @ -No Disposition Clinical Impression: Fracture of lumbar spine, Fall Disposition: HOME SELF-CARE Condition: Stable Instructions (If sedation given, give patient instructions): Fall Prevention for Older Adults (ED) Additional Instructions: Please return to the Emergency Department if symptoms worsen or any other concerns. Please follow-up with [facility] for further follow-up. Prescriptions: HYDROcodone/APAP 7.5-325MG [[place] 7.5-325] 1 tab PO Q6HR PRN 3 Days #12 tab PRN Reason: Pain Is patient prescribed a controlled substance at d/c from ED?: Yes When asked, does pt state using other controlled substances?: No If prescribed controlled substance>3 days was MAPS reviewed?: Prescribed <3 Days If opioid is for acute pain is fill amount 7 days or less?: Yes If Rx opioid, was Start Talking consent form obtained?: Yes Referrals: Brandon Bryant MD [Primary Care Provider] - 1-2 days Time of Disposition: 15:32
--- NOTE | 2023-04-27 14:26 | CT ---
EXAMINATION TYPE: CT brain cspine wo con DATE OF EXAM: 04/27/2023 COMPARISON: 10/19/2022. HISTORY: frequent falls, weakness CT DLP: 1281.2 mGycm Automated exposure control for dose reduction was used. TECHNIQUE: CT scan of the head and cervical spine are performed without contrast. FINDINGS: There is no acute intracranial hemorrhage, mass effect, or midline shift identified. The ventricles and sulci are within normal limits in size. The globes are intact and the visualized sin uses are clear. There is hypoattenuation seen within the periventricular, subcortical and deep white matter which is likely related to chronic ischemic small vessel change. There is diffuse cerebral and cerebellar atrophy which is likely age-related. Cervical spine is visualized in its entirety from C1 through upper thoracic levels and demonstrates s atisfactory alignment without evidence of acute fracture or dislocation. Prevertebral soft tissue ap pears within normal limits. The C1-C2 articulation is unremarkable. There is likely congenital fusi on of the disc spaces are C5 3 C7. Scattered degenerative disc, facet and uncovertebral joint changes are otherwise noted. IMPRESSION: 1. There is no acute fracture or dislocation evident in the cervical spine. 2. No acute intracranial hemorrhage, mass effect, or midline shift is seen. 3. Chronic changes otherwise noted above.
--- NOTE | 2023-04-27 14:32 | CT ---
EXAMINATION TYPE: CT lumbar spine wo con DATE OF EXAM: 04/27/2023 2:15 PM COMPARISON: None available. HISTORY: frequent falls, weakness, back pain CT DLP: 1601.6 mGycm Automated exposure control for dose reduction was used. Unenhanced CT of the lumbar spine was performed. Bone and soft tissue window settings are submitted as well as coronal and sagittal reconstructions. FINDINGS: There are a few nonobstructing bilateral renal stones seen within the visualized portions of the abdo men. There is moderate vascular calcification also seen throughout the abdominal aorta. There is straightening of the normal lumbar lordosis. There is a posterior spinal fusion between the levels of L1 and L5 which appears unremarkable. Ramos ctomies are also seen at these levels. There appears to be an area of lucency along a bridging osteophyte between L4 and L5 which is likely an acute fracture in this location. The fracture is vertically oriented along the osteophyte along th e inferior endplate of L4 and superior endplate of L5. Bridging anterior osteophytes are also seen th roughout the remainder of the lumbar spine. No additional fractures are clearly identified. The verte bral body heights appear maintained. IMPRESSION: 1. Fracture of an anterior bridging osteophyte between L4 and L5 without displacement. 2. No additional acute osseous abnormalities with extensive postsurgical changes noted above.
[2023-04-27 16:24] VITALS: BP 158/74; PULSE 63; RESP 18; TEMP 97.9
== END 2023-04-27 16:24 | disposition home or self-care (01) ==
LOC: EC 11:37
DX: S32.049A Unspecified fracture of fourth lumbar vertebra, initial encounter for closed fracture (principal); E11.9 Type 2 diabetes mellitus without complications; I10 Essential (primary) hypertension; E78.5 Hyperlipidemia, unspecified; M19.90 Unspecified osteoarthritis, unspecified site; Z87.891 Personal history of nicotine dependence; Z79.4 Long term (current) use of insulin; Z79.84 Long term (current) use of oral hypoglycemic drugs; Z79.899 Other long term (current) drug therapy; Z91.041 Radiographic dye allergy status; Z91.013 Allergy to seafood; Z91.09 Other allergy status, other than to drugs and biological substances; Z88.8 Allergy status to other drugs, medicaments and biological substances; W19.XXXA Unspecified fall, initial encounter; Y93.01 Activity, walking, marching and hiking
CPT/HCPCS: 72125; 72131; 70450; 99284; 96372; J1170

== ENCOUNTER 2023-06-15 15:37 | Emergency (ER) | payer MEDICARE, BC ==
[2023-06-15 16:02] VITALS: RESP 18
--- NOTE | 2023-06-15 16:23 | ED ---
Fall HPI - General Chief Complaint: Fall Stated Complaint: Fall Time Seen by Provider: 06/15/23 15:49 Source: patient, EMS, RN notes reviewed, old records reviewed Mode of arrival: EMS Limitations: no limitations - History of Present Illness Initial Comments: This is a 72-year-old male to the emergency department for evaluation of fall. Patient had a mechanical fall from standing complaining of shoulder pain back pain he did his head without loss of consciousness and complaining of neck pain. Patient follows mechanical in nature denies any symptoms lightheadedness dizziness weakness chest pain or shortness of breath. Patient is on blood thinners and did have a fall while trying to get dressed MD Complaint: fall -: minutes(s) Fall From: standing When Fall Occurred: 1 hour OBSTETRICAL TECH Fall Witnessed: yes, by living facility staff Place Fall Occurred: home Loss of Consciousness: none Prolonged Down Time?: no Symptoms Prior to Fall: none Location: head, back Location - Extremities: Left: Shoulder Severity: moderate Severity scale (1-10): 4 Quality: sharp Context: tripped/slipped Associated Symptoms: denies - Related Data Home Medications Medication Instructions Recorded Confirmed Simvastatin [Zocor] 20 mg PO HS@209911/14/16 12/21/22 amantadine HCL [Symmetrel] 100 mg PO BID@0800,209911/14/16 12/21/22 Carbidopa-Levodopa ER 50-200Mg 2 tab PO DAILY@0800 12/19/16 12/21/22 [Sinemet CR 50-200 mg] Carbidopa-Levodopa ER 50-200Mg 1 tab PO DAILY@1500 05/05/19 12/21/22 [Sinemet CR 50-200 mg] Acetaminophen Tab [Tylenol] 650 mg PO BID@0800,209907/17/20 12/21/22 Entacapone 200 mg PO BID@0800,1700 07/17/20 12/21/22 Insulin Glargine,Hum.rec.anlog 30 unit SQ HS@209907/17/20 12/21/22 [Lantus Solostar Pen] ALPRAZolam [Xanax] 0.25 mg PO BID@0800,209901/20/22 12/21/22 Apixaban [Eliquis] 2.5 mg PO BID@0800,1700 01/20/22 12/21/22 Docusate [Colace] 100 mg PO BID@0800,1700 01/20/22 12/21/22 Linagliptin [Tradjenta] 5 mg PO DAILY@0800 01/20/22 12/21/22 Sennosides-Docusate Sodium 2 tab PO HS@2100 01/20/22 12/21/22 [Senokot-S] Tamsulosin [Flomax] 0.4 mg PO DAILY@0800 01/20/22 12/21/22 oxyBUTYnin chloride [Ditropan XL] 5 mg PO BID@0800,2100 01/20/22 12/21/22 Galantamine HBr [Galantamine ER] 16 mg PO DAILY 12/21/22 12/21/22 Nystatin 100,000 Unit/ml Susp 5 ml PO 5XD 12/21/22 12/21/22 [Mycostatin Oral Susp] Pantoprazole [Protonix] 40 mg PO DAILY 12/21/22 12/21/22 QUEtiapine FUMARATE [SEROquel] 25 mg PO BID@0800,1700 12/21/22 12/21/22 QUEtiapine FUMARATE [SEROquel] 50 mg PO HS 12/21/22 12/21/22 glipiZIDE/METFORMIN HCL 1 tab PO BID 12/21/22 12/21/22 [glipiZIDE/METFORMIN HCL 5-500 mg] lisinopriL [Zestril] 5 mg PO DAILY 12/21/22 12/21/22 rOPINIRole HCL [Requip XL] 4 mg PO BID 12/21/22 12/21/22 Previous Rx's Medication Instructions Recorded Aspirin 81 mg PO DAILY #30 tab 01/24/22 HYDROcodone/APAP 7.5-325MG [[place] 1 tab PO Q6HR PRN 3 Days #12 tab 04/27/23 7.5-325] Allergies Allergy/AdvReac Type Severity Reaction Status Date / Time Iodine and Iodide Containing Allergy Rash/Hives Verified 06/15/23 15:55 Produc shellfish derived Allergy Rash/Hives Verified 06/15/23 15:55 paper tape AdvReac Skin Uncoded 06/15/23 15:55 peeled off. Review of Systems ROS Statement: Those systems with pertinent positive or pertinent negative responses have been documented in the HPI. ROS Other: All systems not noted in ROS Statement are negative. Past Medical History Past Medical History: Cancer, Diabetes Mellitus, Deep Vein Thrombosis (DVT), Eye Disorder, Hyperlipidemia, Hypertension, Memory Impairment, Neurologic Disorder, Osteoarthritis (OA) Additional Past Medical History / Comment(s): Parkinsons. Hx kidney stones, prostate, colon and skin cancer. History of Any Multi-Drug Resistant Organisms: None Reported Past Surgical History: Back Surgery, Bowel Resection, Prostate Surgery Additional Past Surgical History / Comment(s): Left cataract surgery, bowel surgery for colon cancer, skin cancer removed. Past Anesthesia/Blood Transfusion Reactions: No Reported Reaction Past Psychological History: No Psychological Hx Reported Smoking Status: Former smoker Past Alcohol Use History: Rare Past Drug Use History: None Reported - Past Family History Mother History Unknown: Yes (Mother with colon cancer, hypertension, father with prostate cancer, skin cancer, brother with prostate cancer, sister is with dementia, daughter with hypertension, son with diabetes) Family Medical History: Cancer Additional Family Medical History / Comment(s): Colon Father Family Medical History: Cancer Additional Family Medical History / Comment(s): Prostate General Exam Limitations: no limitations General appearance: alert, in no apparent distress Head exam: Present: atraumatic, normocephalic, normal inspection Eye exam: Present: normal appearance, PERRL, EOMI. Absent: scleral icterus, conjunctival injection, periorbital swelling ENT exam: Present: normal exam, mucous membranes moist Neck exam: Present: normal inspection. Absent: tenderness, meningismus, lymphadenopathy Respiratory exam: Present: normal lung sounds bilaterally. Absent: respiratory distress, wheezes, rales, rhonchi, stridor Cardiovascular Exam: Present: regular rate, normal rhythm, normal heart sounds. Absent: systolic murmur, diastolic murmur, rubs, gallop, clicks GI/Abdominal exam: Present: soft, normal bowel sounds. Absent: distended, tenderness, guarding, rebound, rigid Extremities exam: Present: normal inspection, full ROM, normal capillary refill. Absent: tenderness, pedal edema, joint swelling, calf tenderness Back exam: Present: normal inspection Neurological exam: Present: alert, oriented X3, CN II-XII intact Psychiatric exam: Present: normal affect, normal mood Skin exam: Present: warm, dry, intact, normal color. Absent: rash Course Vital Signs 06/15/23 06/15/23 15:47 19:21 Temperature 97.8 F 97.5 F L Pulse Rate 65 57 L Respiratory 18 18 Rate Blood Pressure 127/69 146/66 O2 Sat by Pulse 94 L 98 Oximetry - Reevaluation(s) Reevaluation #1: Medical records reviewed Reevaluation #2: Patient is in no acute distress symptoms are improved Reevaluation #3: Patient informed results questions answered Reevaluation #4: Was pt. sent in by a medical professional or institution (MARGARITA Bustos, HEALTH AND HUMAN PERFORMANCE PROFESSOR, urgent care, hospital, or fdc...) When possible be specific @ -no Did you speak to anyone other than the patient for history (EMS, parent, family, police, friend...)? What history was obtained from this source @ -no Did you review nursing and triage notes (agree or disagree)? Why? @ -agree Are old charts reviewed (outside hosp., previous admission, EMS record, old EKG, old radiological studies, urgent care reports/EKG's, fdc records)? Report findings @ -yes Differential Diagnosis (chest pain, altered mental status, abdominal pain women, abdominal pain men, vaginal bleeding, weakness, fever, dyspnea, syncope, headache, dizziness, GI bleed, back pain, seizure, CVA, palpatations, mental health, musculoskeletal)? @ -prior EKG interpreted by me (3pts min.). @ -yes X-rays interpreted by me (1pt min.). @ -yes negative for acute disease CT interpreted by me (1pt min.). @ -yes negative for acute disease U/S interpreted by me (1pt. min.). @ -no What testing was considered but not performed or refused? (CT, X-rays, U/S, labs)? Why? @ -none What meds were considered but not given or refused? Why? @ -none Did you discuss the management of the patient with other professionals (professionals i.e. MARGARITA Bustos, HEALTH AND HUMAN PERFORMANCE PROFESSOR, lab, RT, psych nurse, social work manager, mold dresser, teacher, house officer, case management director)? Give summary @ -no Was smoking cessation discussed for >3mins.? @ -no Was critical care preformed (if so, how long)? @ -no Were there social determinants of health that impacted care today? How? (Homelessness, low income, unemployed, alcoholism, drug addiction, transportation, low edu. Level, literacy, decrease access to med. care, snf, rehab)? @ -none Was there de-escalation of care discussed even if they declined (Discuss DNR or withdrawal of care, Hospice)? DNR status @ -no What co-morbidities impacted this encounter? (DM, HTN, Smoking, COPD, CAD, Cancer, CVA, ARF, Chemo, Hep., AIDS, mental health diagnosis, sleep apnea, morbid obesity)? @ -none Was patient admitted / discharged? Hospital course, mention meds given and route, prescriptions, significant lab abnormalities, going to OR and other pertinent info. @ - 72 male with fall fall resulting in no significant injury. Imaging is negative here in the ER patient can be discharged home Discharge Undiagnosed new problem with uncertain prognosis? @ -no Drug Therapy requiring intensive monitoring for toxicity (Heparin, Nitro, Insulin, Cardizem)? @ -no Were any procedures done? @ -no Diagnosis/symptom? @ -Fall, head trauma head contusion and shoulder contusion Acute, or Chronic, or Acute on Chronic? @ -Acute Uncomplicated (without systemic symptoms) or Complicated (systemic symptoms)? @ -Complicated Side effects of treatment? @ -no Exacerbation, Progression, or Severe Exacerbation? @ -exacerbation Poses a threat to life or bodily function? How? (Chest pain, [place], [place], pneumonia, PE, COPD, DKA, ARF, appy, cholecystitis, CVA, Diverticulitis, Homicidal, Suicidal, threat to staff... and all critical care pts) @ -yes significant fall with trauma Medical Decision Making - Medical Decision Making 72 male with fall fall resulting in no significant injury. Imaging is negative here in the ER patient can be discharged home - Radiology Data Radiology results: report reviewed (CT brain C-spine shoulder chest x-ray negative for traumatic injury), image reviewed Disposition Clinical Impression: Fall Disposition: HOME SELF-CARE Condition: Good Instructions (If sedation given, give patient instructions): Fall Prevention for Older Adults (ED) Is patient prescribed a controlled substance at d/c from ED?: No Referrals: Brandon Bryant MD [Primary Care Provider] - 1-2 days Time of Disposition: 17:50
--- NOTE | 2023-06-15 17:03 | XR ---
EXAMINATION TYPE: XR chest 1V DATE OF EXAM: 06/15/2023 4:48 PM CLINICAL INDICATION:Male, 72 years old with history of fall; COMPARISON: Chest radiographs from 01/20/2022 TECHNIQUE: XR chest 1V Frontal view of the chest. FINDINGS: Lungs/Pleura: There is no evidence of pleural effusion, focal consolidation, or pneumothorax. Pulmonary vascularity: Unremarkable. Heart/mediastinum: Cardiomediastinal silhouette is unremarkable. Musculoskeletal: Degenerative changes of the shoulder joints. Multiple remote appearing right rib fra ctures. Other findings: None IMPRESSION: Low lung volumes with a generalized hazy appearance which could represent atelectasis.
--- NOTE | 2023-06-15 17:04 | XR ---
EXAMINATION TYPE: XR shoulder complete LT DATE OF EXAM: 06/15/2023 4:49 PM CLINICAL INDICATION:Male, 72 years old with history of fall, pain; COMPARISON: None TECHNIQUE: XR shoulder complete LT; shoulder was examined in AP, internally rotated and scapular Y p rojections. FINDINGS: No evidence of acute osseous pathology, joint dislocation, or soft tissue swelling. The remaining po rtions of the visualized chest are unremarkable. Degeneration changes of the glenohumeral and acromio clavicular joint with osteophyte formation. There is an osteophyte with questionable lucency extendin g through it sooner view only. IMPRESSION: Moderate degeneration changes of the shoulder with osteophyte which may have a lucency through it sug gesting possible fracture.
--- NOTE | 2023-06-15 17:13 | CT ---
EXAMINATION TYPE: CT brain cspine wo con CT DLP: 1288.6 mGycm, Automated exposure control for dose reduction was used. DATE OF EXAM: 06/15/2023 5:01 PM COMPARISON: 04/27/2023 CLINICAL INDICATION:Male, 72 years old with history of fall; pain after fall TECHNIQUE: Brain: Multiple axial CT images of the brain were obtained without IV contrast. Cspine: Axial CT images from the skull base to the inferior aspect of T2 we obtained without intraven ous contrast. Coronal and sagittal reformatted images were also reviewed. FINDINGS: Brain: Extra-axial spaces: No abnormal extra-axial fluid collections. Ventricular system: Dilatation in proportion to cerebral atrophy. Cerebral parenchyma: Cerebral atrophy. No acute intraparenchymal hemorrhage or mass effect. The duran -white junction is well differentiated. Scattered hypoattenuating areas are seen within the white mat ter. Cerebellum: Unremarkable. Mass effect: No evidence of midline shift. Intracranial vasculature: Atherosclerotic calcifications of the intracranial vessels. Soft tissues: Right posterior scalp edema. Calvarium/osseous structures: No depressed skull fracture. Paranasal sinuses and mastoid air cells: Clear. Visualized orbits: Bilateral aphakia Cervical spine: Fracture: None. Osseous structures: Multilevel degenerative disc disease changes with endplate spurring and disc oste ophyte complex's. Ankylosis of the vertebral bodies and involving C5-C7. Vertebral alignment: Within normal limits. Spinal canal/Neural Foramina: No evidence of significant spinal canal narrowing. No evidence for sign ificant neural foraminal stenosis. Neck soft tissues: Prevertebral soft tissues are within normal limits. Other: The airway is patent. The lung apices are clear. IMPRESSION: 1. No acute intracranial process. 2. Nonspecific white matter changes, likely secondary to chronic small vessel ischemic disease. 3. Minimal right posterior scalp edema. 4. No evidence of cervical spine fracture. 5. Mild multilevel degenerative disc disease.
[2023-06-15 19:26] VITALS: BP 146/66; PULSE 57; TEMP 97.5
== END 2023-06-15 19:23 | disposition home or self-care (01) ==
LOC: EC 15:37
DX: S40.012A Contusion of left shoulder, initial encounter (principal); S00.93XA Contusion of unspecified part of head, initial encounter; E11.9 Type 2 diabetes mellitus without complications; E78.5 Hyperlipidemia, unspecified; I10 Essential (primary) hypertension; M19.90 Unspecified osteoarthritis, unspecified site; Z86.718 Personal history of other venous thrombosis and embolism; Z87.891 Personal history of nicotine dependence; Z91.041 Radiographic dye allergy status; Z88.8 Allergy status to other drugs, medicaments and biological substances; Z88.6 Allergy status to analgesic agent; Z91.013 Allergy to seafood; Z79.01 Long term (current) use of anticoagulants; Z79.84 Long term (current) use of oral hypoglycemic drugs; Z79.4 Long term (current) use of insulin; Z79.899 Other long term (current) drug therapy; W01.0XXA Fall on same level from slipping, tripping and stumbling without subsequent striking against object, initial encounter
CPT/HCPCS: 70450; 71045; 72125; 99285

== ENCOUNTER 2023-08-15 10:51 | Emergency (ER) | payer MEDICARE, BC ==
[2023-08-15 11:12] VITALS: TEMP 98.5
--- NOTE | 2023-08-15 11:15 | ED ---
Head Injury HPI - General Chief complaint: Head Injury Stated complaint: Fall, head laceration Time Seen by Provider: 08/15/23 11:00 Source: patient, family, RN notes reviewed Mode of arrival: wheelchair Limitations: no limitations - History of Present Illness Initial comments: This is a 72-year-old male who presents to the emergency department for a head injury. He got up to use the bathroom this morning and was cleaning up urine, when he slipped on the urine and fell backwards, hitting his head. Denies any loss of consciousness. He is on Eliquis for a history of blood clots. He had a wound to the back of his head that has since stopped bleeding. Tetanus vaccine is up to date. He does report feeling generally sore, but otherwise denies any specific injuries. MD Complaint: head injury, fall - Related Data Home Medications Medication Instructions Recorded Confirmed Simvastatin [Zocor] 20 mg PO HS@209911/14/16 12/21/22 amantadine HCL [Symmetrel] 100 mg PO BID@0800,209911/14/16 12/21/22 Carbidopa-Levodopa ER 50-200Mg 2 tab PO DAILY@0800 12/19/16 12/21/22 [Sinemet CR 50-200 mg] Carbidopa-Levodopa ER 50-200Mg 1 tab PO DAILY@1500 05/05/19 12/21/22 [Sinemet CR 50-200 mg] Acetaminophen Tab [Tylenol] 650 mg PO BID@0800,209907/17/20 12/21/22 Entacapone 200 mg PO BID@0800,17007/17/20 12/21/22 Insulin Glargine,Hum.rec.anlog 30 unit SQ HS@209907/17/20 12/21/22 [Lantus Solostar Pen] ALPRAZolam [Xanax] 0.25 mg PO BID@0800,209901/20/22 12/21/22 Apixaban [Eliquis] 2.5 mg PO BID@0800,169901/20/22 12/21/22 Docusate [Colace] 100 mg PO BID@0800,17001/20/22 12/21/22 Linagliptin [Tradjenta] 5 mg PO DAILY@0800 01/20/22 12/21/22 Sennosides-Docusate Sodium 2 tab PO HS@2100 01/20/22 12/21/22 [Senokot-S] Tamsulosin [Flomax] 0.4 mg PO DAILY@0800 01/20/22 12/21/22 oxyBUTYnin chloride [Ditropan XL] 5 mg PO BID@0800,2100 01/20/22 12/21/22 Galantamine HBr [Galantamine ER] 16 mg PO DAILY 12/21/22 12/21/22 Nystatin 100,000 Unit/ml Susp 5 ml PO 5XD 12/21/22 12/21/22 [Mycostatin Oral Susp] Pantoprazole [Protonix] 40 mg PO DAILY 12/21/22 12/21/22 QUEtiapine FUMARATE [SEROquel] 25 mg PO BID@0800,1700 12/21/22 12/21/22 QUEtiapine FUMARATE [SEROquel] 50 mg PO HS 12/21/22 12/21/22 glipiZIDE/METFORMIN HCL 1 tab PO BID 12/21/22 12/21/22 [glipiZIDE/METFORMIN HCL 5-500 mg] lisinopriL [Zestril] 5 mg PO DAILY 12/21/22 12/21/22 rOPINIRole HCL [Requip XL] 4 mg PO BID 12/21/22 12/21/22 Previous Rx's Medication Instructions Recorded Aspirin 81 mg PO DAILY #30 tab 01/24/22 HYDROcodone/APAP 7.5-325MG [[place] 1 tab PO Q6HR PRN 3 Days #12 tab 04/27/23 7.5-325] Allergies/Adverse reactions: Allergies Allergy/AdvReac Type Severity Reaction Status Date / Time Iodine and Iodide Containing Allergy Rash/Hives Verified 08/15/23 10:58 Produc shellfish derived Allergy Rash/Hives Verified 08/15/23 10:58 paper tape AdvReac Skin Uncoded 08/15/23 10:58 peeled off. Review of Systems ROS Statement: Those systems with pertinent positive or pertinent negative responses have been documented in the HPI. ROS Other: All systems not noted in ROS Statement are negative. Past Medical History Past Medical History: Cancer, Diabetes Mellitus, Deep Vein Thrombosis (DVT), Eye Disorder, Hyperlipidemia, Hypertension, Memory Impairment, Neurologic Disorder, Osteoarthritis (OA) Additional Past Medical History / Comment(s): Parkinsons. Hx kidney stones, prostate, colon and skin cancer. History of Any Multi-Drug Resistant Organisms: None Reported Past Surgical History: Back Surgery, Bowel Resection, Prostate Surgery Additional Past Surgical History / Comment(s): Left cataract surgery, bowel surgery for colon cancer, skin cancer removed. Past Anesthesia/Blood Transfusion Reactions: No Reported Reaction Past Psychological History: No Psychological Hx Reported Smoking Status: Former smoker Past Alcohol Use History: Rare Past Drug Use History: None Reported - Past Family History Mother History Unknown: Yes (Mother with colon cancer, hypertension, father with prostate cancer, skin cancer, brother with prostate cancer, sister is with dementia, daughter with hypertension, son with diabetes) Family Medical History: Cancer Additional Family Medical History / Comment(s): Colon Father Family Medical History: Cancer Additional Family Medical History / Comment(s): Prostate General Exam Limitations: no limitations General appearance: alert, in no apparent distress Head exam: Present: other (Large superficial laceration to the occiput. No active bleeding.) Eye exam: Present: normal appearance, PERRL, EOMI. Absent: scleral icterus, conjunctival injection, periorbital swelling Respiratory exam: Present: normal lung sounds bilaterally. Absent: respiratory distress, wheezes, rales, rhonchi, stridor Cardiovascular Exam: Present: regular rate, normal rhythm, normal heart sounds. Absent: systolic murmur, diastolic murmur, rubs, gallop, clicks Neurological exam: Present: alert, oriented X3, CN II-XII intact Psychiatric exam: Present: normal affect, normal mood Skin exam: Present: warm, dry, intact, normal color. Absent: rash Course Vital Signs 08/15/23 08/15/23 10:55 13:22 Temperature 98.5 F Pulse Rate 64 60 Respiratory 16 18 Rate Blood Pressure 145/81 106/66 O2 Sat by Pulse 98 99 Oximetry Procedures - Laceration Laceration #1 Consent Obtained: verbal consent Indication: laceration Site: scalp Size (cm): 6 Description: linear Depth: simple, single layer Type of Sutures: other (Exofin) Medical Decision Making - Medical Decision Making This is a 72 year old male who presents to the emergency department for a head injury. Was pt. sent in by a medical professional or institution? @ -No Did you speak to anyone other than the patient for history? @ -No Did you review nursing and triage notes? @ -Yes, and I agree, it is accurate with regards to the patient's symptoms. Were old charts reviewed? @ -No Differential Diagnosis? @ -Differential Diagnosis Head Injury: Contusion, hematoma, intracranial hemorrhage, skull fracture, whiplash, concussion, this is not meant to be an all-inclusive list. EKG interpreted by me (3pts min.)? @ -Not obtained X-rays interpreted by me (1pt min.)? @ -Not obtained CT interpreted by me (1pt min.)? @ -Computed tomography scan of the brain and c-spine obtained. My interpretation identifies no evidence of an acute intracranial hemorrhage, skull fracture, or cervical spine fracture. U/S interpreted by me (1pt. min.)? @ -Not obtained What testing was considered but not performed? (CT, X-rays, U/S, labs)? Why? @ -None What meds were considered but not given? Why? @ -None Did you discuss the management of the patient with other professionals? @ -No Did you reconcile home meds? @ -No Was smoking cessation discussed for >3mins.? @ -No Was critical care preformed (if so, how long)? @ -No Were there social determinants of health that impacted care today? How? (Homelessness, low income, unemployed, alcoholism, drug addiction, transportation, low edu. Level, literacy, decrease access to med. care, assisted, rehab)? @ -No Was there de-escalation of care discussed even if they declined? (Discuss DNR or withdrawal of care, Hospice)? @ -No What co-morbidities impacted this encounter? (DM, HTN, Smoking, COPD, CAD, Cancer, CVA, Hep., AIDS, mental health diagnosis, sleep apnea, morbid obesity)? @ -Hx of DVT Was patient admitted / discharged? @ -Discharged. CT scan of the brain and c-spine obtained revealing no acute process. The wound on his head was thoroughly cleansed. Tetanus vaccine is up to date. This was a fairly superficial laceration and afsaneh were not indicated. Patient was essentially bald and we were able to use Exofin to close a deeper portion of the laceration. Tylenol administered for pain relief. Patient discharged home in stable condition. Advised to continue with Tylenol as needed for discomfort. Undiagnosed new problem with uncertain prognosis? @ -None Drug Therapy requiring intensive monitoring for toxicity (Heparin, Nitro, Insulin, Cardizem)? @ -None Were any procedures done? @ -Laceration repair with exofin Diagnosis/symptom? @ -Fall, head injury, laceration Acute, or Chronic, or Acute on Chronic? @ -Acute Uncomplicated (without systemic symptoms) or Complicated (systemic symptoms)? @ -Uncomplicated Side effects of treatment? @ -None Exacerbation, Progression, or Severe Exacerbation] @ -Not applicable Poses a threat to life or bodily function? @ -No Return precautions reviewed in depth, the patient is instructed to return to the emergency department with any new, worsening, or concerning symptoms. Patient verbalized understanding. This case was discussed in detail with the attending ED physician, Dr. Manning. Presentation, findings, and treatment plan discussed in detail as well. - Radiology Data Radiology results: report reviewed, image reviewed Disposition Clinical Impression: Fall, Head injury, Laceration Disposition: HOME SELF-CARE Instructions (If sedation given, give patient instructions): Head Injury (ED), Skin Adhesive Care (ED) Additional Instructions: Return to the emergency department with any new, worsening, or concerning symptoms. Take Tylenol as needed for pain relief. Keep the area dry, do not apply topical medications, and do not rub, scratch, or pick at the wound. The adhesive will naturally fall off within 5-10 days. Follow up with your primary care provider in 1-2 days. Is patient prescribed a controlled substance at d/c from ED?: No Referrals: Brandon Bryant MD [Primary Care Provider] - 1-2 days Time of Disposition: 13:11
--- NOTE | 2023-08-15 12:20 | CT ---
EXAMINATION TYPE: CT brain [place] wo con DATE OF EXAM: 08/15/2023 COMPARISON: 06/15/2023. HISTORY: Fall with laceration on back of head. CT DLP: 1346.8 mGycm Automated exposure control for dose reduction was used. TECHNIQUE: CT scan of the head and cervical spine are performed without contrast. FINDINGS: There is no acute intracranial hemorrhage, mass, mass effect, midline shift, extra-axial fluid collection or hydrocephalus. There is hypoattenuation in the periventricular, subcortical and d eep white matter which is compatible with chronic ischemic small vessel change. Age related atrophy i s also seen. The visualized paranasal sinuses and mastoid air cells are clear. A clear soft tissue ab normality is not seen on the scope of this examination. The alignment of the vertebral bodies appears to be within normal limits. There is no fracture, sublu xation or dislocation. There is fusion of the disc spaces at C5-6 and C6-7 as well as the facets which is likely congenital. Scattered degenerative disc and facet changes are otherwise noted. There are no acute osseous abnorma lities. There is no prevertebral soft tissue swelling. IMPRESSION: 1. Chronic changes with no acute intracranial process. 2. Chronic spine changes with no acute findings otherwise seen.
[2023-08-15] MEDS: ACETAMINOPHEN TAB 500 MG TAB PO STA (12:39)
[2023-08-15] MEDS: TOPICAL SKIN ADHESIVE 1 EACH AMP TOPICAL ONE (13:00)
[2023-08-15 13:46] VITALS: BP 106/66; PULSE 60; RESP 18
== END 2023-08-15 13:22 | disposition home or self-care (01) ==
LOC: EC 10:51
DX: S01.01XA Laceration without foreign body of scalp, initial encounter (principal); E11.9 Type 2 diabetes mellitus without complications; E78.5 Hyperlipidemia, unspecified; I10 Essential (primary) hypertension; Z87.891 Personal history of nicotine dependence; Z79.899 Other long term (current) drug therapy; Z79.4 Long term (current) use of insulin; Z79.84 Long term (current) use of oral hypoglycemic drugs; Z91.013 Allergy to seafood; Z91.041 Radiographic dye allergy status; Z88.8 Allergy status to other drugs, medicaments and biological substances; W01.0XXA Fall on same level from slipping, tripping and stumbling without subsequent striking against object, initial encounter
CPT/HCPCS: 12002; 70450; 72125; 99284

== ENCOUNTER 2023-08-24 15:36 | Emergency (ER) | payer MEDICARE, BC ==
[2023-08-24] MEDS: ACETAMINOPHEN TAB 325 MG TAB PO STA (16:30)
[2023-08-24 16:41] VITALS: RESP 18; TEMP 98.1
--- NOTE | 2023-08-24 17:38 | CT ---
EXAMINATION TYPE: CT brain cspine wo con CT DLP: 1392.9 mGycm, Automated exposure control for dose reduction was used. DATE OF EXAM: 08/24/2023 5:02 PM COMPARISON: 08/15/2023 CLINICAL INDICATION:Male, 72 years old with history of fall on thinners; fall on thinners TECHNIQUE: Brain: Multiple axial CT images of the brain were obtained without IV contrast. Cspine: Axial CT images from the skull base to the inferior aspect of T2 we obtained without intraven ous contrast. Coronal and sagittal reformatted images were also reviewed. FINDINGS: Brain: Extra-axial spaces: No abnormal extra-axial fluid collections. Ventricular system: Dilatation in proportion to cerebral atrophy. Cerebral parenchyma: Cerebral atrophy. No acute intraparenchymal hemorrhage or mass effect. The duran -white junction is well differentiated. Scattered hypoattenuating areas are seen within the white mat ter. Cerebellum: Unremarkable. Mass effect: No evidence of midline shift. Intracranial vasculature: Atherosclerotic calcifications of the intracranial vessels. Soft tissues: Normal. Calvarium/osseous structures: No depressed skull fracture. Paranasal sinuses and mastoid air cells: Clear. Visualized orbits: Bilateral aphakia Cervical spine: Fracture: None. Osseous structures: Multilevel degenerative disc disease changes with endplate spurring and disc oste ophyte complex's. Ankylosis of the vertebral bodies at C5-C6 and C7. Bridging syndesmophytes are seen along the upper thoracic spine. Vertebral alignment: Within normal limits. Spinal canal/Neural Foramina: No evidence of significant spinal canal narrowing. No evidence for sign ificant neural foraminal stenosis. Neck soft tissues: Prevertebral soft tissues are within normal limits. Other: The airway is patent. The lung apices are clear. IMPRESSION: 1. No acute intracranial process. 2. Nonspecific white matter changes, likely secondary to chronic small vessel ischemic disease. 3. No evidence of cervical spine fracture. 4. Mild multilevel degenerative disc disease.
--- NOTE | 2023-08-24 18:37 | XR ---
EXAMINATION TYPE: XR knee complete RT DATE OF EXAM: 08/24/2023 6:09 PM CLINICAL INDICATION:Male, 72 years old with history of pain; COMPARISON: None. TECHNIQUE: XR knee complete RT; examined in Frontal, lateral and oblique projections. FINDINGS: No evidence of any acute osseous pathology, soft tissue swelling, or joint effusion is no abdifatah. Tricompartmental osteophyte formation involving the femoral condyles, tibial plateau and patella . Joint space narrowing and osteophyte formation worse in the patellofemoral joint. There is severe a therosclerosis of the arterial vasculature. IMPRESSION: 1. No acute osseous pathology. 2. Moderate to severe tricompartmental osteoarthritic changes.
--- NOTE | 2023-08-24 18:37 | XR ---
EXAMINATION TYPE: XR shoulder complete LT DATE OF EXAM: 08/24/2023 6:08 PM CLINICAL INDICATION:Male, 72 years old with history of pain; COMPARISON: 06/15/2023 TECHNIQUE: XR shoulder complete LT; examined in AP, internally rotated and scapular Y projections. FINDINGS: No evidence of acute osseous pathology, joint dislocation, or soft tissue swelling. The remaining po rtions of the visualized chest are unremarkable. Mild degeneration changes of the left acromion, dis sharon clavicle with osteophyte formation. There is osteophyte formation of the glenoid and humeral head . There is joint space narrowing of glenohumeral joint IMPRESSION: No acute osseous pathology. 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
--- NOTE | 2023-08-24 19:04 | ED ---
General Adult HPI - General Chief complaint: Fall Stated complaint: FALL Time Seen by Provider: 08/24/23 19:45 Source: patient, EMS, RN notes reviewed Mode of arrival: EMS Limitations: no limitations - History of Present Illness Initial comments: Patient is a 72-year-old male presented to ER with chief complaint of a fall. Patient states he went to the bathroom this afternoon and slipped while standing up from the toilet. Patient denies loss of consciousness. He does state he hit his head and is on Eliquis. He also is reporting left shoulder pain as he Landed on His Left Side. Patient Denies Any Other Complaints. - Related Data Home Medications Medication Instructions Recorded Confirmed Simvastatin [Zocor] 20 mg PO HS@209911/14/16 12/21/22 amantadine HCL [Symmetrel] 100 mg PO BID@0800,209911/14/16 12/21/22 Carbidopa-Levodopa ER 50-200Mg 2 tab PO DAILY@0800 12/19/16 12/21/22 [Sinemet CR 50-200 mg] Carbidopa-Levodopa ER 50-200Mg 1 tab PO DAILY@1500 05/05/19 12/21/22 [Sinemet CR 50-200 mg] Acetaminophen Tab [Tylenol] 650 mg PO BID@0800,209907/17/20 12/21/22 Entacapone 200 mg PO BID@0800,17007/17/20 12/21/22 Insulin Glargine,Hum.rec.anlog 30 unit SQ HS@209907/17/20 12/21/22 [Lantus Solostar Pen] ALPRAZolam [Xanax] 0.25 mg PO BID@0800,209901/20/22 12/21/22 Apixaban [Eliquis] 2.5 mg PO BID@0800,169901/20/22 12/21/22 Docusate [Colace] 100 mg PO BID@0800,169901/20/22 12/21/22 Linagliptin [Tradjenta] 5 mg PO DAILY@0800 01/20/22 12/21/22 Sennosides-Docusate Sodium 2 tab PO HS@209901/20/22 12/21/22 [Senokot-S] Tamsulosin [Flomax] 0.4 mg PO DAILY@0800 01/20/22 12/21/22 oxyBUTYnin chloride [Ditropan XL] 5 mg PO BID@0800,2100 01/20/22 12/21/22 Galantamine HBr [Galantamine ER] 16 mg PO DAILY 12/21/22 12/21/22 Nystatin 100,000 Unit/ml Susp 5 ml PO 5XD 12/21/22 12/21/22 [Mycostatin Oral Susp] Pantoprazole [Protonix] 40 mg PO DAILY 12/21/22 12/21/22 QUEtiapine FUMARATE [SEROquel] 25 mg PO BID@0800,1700 12/21/22 12/21/22 QUEtiapine FUMARATE [SEROquel] 50 mg PO HS 12/21/22 12/21/22 glipiZIDE/METFORMIN HCL 1 tab PO BID 12/21/22 12/21/22 [glipiZIDE/METFORMIN HCL 5-500 mg] lisinopriL [Zestril] 5 mg PO DAILY 12/21/22 12/21/22 rOPINIRole HCL [Requip XL] 4 mg PO BID 12/21/22 12/21/22 Previous Rx's Medication Instructions Recorded Aspirin 81 mg PO DAILY #30 tab 01/24/22 HYDROcodone/APAP 7.5-325MG [[place] 1 tab PO Q6HR PRN 3 Days #12 tab 04/27/23 7.5-325] Allergies Allergy/AdvReac Type Severity Reaction Status Date / Time Iodine and Iodide Containing Allergy Rash/Hives Verified 08/15/23 10:58 Produc shellfish derived Allergy Rash/Hives Verified 08/15/23 10:58 paper tape AdvReac Skin Uncoded 08/15/23 10:58 peeled off. Review of Systems ROS Statement: Those systems with pertinent positive or pertinent negative responses have been documented in the HPI. ROS Other: All systems not noted in ROS Statement are negative. Past Medical History Past Medical History: Cancer, Diabetes Mellitus, Deep Vein Thrombosis (DVT), Eye Disorder, Hyperlipidemia, Hypertension, Memory Impairment, Neurologic Disorder, Osteoarthritis (OA) Additional Past Medical History / Comment(s): Parkinsons. Hx kidney stones, prostate, colon and skin cancer. History of Any Multi-Drug Resistant Organisms: None Reported Past Surgical History: Back Surgery, Bowel Resection, Prostate Surgery Additional Past Surgical History / Comment(s): Left cataract surgery, bowel surgery for colon cancer, skin cancer removed. Past Anesthesia/Blood Transfusion Reactions: No Reported Reaction Past Psychological History: No Psychological Hx Reported Smoking Status: Former smoker Past Alcohol Use History: Rare Past Drug Use History: None Reported - Past Family History Mother History Unknown: Yes (Mother with colon cancer, hypertension, father with prostate cancer, skin cancer, brother with prostate cancer, sister is with dementia, daughter with hypertension, son with diabetes) Family Medical History: Cancer Additional Family Medical History / Comment(s): Colon Father Family Medical History: Cancer Additional Family Medical History / Comment(s): Prostate General Exam Limitations: no limitations General appearance: alert, in no apparent distress Head exam: Present: atraumatic, normocephalic, normal inspection Eye exam: Present: normal appearance, PERRL, EOMI. Absent: scleral icterus, conjunctival injection, periorbital swelling Pupils: Present: normal accommodation ENT exam: Present: normal exam, normal oropharynx, mucous membranes moist Neck exam: Present: normal inspection. Absent: tenderness, meningismus, lymphadenopathy Respiratory exam: Present: normal lung sounds bilaterally. Absent: respiratory distress, wheezes, rales, rhonchi, stridor Cardiovascular Exam: Present: regular rate, normal rhythm, normal heart sounds. Absent: systolic murmur, diastolic murmur, rubs, gallop, clicks GI/Abdominal exam: Present: soft, normal bowel sounds. Absent: distended, tenderness, guarding, rebound, rigid Extremities exam: Present: normal inspection, full ROM, normal capillary refill. Absent: tenderness, pedal edema, joint swelling, calf tenderness Neurological exam: Present: alert, oriented X3, CN II-XII intact, other (Mild tremor on exam) Psychiatric exam: Present: normal affect, normal mood Skin exam: Present: warm, dry, intact, normal color. Absent: rash Course Vital Signs 08/24/23 08/24/23 15:39 19:31 Temperature 98.1 F Pulse Rate 77 67 Respiratory 18 18 Rate Blood Pressure 118/59 117/73 O2 Sat by Pulse 94 L 98 Oximetry Medical Decision Making - Medical Decision Making Was pt. sent in by a medical professional or institution (, PA, SENIOR INTERNAL AUDITOR, urgent c are, hospital, or residential...) When possible be specific @ -No Did you speak to anyone other than the patient for history (EMS, parent, family, police, friend...)? What history was obtained from this source @ -No Did you review nursing and triage notes (agree or disagree)? Why? @ -I reviewed and agree with nursing and triage notes Were old charts reviewed (outside hosp., previous admission, EMS record, old EKG, old radiological studies, urgent care reports/EKG's, residential records)? Report findings @ -No old charts were reviewed Differential Diagnosis (chest pain, altered mental status, abdominal pain women, abdominal pain men, vaginal bleeding, weakness, fever, dyspnea, syncope, headache, dizziness, GI bleed, back pain, seizure, CVA, palpatations, mental health, musculoskeletal)? @ -Differential Headache:Migraine, tension, cluster, carbon monoxide, central venous thrombosis, pension karma temporal arteritis, acute closure glaucoma, intercranial hemorrhage, mastoiditis, sinusitis, head injury, this is not meant to be an all-inclusive list. EKG interpreted by me (3pts min.). @ -None X-rays interpreted by me (1pt min.). @ -Left shoulder and right knee x-ray interpreted by me show no acute osseous pathology. CT interpreted by me (1pt min.). @ -CT brain C-spine negative for acute intracranial process. U/S interpreted by me (1pt. min.). @ -None done What testing was considered but not performed or refused? (CT, X-rays, U/S, labs)? Why? @ -None What meds were considered but not given or refused? Why? @ -None Did you discuss the management of the patient with other professionals (professionals i.e. , PA, SENIOR INTERNAL AUDITOR, lab, RT, psych nurse, social work instructor, paediatric surgeon, teacher, chief strategy officer, pillowcase cutter)? Give summary @ -No Was smoking cessation discussed for >3mins.? @ -No Was critical care preformed (if so, how long)? @ -No Were there social determinants of health that impacted care today? How? (Homelessness, low income, unemployed, alcoholism, drug addiction, transportation, low edu. Level, literacy, decrease access to med. care, detention, rehab)? @ -Patient lives in assisted living home Was there de-escalation of care discussed even if they declined (Discuss DNR or withdrawal of care, Hospice)? DNR status @ -No What co-morbidities impacted this encounter? (DM, HTN, Smoking, COPD, CAD, Cancer, CVA, ARF, Chemo, Hep., AIDS, mental health diagnosis, sleep apnea, morbid obesity)? @ -Neurological disorder, memory impairment, hypertension, DVTs Was patient admitted / discharged? Hospital course, mention meds given and route, prescriptions, significant lab abnormalities, going to OR and other pertinent info. @ -Discharge. Patient is a 72-year-old male presented to ER with chief complaint of a fall. Patient denies any dizziness, lightheadedness, chest pain, shortness of breath prior to fall. History and physical exam were completed. Vitals stable. Patient no signs of acute distress. No acute neurological findings on exam. Upper and lower bilateral extremities neurovascular intact. Imaging completed in the ER negative for acute process. Patient received by mouth Tylenol for pain control. Results discussed with patient and family at bedside. All questions answered. Patient will be discharged in stable condition back to assisted living facility. Return parameters were discussed. Patient and family, at bedside expressed understanding and agreement with care plan. Undiagnosed new problem with uncertain prognosis? @ -No Drug Therapy requiring intensive monitoring for toxicity (Heparin, Nitro, Insulin, Cardizem)? @ -No Were any procedures done? @ -No Diagnosis/symptom? @ -Mechanical fall Acute, or Chronic, or Acute on Chronic? @ -Acute Uncomplicated (without systemic symptoms) or Complicated (systemic symptoms)? @ -Uncomplicated Side effects of treatment? @ -No Exacerbation, Progression, or Severe Exacerbation? @ -No Poses a threat to life or bodily function? How? (Chest pain, [place], [place], pneumonia, PE, COPD, DKA, ARF, appy, cholecystitis, CVA, Diverticulitis, Homicidal, Suicidal, threat to staff... and all critical care pts) @ -No - Radiology Data Radiology results: report reviewed, image reviewed Disposition Clinical Impression: Fall Disposition: HOME SELF-CARE Condition: Stable Instructions (If sedation given, give patient instructions): Fall Prevention for Older Adults (ED) Additional Instructions: Please follow-up with PCP next 1 to 2 days. Return to the ER for any new or worsening symptoms. Is patient prescribed a controlled substance at d/c from ED?: No Referrals: Brandon Bryant MD [Primary Care Provider] - 1-2 days Time of Disposition: 19:04
[2023-08-24 19:57] VITALS: BP 117/73; PULSE 67
== END 2023-08-24 19:31 | disposition home or self-care (01) ==
LOC: EC 15:36
DX: S09.90XA Unspecified injury of head, initial encounter (principal); S49.92XA Unspecified injury of left shoulder and upper arm, initial encounter; E11.9 Type 2 diabetes mellitus without complications; I10 Essential (primary) hypertension; E78.5 Hyperlipidemia, unspecified; G20.A1 Parkinson's disease without dyskinesia, without mention of fluctuations; Z79.4 Long term (current) use of insulin; Z79.84 Long term (current) use of oral hypoglycemic drugs; Z79.01 Long term (current) use of anticoagulants; Z79.899 Other long term (current) drug therapy; Z86.718 Personal history of other venous thrombosis and embolism; Z91.013 Allergy to seafood; Z91.041 Radiographic dye allergy status; Z91.09 Other allergy status, other than to drugs and biological substances; Z87.891 Personal history of nicotine dependence; Z98.42 Cataract extraction status, left eye; W01.0XXA Fall on same level from slipping, tripping and stumbling without subsequent striking against object, initial encounter
CPT/HCPCS: 70450; 72125; 99284

== ENCOUNTER 2023-11-02 15:56 | Emergency (ER) | payer MEDICARE, BC ==
[2023-11-02 16:09] VITALS: RESP 18; TEMP 97.9
--- NOTE | 2023-11-02 16:38 | ED ---
General Adult HPI - General Chief complaint: Fall Stated complaint: Fall Time Seen by Provider: 11/02/23 16:21 Source: patient, family, EMS, RN notes reviewed Mode of arrival: EMS Limitations: no limitations - History of Present Illness Initial comments: Patient is a 73-year-old male presenting to the emergency department for fall. Incident occurred prior to arrival. Patient rolled over in bed and fell out. Patient did strike the back of his head. Patient has moderate discomfort. Patient did sustain laceration. Patient does have some neck discomfort as well. No new weakness. Patient is on blood thinner secondary to history of blood clots. Tetanus immunization is up-to-date, less than 10 years - Related Data Home Medications Medication Instructions Recorded Confirmed Simvastatin [Zocor] 20 mg PO HS@209911/14/16 11/02/23 amantadine HCL [Symmetrel] 100 mg PO BID@0800,1700 11/14/16 11/02/23 Carbidopa-Levodopa ER 50-200Mg 2 tab PO DAILY@0800 12/19/16 11/02/23 [Sinemet CR 50-200 mg] Carbidopa-Levodopa ER 50-200Mg 1 tab PO DAILY@1500 05/05/19 11/02/23 [Sinemet CR 50-200 mg] Acetaminophen Tab [Tylenol] 650 mg PO Q6H PRN 07/17/20 11/02/23 Entacapone 200 mg PO BID@0800,1700 07/17/20 11/02/23 Insulin Glargine,Hum.rec.anlog 25 unit SQ HS@209907/17/20 11/02/23 [Lantus Solostar Pen] Apixaban [Eliquis] 2.5 mg PO BID@0800,1700 01/20/22 11/02/23 Docusate [Colace] 100 mg PO BID@0800,1700 01/20/22 11/02/23 Linagliptin [Tradjenta] 5 mg PO DAILY@0800 01/20/22 11/02/23 Sennosides-Docusate Sodium 2 tab PO HS@209901/20/22 11/02/23 [Senokot-S] Tamsulosin [Flomax] 0.4 mg PO DAILY@0800 01/20/22 11/02/23 oxyBUTYnin chloride [Ditropan XL] 5 mg PO DAILY@1500 01/20/22 11/02/23 Galantamine HBr [Galantamine ER] 16 mg PO DAILY 12/21/22 11/02/23 Pantoprazole [Protonix] 40 mg PO DAILY 12/21/22 11/02/23 QUEtiapine FUMARATE [SEROquel] 25 mg PO BID@0800,1700 12/21/22 11/02/23 QUEtiapine FUMARATE [SEROquel] 50 mg PO HS 12/21/22 11/02/23 glipiZIDE/METFORMIN HCL 1 tab PO BID 12/21/22 11/02/23 [glipiZIDE/METFORMIN HCL 5-500 mg] lisinopriL [Zestril] 5 mg PO DAILY 12/21/22 11/02/23 rOPINIRole HCL [Requip XL] 4 mg PO BID@0800,1700 12/21/22 11/02/23 ALPRAZolam [Xanax] 0.25 mg PO BID 11/02/23 11/02/23 Ascorbic Acid [Vitamin C] 1,000 mg PO DAILY 11/02/23 11/02/23 Cholecalciferol [Vitamin D3 (25 50 mcg PO DAILY 11/02/23 11/02/23 Mcg = 1000 Iu)] Collagenase [Santyl Ointment] 1 applic TOPICAL DAILY 11/02/23 11/02/23 Glucerna Shake 120 ml PO TID@0800,1200,1700 11/02/23 11/02/23 Lidocaine 5% Cream 1 applic TOPICAL DIRECTED PRN 11/02/23 11/02/23 Lidocaine 5% Cream 1 applic TOPICAL WE 11/02/23 11/02/23 Liquacel 30 ml PO BID@0800,1700 11/02/23 11/02/23 Magnesium Hydroxide [Milk of 7,200 mg PO DAILY PRN 11/02/23 11/02/23 Magnesia Concentrate] Na Phos,M-B/Na Phos,Di-Ba [Fleet 133 ml RECTAL DAILY PRN 11/02/23 11/02/23 Adult] Vashe Wound Soln 0.033% 1 applic TOPICAL DAILY 11/02/23 11/02/23 Zinc Sulfate [Orazinc] 220 mg PO DAILY 11/02/23 11/02/23 bisacodyL [Dulcolax] 10 mg RECTAL HS PRN 11/02/23 11/02/23 Previous Rx's Medication Instructions Recorded Aspirin 81 mg PO DAILY #30 tab 01/24/22 HYDROcodone/APAP 7.5-325MG [[place] 1 tab PO Q6HR PRN 3 Days #12 tab 04/27/23 7.5-325] Allergies Allergy/AdvReac Type Severity Reaction Status Date / Time Iodine and Iodide Containing Allergy Rash/Hives Verified 11/02/23 17:23 Produc shellfish derived Allergy Rash/Hives Verified 11/02/23 17:23 paper tape AdvReac Skin Uncoded 11/02/23 17:23 peeled off. Review of Systems ROS Statement: Those systems with pertinent positive or pertinent negative responses have been documented in the HPI. ROS Other: All systems not noted in ROS Statement are negative. Constitutional: Denies: fever Eyes: Denies: eye pain ENT: Denies: ear pain Respiratory: Denies: cough, dyspnea Cardiovascular: Denies: chest pain Skin: Reports: as per HPI Past Medical History Past Medical History: Cancer, Diabetes Mellitus, Deep Vein Thrombosis (DVT), Eye Disorder, Hyperlipidemia, Hypertension, Memory Impairment, Neurologic Disorder, Osteoarthritis (OA) Additional Past Medical History / Comment(s): Parkinsons. Hx kidney stones, prostate, colon and skin cancer. History of Any Multi-Drug Resistant Organisms: None Reported Past Surgical History: Back Surgery, Bowel Resection, Prostate Surgery Additional Past Surgical History / Comment(s): Left cataract surgery, bowel surgery for colon cancer, skin cancer removed. Past Anesthesia/Blood Transfusion Reactions: No Reported Reaction Past Psychological History: No Psychological Hx Reported Smoking Status: Former smoker Past Alcohol Use History: Rare Past Drug Use History: None Reported - Past Family History Mother History Unknown: Yes (Mother with colon cancer, hypertension, father with prostate cancer, skin cancer, brother with prostate cancer, sister is with dementia, daughter with hypertension, son with diabetes) Family Medical History: Cancer Additional Family Medical History / Comment(s): Colon Father Family Medical History: Cancer Additional Family Medical History / Comment(s): Prostate General Exam Limitations: no limitations General appearance: alert, in no apparent distress Head exam: Present: other (Posterior scalp laceration) Eye exam: Present: normal appearance, PERRL, EOMI ENT exam: Present: normal oropharynx Neck exam: Present: tenderness (Mild tenderness diffuse cervical spine) Respiratory exam: Present: normal lung sounds bilaterally Cardiovascular Exam: Present: regular rate, normal rhythm GI/Abdominal exam: Present: soft. Absent: tenderness Extremities exam: Present: normal inspection, full ROM. Absent: tenderness Neurological exam: Present: alert. Absent: motor sensory deficit Expanded Neurological exam: Present: protecting the airway Speech: Present: fluid speech Cranial nerves: EOM's Intact: Normal Motor strength exam: RUE: 5, LUE: 5, RLE: 4, LLE: 4 Eye Response: (4) open spontaneously Motor Response: (6) obeys commands Verbal Response: (5) oriented Psychiatric exam: Present: normal affect, normal mood Skin exam: Present: other (Laceration posterior right scalp) Course Vital Signs 11/02/23 15:57 Temperature 97.9 F Pulse Rate 66 Respiratory 18 Rate Blood Pressure 136/66 O2 Sat by Pulse 98 Oximetry - Reevaluation(s) Reevaluation #1: 11/02/23 18:19 Case was discussed twice with Dr. Monique. Spine is not available and decision is made to transfer patient. Procedures - Laceration Laceration #1 Consent Obtained: verbal consent Indication: laceration Site: scalp Size (cm): 3 Description: stellate Pre-repair: wound explored, irrigated extensively Type of Sutures: other (Closed with afsaneh, #5) Number of Sutures: 5 Patient Tolerated Procedure: well, no complications Medical Decision Making - Medical Decision Making Was pt. sent in by a medical professional or institution (, PA, TEACHER INDUSTRIAL ARTS, urgent care, hospital, or [facility]...) When possible be specific @ -Patient was sent from [facility] Did you speak to anyone other than the patient for history (EMS, parent, family, police, friend...)? What history was obtained from this source @ -Son is present and helps provide history Did you review nursing and triage notes (agree or disagree)? Why? @ -I reviewed and agree with nursing and triage notes Were old charts reviewed (outside hosp., previous admission, EMS record, old EKG, old radiological studies, urgent care reports/EKG's, [facility] records)? Report findings @ -No old charts were reviewed Differential Diagnosis (chest pain, altered mental status, abdominal pain women, abdominal pain men, vaginal bleeding, weakness, fever, dyspnea, syncope, headache, dizziness, GI bleed, back pain, seizure, CVA, palpatations, mental health, musculoskeletal)? @ -Differential Musculoskeletal Muscular strain, contusion, ligament sprain, fracture, arthritis, septic arthritis, bursitis, cellulitis, muscle spasm, nerve compression, DVT, arterial occlusion, herpes zoster, electrolyte abnormality, tumor.... This is not meant to be in all inclusive list EKG interpreted by me (3pts min.). @ -As above X-rays interpreted by me (1pt min.). @ -None done CT interpreted by me (1pt min.). @ -CT scan of brain shows no acute process. CT scan of cervical spine shows vertebral body C2 fracture U/S interpreted by me (1pt. min.). @ -None done What testing was considered but not performed or refused? (CT, X-rays, U/S, labs)? Why? @ -None What meds were considered but not given or refused? Why? @ -None Did you discuss the management of the patient with other professionals (professionals i.e. , PA, TEACHER [employer]UST[employer]AL [employer]S, lab, RT, psych nurse, social work case manager, fly finisher, teacher, radiological defense officer, correctional case manager)? Give summary @ -Case discussed with Dr. Monique, see above. Spine is not available. Case also discussed with Dr. Oconnor from [facility] who accept transfer. Was smoking cessation discussed for >3mins.? @ -No Was critical care preformed (if so, how long)? @ -No Were there social determinants of health that impacted care today? How? (Homelessness, low income, unemployed, alcoholism, drug addiction, transportation, low edu. Level, literacy, decrease access to med. care, prison, rehab)? @ -No Was there de-escalation of care discussed even if they declined (Discuss DNR or withdrawal of care, Hospice)? DNR status @ -No What co-morbidities impacted this encounter? (DM, HTN, Smoking, COPD, CAD, Cancer, CVA, ARF, Chemo, Hep., AIDS, mental health diagnosis, sleep apnea, morbid obesity)? @ -None Was patient admitted / discharged? Hospital course, mention meds given and route, prescriptions, significant lab abnormalities, going to OR and other pertinent info. @ -Patient presents with fall. Patient does have head laceration which is repaired. CT scan shows concern for vertebral body C2 fracture and patient will be transferred for spinal care. Undiagnosed new problem with uncertain prognosis? @ -No Drug Therapy requiring intensive monitoring for toxicity (Heparin, Nitro, Insulin, Cardizem)? @ -No Were any procedures done? @ -Laceration repair, see above Diagnosis/symptom? @ -Laceration of scalp, cervical spine fracture Acute, or Chronic, or Acute on Chronic? @ -Acute, acute Uncomplicated (without systemic symptoms) or Complicated (systemic symptoms)? @ -Default Side effects of treatment? @ -No Exacerbation, Progression, or Severe Exacerbation? @ -No Poses a threat to life or bodily function? How? (Chest pain, [place], [place], pneumonia, PE, COPD, DKA, ARF, appy, cholecystitis, CVA, Diverticulitis, Homicidal, Suicidal, threat to staff... and all critical care pts) @ -No Disposition Clinical Impression: C2 cervical fracture, Scalp laceration Disposition: OTHER INSTITUTION NOT DEFINED Is patient prescribed a controlled substance at d/c from ED?: No Referrals: Brandon Bryant MD [Primary Care Provider] - 1-2 days Time of Disposition: 18:19 - Out of Hospital Transfer - Req. Specs Out of Hospital Transfer - Requested Specifics: Other Emergency Center
--- NOTE | 2023-11-02 17:36 | CT ---
EXAMINATION TYPE: CT brain [place] wo con DATE OF EXAM: 11/02/2023 COMPARISON: 08/24/2023 HISTORY: Fall on xarelto. CT DLP: 1209.9 mGycm, Automated exposure control for dose reduction was used. CONTRAST: Patient injected with 0 mL of Isovue 300. CT of the brain is performed utilizing 3 mm thick sections through the posterior fossa and 3 mm thick sections through the remaining calvarium. Study is performed within 24 hours of arrival to the hospital. No abnormal hyperdensity is present to suggest an acute intracranial hemorrhage. No mass lesion is evident. No acute infarcts are evident. There is some periventricular white matter hypodensity, likely on the basis of chronic white matter ischemic changes. Ventricles and sulci are prominent for the patient age. Paranasal sinuses and mastoid air cells within the [id number] are clear. IMPRESSIONS: 1. No acute intracranial process. Follow-up MRI can be performed as clinically indicated. 2. Atrophy with chronic appearing periventricular white matter ischemic type changes CT cervical spine. COMPARISON: None CT of the cervical spine is performed in the axial plane at 2 mm thick sections. Reconstructed image s in the coronal, and sagittal plane are reviewed on the computer. There is a fracture of C2. This includes the left pars intraarticularis near the facet. In the sagitt al plane posterior nondisplaced vertebral body fracture is present. An anterior vertebral body spur f racture is present. Better visualized on the sagittal plane images is a transverse C2 vertebral body fracture on the right. Report was called to the emergency room physician by Dr. Grier by telephone at the time of interpretation. Vertebral body alignment is normal. Loss of disc height is present through a cervical fusion at C5-6-7. This may be congenital. Loss of d isc height is present posteriorly to the remaining disc spaces. Vertebral body heights are preserved. No spinal canal stenosis is evident. There is right foraminal stenosis C7-T1 on the right. Right foraminal stenosis is present at C4-5. IMPRESSION: 1. Fractures of C2 including the vertebral body left pars interarticularis at the posterior endplate and anterior endplate of C2 at C2-3. Report was called to the emergency room physician at the time of interpretation.
[2023-11-02 18:34] LABS: Basophils % (A) 0 %; Eosinophils # (A) 0.2 k/uL (0-0.7); Eosinophils % (A) 3 %; HCT 39.9 % (39.0-53.0); HGB 13.1 gm/dL (13.0-17.5); Lymphocytes % (A) 13 %; MCH 32.5 pg (25.0-35.0); MCHC 32.7 g/dL (31.0-37.0); MCV 99.5 fL (80.0-100.0); Monocytes # (A) 0.5 k/uL (0-1.0); Monocytes % (A) 6 %; Neutrophils # (A) 6.2 k/uL (1.3-7.7); Neutrophils % (A) 76 %; Platelet Count 286 k/uL (150-450); RBC 4.01 m/uL (4.30-5.90); RDW 12.4 % (11.5-15.5); WBC 8.1 k/uL (3.8-10.6)
[2023-11-02 18:42] LABS: ALT 7 U/L (4-49); AST 17 U/L (17-59); African American GFR (CKD) >90 (>60 ml/min/1.73 sqM); Albumin 3.3 g/dL (3.5-5.0); Alkaline Phosphatase 125 U/L (38-126); Anion Gap 8 mmol/L; Blood Urea Nitrogen 19 mg/dL (9-20); Calcium 8.6 mg/dL (8.4-10.2); Carbon Dioxide 25 mmol/L (22-30); Chloride 105 mmol/L (98-107); Glucose 121 mg/dL (74-99); Non-African American GFR(CKD) >90 (>60 ml/min/1.73 sqM); Potassium 4.3 mmol/L (3.5-5.1); Sodium 138 mmol/L (137-145); Total Bilirubin 0.5 mg/dL (0.2-1.3); Total Protein 6.2 g/dL (6.3-8.2)
--- NOTE | 2023-11-02 18:59 | P.PN ---
Progress Note - Text Progress Note Date: 11/02/23 I was contacted regarding this patient earlier this evening. I am covering for general orthopaedic call and do not have spine privileges at this facility. I recommended contacting Dr. Avina, who is not available this weekend, or Dr. Rivera with [facility], the two spine surgeons at this facility. I had no involvement in any decision making or disposition for this patient.
[2023-11-02 19:20] LABS: INR 1.1 (<1.2); Partial Thromboplastin Time 27.7 sec (22.0-30.0); Prothrombin Time 11.7 sec (10.0-12.5)
[2023-11-02 19:58] VITALS: BP 134/67; PULSE 78
== END 2023-11-02 19:48 | disposition other institution (70) ==
LOC: EC 15:56
DX: S12.100A Unspecified displaced fracture of second cervical vertebra, initial encounter for closed fracture (principal); S01.01XA Laceration without foreign body of scalp, initial encounter; Z87.891 Personal history of nicotine dependence; Z91.013 Allergy to seafood; Z91.09 Other allergy status, other than to drugs and biological substances; Z91.041 Radiographic dye allergy status; X50.0XXA Overexertion from strenuous movement or load, initial encounter
CPT/HCPCS: 12002; 36415; 70450; 72125; 80053; 85025; 85610; 85730; 99285

== ENCOUNTER 2023-11-20 14:09 | Emergency (ER) | payer MEDICARE, BC ==
[2023-11-20 14:26] LABS: Glucose,Whole Blood 285 mg/dL (70-110)
--- NOTE | 2023-11-20 14:29 | ED ---
General Adult HPI - General Chief complaint: Altered Mental Status Stated complaint: Hypotension,AMA Time Seen by Provider: 11/20/23 14:15 Source: patient, EMS, RN notes reviewed, old records reviewed Mode of arrival: EMS Limitations: altered mental status - History of Present Illness Initial comments: This is a 73-year-old male who presents to the emergency department because he was found in the cafeteria at [facility] unresponsive again no other history at this time because patient is unable to give any history and there is no one with the patient and EMS has since left. We did not get any history of trauma. [facility] did not even send us a patient chart or list of medications - Related Data Home Medications Medication Instructions Recorded Confirmed Simvastatin [Zocor] 20 mg PO HS@209911/14/16 11/20/23 amantadine HCL [Symmetrel] 100 mg PO BID@0800,17011/14/16 11/20/23 Carbidopa-Levodopa ER 50-200Mg 1 tab PO BID@0800,209905/05/19 11/20/23 [Sinemet CR 50-200 mg] Entacapone 200 mg PO DAILY@0800 07/17/20 11/20/23 Apixaban [Eliquis] 2.5 mg PO BID@0800,17001/20/22 11/20/23 Tamsulosin [Flomax] 0.4 mg PO DAILY@0800 01/20/22 11/20/23 oxyBUTYnin chloride [Ditropan XL] 5 mg PO DAILY@0800 01/20/22 11/20/23 Pantoprazole [Protonix] 40 mg PO DAILY@0812/21/22 11/20/23 QUEtiapine FUMARATE [SEROquel] 25 mg PO BID@0800,209912/21/22 11/20/23 lisinopriL [Zestril] 5 mg PO DAILY@0800 12/21/22 11/20/23 ALPRAZolam [Xanax] 0.25 mg PO DAILY PRN 11/02/23 11/20/23 Collagenase [Santyl Ointment] 1 applic TOPICAL DAILY PRN 11/02/23 11/20/23 Glucerna Shake 237 ml PO TID@0800,1200,1700 11/02/23 11/20/23 Liquacel 30 ml PO BID@0800,1700 11/02/23 11/20/23 Magnesium Hydroxide [Milk of 7,200 mg PO Q48H PRN 11/02/23 11/20/23 Magnesia Concentrate] Na Phos,M-B/Na Phos,Di-Ba [Fleet 133 ml RECTAL DAILY PRN 11/02/23 11/20/23 Adult] bisacodyL [Dulcolax] 10 mg RECTAL DAILY PRN 11/02/23 11/20/23 Acetaminophen Tab [Tylenol Tab] 1,000 mg PO TID@0600,1400,2200 11/20/23 11/20/23 Collagenase [Santyl Ointment] 1 applic TOPICAL DAILY 11/20/23 11/20/23 Dakins (1/2 Strength) External 1 applic TOPICAL DAILY 11/20/23 11/20/23 Solution 0.25% INSULIN ASPART (NovoLOG) [NovoLOG See Protocol SQ ACHS 11/20/23 11/20/23 (formulary)] Ibuprofen [Motrin] 400 mg PO Q8H PRN 11/20/23 11/20/23 Sulfamethox-Tmp 400-80Mg [Bactrim 1 tab PO BID@0800,2100 11/20/23 11/20/23 SS 400-80 mg] rOPINIRole HCL [Requip XL] 2 mg PO TID@0600,1400,2200 11/20/23 11/20/23 Allergies Allergy/AdvReac Type Severity Reaction Status Date / Time Iodine and Iodide Containing Allergy Rash/Hives Verified 11/20/23 15:10 Produc shellfish derived Allergy Rash/Hives Verified 11/20/23 15:10 paper tape AdvReac Skin Uncoded 11/20/23 15:10 peeled off. Review of Systems ROS Statement: Those systems with pertinent positive or pertinent negative responses have been documented in the HPI. ROS Other: All systems not noted in ROS Statement are negative. Past Medical History Past Medical History: Cancer, Diabetes Mellitus, Deep Vein Thrombosis (DVT), Eye Disorder, Hyperlipidemia, Hypertension, Memory Impairment, Neurologic Disorder, Osteoarthritis (OA) Additional Past Medical History / Comment(s): Parkinsons. Hx kidney stones, prostate, colon and skin cancer. History of Any Multi-Drug Resistant Organisms: None Reported Past Surgical History: Back Surgery, Bowel Resection, Prostate Surgery Additional Past Surgical History / Comment(s): Left cataract surgery, bowel surgery for colon cancer, skin cancer removed. Past Anesthesia/Blood Transfusion Reactions: No Reported Reaction Past Psychological History: No Psychological Hx Reported Smoking Status: Former smoker Past Alcohol Use History: Rare Past Drug Use History: None Reported - Past Family History Mother History Unknown: Yes (Mother with colon cancer, hypertension, father with pros izquierdo cancer, skin cancer, brother with prostate cancer, sister is with dementia, daughter with hypertension, son with diabetes) Family Medical History: Cancer Additional Family Medical History / Comment(s): Colon Father Family Medical History: Cancer Additional Family Medical History / Comment(s): Prostate General Exam - General Exam Comments Initial Comments: GENERAL: Patient is well-developed and well-nourished. Patient is nontoxic and well- hydrated and is in no acute distress. Patient is just staring straight ahead and blinking his eyes but not responding and not following commands except for squeezing my hand ENT: Neck is soft and supple. No significant lymphadenopathy is noted. Oropharynx is clear. Moist mucous membranes. Neck has full range of motion without eliciting any pain. EYES: The sclera were anicteric and conjunctiva were pink and moist. Extraocular movements were intact and pupils were equal round and reactive to light. Eyelids were unremarkable. PULMONARY: Unlabored respirations. Good breath sounds bilaterally. No audible rales rhonchi or wheezing was noted. CARDIOVASCULAR: There is a regular rate and rhythm without any murmurs gallops or rubs. ABDOMEN: Soft and nontender with normal bowel sounds. SKIN: Skin is clear with no lesions or rashes and otherwise unremarkable. NEUROLOGIC: Patient is awake and alert he follows no other commands he does squeeze my hands when I ask him to. MUSCULOSKELETAL: Normal extremities with adequate strength and full range of motion. No lower extremity swelling or edema. No calf tenderness. LYMPHATICS: No significant lymphadenopathy is noted PSYCHIATRIC: Unable to assess at this time Limitations: altered mental status Course Vital Signs 11/20/23 11/20/23 11/20/23 14:15 14:32 14:35 Temperature 96.6 F L 99.3 F Pulse Rate 64 Respiratory 18 20 Rate Blood Pressure 100/53 O2 Sat by Pulse 98 Oximetry 11/20/23 11/20/23 11/20/23 15:23 16:19 16:33 Temperature Pulse Rate 64 62 Respiratory 18 20 Rate Blood Pressure 96/46 95/52 123/59 O2 Sat by Pulse 99 99 Oximetry 11/20/23 18:41 Temperature Pulse Rate 80 Respiratory 18 Rate Blood Pressure 101/54 O2 Sat by Pulse 98 Oximetry Medical Decision Making - Medical Decision Making EKG is interpreted by myself. EKG shows a sinus rhythm at 64 bpm ND interval is 165 QRS is 84 QT interval 396 QTc is 406. Patient's EKG shows no ST segment ovation or depression. Was pt. sent in by a medical professional or institution (, PA, MANAGER TRANSITION, urgent care, hospital, or assisted...) When possible be specific @ -Patient was sent in from the assisted. Did you speak to anyone other than the patient for history (EMS, parent, family, police, friend...)? What history was obtained from this source @ -I spoke with family once they arrived patient was at his baseline at this t dayna. Patient had no complaints Did you review nursing and triage notes (agree or disagree)? Why? @ -I reviewed and agree with nursing and triage notes Were old charts reviewed (outside hosp., previous admission, EMS record, old EKG, old radiological studies, urgent care reports/EKG's, assisted records)? Report findings @ -I reviewed prior labs with today's labs and saw no significant differences Differential Diagnosis (chest pain, altered mental status, abdominal pain women, abdominal pain men, vaginal bleeding, weakness, fever, dyspnea, syncope, headache, dizziness, GI bleed, back pain, seizure, CVA, palpatations, mental health, musculoskeletal)? @ -Differential Altered Mental Status: Hypoglycemia, DKA, hypercapnia, ETOH, overdose, CO poisoning, trauma, myxedema coma, HTN encephalopathy, infection, encephalitis, psychosis, intercranial hemorrhage, hepatic encephalopathy, meningitis, CVA, this is not meant to be an all-inclusive list EKG interpreted by me (3pts min.). @ -As above X-rays interpreted by me (1pt min.). @ -Chest x-ray shows no acute abnormality CT interpreted by me (1pt min.). @ -CT of the brain shows no acute O'Felicita U/S interpreted by me (1pt. min.). @ -None done What testing was considered but not performed or refused? (CT, X-rays, U/S, labs)? Why? @ -None What meds were considered but not given or refused? Why? @ -None Did you discuss the management of the patient with other professionals (professionals i.e. , PA, MANAGER TRANSITION, lab, RT, psych nurse, social media content manager, instrumentation and controls designer, teacher, optics technical officer, case resource manager)? Give summary @ -I spoke with Dr. Bryant and he agreed the patient could be discharged back to the facility where they will observe the patient for any more episodes of unresponsiveness Was smoking cessation discussed for >3mins.? @ -No Was critical care preformed (if so, how long)? @ -No Were there social determinants of health that impacted care today? How? (Homelessness, low income, unemployed, alcoholism, drug addiction, transportation, low edu. Level, literacy, decrease access to med. care, [facility], rehab)? @ -No Was there de-escalation of care discussed even if they declined (Discuss DNR or withdrawal of care, Hospice)? DNR status @ -No What co-morbidities impacted this encounter? (DM, HTN, Smoking, COPD, CAD, Cancer, CVA, ARF, Chemo, Hep., AIDS, mental health diagnosis, sleep apnea, morbid obesity)? @ -None Was patient admitted / discharged? Hospital course, mention meds given and route, prescriptions, significant lab abnormalities, going to OR and other pertinent info. @ -Patient shortly became responsive once family came around lab work was done was within normal range CT of the brain was within normal range. Chest x-ray showed no acute abnormality Undiagnosed new problem with uncertain prognosis? @ -No Drug Therapy requiring intensive monitoring for toxicity (Heparin, Nitro, Insulin, Cardizem)? @ -No Were any procedures done? @ -No Diagnosis/symptom? @ -Unresponsive at Acute, or Chronic, or Acute on Chronic? @ -Acute Uncomplicated (without systemic symptoms) or Complicated (systemic symptoms)? @ -Complicated Side effects of treatment? @ -No Exacerbation, Progression, or Severe Exacerbation? @ -No Poses a threat to life or bodily function? How? (Chest pain, [place], [place], pneumonia, PE, COPD, DKA, ARF, appy, cholecystitis, CVA, Diverticulitis, Homicidal, Suicidal, threat to staff... and all critical care pts) @ -No - Lab Data Result diagrams: 11/20/23 14:19 11/20/23 14:19 Lab Results 11/20/23 11/20/23 11/20/23 Range/Units 14:19 14:19 14:19 WBC 8.4 (3.8-10.6) k/uL RBC 3.65 L (4.30-5.90) m/uL Hgb 11.5 L (13.0-17.5) gm/dL Hct 35.6 L (39.0-53.0) % MCV 97.5 (80.0-100.0) fL MCH 31.4 (25.0-35.0) pg MCHC 32.2 (31.0-37.0) g/dL RDW 12.3 (11.5-15.5) % Plt Count 205 (150-450) k/uL MPV 9.0 Neutrophils % 82 % Lymphocytes % 5 % Monocytes % 11 % Eosinophils % 0 % Basophils % 0 % Neutrophils # 6.9 (1.3-7.7) k/uL Lymphocytes # 0.4 L (1.0-4.8) k/uL Monocytes # 0.9 (0-1.0) k/uL Eosinophils # 0.0 (0-0.7) k/uL Basophils # 0.0 (0-0.2) k/uL PT 13.1 H (10.0-12.5) sec INR 1.2 H (<1.2) APTT 28.9 (22.0-30.0) sec Sodium 133 L (137-145) mmol/L Potassium 5.0 (3.5-5.1) mmol/L Chloride 105 (98-107) mmol/L Carbon Dioxide 23 (22-30) mmol/L Anion Gap 5 mmol/L BUN 29 H (9-20) mg/dL Creatinine 1.15 (0.66-1.25) mg/dL Est GFR (CKD-EPI)AfAm 72 (>60 ml/min/1.73 sqM) Est GFR (CKD-EPI)NonAf 62 (>60 ml/min/1.73 sqM) Glucose 241 H (74-99) mg/dL POC Glucose (mg/dL) (70-110) mg/dL POC Glu Skating [employer] ID Calcium 8.0 L (8.4-10.2) mg/dL Total Bilirubin 0.7 (0.2-1.3) mg/dL AST 20 (17-59) U/L ALT 9 (4-49) U/L Alkaline Phosphatase 87 (38-126) U/L Troponin I (0.000-0.034) ng/mL Total Protein 6.1 L (6.3-8.2) g/dL Albumin 2.6 L (3.5-5.0) g/dL 11/20/23 11/20/23 Range/Units 14:19 14:24 WBC (3.8-10.6) k/uL RBC (4.30-5.90) m/uL Hgb (13.0-17.5) gm/dL Hct (39.0-53.0) % MCV (80.0-100.0) fL MCH (25.0-35.0) pg MCHC (31.0-37.0) g/dL RDW (11.5-15.5) % Plt Count (150-450) k/uL MPV Neutrophils % % Lymphocytes % % Monocytes % % Eosinophils % % Basophils % % Neutrophils # (1.3-7.7) k/uL Lymphocytes # (1.0-4.8) k/uL Monocytes # (0-1.0) k/uL Eosinophils # (0-0.7) k/uL Basophils # (0-0.2) k/uL PT (10.0-12.5) sec INR (<1.2) APTT (22.0-30.0) sec Sodium (137-145) mmol/L Potassium (3.5-5.1) mmol/L Chloride (98-107) mmol/L Carbon Dioxide (22-30) mmol/L Anion Gap mmol/L BUN (9-20) mg/dL Creatinine (0.66-1.25) mg/dL Est GFR (CKD-EPI)AfAm (>60 ml/min/1.73 sqM) Est GFR (CKD-EPI)NonAf (>60 ml/min/1.73 sqM) Glucose (74-99) mg/dL POC Glucose (mg/dL) 285 H (70-110) mg/dL POC Glu [employer] ID Jose Alberto, Wanda Calcium (8.4-10.2) mg/dL Total Bilirubin (0.2-1.3) mg/dL AST (17-59) U/L ALT (4-49) U/L Alkaline Phosphatase (38-126) U/L Troponin I <0.012 (0.000-0.034) ng/mL Total Protein (6.3-8.2) g/dL Albumin (3.5-5.0) g/dL Disposition Clinical Impression: Unresponsive episode Disposition: HOME SELF-CARE Condition: Good Is patient prescribed a controlled substance at d/c from ED?: No Referrals: Brandon Bryant MD [Primary Care Provider] - 1-2 days Time of Disposition: 18:59
[2023-11-20] MEDS: NALOXONE 0.4 MG/ML 1 ML VIAL IVP STA (14:32)
[2023-11-20] MEDS: SODIUM CHLORIDE 0.9% 1,000 ML IV ONE (14:32)
[2023-11-20 15:18] LABS: Basophils % (A) 0 %; Eosinophils % (A) 0 %; HCT 35.6 % (39.0-53.0); HGB 11.5 gm/dL (13.0-17.5); Lymphocytes # (A) 0.4 k/uL (1.0-4.8); Lymphocytes % (A) 5 %; MCH 31.4 pg (25.0-35.0); MCHC 32.2 g/dL (31.0-37.0); MCV 97.5 fL (80.0-100.0); Monocytes # (A) 0.9 k/uL (0-1.0); Monocytes % (A) 11 %; Neutrophils # (A) 6.9 k/uL (1.3-7.7); Neutrophils % (A) 82 %; Platelet Count 205 k/uL (150-450); RBC 3.65 m/uL (4.30-5.90); RDW 12.3 % (11.5-15.5); WBC 8.4 k/uL (3.8-10.6)
[2023-11-20 15:19] LABS: INR 1.2 (<1.2); Partial Thromboplastin Time 28.9 sec (22.0-30.0); Prothrombin Time 13.1 sec (10.0-12.5)
[2023-11-20 15:21] LABS: ALT 9 U/L (4-49); African American GFR (CKD) 72 (>60 ml/min/1.73 sqM); Anion Gap 5 mmol/L; Blood Urea Nitrogen 29 mg/dL (9-20); Carbon Dioxide 23 mmol/L (22-30); Chloride 105 mmol/L (98-107); Glucose 241 mg/dL (74-99); Non-African American GFR(CKD) 62 (>60 ml/min/1.73 sqM); Sodium 133 mmol/L (137-145); Total Bilirubin 0.7 mg/dL (0.2-1.3)
[2023-11-20 15:23] VITALS: TEMP 99.3
[2023-11-20 15:34] LABS: AST 20 U/L (17-59); Alkaline Phosphatase 87 U/L (38-126)
[2023-11-20 15:35] LABS: Albumin 2.6 g/dL (3.5-5.0); Total Protein 6.1 g/dL (6.3-8.2)
--- NOTE | 2023-11-20 15:52 | XR ---
EXAMINATION TYPE: XR chest 2V DATE OF EXAM: 11/20/2023 COMPARISON: 06/15/2023 INDICATION: Altered mental status TECHNIQUE: Frontal and lateral views of the chest are obtained. FINDINGS: The heart size is normal. The pulmonary vasculature is normal. The lungs are clear. IMPRESSION: 1. No acute pulmonary process.
--- NOTE | 2023-11-20 16:22 | CT ---
EXAMINATION TYPE: CT brain wo con CT DLP: 1184.4 mGycm, Automated exposure control for dose reduction was used. DATE OF EXAM: 11/20/2023 3:47 PM COMPARISON: None.. CLINICAL INDICATION:Male, 73 years old with history of Altered mental status, AMS, pt was unresponsiv e for a bit, hypotensive. TECHNIQUE: Brain: Axial CT images of the brain were obtained with coronal and sagittal reformats created and rev iewed. Contrast used: None. Oral contrast used: None. FINDINGS: Extra-axial spaces: No abnormal extra-axial fluid collections. Basilar cisterns are patent. Ventricular system: Ventricles appear dilated in proportion to the degree of cerebral atrophy. Cerebral parenchyma: No increased attenuation to suggest acute intraparenchymal hemorrhage. The gra y-white matter interface appears maintained. Moderate generalized brain atrophy. Scattered hypoatte nuating areas are seen within the cerebral white matter, nonspecific but most often seen with chronic microvascular ischemic changes; moderate in degree. Cerebellum: No acute abnormality. Mass effect: No evidence of mass effect or midline shift. Intracranial vasculature: Atherosclerotic calcifications of the larger arteries near the skull base. Soft tissues: No significant abnormality seen. There appear to be dermal calcifications across the fo rehead. Visualized orbits: Orbital contents appear grossly intact. Radiodensities along the globes likely s equela of previous ophthalmologic surgery. Calvarium/osseous structures: No evidence of calvarial fracture. Paranasal sinuses and mastoid air cells: Clear. MRI is more sensitive for detecting acute processes such as infarct, and may be considered if clinica lly warranted. IMPRESSION: 1. No acute intracranial CT abnormality. 2. Atrophy and chronic microvascular ischemic changes.
[2023-11-20 19:25] VITALS: RESP 18
[2023-11-20 20:10] VITALS: BP 113/59; PULSE 82
== END 2023-11-20 20:10 | disposition home or self-care (01) ==
LOC: EC 14:09
DX: R46.4 Slowness and poor responsiveness (principal); Z91.041 Radiographic dye allergy status; Z91.013 Allergy to seafood; Z91.09 Other allergy status, other than to drugs and biological substances; Z87.891 Personal history of nicotine dependence
CPT/HCPCS: 99285; 96374; 96361; 36415; 93005; 80053; 84484; 85025; 85610; 85730; 71046; 70450; J2310

== ENCOUNTER → 2024-02-20 | Outpatient (CLI) | payer MEDICARE, BC | LOC: LABPRL 05:29 | PROVIDERS: ATTEND Internal Medicine Geriatric Medicine | CPT/HCPCS: 85652 ==